=== PATIENT | female | born 1945 | race Caucasian/White ===

== ENCOUNTER 2019-06-30 09:57 | Outpatient (CLI) | payer MEDICARE, OTHER, SELFPAY | END 2019-06-30 09:58 | disposition home or self-care (01) | LOC: RT 09:58 | PROVIDERS: Family Provider Internal Medicine; PCP Internal Medicine; Visit Provider Internal Medicine | DX: F17.218 Nicotine dependence, cigarettes, with other nicotine-induced disorders (principal) | CPT/HCPCS: 94010 ==

== ENCOUNTER 2019-07-08 14:59 | Emergency (ER) | payer MEDICARE, OTHER, SELFPAY ==
[2019-07-08 15:07] VITALS: BP 187/86; PULSE 82; RESP 20; TEMP 36.6; O2SAT 98; BMI 27.3
--- NOTE | 2019-07-08 15:20 | ED_ITS ---
Entered by Diann Tadeo, acting as scribe for Le Haddad MD, [facility] Jul 08, 2019 14:59 HPI - General Adult General: Chief complaint: General Medical Stated complaint: not feeling right Time Seen by Provider: 07/08/19 15:15 Source: patient, family and RN notes reviewed Mode of arrival: ambulatory Limitations: no limitations History of Present Illness: HPI narrative: 73 yo female presents to ED with complaints of not feeling well since last night. She said she was talking with sister on phone and the sister said it was like the patient wasn't thinking straight. The sister said the patient was hearing someone in her kitchen last night but patient lives alone. The sister said it sounded like the patient is talking with her mouth clinched shut. The sister states the patient had something like this happen before and her blood sugar was high. The patient fell yesterday, saying she got tangled up in her recliner. The patient has not ran a fever but she said she is chilled all time. She said she has been vomiting once a week for over a month. She is currently being treated for a rash. The patient's last bowel movement was this morning. She said 4 of her toes on her R foot are numb. MD complaint: Confusion Onset (ago): day(s) (1) Location: head Radiation: non-radiation Severity: mild Exacerbating factors: none Associated symptoms: Reports chest pain, confusion, fevers/chills and malaise; Deny dyspnea, nausea, rash, palpitations or vomiting Treatments prior to arrival: none Review of Systems General: Reports: 10 or more systems reviewed and unremarkable except in HPI and below Const: Reports: malaise Eyes: Reports: blind spots; Denies: change in vision or blurry vision ENMT: Denies: throat pain, enlarged tonsils, painful swallowing, hoarseness, mouth pain or swelling of lips/tongue Card: Reports: chest pain; Denies: palpitations, irregular heart rhythm, edema or swelling of feet/ankles Resp: Denies: shortness of breath, productive cough or non-productive cough GI: Denies: abdominal pain, nausea or vomiting : Denies: flank pain, difficulty urinating, painful urination, urinary frequency, urinary urgency or urinary hesitancy Musc: Denies: neck pain, back pain or extremity swelling Skin/Breast: Denies: rash, itching or redness Neuro: Reports: confusion Endo: Denies: excessive urination, excessive thirst or tired all the time PFSH ED PFSH: Family History (Updated 05/31/19 @ 15:47 by Ariana Byrne RN) Mother CAD (coronary artery disease) Father Diabetes Other Cancer Social History (Updated 05/31/19 @ 15:48 by Ariana Byrne RN) Smoking and tobacco status: current every day smoker Alcohol intake: unknown Current gender identity: Female Physical Exam Const: COMMON NORMALS: no apparent distress, average body habitus, oriented x3, no limitations, healthy appearing, alert and well nourished HENMT: COMMON NORMALS: normocephalic, head/scalp atraumatic and moist oral mucous membranes HEAD & SCALP: normocephalic and atraumatic Eye: COMMON NORMALS: PERRL, EOMs intact bilaterally, conjunctivae normal and no scleral icterus CONJUNCTIVA: Yes conjunctivae normal PUPIL: Yes PERRL Neck/C-Spine: COMMON NORMALS: full ROM, supple, no meningeal signs, no JVD and no carotid bruits Chest: COMMONS NORMALS: inspection of chest normal and palpation of chest normal Resp: COMMON NORMALS: normal respiratory effort, no retractions, no use of accessory muscles, clear to auscultation bilaterally and percussion normal AUSCULTATION: clear to auscultation bilaterally PERCUSSION: percussion normal Cardio: COMMON NORMALS: no JVD, regular rate, regular rhythm, S1 normal heart sound, S2 normal heart sound, no gallops, no clicks, no murmurs, no rub and peripheral pulses 2+ throughout RATE: regular rate RHYTHM: regular rhythm HEART SOUNDS: S1 normal and S2 normal PERIPHERAL PULSES: pulses 2+ throughout GI: COMMON NORMALS: normal to inspection, nondistended, normoactive bowel sounds, soft to palpation, non-tender, no hepatosplenomegaly, no masses and no bruits PALPATION: Yes soft and Yes no hepatosplenomegaly : COMMON NORMALS: Yes no CVA tenderness BLADDER/KIDNEY EXAM: Yes no CVA tenderness Back/Pelvis: COMMON NORMALS: no CVA tenderness Extremity: COMMON NORMALS: normal to inspection, full ROM, normal capillary refill, no calf tenderness and no pedal edema Neuro: COMMON NORMALS: oriented x3 SENSORIUM/ORIENTATION: Yes alert MENINGEAL SIGNS: Yes no meningeal signs Skin: COMMON NORMALS: no rashes or lesions noted, no wounds, skin turgor normal, no jaundice, no petechiae and no mottling GENERAL SKIN EXAM: no rashes or lesions noted and turgor normal Course Reevaluation(s): Reevaluation #1: Discussed her lab and imaging findings with her. Symptoms consistent with a urinary tract infection. We will give her a dose of IV Rocephin which is currently infusing and will discharge her home on oral antibiotics. The patient voiced understanding and she is in agreement with the plan Time: 18:21 Vital Signs: Vital signs: Vital Signs Temperature 98 F 07/08/19 15:07 Pulse Rate 82 07/08/19 15:07 Respiratory Rate 20 H 07/08/19 15:07 Blood Pressure 187/86 07/08/19 15:07 Pulse Oximetry 98 07/08/19 15:07 MDM - General Adult MDM Narrative: Medical decision making narrative: Patient who presented to the emergency department with multiple vague symptoms. Her sister states that the patient was hallucinating, patient also has several complaints. Evaluation is consistent with a UTI. Head CT negative chest x-ray negative, white cell count normal. She is given a dose of Rocephin here in the emergency department and discharged home on oral Augmentin. Lab Data: Labs: Lab Results 07/08/19 07/08/19 07/08/19 Range/Units 15:20 15:56 15:56 WBC 8.1 (4.0-10.0) 10^3/ uL RBC 4.51 (4.1-5.3) 10^6/u L Hgb 10.5 L (11.5-15.3) g/dL Hct 36.6 L (37.0-47.0) % MCV 81.2 (81-99) fL MCH 23.3 L (28.0-34.0) pg MCHC 28.7 L (30.0-36.0) g/dL RDW 17.8 H (12.1-15.1) % Plt Count 287 (130-400) 10^3/c mm MPV 10.7 H (7.4-10.4) fL Neut % (Auto) 75.1 % Lymph % (Auto) 11.5 % Real % (Auto) 11.5 % Eos % (Auto) 1.0 % Baso % (Auto) 0.4 % Neut # (Auto) 6.1 (1.8-7.7) 10^3/u L Lymph # (Auto) 0.9 (0.8-4.8) 10^3/u L Real # (Auto) 0.9 (0.2-0.9) 10^3/u L Eos # (Auto) 0.1 (0.0-0.8) 10^3/u L Baso # (Auto) 0.0 (0.0-0.1) 10^3/u L Nucleated RBC % (a uto) 0.4 % Nucleated RBCs # 0.0 /100WBC Sodium 139 (136-145) mmol/L Potassium 4.1 (3.5-5.1) mmol/L Chloride 101 (98-107) mmol/L Carbon Dioxide 24 (22-29) mmol/L Anion Gap 18.1 (5-19) BUN 32 H (8-23) mg/dL Creatinine 1.6 H (0.5-0.9) mg/dL Glucose 231 H (65-115) mg/dL Calcium 9.5 (8.5-10.5) mg/dL Magnesium 1.8 (1.7-2.3) mg/dL Total Bilirubin 0.9 (0.15-1.2) mg/dL AST 41 H (0-32) U/L ALT 42 H (0-33) U/L Alkaline Phosphata se 330 H (35-105) IU/L NT-Pro-B Natriuret Pep 6759 H (0-125) pg/mL Total Protein 6.7 (6.6-8.7) g/dL Albumin 3.2 L (3.5-5.2) g/dL Globulin 3.5 (1.3-4.6) g/dL TSH 1.94 (0.27-4.20) uIU/ mL Urine Color Yellow (Yellow) Urine Appearance Cloudy (CLEAR) Urine pH 5 (5-7) Ur Specific Gravit y 1.020 (1.005-1.030) Urine Protein 3+ H (Negative) Urine Glucose (UA) Norm (Normal) Urine Ketones Negative (Negative) Urine Occult Blood Neg (Negative) Urine Nitrate Positive H (Negative) Urine Bilirubin Neg (NEGATIVE) Urine Urobilinogen Norm (Negative) mg/dL Ur Leukocyte Lori ase Negative (Negative) Urine RBC 5-10 H (0-2) /hpf Urine WBC 55-80 H (0-5) /hpf Ur Squamous Epith Cells 15-25 H (0-5) Urine Bacteria 4+ H (NONE) Salicylates < 0.3 L (3-10) mg/dL Acetaminophen < 5.0 L (10-30) ug/mL Ethyl Alcohol < 10 (0-10) mg/dL Imaging Data^: CT Head: Radiologist's impression: [place] [address] CT Scan Report Signed Patient: Shira Serrato #: [id number] : 6Acct#:[id number] Age/Sex: 73 / FADM Date: 07/08/19 Loc: ERRoom/Bed: Attending Dr: Ordering Provider/Ordering MD: Le Haddad MD, [facility] Date of Service: 07/08/19 Procedure(s): CT head wo con* [id number] Accession Number(s): [id number] Report Number: [id number] PROCEDURE INFORMATION: Exam: CT Head Without Contrast Exam date and time: 07/08/2019 3:51 PM Age: 73 years old Clinical indication: Altered mental status/memory loss; Confusion or disorientation TECHNIQUE: Imaging protocol: Computed tomography of the head without contrast. Total DLP: 727.34 mGy-cm Radiation optimization: All CT scans at this facility use at least one of these dose optimization techniques: automated exposure control; mA and/or kV adjustment per patient size (includes targeted exams where dose is matched to clinical indication); or iterative reconstruction. COMPARISON: No relevant prior studies available. 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 Ventricles: Normal. No ventriculomegaly. Bones/joints: Unremarkable. No acute fracture. Sinuses: Visualized sinuses are unremarkable. No fluid levels. Mastoid air cells: Visualized mastoid air cells are well aerated. Soft tissues: Unremarkable. Vasculature: Severe calcified intracranial atherosclerotic vessel disease. CT/CT head wo con* [id number] IMPRESSION: No acute intracranial findings. Radiation Dose CTDIVOL = (mGy): DLP = 727.34 (mGy-cm) Dictated By:Kb Byrd MD Signed By:Kb Byrd MDSigned Date/Time:07/08/197 DD/ EKG Data^: EKG 1: Attestation: I personally reviewed and interpreted this EKG as follows: EKG interpretation date: 07/08/19 EKG interpretation time: 16:08 Prior EKG tracings: not available for review Interpretation: Normal sinus rhythm with sinus arrhythmia. T wave inversions in V4 to V6. Normal axis. Heart rate 78. Computer generated interpretation: Head CT 07/08/19 15:40 IMPRESSION: No acute intracranial findings. Radiation Dose CTDIVOL = (mGy): DLP = 727.34 (mGy-cm) Discharge Plan Discharge Patient Disposition: Home, Self-Care Clinical Impression: Acute UTI Condition: Stable Prescriptions: New amoxicillin-pot clavulanate [Augmentin] 875-125 mg tablet 1 tab PO BID Qty: 14 RF: 0 Continued bumetanide 2 mg tablet 2 mg PO DAILY RF: 0 Lantus U-100 Insulin 100 unit/mL solution 40 unit SUBCUT BID RF: 0 atorvastatin 40 mg tablet 40 mg PO BEDTIME RF: 0 omeprazole 40 mg capsule,delayed release(DR/EC) 40 mg PO DAILY RF: 0 glipizide 5 mg tablet 5 mg PO BID RF: 0 citalopram 20 mg tablet 20 mg PO DAILY RF: 0 allopurinol 300 mg tablet 300 mg PO DAILY RF: 0 lisinopril 40 mg tablet 40 mg PO DAILY RF: 0 metoprolol tartrate 50 mg tablet 50 mg PO DAILY RF: 0 aspirin [Adult Low Dose Aspirin] 81 mg tablet,delayed release (DR/EC) 81 mg PO DAILY RF: 0 ProAir HFA 2 puff PO PRN RF: 0 permethrin 5 % Cream 1 applic TOPICAL DIRECTED RF: 0 Discharge Orders: Discharge Order (Routine); Ordered 07/08/19 Ordered By: Le Haddad Referrals: Amber Esquivel MD [Primary Care Provider] - 1-3 days Patient Instructions: Urinary Tract Infection in Women (ED) Activity Restrictions/Additional Instructions: Return for any new or worsening symptoms. Drink plenty of fluids to keep well-hydrated. Take the antibiotic as prescribed. Follow-up with your primary care provider within 3 days Coding Level of Care Code ED Icu Tech for Chg Fwd Exam Comprehensive The documentation recorded by the Shwetha valdez Valerie R, accurately reflects the service I personally performed and the decisions made by , Le Haddad MD, [facility] Jul 08, 2019 14:59
--- NOTE | 2019-07-08 15:40 | CTR_ITS ---
PROCEDURE INFORMATION: Exam: CT Head Without Contrast Exam date and time: 07/08/2019 3:51 PM Age: 73 years old Clinical indication: Altered mental status/memory loss; Confusion or disorientation TECHNIQUE: Imaging protocol: Computed tomography of the head without contrast. Total DLP: 727.34 mGy-cm Radiation optimization: All CT scans at this facility use at least one of these dose optimization techniques: automated exposure control; mA and/or kV adjustment per patient size (includes targeted exams where dose is matched to clinical indication); or iterative reconstruction. COMPARISON: No relevant prior studies available. 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 Ventricles: Normal. No ventriculomegaly. Bones/joints: Unremarkable. No acute fracture. Sinuses: Visualized sinuses are unremarkable. No fluid levels. Mastoid air cells: Visualized mastoid air cells are well aerated. Soft tissues: Unremarkable. Vasculature: Severe calcified intracranial atherosclerotic vessel disease. CT/CT head wo con* [id number] IMPRESSION: No acute intracranial findings. Radiation Dose CTDIVOL = (mGy): DLP = 727.34 (mGy-cm)
--- NOTE | 2019-07-08 15:40 | ECG_ITS ---
Measurements Intervals [place] Rate: 78 P: 15 IL: 186 QRS: 15 QRSD: 81 T: 156 QT: 445 QTc: 510 SINUS RHYTHM WITH SINUS ARRHYTHMIA ST DEVIATION AND MODERATE T-WAVE ABNORMALITY, CONSIDER LATERAL ISCHEMIA [-0.1+ mV T WAVE IN I/aVL/V5/V6] Left ventricular hypertrophy Compared to ECG 11/20/2016 18:32:17 T-wave abnormality now present Possible ischemia now present Electronically Signed On 07-09-2019 9:12:19 NEW [employer]ING SERVICES CLERK by Glynn Ellis M.D. [email or web address]
--- NOTE | 2019-07-08 15:41 | XR_ITS ---
WS: [id number] XR chest 2V* [id number] REASON FOR EXAM: confusion FINDINGS: Since previous exam, August 04 sternotomy changes are seen with mitral valve re placement. The peripheral lung show chronic changes including granulomas no pulmonary edema. No pneumonia. XR/XR chest 2V* [id number] IMPRESSION: Mitral valve replacement since previous exam Chronic changes both lung saldivar.
[2019-07-08 16:14] LABS: Blood Urine Neg (Negative); Glucose Urine UA Norm (Normal); Ketones Urine Negative (Negative); Nitrate Urine Positive (Negative); Urine Appearance Cloudy (CLEAR); Urine Color Yellow (Yellow); pH Urine 5 (5-7)
[2019-07-08 16:15] LABS: Basophils % 0.4 %; Eosinophils # 0.1 10^3/uL (0.0-0.8); Hematocrit 36.6 % (37.0-47.0); Hemoglobin 10.5 g/dL (11.5-15.3); Lymphocytes # 0.9 10^3/uL (0.8-4.8); Lymphocytes % 11.5 %; Mean Corpuscular HGB Conc 28.7 g/dL (30.0-36.0); Mean Corpuscular Hemoglobin 23.3 pg (28.0-34.0); Mean Corpuscular Volume 81.2 fL (81-99); Mean Platelet Volume 10.7 fL (7.4-10.4); Monocytes # 0.9 10^3/uL (0.2-0.9); Monocytes % 11.5 %; Neutrophils # 6.1 10^3/uL (1.8-7.7); Neutrophils % 75.1 %; Nucleated Red Blood Cells % 0.4 %; Platelet Count 287 10^3/cmm (130-400); Red Blood Count 4.51 10^6/uL (4.1-5.3); Red Cell Distribution Width 17.8 % (12.1-15.1); White Blood Count 8.1 10^3/uL (4.0-10.0)
[2019-07-08 16:15] LABS: Add Urine Microscopic? YES; Bilirubin Urine Neg (NEGATIVE); Leukocyte Esterase Urine Negative (Negative); Protein Urine 3+ (Negative); Urobilinogen Urine Norm (Negative)
[2019-07-08 16:22] LABS: Add Urine Culture? No; Bacteria Urine 4+; Squamous Epithelial Cell Urine 15-25 (0-5); WBC Urine 55-80 /hpf (0-5)
[2019-07-08 16:41] LABS: Alanine Aminotransferase 42 U/L (0-33); Albumin Level 3.2 g/dL (3.5-5.2); Alkaline Phosphatase 330 IU/L (35-105); Anion Gap 18.1 (5-19); Aspartate Amino Transferase 41 U/L (0-32); Blood Urea Nitrogen 32 mg/dL (8-23); Calcium 9.5 mg/dL (8.5-10.5); Carbon Dioxide 24 mmol/L (22-29); Chloride 101 mmol/L (98-107); Globulin 3.5 g/dL (1.3-4.6); Glucose 231 mg/dL (65-115); Magnesium 1.8 mg/dL (1.7-2.3); NT Pro B Type Natriuretic Pept 6759 pg/mL (0-125); Potassium 4.1 mmol/L (3.5-5.1); Sodium 139 mmol/L (136-145); Thyroid Stimulating Hormone 1.94 uIU/mL (0.27-4.20); Total Bilirubin 0.9 mg/dL (0.15-1.2); Total Protein 6.7 g/dL (6.6-8.7)
[2019-07-08 17:05] LABS: Acetaminophen < 5.0 ug/mL (10-30); Alcohol Level < 10 mg/dL (0-10); Salicylate < 0.3 mg/dL (3-10)
--- NOTE | 2019-07-08 18:04 | PC.NURSE ---
PATIENT RESTING QUIETLY, NO NEEDS VOICED
[2019-07-08] MEDS: cefTRIAXone 1,000 MG in sodium chloride 0.9% (plus) 50 ML 100 MG IV (18:14)
--- NOTE | 2019-07-08 18:39 | PC.NURSE ---
FOOD AND DRINK GIVEN
[2019-07-08 18:51] VITALS: BP 181/71; PULSE 93; RESP 16; O2SAT 88
== END 2019-07-08 19:44 | disposition home or self-care (01) ==
PROVIDERS: Emergency Provider Family Medicine; Family Provider Internal Medicine; PCP Internal Medicine
DX: N39.0 Urinary tract infection, site not specified (principal); F17.200 Nicotine dependence, unspecified, uncomplicated
CPT/HCPCS: 70450; 71046; 80053; 80307; 81001; 83735; 83880; 84443; 85025; 93005; 96365; 99283; 99284; A9270; J0696

== ENCOUNTER 2019-11-08 07:09 | Inpatient (IN) | payer MEDICARE, OTHER, SELFPAY ==
[2019-11-07 10:02] VITALS: BMI 28.1
[2019-11-08] VITALS (49 sets, daily range): BP systolic 101–195; BP diastolic 39–111; PULSE 68–116; RESP 13–30; TEMP 36.4–37.6; O2SAT 86–100
--- NOTE | 2019-11-08 06:00 | XACV_ITS ---
Ht: 152 cm Wt: 65 kg BSA: 1.68 m2 Any Known Allergies: Latex Gender: Female : 1945 Exam Type: Invasive Peripheral Vascular Procedure(s): Procedure Description: Peripheral Cath Diagnostic Procedure Procedure Description: Lower extremities' angiography Exam Priority: Routine Lower Extremity Diagnostic Findings Patient has previous endarterectomy and intervention to the right common femoral artery as well as the right external iliac artery for claudication. She now complains of right leg claudication. She declined noninvasive studies. She was recommended for angiography. She is Jason grade I, category 3; Amelia stage II. On the right the common iliac is patent with mild to moderate calcification. The internal iliac is patent. The external iliac is mildly diffusely diseased as is the common femoral artery. The profunda femoris is patent and provides collateral flow distally. The superficial femoral artery is occluded at its origin. The vessel reconstitutes via collaterals from the profunda femoris in the mid superficial femoral artery region. The popliteal artery is patent. There is mild to moderate diffuse disease. The anterior tibial is occluded shortly after its origin. The posterior tibial is also occluded. The tibial peroneal trunk is patent barely and extends distally as the peroneal artery which is a small artery that extends down just above the ankle. Only the proximal aspect of the left leg was imaged. The common iliac contains a 30% stenosis proximally. There is a small remnant of the internal iliac. The external iliac is stented and there is moderate in-stent restenosis. Common femoral is patent. The profunda femoris appears patent in the proximal aspect of the superficial femoral artery is patent. Lower Extremity Interventional Findings See intervention attempt explanation in the summary section. 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 A wire was placed down the vessel but it felt as though the wire was subintimal most of the way. I could not advance a balloon past the proximal superficial femoral artery. I did assess for vessel patency more distally using a seeker catheter and it appeared as though the wire was intraluminal however I felt as though the wire had become subintimal at least 1 or 2 times. I did not feel comfortable inflating a balloon and a space that I was not sure was intraluminal. The procedure was then abandoned and the patient will be brought back for a popliteal approach. Hemodynamic Data Phase:Rest AO : 201.0 mmHg / 73.0 mmHg ( 116.0 mmHg ) @ 2:12:00 AM 120.0 mmHg / 77.0 mmHg ( 97.0 mmHg ) @ 2:15:00 AM 116.0 mmHg / 56.0 mmHg ( 78.0 mmHg ) @ 2:36:00 AM 115.0 mmHg / 52.0 mmHg ( 77.0 mmHg ) @ 2:38:00 AM Access Site Site: Left Femoral artery Sheath Size: 6 Fr Hemost... Success: Unsuccessful Procedure Details Findings Procedure Consent Obtained. Pre-Procedure Time Out. Identified patient by full name and date of as verbalized by the patient/guarantor. Does the consent match the physician's order: Yes. Accurate & Complete Informed Consent: Yes. If H&P is completed, is and addenduem needed: Yes; If yes, is the addendum complete: Yes. Visualize and Verify Site with Patient/Guarantor: N/A. Relevant Radiology Images available: Yes. The risks, benefits, and alternatives of sedation and/or procedure were discussed by physician. The patient agrees to continue. Procedure started. Manager [place] Indications: PVD. Correct patient, site and procedure confirmed by cath team. PERRLA. Strong, equal hand emc storage architect bilaterally. Lungs clear x 5 lobes. IV Site on Arrival: 18 gauge in the left anticubital. IV Fluids: 0.9% NaCl at KVO. 0 mL infused prior to slab tripper. Pre Procedural Pulses: bilateral dorsalis pedis was Doppled. Pre Procedural Pulses: bilateral posterior tibial was Doppled. Oxygen started at 2liters/min via nasal canula. bilateral groins was prepped with chloroprep then draped in the usual sterile fashion. Physician notified. Equipment: 6F - Femoral. Cardiac Cath Pack. ACIST Manifold Kit Model BT 2000. Heparinized Saline (2 units/mL), 1000 mL bag. Equipment: Peripheral. Inventory is JJ 6F 11cm Sol Plus Sheath. Physician arrived. Physician scrubbed in. Time out performed with cath team. Lidocaine 1% infiltrated to the left groin. Arterial access obtained. A 5FrFr UF catheter in over wire. Abdominal aortogram performed in AP @ 10 mL/sec for a total of 30 mL. Glidewire in. Catheter removed over the glide wire. A 5Fr RIM catheter in over wire. Glidewire out. Pigtail postioned above the bifurcation of the iliacs. Aortagram performed @ 10 mL/sec for a total of 30 mL. Glidewire in. Catheter removed over the glide wire. Sheath upsized to a 6 Fr Flexor. Seeker support catheter inserted over the glidewire. Glidewire out, hand injection performed. Glidewire in. Seeker support catheter out over the glidewire. [place] 35 LL 4.0 x 200 Balloon in and unable to cross the leasion, balloon out. Seeker support catheter in over the glidewire. Glidewire out. Glidewire in. Side port of sheath attached to Normal Saline flush at KVO to maintain patency. Seeker support catheter out over the glidewire. Sheath injected in Right common femoral artery and runoff performed. Glidewire out. Physician scrubbed out. Sheath(s) removed and manual pressure held until hemostasis was achieved. Sterile 4x4 and Op-site applied to the puncture site. No oozing or hematoma noted. Post sheath removal instructions were given and the patient verbalized understanding. Post Procedure: Pulses reassessed and unchanged. PERRLA. Strong, equal hand emc storage architect bilaterally. No VTE prophylaxis required. Medication's Wasted: Lidocaine 1% = mg. Medication's Wasted: Heparin = 4000 Units. Total IV fluids: 100 mL. Post-op diagnosis: PAD. Complications: . Complications: none. Estimated blood loss: 5mL-10mL. Procedure completed. Patient transferred by bed to 1st floor. Vital chart was stopped. Procedure Medications Start: 7:03 AM Stop: 7:03 AM Medication: Versed Amount: 1 mg Route: I.V. Start: 7:03 AM Stop: 7:03 AM Medication: Fentanyl Amount: 50 mcg Route: I.V. Start: 7:26 AM Stop: 7:26 AM Medication: Versed Amount: 1 mg Route: I.V. Start: 7:26 AM Stop: 7:26 AM Medication: Fentanyl Amount: 50 mcg Route: I.V. Start: 7:43 AM Stop: 7:43 AM Medication: Versed Amount: 1 mg Route: I.V. Start: 7:43 AM Stop: 7:43 AM Medication: Fentanyl Amount: 50 mcg Route: I.V. I, the attending physician, have reviewed and verified all procedure medications. Yes, all medications given per verbal order History/Risk Factors Hypertension: Yes Dyslipidemia: Yes Peripheral Arterial Disease (PAD): Yes Obesity: No Renal Disease: No Tobacco Use: Former Prior Interventions PCI: Yes CABG: Yes Valve Surgery: Yes Report Signatures Finalized by:Dr. Glynn Ellis MD on 11/08/2019 8:02:43 AM
[2019-11-08] MEDS: diphenhydrAMINE 50 mg Capsule PO (06:40)
[2019-11-08 06:44] LABS: Basophils % 0.7 %; Eosinophils # 0.2 10^3/uL (0.0-0.8); Eosinophils % 4.2 %; Hematocrit 38.7 % (37.0-47.0); Hemoglobin 12.4 g/dL (11.5-15.3); Lymphocytes # 0.9 10^3/uL (0.8-4.8); Lymphocytes % 14.8 %; Mean Corpuscular Hemoglobin 28.3 pg (28.0-34.0); Mean Corpuscular Volume 88.4 fL (81-99); Mean Platelet Volume 11.3 fL (7.4-10.4); Monocytes # 0.7 10^3/uL (0.2-0.9); Monocytes % 11.8 %; Neutrophils # 3.9 10^3/uL (1.8-7.7); Neutrophils % 67.8 %; Nucleated Red Blood Cells % 0 %; Platelet Count 188 10^3/cmm (130-400); Red Blood Count 4.38 10^6/uL (4.1-5.3); Red Cell Distribution Width 14.3 % (12.1-15.1); White Blood Count 5.8 10^3/uL (4.0-10.0)
--- NOTE | 2019-11-08 06:50 | PM.HP ---
Providers/Chief Complaint Admitting Physician: Caleb Primary Care Provider: Amber Esquivel MD Chief Complaint: Right leg pain History of Present Illness Shira Serrato is a 74 year old female with a complex set of problems. She came to me several years ago with angina and mitral regurgitation. She went to [place] where she ended up with bypass surgery and a mitral valve repair. I never did get an operative report so I do not know where her grafts are. She also has peripheral arterial disease. In 2015 she had distal left external iliac and left common femoral artery endarterectomy with a patch angioplasty. This was done elsewhere also. She came back to see me in December of last year with a recurrence of claudication on the left. Her distal left common iliac artery was occluded at the takeoff of the hypogastric and external iliac. There was a 99% stenosis of the distal left common femoral artery at the ostium of the left SFA. This entire area was treated with balloon angioplasty and drug-eluting balloon angioplasty. The iliac lesion was stented. She has done well with her left leg. I saw her in the office on October 04 with right leg pain. She states that the right leg pain is similar to what she experienced on the left. She has other issues including congestive heart failure, ischemic cardiomyopathy, dyslipidemia, diabetes, hypertension, COPD, tobacco abuse, right subclavian artery stenosis and secondary pulmonary hypertension. She did not want to have a noninvasive study so we simply scheduled her for an angiogram. Review of Systems General: Reports: 10 or more systems reviewed and unremarkable except in HPI and below Medications/Allergies Home Medications Medication Instructions Recorded Confirmed Last Taken Type allopurinol 300 mg tablet 300 mg PO DAILY tab 05/31/19 11/07/19 11/07/19 08:00 History 300 MG aspirin 81 mg tablet,delayed 81 mg PO DAILY tab 05/31/19 11/07/19 11/07/19 08:00 History release 81 MG atorvastatin 40 mg tablet 40 mg PO BEDTIME tab 05/31/19 11/08/19 11/07/19 21:00 History bumetanide 2 mg tablet 2 mg PO DAILY tab 05/31/19 11/07/19 11/07/19 08:00 History 2 MG citalopram 20 mg tablet 20 mg PO DAILY tab 05/31/19 11/07/19 11/07/19 08:00 History 20 MG insulin glargine 100 unit/mL 40 unit SUBCUT BID ml 05/31/19 11/07/19 11/08/19 05:00 History subcutaneous solution 40 UNIT lisinopril 40 mg tablet 40 mg PO DAILY tab 05/31/19 11/07/19 11/07/19 08:00 History 40 MG metoprolol tartrate 50 mg tablet 50 mg PO DAILY tab 05/31/19 11/07/19 11/07/19 08:00 History 50 MG omeprazole 40 mg capsule,delayed 40 mg PO DAILY cap 05/31/19 11/07/19 11/07/19 08:00 History release 40 MG ProAir HFA 2 puff PO PRN 07/08/19 11/07/19 11/07/19 08:00 History 2 puff Allergies Allergy/AdvReac Type Severity Reaction Status Date / Time latex Allergy Unknown Unknown Verified 11/08/19 06:40 PFSH Acute PFSH: Medical History Aortic insufficiency with aortic stenosis CHF (congestive heart failure) COPD (chronic obstructive pulmonary disease) Diabetes 1.5, managed as type 2 Essential hypertension Hyperlipidemia Ischemic cardiomyopathy Mitral regurgitation PAD (peripheral artery disease) Pulmonary HTN Subclavian arterial stenosis Tobacco abuse Surgical History H/O mitral valve repair Hx of CABG Family History Mother CAD (coronary artery disease) Father Diabetes Other Cancer Social History Smoking and tobacco status: former smoker Quit status (tobacco): has quit using tobacco Year quit tobacco: 2019 - 1PPD hx x 40 Years Alcohol intake: never Lives independently: Yes Household members: none Marital status: / Current occupational status: retired History of recent travel: No Current gender identity: Female Vitals/I&O/Wt Last Vital Signs Temp 98.2 F 11/08/19 06:41 Pulse 94 11/08/19 06:41 Resp 17 11/08/19 06:41 BP 195/82 11/08/19 06:41 Pulse Ox 99 11/08/19 06:41 Weight last 48 hrs Weight 144 lb Physical Exam Narrative: EXAM NARRATIVE: GENERAL: In general she is comfortable at rest HEENT: Exam within normal limits. NECK: Supple without jugular vein distention. The carotid upstroke is normal without bruits. BACK: Exam normal. LUNGS: Clear. HEART: Regular rate and rhythm. ABDOMEN: Benign without organomegaly or tenderness. EXTREMITIES: No edema. NEUROLOGIC: Exam normal. SKIN: Unremarkable. Data : 11/08/19 06:35 A&P Assessment and plan (1) Hx of CABG: Status: Acute (2) H/O mitral valve repair: Status: Acute (3) Aortic insufficiency with aortic stenosis: Status: Acute (4) Subclavian arterial stenosis: Status: Acute (5) PAD (peripheral artery disease): Status: Acute (6) CHF (congestive heart failure): Status: Acute (7) Hyperlipidemia: Status: Acute (8) Essential hypertension: Status: Acute (9) Diabetes 1.5, managed as type 2: Status: Acute (10) Ischemic cardiomyopathy: Status: Acute (11) Tobacco abuse: Status: Acute (12) COPD (chronic obstructive pulmonary disease): Status: Acute (13) Pulmonary HTN: Status: Acute Additional A&P Information Lower abdominal angiography and lower extremity angiography today. Intervention on the right as necessary. Attestations Medical Necessity Statement*: Outpatient in a bed Coding Level of Care Code New Pt Acute Diesel Service Journeyman for Chg Fwd Patient Type New History Detailed Exam Detailed Medical Decision Making Moderate Complexity Diagnoses Hx of CABG Z95.1 H/O mitral valve repair Z98.890 Aortic insufficiency with aortic stenosis I35.2 Subclavian arterial stenosis I77.1 PAD (peripheral artery disease) I73.9 CHF (congestive heart failure) I50.9 Hyperlipidemia E78.5 Essential hypertension I10 Diabetes 1.5, managed as type 2 E13.9 Ischemic cardiomyopathy I25.5 Tobacco abuse Z72.0 COPD (chronic obstructive pulmonary disease) J44.9 Pulmonary HTN I27.20
[2019-11-08 07:04] LABS: Anion Gap 16.3 (5-19); Blood Urea Nitrogen 24 mg/dL (8-23); Calcium 9.8 mg/dL (8.5-10.5); Carbon Dioxide 25 mmol/L (22-29); Chloride 99 mmol/L (98-107); Glucose 260 mg/dL (65-115); Osmolality Calculated 288 mOsm/kg (285-295); Potassium 4.3 mmol/L (3.5-5.1); Sodium 136 mmol/L (136-145)
--- NOTE | 2019-11-08 09:39 | PM.EVENT ---
Event Note Event Note: Shortly after the patient arrived to the floor she began complaining of numbness and pain in her right foot. The nurse alerted me to this. The patient superficial femoral artery is occluded at the origin. There was collateral flow from the profunda femoris at the distal SFA. I was able to get a wire down the SFA but was never comfortable at the wire was intraluminal. For this reason I did not inflate a balloon in the superficial femoral artery. I am certain that given the origin point of the profunda femoris and that this vessel provides collateral flow some plaque was shifted into the profunda which has decreased the collaterals to the distal leg causing limb ischemia of the foot. Her foot is slightly more discolored than the left foot and slightly cooler. She is going to need a revascularization procedure which I think will be most appropriately and efficiently accomplished with surgery. I have contacted Dr. Victor and he will review the films and see her. She has been made n.p.o. and hopefully will be able to have revascularization later today.
[2019-11-08] MEDS: fentaNYL 50 mcg/mL INJ 2mL 25 MCG IVP (10:05)
[2019-11-08] MEDS: citalopram 20 mg Tablet PO (10:39)
[2019-11-08] MEDS: lisinopril 20 mg Tablet 40 MG PO (10:39)
[2019-11-08] MEDS: allopurinol 300 mg Tablet PO (10:40)
[2019-11-08] MEDS: metoprolol tartrate 50 mg Tablet PO (10:40)
[2019-11-08] MEDS: pantoprazole DR 40 mg Tablet PO (10:40)
--- NOTE | 2019-11-08 10:47 | PC.NURSE ---
pt bedbound due to femoral procedure this morning.unable to give septisol shower.chlorhexadine wipe bath given preop
[2019-11-08 11:27] LABS: Glucose Point of Care 208 mg/dL (70-110)
[2019-11-08 11:47] LABS: INR 1.02 (0.8-1.2)
--- NOTE | 2019-11-08 11:47 | PC.NURSE ---
pt received into room 106 from dairy and food laboratory assistant at 0805.report received.pt is sleepy but easily arousable.dairy and food laboratory assistant staff state that pt has right subclavian stenosis,so advise bp's be taken in left arm.sr on monitor.left groin arterial sheath had been pulled by dairy and food laboratory assistant staff.left groin with drsg dry and intact and no hematoma noted.left dp and pt pulses are dopplerable.no dopplerable dp/pt pulses noted in right foot.both feet are warm to touch and with brisk capillary refill.oriented to room environment.instructed in activity restrictions s/p right femoral procedure..and instructed to notify staff for any bleeding,pain,numbness..or for any concerns at all.pt verb understanding of instructions.
[2019-11-08 11:48] LABS: Partial Thromboplastin Time 27.8 SECONDS (23.9-36.7)
--- NOTE | 2019-11-08 11:48 | P.CONIM_ITS ---
Providers/Reason For Consult Consulting Physican/Specialty*: Dr. Victor, cardiothoracic surgery Reason for Consult*: Acute ischemia left lower extremity Attending Physician: Glynn Ellis MD Primary Care Provider: Amber Esquivle MD History of Present Illness History of Present Illness Shira Serrato is a 74 year old female with a known history for cardiovascular disease status post CABG and mitral valve repair in [place]. She has known peripheral vascular disease and had a status post distal external iliac and left common femoral artery endarterectomy with patch angioplasty in 2016. She had restenosis of the region underwent successful intervention by Dr. Caleb abdullahi balloon angioplasty of this region. External iliac artery underwent stenting by Dr. Ellis at the same time. She re-presented with complaints of right leg discomfort, very suggestive for exercise-induced ischemia. Earlier today she underwent angiography with planned intervention to the right lower extremity where she was found to have a right SFA occlusion. Dr. Ellis was able to successfully pass a wire and subsequent catheter though he was concerned that he may not be in the true lumen. Therefore he elected not to perform intervention. Post procedure, however, the patient began complaining of substantial discomfort to the right foot which was cool and had pallor. Dr. Ellis was concerned that perhaps there was compromised flow to the right femoral profundus which was open at the time of the procedure earlier today. Dr. Ellis contacted me by phone concerning the events of the day and I have reviewed the angiography that he performed earlier today. She does appear to have reconstitution of the right SFA above the knee though there may be a discrete lesion right at the knee. Given the ongoing discomfort and cool right foot, I concur with Dr. Ellis's recommendation that we should consider an expeditious right femoral-popliteal artery bypass. At the time of my exam she had received from fentanyl and so her discomfort was better her right foot was cool. It is not anesthetic and she can move her toes to command. There is clearly a substantial difference however, in the right foot as compared to the left. There is also delayed capillary refill. We are currently making preparations to proceed with an expeditious attempt at revascularization with a right femoral-popliteal artery bypass. Rationale for this was carefully discussed with her, and she states understanding wished to proceed. She does have morbidity risk which include diabetes mellitus, ischemic cardiomyopathy, CHF, dyslipidemia, severe pulmonary hypertension, tobacco use, COPD, as well as right subclavian artery stenosis. Review of Systems Card: Reports: dyspnea on exertion and other (Right leg and foot pain with ambulation); Denies: chest pain or palpitations Resp: Denies: dyspnea or productive cough GI: Reports: heartburn; Denies: abdominal pain, nausea, vomiting, hematemesis or coffee ground emesis : Reports: difficulty voiding Musc: Reports: extremity pain (With ambulation right leg) Neuro: Denies: numbness in extremities, sensory changes or difficulty walking Meds/Allergies Home Medications and Allergies Home Medications Medication Instructions Recorded Confirmed Last Taken Type allopurinol 300 mg tablet 300 mg PO DAILY tab 05/31/19 11/07/19 11/07/19 08:00 History 300 MG aspirin 81 mg tablet,delayed 81 mg PO DAILY tab 05/31/19 11/07/19 11/07/19 08:00 History release 81 MG atorvastatin 40 mg tablet 40 mg PO BEDTIME tab 05/31/19 11/08/19 11/07/19 21:00 History bumetanide 2 mg tablet 2 mg PO DAILY tab 05/31/19 11/07/19 11/07/19 08:00 History 2 MG citalopram 20 mg tablet 20 mg PO DAILY tab 05/31/19 11/07/19 11/07/19 08:00 History 20 MG insulin glargine 100 unit/mL 40 unit SUBCUT BID ml 05/31/19 11/07/19 11/08/19 05:00 History subcutaneous solution 40 UNIT lisinopril 40 mg tablet 40 mg PO DAILY tab 05/31/19 11/07/19 11/07/19 08:00 History 40 MG metoprolol tartrate 50 mg tablet 50 mg PO DAILY tab 05/31/19 11/07/19 11/07/19 08:00 History 50 MG omeprazole 40 mg capsule,delayed 40 mg PO DAILY cap 05/31/19 11/07/19 11/07/19 08:00 History release 40 MG ProAir HFA 2 puff PO PRN 07/08/19 11/07/19 11/07/19 08:00 History 2 puff Allergies Allergy/AdvReac Type Severity Reaction Status Date / Time latex Allergy Unknown Unknown Verified 11/08/19 06:40 Current Medications Current Medications Generic Name Dose Route Start Last Admin Trade Name Freq PRN Reason Stop Dose Admin Allopurinol 300 mg 11/08/19 09:00 11/08/19 10:40 Zyloprim PO 300 mg DAILY QI Administration Aspirin 81 mg 11/08/19 09:00 11/08/19 10:40 Aspirin Ec PO Not Given DAILY [facility] Chlorhexidine Gluconate 1 applic 11/08/19 10:30 11/08/19 10:46 Betasept TOPICAL Not Given DAILY [facility] Citalopram Hydrobromide 20 mg 11/08/19 09:00 11/08/19 10:39 Celexa PO 20 mg DAILY QI Administration Fentanyl 25 mcg 11/08/19 09:59 11/08/19 10:05 Sublimaze IVP 25 mcg Q2H PRN Administration SEVERE PAIN Sodium Chloride 1,000 mls @ 50 mls/hr 11/08/19 06:00 11/08/19 06:40 Sodium Chloride 0.9% IV 11/09/19 01:59 Not Given .Q20H ONE Insulin Glargine 40 unit 11/08/19 09:00 11/08/19 09:39 Lantus SUBCUT Not Given BID [facility] Lisinopril 40 mg 11/08/19 09:00 11/08/19 10:39 Prinivil PO 40 mg DAILY QI Administration Metoprolol Tartrate 50 mg 11/08/19 09:00 11/08/19 10:40 Lopressor PO 50 mg DAILY QI Administration Pantoprazole Sodium 40 mg 11/08/19 09:00 11/08/19 10:40 Protonix PO 40 mg DAILY QI Administration PFSH Acute PFSH: Medical History (Updated 11/08/19 @ 11:59 by Moustapha Victor MD) Aortic insufficiency with aortic stenosis CHF (congestive heart failure) COPD (chronic obstructive pulmonary disease) Diabetes 1.5, managed as type 2 Essential hypertension Hyperlipidemia Ischemia of right lower extremity Ischemic cardiomyopathy Mitral regurgitation PAD (peripheral artery disease) Pulmonary HTN Subclavian arterial stenosis Tobacco abuse Surgical History H/O mitral valve repair Hx of CABG Family History Mother CAD (coronary artery disease) Father Diabetes Other Cancer Social History Smoking and tobacco status: former smoker Quit status (tobacco): has quit using tobacco Year quit tobacco: 2019 - 1PPD hx x 40 Years Alcohol intake: never Lives independently: Yes Household members: none Marital status: / Current occupational status: retired History of recent travel: No Current gender identity: Female Vitals/I&O/Wt Last Vital Signs Temp 97.6 F 11/08/19 11:20 Pulse 86 11/08/19 11:20 Resp 16 11/08/19 11:20 BP 122/80 11/08/19 11:20 Pulse Ox 93 11/08/19 11:20 Weight last 48 hrs Weight 144 lb Physical Exam Const: ORIENTATION/CONSCIOUSNESS: Yes oriented to person, Yes oriented to place and Yes oriented to time Neck/C-Spine: COMMON NORMALS: no JVD Resp: COMMON NORMALS: normal respiratory effort, No use of accessory muscles and clear to auscultation bilaterally EFFORT & INSPECTION: Yes able to speak in complete sentences AUSCULTATION: clear to auscultation bilaterally Cardio: COMMON NORMALS: no JVD, regular rate, regular rhythm and S1 normal heart sound present PALPATION: normal PMI RATE: regular rate RHYTHM: regular rhythm HEART SOUNDS: S1 normal heart sound present PERIPHERAL PULSES: femoral pulses present positive right 2+ and popliteal pulses present positive right diminished Extremity: OTHER: Right foot is cool to touch. Poor capillary refill she has not anesthetic. She can move her toes to command. Left foot is warm with good capillary refill. Neuro: COMMON NORMALS: no focal motor deficits and no sensory deficits noted SENSORIUM/ORIENTATION: Yes oriented to person, Yes oriented to place and Yes oriented to time Psych: COMMON NORMALS: speech normal SPEECH: Yes normal speech Skin: COMMON NORMALS: turgor normal GENERAL SKIN EXAM: turgor normal A&P Assessment and plan (1) Ischemia of right lower extremity: Acute ischemia right lower extremity with right SFA occlusion Plan: We will proceed with expeditious attempt at revascularization by right femoral-popliteal artery bypass utilizing [place] graft. Her small stature what appears to be diffuse disease and relatively small vessels may make this attempt challenging. I have personally reviewed the angiography and have conferred with Dr. Ellis by phone. Details the rationale for surgery were carefully and frankly discussed with Ms. Serrato. She is in agreement and wishes for us to proceed. Potential risk of major bleeding, infection, ongoing ischemia, need for further surgery, and possible need for major amputation were carefully and frankly discussed. At this time, she has informed myself and her nurse, Kimberlee, that she does not wish for us to contact her son. Status: Acute Consult Attestations Medical Necessity Statement: Acute ischemia right lower extremity with right SFA occlusion Time Spent in Patient Care: Greater than 35 minutes Coding Level of Care Code New Pt Acute Digital Media Planner for Chg Fwd Patient Type New Exam Detailed Medical Decision Making Moderate Complexity Diagnoses Ischemia of right lower extremity I99.8 Time Spent (min) 45
--- NOTE | 2019-11-08 11:57 | PC.NURSE ---
at 0910 pt c/o burning and numbness in right foot and lower right leg.right foot felt slightly cool to touch and pallor noted.no dopplerable pulses...but pt did not have dopplerable pulses in right foot post-op..and none were marked on right foot pre-op.dr mark notified immediately.he came to room and assessed pt.stated that he will consult with dr ash.fentanyl ordered for pain control.dr ash came to see pt at approx 1130.states he plans to take pt to or at approx 1300 for fem-pop bypass.consent explained and signed by pt.pt states she does not want to contact her son krystyna donato prior to surgery...but gave his number for record ([phone])
--- NOTE | 2019-11-08 12:24 | PC.NURSE ---
to or at at 1220
--- NOTE | 2019-11-08 12:37 | ANES.PREANE2 ---
Pre-Anesthetic Assessment Pre-Anesthetic Assessment: Height/Weight: Height 1.52 m Weight 65.317 kg Temp Pulse Resp BP Pulse Ox 97.6 F 76 16 107/70 94 11/08/19 12:25 11/08/19 12:25 11/08/19 12:25 11/08/19 12:25 11/08/19 12:25 Proposed Procedure: Operation Date: 11/08/19 07:00 Proposed Procedures p Peripheral Diagnostic(Bilateral) - Glynn Ellis MD Operation Date: 11/08/19 13:00 Proposed Procedures p Femoral-Popliteal Artery Bypass(Right) - Moustapha Victor MD Last intake: Intake Last Liquid Date 11/08/19 Last Liquid Time 08:00 Last Solid Date 11/07/19 Last Solid Time 21:00 Social: Social History: Tobacco and No alcohol Exam: Pre-Anes Outpt Exam: alert, oriented x 3, clear to auscultation bilaterally and regular rate & rhythm Airway: Submandibular: WNL Cervical ROM: WNL MP: 3 Dentition: Partials (lower) History/ROS: No significant history except as noted Pulmonary: Pulmonary: COPD and VALENZUELA CV/HEM: CV/HEM: CAD (2018 CABG/MVR), CHF, HTN and PVD : : Chronic renal Insufficiency Hepatic: Hepatic: None reported GI: GI: GERD Metabolic: Metabolic: DM and Hyperlipidemia Comments: Gout Musc/skel: Musc/skel: OA/DJD Anesthetic Plan: ASA status: 4 Anesthesia: Anesthesia Evaluation and General Risk of > 500 ml blood loss (7ml/kg in children): No Meds/Allergies Current Medications: Current Medications Generic Name Dose Route Start Last Admin Trade Name Yonasq PRN Reason Stop Dose Admin Allopurinol 300 mg 11/08/19 09:00 11/08/19 10:40 Zyloprim PO 300 mg DAILY QI Administration Aspirin 81 mg 11/08/19 09:00 11/08/19 10:40 Aspirin Ec PO Not Given DAILY QI Chlorhexidine Gluc nyasia 1 applic 11/08/19 10:30 11/08/19 10:46 Betasept TOPICAL Not Given DAILY QI Citalopram Hydrobr omide 20 mg 11/08/19 09:00 11/08/19 10:39 Celexa PO 20 mg DAILY QI Administration Fentanyl 25 mcg 11/08/19 09:59 11/08/19 10:05 Sublimaze IVP 25 mcg Q2H PRN Administration SEVERE PAIN Sodium Chloride 1,000 mls @ 50 ml s/hr 11/08/19 06:00 11/08/19 06:40 Sodium Chloride 0.9% IV 11/09/19 01:59 Not Given .Q20H ONE Insulin Glargine 40 unit 11/08/19 09:00 11/08/19 09:39 Lantus SUBCUT Not Given BID QI Lisinopril 40 mg 11/08/19 09:00 11/08/19 10:39 Prinivil PO 40 mg DAILY QI Administration Metoprolol Tartrat e 50 mg 11/08/19 09:00 11/08/19 10:40 Lopressor PO 50 mg DAILY QI Administration Pantoprazole Sodiu m 40 mg 11/08/19 09:00 11/08/19 10:40 Protonix PO 40 mg DAILY QI Administration PFSH Anesthesia PFSH: Medical History (Updated 11/08/19 @ 11:59 by Moustapha Victor MD) Aortic insufficiency with aortic stenosis CHF (congestive heart failure) COPD (chronic obstructive pulmonary disease) Diabetes 1.5, managed as type 2 Essential hypertension Hyperlipidemia Ischemia of right lower extremity Ischemic cardiomyopathy Mitral regurgitation PAD (peripheral artery disease) Pulmonary HTN Subclavian arterial stenosis Tobacco abuse Surgical History H/O mitral valve repair Hx of CABG Family History Mother CAD (coronary artery disease) Father Diabetes Other Cancer Social History Smoking and tobacco status: former smoker Quit status (tobacco): has quit using tobacco Year quit tobacco: 2019 - 1PPD hx x 40 Years Alcohol intake: never Lives independently: Yes Household members: none Marital status: / Current occupational status: retired History of recent travel: No Current gender identity: Female Data Anesthesia CBC & Chem 7: 11/08/19 06:35 11/08/19 06:35 Other Labs: Laboratory Results - last 48 hr 11/08/19 11/08/19 11/08/19 06:35 06:35 09:16 WBC 5.8 RBC 4.38 Hgb 12.4 Hct 38.7 MCV 88.4 MCH 28.3 MCHC 32.0 RDW 14.3 Plt Count 188 MPV 11.3 H Neut % (Auto) 67.8 Lymph % (Auto) 14.8 [place] % (Auto) 11.8 Eos % (Auto) 4.2 Baso % (Auto) 0.7 Neut # (Auto) 3.9 Lymph # (Auto) 0.9 [place] # (Auto) 0.7 Eos # (Auto) 0.2 Baso # (Auto) 0.0 Nucleated RBC % (auto) 0 Nucleated RBCs # 0.0 PT INR APTT Sodium 136 Potassium 4.3 Chloride 99 Carbon Dioxide 25 Anion Gap 16.3 BUN 24 H Creatinine 1.3 H Glucose 260 H POC Glucose 208 Calculated Osmolality 288 Calcium 9.8 Blood Type Rho(D) Type Antibody Screen Crossmatch 11/08/19 11/08/19 10:49 11:33 WBC RBC Hgb Hct MCV MCH MCHC RDW Plt Count MPV Neut % (Auto) Lymph % (Auto) [place] % (Auto) Eos % (Auto) Baso % (Auto) Neut # (Auto) Lymph # (Auto) [place] # (Auto) Eos # (Auto) Baso # (Auto) Nucleated RBC % (auto) Nucleated RBCs # PT 13.70 H INR 1.02 APTT 27.8 Sodium Potassium Chloride Carbon Dioxide Anion Gap BUN Creatinine Glucose POC Glucose Calculated Osmolality Calcium Blood Type A Positive Rho(D) Type Positive Antibody Screen Negative Crossmatch See Detail Cardiac Studies: No Data to Display
[2019-11-08 12:48] LABS: Glucose Point of Care 178 mg/dL (70-110)
[2019-11-08] MEDS: heparin,porcine 1,000 unit/mL INJ 1 mL 1000 UNIT IRRIGATION (13:43)
[2019-11-08] MEDS: heparin, porcine 1,000 unit/mL INJ 10 mL 1750 UNIT IRRIGATION (13:46)
[2019-11-08] MEDS: sodium bicarbonate 1 mEq/mL SDV 50mL 0.7 MEQ IRRIGATION (13:47)
--- NOTE | 2019-11-08 15:19 | PC.NURSE ---
remains in surgery
--- NOTE | 2019-11-08 17:34 | PC.NURSE ---
recd from or arousable. ntg paste to right pedal pulse area. unable to doppler any pulses
--- NOTE | 2019-11-08 17:36 | P.OP_ITS ---
Operative Report Date of procedure: November 08, 2019 Pre-op Diagnosis: Acute ischemia right lower extremity with severe peripheral vascular disease Post-op diagnosis: same Post-op Findings: Apparent dissection extending from the SFA into the popliteal artery Procedure Done: Right femoral to popliteal artery bypass utilizing 6 mm ringed [place]sh graft with end to mid distal anastomosis between the [place]-Ish graft and mid/distal popliteal artery and attempted obliteration of the dissection plane along with end-to-side anastomosis between the proximal popliteal artery and the [place]-Ish graft Implants: 6 mm ringed [place]-Ish graft Surgeon: Moustapha Victor Anesthesia: General Complications: Poor distal perfusion post procedure Condition: stable Disposition: ICU Brief History: Ms. Serrato is a 74-year-old female with known severe vascular disease including prior CABG/mitral valve repair approximate 2 years ago and prior open interventions to the left femoral artery as well as prior stenting to the left external iliac artery and angioplasty by Dr. Ellis. She presents with the worsening symptoms of ischemia to the right lower extremity with claudication and occasional rest pain. She underwent valiant attempt at percutaneous intervention earlier today by Dr. Ellis. Due to difficulty with catheter and wire advancement, it was felt the patient should be considered for attempted surgical revascularization. She was having discomfort post intervention earlier with a cold foot and complaints of increasing discomfort. Original angiography revealed SFA occlusion and post tib intervention did reveal some decreased flow through the right profunda artery. Rationale for surgery was carefully and frankly discussed with Ms. Serrato. Increased risk of the surgery related to her advanced disease and acute nature of her problem were frankly discussed. Proper consents were reviewed and signed. Procedure: Ms. Serrato's bilateral lower extremities and lower abdomen were sterilely prepped and draped. A roll was placed beneath the right knee. Incision was made medial to the right knee. Dissection was carried down with cautery and Metzenbaum scissors and this posterior space and to be moderately heavily calcified popliteal artery and was identified. Intimate approximation with the popliteal vein was carefully and small bridging veins were divided after securing with vascular clips. Small genicular branches of the artery were also secured with clips and divided if absolutely necessary to allow for mobilization. It became apparent early that there appeared to be a dissecting plane extending through the popliteal artery and further distally. Moistened antibiotic impregnated gauze was then placed in the wound after dissection been completed. We next made an incision in the right groin crease and utilize cautery and Metzenbaum scissors to continue dissection down to the femoral sheath was opened where the common femoral artery was carefully dissected free and isolated. It was extremely heavily calcified proximally and extended well above the inguinal ligament which was partially divided to allow for further proximal exposure. Unfortunately, we are unable to get above this heavily calcified area. Vessel loop was placed around the profundus femoral artery for control. The superficial femoral artery demonstrated heavy calcifications at its origin and was occluded as it extended distally, though it was ballotable and appear to be patent at its very most proximal portion which extended into the very distal portion of the common femoral artery on that side. After control was obtained proximally and distally, and after evaluation of our inflow and outflow target vessel size, a subcutaneous tunnel was then created from the distal incision to the proximal incision where an 6 mm ringed reinforced [place]-Ish graft was then placed in this tunnel. After proper po sitioning, she received 10,000 units of heparin. Next, the [place]-Ish graft was cut to the appropriate length and beveled. Control was obtained on the popliteal artery utilizing vascular loops. I next attempted to create an arteriotomy with a #11 scalpel blade, but was unable to find the true lumen. The dissection plane was easily revealed. After substantial difficulty, I elected to completely transversely transect the popliteal artery to allow for appropriate indication of the true lumen. The true lumen, itself, was actually smaller than the dissected plane. I placed a Suzie catheter from this point distally for approximately 34 cm which would be just at the level of the ankle. Initially, a modest amount of clot was removed. Unfortunately, backbleeding was poor. At this point despite multiple passes of the Suzie catheter, confirm that we were in the true lumen, backbleeding never really improved substantially. I elected to proceed with anastomosing the end of the 6 mm [place]- Ish graft in a end-to-side fashion to the distal transected portion of the popliteal artery. This was done with 6-0 Prolene suture. Next, I removed 2 rings more proximally along the [place]-Ish graft and created an opening in the side of the graft to allow for anastomosis and a end-to-side fashion with the proximal portion of the previously transected popliteal artery. This anastomosis into the graft was completed, also, with 6-0 Prolene suture. Next, we beveled the proximal aspect of the [place]-Ish graft appropriately. Proximal and distal control was obtained on the femoral artery and the vessel was opened with a #11 scalpel blade and enlarged with Elaine scissors. Proximal anastomosis was then completed with the [place]-Ish graft, again in a running fashion utilizing 6-0 Prolene suture. De-airing and backbleeding was allowed to occur. Antegrade flow was then reestablished through the graft into the popliteal artery. Areas of extravasation were repaired with 6-0 Prolene suture. Heparin was reversed with protamine and confirmed clinically. After adequate hemostasis had been obtained, the wound was irrigated with antibiotic solution. Sponge and needle count was correct x2. The wounds were then closed with Vicryl suture in multiple layers. Skin was reapproximated in a subcuticular fashion utilizing 3-0 Monocryl suture. Sterile dressing was applied. Unfortunately, Ms. Serrato did not have a Doppler signal in the right foot post procedure, though she did have so at the popliteal region. I am concerned the potential continued pathology in the distal right lower extremity. We will place her on heparin as well as nitroglycerin topically to the right foot. Patient was transported to the ICU in stable condition. Perfusion of the right lower extremity remains of concern. I did confer with my colleague, Dr. Ellis by phone post procedure
[2019-11-08] MEDS: lactated ringers 1,000 ML 100 ML IV (18:29)
[2019-11-08] MEDS: heparin drip 25,000 UNIT/500 ML PREMIX 26 UNIT IV (18:30)
[2019-11-08] MEDS: heparin 5,000 unit/mL INJ 1 mL IV (18:31)
--- NOTE | 2019-11-08 19:44 | PC.NURSE ---
All meds charted as not given at [address] because they were not charted by dayshift.
[2019-11-08 20:06] LABS: Glucose Point of Care 213 mg/dL (70-110)
[2019-11-08] MEDS: nitroglycerin 1 gm/inch oint Pkt 1 INCH TOPICAL (20:25)
[2019-11-08] MEDS: atorvastatin 40 mg Tablet PO (20:38)
[2019-11-08] MEDS: ceFAZolin 1,000 MG in sodium chloride 0.9% (plus) 50 ML 100 MG IV (20:41)
[2019-11-08] MEDS: morphine 4 mg/mL SDV 1 mL 2 MG IVP ×2 (20:43→23:48)
[2019-11-09] VITALS (25 sets, daily range): BP systolic 138–179; BP diastolic 65–98; PULSE 84–101; RESP 12–25; TEMP 36.8; O2SAT 89–100
[2019-11-09] MEDS: morphine 4 mg/mL SDV 1 mL 2 MG IVP ×5 (03:41→19:38)
[2019-11-09] MEDS: lactated ringers 1,000 ML 100 ML IV ×3 (03:42→23:17)
[2019-11-09] MEDS: ceFAZolin 1,000 MG in sodium chloride 0.9% (plus) 50 ML 100 MG IV ×2 (04:43→12:28)
[2019-11-09] MEDS: nitroglycerin 1 gm/inch oint Pkt 1 INCH TOPICAL ×2 (06:00→18:23)
--- NOTE | 2019-11-09 06:45 | PM.PN ---
Subjective Subjective: Interval history: Yesterday, shortly after the angiogram procedure the patient began to complain of pain in her right foot. Based on the difficulty experience with the angiogram my assumption was that the collateral flow from the profunda femoris had been compromised. This was due to either a dissection or a transfer of plaque material into the profunda. I spoke with Dr. Victor after a surgical procedure. I appreciate his prompt assistance. It appears as though the artery was dissected. I was suspicious of this while moving the wire down. This is the reason that I did not perform a balloon angioplasty or other intervention was that I was not entirely comfortable that the wire was intraluminal throughout. I did check with a hand-injection at the popliteal and there was flow distally however I was not comfortable that the wire was intraluminal in the superficial femoral artery. According to Dr. Victor in his report it seems as though a dissection was confirmed. This morning Shira wants to go home. She is still a little groggy. She is still having some discomfort and what she describes as the back of her right leg. She does not complain of pain in the foot. Medications: Reviewed: Yes Vitals/I&O/Wt Last Vital Signs Temp 99.6 F 11/08/19 17:15 Pulse 97 11/09/19 06:00 Resp 19 H 11/09/19 06:00 BP 187/61 11/08/19 20:00 Pulse Ox 92 11/09/19 06:00 11/08/19 11/08/19 11/09/19 14:59 22:59 06:59 Intake Total 50 / 50 1860 / 1910 1271.667 / 3181.667 Output Total 400 / 400 300 / 700 Balance 50 / 50 1460 / 1510 971.667 / 2481.667 Weight last 48 hrs Weight 144 lb Physical Exam Narrative: EXAM NARRATIVE: GENERAL: She is somewhat groggy this morning HEENT: Exam within normal limits. NECK: Supple without jugular vein distention. The carotid upstroke is normal without bruits. BACK: Exam normal. LUNGS: Clear. HEART: Regular rate and rhythm. ABDOMEN: Benign without organomegaly or tenderness. EXTREMITIES: No edema. The foot is slightly cooler on the right than on the left. There are no palpable pulses however there were not palpable pulses prior to yesterday's angiogram. The left groin entry site is stable without bleeding or hematoma. Both surgical sites are stable. The remainder of the leg is warm. NEUROLOGIC: Exam normal. SKIN: Unremarkable. Urinary Catheter Management^: Best: Cath Placed During This Visit: yes Reason for Continuing Indwelling Catheter: Accurate Measurement of Urinary Output in Critically Ill Patients Urinary Catheter Date of Insertion: 11/08/19 Urinary Catheter Time of Insertion: 13:30 Data : 11/08/19 06:35 11/08/19 06:35 A&P Assessment and plan (1) Ischemia of right lower extremity: Status: Acute (2) Hx of CABG: Status: Acute (3) H/O mitral valve repair: Status: Acute (4) Aortic insufficiency with aortic stenosis: Status: Acute (5) Subclavian arterial stenosis: Status: Acute (6) Mitral regurgitation: Status: Acute (7) PAD (peripheral artery disease): Status: Acute (8) CHF (congestive heart failure): Status: Acute (9) Hyperlipidemia: Status: Acute (10) Essential hypertension: Status: Acute (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 Once again I appreciate Dr. Victor's assistance. We will continue to follow. Obviously she is not ready to go home yet today as she asks. Attestations Medical Necessity Statement*: Patient requires continued hospital stay for management of acute right lower leg ischemia post femoral-popliteal bypass. Coding Level of Care Code Established Pt Acute Bus And Trolley Dispatcher for g Fwd Patient Type Established History Detailed Exam Detailed Medical Decision Making Moderate Complexity Diagnoses Ischemia of right lower extremity I99.8 Hx of CABG Z95.1 H/O mitral valve repair Z98.890 Aortic insufficiency with aortic stenosis I35.2 Subclavian arterial stenosis I77.1 Mitral regurgitation I34.0 PAD (peripheral artery disease) I73.9 CHF (congestive heart failure) I50.9 Hyperlipidemia E78.5 Essential hypertension I10 Diabetes 1.5, managed as type 2 E13.9 Ischemic cardiomyopathy I25.5 Tobacco abuse Z72.0 COPD (chronic obstructive pulmonary disease) J44.9 Pulmonary HTN I27.20
--- NOTE | 2019-11-09 07:38 | ANE.PACU2 ---
Inpatient post-anesthesia follow up: Airway intact: Yes Vital signs: Temperature 99.6 F Pulse Rate 97 Respiratory Rate 19 Blood Pressure 187/61 Pulse Oximetry 92 Oxygen Delivery Me thod [ Room Air Current Rate & Del meaghan] Oxygen Delivery Me thod Nasal Cannula Oxygen Flow Rate 3 Fraction of Inspir ed Oxygen Hydration adequate: Yes Nausea and vomiting: No Pain level: 9 Mental status: Baseline
[2019-11-09 07:39] LABS: Glucose Point of Care 165 mg/dL (70-110)
[2019-11-09] MEDS: metoprolol tartrate 50 mg Tablet PO (08:05)
[2019-11-09] MEDS: lisinopril 20 mg Tablet 40 MG PO (08:05)
[2019-11-09] MEDS: allopurinol 300 mg Tablet PO (08:05)
[2019-11-09] MEDS: clopidogrel 75 mg Tablet PO (08:05)
[2019-11-09] MEDS: pantoprazole DR 40 mg Tablet PO (08:05)
[2019-11-09] MEDS: aspirin 81 mg EC Tablet PO (08:05)
[2019-11-09] MEDS: chlorhexidine gluconate 4% Btl 118 mL 1 APPLIC TOPICAL (08:08)
[2019-11-09] MEDS: citalopram 20 mg Tablet PO (08:08)
[2019-11-09 08:57] LABS: Partial Thromboplastin Time 148.8 SECONDS (23.9-36.7)
[2019-11-09 11:38] LABS: Glucose Point of Care 139 mg/dL (70-110)
--- NOTE | 2019-11-09 15:33 | PM.PN ---
Subjective Subjective: Interval history: Postop day #1 status post attempted right femoropopliteal bypass status post attempted percutaneous intervention. Ms. Serrato has substantial diffuse disease with relatively small target vessels. Her right foot and lower leg are much warmer today than immediately postop, though she probably still has compromised flow. Her foot is not anesthetic and she can move her toes to command. We did run heparin all night. I have now discontinued that as we have initiated aspirin and Plavix. Vital signs are remained stable. Vitals/I&O/Wt Last Vital Signs Temp 98.2 F 11/09/19 08:00 Pulse 88 11/09/19 10:00 Resp 13 11/09/19 10:00 BP 156/71 11/09/19 10:00 Pulse Ox 92 11/09/19 10:00 11/09/19 11/09/19 11/09/19 06:59 14:59 22:59 Intake Total 1271.667 / 3181.667 1390 / 1390 Output Total 300 / 700 Balance 971.667 / 2481.667 1390 / 1390 Physical Exam Extremity: NARRATIVE EXTREMITY EXAM: Right groin and right knee incision dressings are in place dry. Her right foot is cooler than her left but warmer than it was immediately postop. She can move her toes to command and she is not anesthetic. I would continue antiplatelet therapy with aspirin and Plavix. We also continue topical nitroglycerin to assist with vasodilatation. Urinary Catheter Management^: Best: Cath Placed During This Visit: yes Reason for Continuing Indwelling Catheter: Accurate Measurement of Urinary Output in Critically Ill Patients Urinary Catheter Date of Insertion: 11/08/19 Urinary Catheter Time of Insertion: 13:30 Data : 11/08/19 06:35 11/08/19 06:35 A&P Assessment and plan (1) Ischemia of right lower extremity: Postop day #1 status post attempted right femoropopliteal bypass. I have conferred with my colleague Dr. Ellis. We will transferred to [facility]. Will continue aspirin and Plavix. Of also added Lovenox empirically as DVT prophylaxis. Will try to increase activities this evening and tomorrow. I will change surgical dressings tomorrow. Status: Acute Attestations Medical Necessity Statement*: Severe peripheral vascular disease with right lower extremity ischemia status post percutaneous intervention and attempted operative bypass Time Spent in Patient Care: 16 - 35 minutes Coding Level of Care Code Acute Senior Medical Transcriptionist for Armida Mojica Diagnoses Ischemia of right lower extremity I99.8
[2019-11-09 18:14] LABS: Glucose Point of Care 176 mg/dL (70-110)
[2019-11-09] MEDS: enoxaparin 40 mg/0.4 mL Syringe SUBCUT (18:23)
[2019-11-09 21:43] LABS: Glucose Point of Care 134 mg/dL (70-110)
[2019-11-09] MEDS: atorvastatin 40 mg Tablet PO (22:04)
[2019-11-10] VITALS (12 sets, daily range): BP systolic 119–187; BP diastolic 65–79; PULSE 92–115; RESP 15–26; TEMP 36.1–37.7; O2SAT 91–100
[2019-11-10 04:21] LABS: Platelet Count 130 10^3/cmm (130-400)
[2019-11-10] MEDS: morphine 4 mg/mL SDV 1 mL 2 MG IVP (04:36)
[2019-11-10] MEDS: nitroglycerin 1 gm/inch oint Pkt 1 INCH TOPICAL ×2 (06:10→17:23)
--- NOTE | 2019-11-10 06:20 | PC.NURSE ---
Pt pulled out IV at 0530. At that time, Pt knew her name and , but she did not know where she was (town or building/place). Throughout the night, pt knew where she was and why and would be moaning in pain. There were other times that pt did not know where she was, but still stated she was in pain. Pain medicine (morphine) was only given when pt was able to tell nurse where she was at.
--- NOTE | 2019-11-10 07:35 | P.PN_ITS ---
Subjective Subjective: Interval history: Shira is fast asleep this morning. In speaking to the night nurse they gave her pain medication on one occasion. Vitals/I&O/Wt Last Vital Signs Temp 98.2 F 11/09/19 08:00 Pulse 115 H 11/10/19 06:00 Resp 26 H 11/10/19 06:00 BP 138/69 11/10/19 06:00 Pulse Ox 96 11/10/19 06:00 11/09/19 11/10/19 11/10/19 22:59 06:59 14:59 Intake Total 3521 / 4911 Output Total 550 / 550 500 / 1050 Balance 2971 / 4361 -500 / 3861 Physical Exam Narrative: EXAM NARRATIVE: GENERAL: In general she is sleepy but comfortable upon arousal HEENT: Exam within normal limits. NECK: Supple without jugular vein distention. The carotid upstroke is normal without bruits. BACK: Exam normal. LUNGS: Clear. HEART: Regular rate and rhythm. ABDOMEN: Benign without organomegaly or tenderness. EXTREMITIES: No edema. The right foot is cooler than the left foot. There does not appear to be any discoloration. No palpable pulses. NEUROLOGIC: Exam normal. SKIN: Unremarkable. Urinary Catheter Management^: Best: Cath Placed During This Visit: yes Reason for Continuing Indwelling Catheter: Accurate Measurement of Urinary Output in Critically Ill Patients Urinary Catheter Date of Insertion: 11/08/19 Urinary Catheter Time of Insertion: 13:30 Data : 11/10/19 03:30 11/08/19 06:35 A&P Assessment and plan (1) Ischemia of right lower extremity: Status: Acute (2) Hx of CABG: Status: Acute (3) H/O mitral valve repair: Status: Acute (4) Aortic insufficiency with aortic stenosis: Status: Acute (5) Subclavian arterial stenosis: Status: Acute (6) Mitral regurgitation: Status: Acute (7) PAD (peripheral artery disease): Status: Acute (8) CHF (congestive heart failure): Status: Acute (9) Hyperlipidemia: Status: Acute (10) Essential hypertension: Status: Acute (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 We will need to get her up and get activity before she is ready to go home. Attestations Medical Necessity Statement*: Needs continued hospitalization for management of acute right lower extremity ischemia Coding Level of Care Code Established Pt Acute Basketball Assembler for Armida Mojica Patient Type Established History Detailed Exam Detailed Medical Decision Making Moderate Complexity Diagnoses Ischemia of right lower extremity I99.8 Hx of CABG Z95.1 H/O mitral valve repair Z98.890 Aortic insufficiency with aortic stenosis I35.2 Subclavian arterial stenosis I77.1 Mitral regurgitation I34.0 PAD (peripheral artery disease) I73.9 CHF (congestive heart failure) I50.9 Hyperlipidemia E78.5 Essential hypertension I10 Diabetes 1.5, managed as type 2 E13.9 Ischemic cardiomyopathy I25.5 Tobacco abuse Z72.0 COPD (chronic obstructive pulmonary disease) J44.9 Pulmonary HTN I27.20
--- NOTE | 2019-11-10 07:36 | PM.PN ---
Subjective Subjective: Interval history: Stop day #2 status post attempted right femoropopliteal bypass. Uneventful night. No substantial discomfort. Her right foot remains cool though she is able to move her toes. Incisions are clean and dry. Surgical dressings were changed. Transfer orders were written for [facility] yesterday, but she maintains status in ICU due to bed availability. Vitals/I&O/Wt Last Vital Signs Temp 98.2 F 11/09/19 08:00 Pulse 115 H 11/10/19 06:00 Resp 26 H 11/10/19 06:00 BP 138/69 11/10/19 06:00 Pulse Ox 96 11/10/19 06:00 11/09/19 11/10/19 11/10/19 22:59 06:59 14:59 Intake Total 3521 / 4911 Output Total 550 / 550 500 / 1050 Balance 2971 / 4361 -500 / 3861 Physical Exam Extremity: NARRATIVE EXTREMITY EXAM: Surgical incisions are clean and dry. Dressings were changed. I did note that the original surgical dressings have been removed though this was not documented. I did discuss this with nursing staff. Her leg is warm to the ankle where it is cool through the foot. No substantial discomfort or swelling. She is able to move her toes though not quite as vigorously as on the left side. Urinary Catheter Management^: Best: Cath Placed During This Visit: yes Reason for Continuing Indwelling Catheter: Accurate Measurement of Urinary Output in Critically Ill Patients Urinary Catheter Date of Insertion: 11/08/19 Urinary Catheter Time of Insertion: 13:30 Data : 11/10/19 03:30 11/08/19 06:35 A&P Assessment and plan (1) Ischemia of right lower extremity: Postop day #2 status post attempted right femoropopliteal bypass. Awaiting transfer to the [facility]. I would recommend deseeding Best catheter. Try to increase activity. Status: Acute Attestations Medical Necessity Statement*: Acute ischemia right lower extremity status post intervention and attempted right femoral-popliteal bypass Time Spent in Patient Care: 16 - 35 minutes Coding Level of Care Code Acute Training Personnel Supervisor for Armida Mojica Diagnoses Ischemia of right lower extremity I99.8
[2019-11-10 07:49] LABS: Glucose Point of Care 209 mg/dL (70-110)
[2019-11-10] MEDS: lisinopril 20 mg Tablet 40 MG PO (08:58)
[2019-11-10] MEDS: pantoprazole DR 40 mg Tablet PO (08:58)
[2019-11-10] MEDS: citalopram 20 mg Tablet PO (08:59)
[2019-11-10] MEDS: metoprolol tartrate 50 mg Tablet PO (08:59)
[2019-11-10] MEDS: aspirin 81 mg EC Tablet PO (08:59)
[2019-11-10] MEDS: clopidogrel 75 mg Tablet PO (08:59)
[2019-11-10] MEDS: allopurinol 300 mg Tablet PO (08:59)
[2019-11-10] MEDS: chlorhexidine gluconate 4% Btl 118 mL 1 APPLIC TOPICAL (09:13)
[2019-11-10] MEDS: lactated ringers 1,000 ML 100 ML IV (10:53)
[2019-11-10 11:52] LABS: Glucose Point of Care 220 mg/dL (70-110)
[2019-11-10 16:52] LABS: Glucose Point of Care 211 mg/dL (70-110)
[2019-11-10] MEDS: enoxaparin 40 mg/0.4 mL Syringe SUBCUT (17:24)
[2019-11-10 21:00] LABS: Glucose Point of Care 176 mg/dL (70-110)
[2019-11-10] MEDS: atorvastatin 40 mg Tablet PO (21:53)
[2019-11-11] VITALS: BP 121/79; PULSE 110; RESP 18; TEMP 36.9; O2SAT 93
[2019-11-11] MEDS: lactated ringers 1,000 ML 100 ML IV ×3 (00:06→21:30)
[2019-11-11 05:08] VITALS: BP 147/92; PULSE 108; RESP 18; TEMP 36.6; O2SAT 90
[2019-11-11] MEDS: nitroglycerin 1 gm/inch oint Pkt 1 INCH TOPICAL ×2 (05:46→18:33)
[2019-11-11 06:59] LABS: Glucose Point of Care 198 mg/dL (70-110)
[2019-11-11 07:39] VITALS: BP 116/78; PULSE 109; RESP 22; TEMP 36.9; O2SAT 92
[2019-11-11] MEDS: lisinopril 20 mg Tablet 40 MG PO (08:49)
[2019-11-11] MEDS: aspirin 81 mg EC Tablet PO (08:49)
[2019-11-11] MEDS: allopurinol 300 mg Tablet PO (08:49)
[2019-11-11] MEDS: metoprolol tartrate 50 mg Tablet PO (08:50)
[2019-11-11] MEDS: clopidogrel 75 mg Tablet PO (08:50)
[2019-11-11] MEDS: citalopram 20 mg Tablet PO (08:50)
[2019-11-11] MEDS: pantoprazole DR 40 mg Tablet PO (08:50)
[2019-11-11] MEDS: chlorhexidine gluconate 4% Btl 118 mL 1 APPLIC TOPICAL (08:51)
--- NOTE | 2019-11-11 10:05 | PC.SOCIAL ---
IMM Page 2 of IMM given to patient. Initialed, dated, and timed and placed in chart. Copy provided.
[2019-11-11 10:58] VITALS: BP 99/53; PULSE 96; RESP 30; TEMP 36.6; O2SAT 98
[2019-11-11 11:05] LABS: Glucose Point of Care 230 mg/dL (70-110)
--- NOTE | 2019-11-11 11:16 | PC.CHAP ---
Pastoral Care Encounter/Spiritual Assessment Type of Contact [] Declined line therapist visit [] Patient/Family/Request visit [] Outpatient visit [] Follow-up visit [] Physician referral [] Code/Alert [X] Routine visit [] Staff referral [] Actively dying [] Patient sleeping [] Family support [] [] Out of room [] Palliative care [] [] Receiving care in room [] Pre-surgical visit [] Trauma [] Long length of stay [] ICU visit [] Other: Relational/Emotional Strength [] Patient feels connected with others/family/visitors/staff [] Distress [] Loneliness/isolation [] Abandonment Spirituality of Patient [] Person of Kena [] Attends Rastafarian of their Kena [] Believes in Prayer [] Reads Bible or Buddhist materials [] There are Spiritual issues to be addressed Account Services Manager Interventions [] Prayer [] Active listening [] Non-anxious presence [] Spiritual/emotional support [] Crisis/trauma care [] Spiritual counseling [] Bereavement support [] Provided bereavement packet [] Provided Bible/devotional materials [] Provided toy/stuffed animal, coloring book to patient or family member [] Provided Communion [] Anointing/[place] [] Salvation [] Completed spiritual assessment [] Other: Impact on Illness or Injury [] Angry [] Fearful [] Anxious [] Often cries [] Exhaustion [] Unable to work [] Unable to attend zoroastrian [] Unable to walk/stand [] Unable to read [] Unable to drive [] Unable to eat/drink [] Unable to sleep [] Unable to be with family [] Patient intubated [] Other: Summary: Staff in room. May have also been a family member or friend, because the staff member was sitting in a chair at bedside visiting with pt. I will try again tomorrow. Time spent with patient
[2019-11-11 11:31] VITALS: BP 114/77; PULSE 91; RESP 32; TEMP 36.6
[2019-11-11] MEDS: ketorolac 30 mg/mL INJ IVP (12:39)
--- NOTE | 2019-11-11 13:00 | P.PN_ITS ---
Subjective Subjective: Interval history: Shira is a 74-year-old woman with complex past medical history of CAD status post bypass surgery and mitral valve repair few years ago, ischemic cardiomyopathy, hypertension, dyslipidemia COPD, tobacco abuse, right subclavian artery stenosis and secondary pulmonary hypertension. She also has peripheral arterial disease post distal left external iliac and left common femoral artery endarterectomy and patch angioplasty in 2016. She underwent peripheral angiogram for left sided claudications. Her distal left common iliac artery was occluded at the takeoff of the hypogastric and external iliac. There was a 99% stenosis of the distal left common femoral artery at the ostium of the left SFA. This entire area was treated with balloon angioplasty and drug-eluting balloon angioplasty. The iliac lesion was stented in December 2018. He underwent peripheral angiogram on [address] Ellis for right sided claudication. She was found to have right superficial femoral artery occlusion at the origin wire was placed but thought to be subintimal and the procedure was abandoned. Shortly thereafter she developed acute ischemia of right lower extremity and was taken to the OR by Dr. Victor. She was found to have apparent dissection extending from SFA to popliteal artery and right femoral to popliteal artery bypass was done. Unfortunately even postprocedure she continued to have absent Doppler signals in right foot. She was placed on heparin drip for sometime and nitroglycerin topical on right foot. Last 24 hours: Postop day #3 status post attempted right femoropopliteal bypass. She was transferred out of ICU yesterday. Seems like since her surgery she has been having episodes of confusion on and off. Earlier this morning she had epi sode of anxiety and confusion. She continues to be pretty confused at the time of evaluation. Medications: Reviewed: Yes Medication Review Details: Current Medications Hydrocodone Bitart/Acetaminophen ([place] 5-325 Mg) 1 tab PO Q4H PRN PRN Reason: MODERATE PAIN Al Hydrox/Mg Hydrox/Simethicone (Maalox) 30 ml PO Q15M PRN PRN Reason: INDIGESTION Al Hydrox/Mg Hydrox/Simethicone (Maalox) 30 ml PO Q4H PRN PRN Reason: INDIGESTION Albuterol Sulfate (Ventolin) 2 puff INHALATION Q4H.RESPIRATORY PRN PRN Reason: SHORTNESS OF BREATH Allopurinol (Zyloprim) 300 mg PO DAILY QI Last Admin: 11/11/19 08:49 Dose: 300 mg Documented by: Aspirin (Aspirin Ec) 81 mg PO DAILY [facility] Last Admin: 11/11/19 08:49 Dose: 81 mg Documented by: Atorvastatin Calcium (Lipitor) 40 mg PO BEDTIME [facility] Last Admin: 11/10/19 21:53 Dose: 40 mg Documented by: Bisacodyl (Bisac-Evac) 10 mg [place] Q6H PRN PRN Reason: Constipation (Use 5th) Bisacodyl (Dulcolax) 5 mg PO Q6H PRN PRN Reason: Constipation (Use 2nd) Bismuth Subsalicylate ([place] Bismuth) 30 ml PO PRN PRN PRN Reason: DIARRHEA Chlorhexidine Gluconate (Betasept) 1 applic TOPICAL DAILY [facility] Last Admin: 11/11/19 08:51 Dose: 1 applic Documented by: Citalopram Hydrobromide (Celexa) 20 mg PO DAILY [facility] Last Admin: 11/11/19 08:50 Dose: 20 mg Documented by: Clopidogrel Bisulfate (Plavix) 75 mg PO DAILY [facility] Last Admin: 11/11/19 08:50 Dose: 75 mg Documented by: Dextrose (D50w) 25 ml IVP ONCE PRN; Protocol PRN Reason: hypoglycemia protocol Dextrose (D50w) 50 ml IVP PRN PRN; Protocol PRN Reason: hypoglycemia protocol Diphenhydramine HCl (Benadryl) 25 mg PO BEDTIME PRN PRN Reason: SLEEP Docusate Sodium (Colace) 100 mg PO BID PRN PRN Reason: Constipation (Use 1st) Enoxaparin Sodium (Lovenox) 40 mg SUBCUT Q24H [facility] Last Admin: 11/10/19 17:24 Dose: 40 mg Documented by: Glucagon (Glucagen) 1 mg IM ONCE PRN; Protocol PRN Reason: Adult Acute Hypoglycemia Prot. Guaifenesin (Robitussin Oral Liq) 200 mg PO Q4H PRN PRN Reason: COUGH Heparin Sodium (Beef Lung) (Heparin) 0 unit IV PRN PRN; Protocol PRN Reason: Heparin weight-base protocol Last Admin: 11/08/19 18:31 Dose: 0.25 unit Documented by: Hydralazine HCl (Apresoline) 10 mg PO TID PRN PRN Reason: SYSTOLIC BLOOD PRESSURE Dextrose (D5w) 500 mls @ 100 mls/hr IV ONCE PRN; Protocol PRN Reason: Adult Acute Hypoglycemia Prot Lactated Ringer's (Lactated Ringers) 1,000 mls @ 100 mls/hr IV .Q10H [facility] Last Admin: 11/11/19 10:01 Dose: 100 mls/hr Documented by: Insulin Aspart (Novolog) 0 unit SUBCUT WM&BEDTIME [facility]; Protocol Last Admin: 11/11/19 12:35 Dose: 8 unit Documented by: Ketorolac Tromethamine (Toradol) 30 mg IVP Q6H PRN PRN Reason: MODERATE PAIN Stop: 11/13/19 17:28 Last Admin: 11/11/19 12:39 Dose: 30 mg Documented by: Lactulose (Constulose) 20 gm PO Q6H PRN PRN Reason: Constipation (Use 3rd) Lisinopril (Prinivil) 40 mg PO DAILY [facility] Last Admin: 11/11/19 08:49 Dose: 40 mg Documented by: Magnesium Hydroxide (Milk Of Magnesia) 45 ml PO DAILY PRN PRN Reason: Constipation (use 4th) Metoprolol Tartrate (Lopressor) 50 mg PO DAILY [facility] Last Admin: 11/11/19 08:50 Dose: 50 mg Documented by: Morphine Sulfate (Morphine) 2 mg IVP Q1H PRN PRN Reason: SEVERE PAIN Last Admin: 11/10/19 04:36 Dose: 2 mg Documented by: Nitroglycerin (Nitro-Bid) 1 inch TOPICAL Q12H [facility] Last Admin: 11/11/19 05:46 Dose: 1 inch Documented by: Pantoprazole Sodium (Protonix) 40 mg PO DAILY [facility] Last Admin: 11/11/19 08:50 Dose: 40 mg Documented by: Pantoprazole Sodium (Protonix) 40 mg PO DAILY [facility] Last Admin: 11/11/19 08:52 Dose: Not Given Documented by: Promethazine HCl (Phenergan) 25 mg [place] Q6H PRN PRN Reason: NAUSEA AND VOMITING Tramadol HCl (Ultram) 50 mg PO Q6H PRN PRN Reason: MODERATE PAIN Vitals/I&O/Wt Last Vital Signs Temp 97.8 F 11/11/19 10:58 Pulse 96 11/11/19 10:58 Resp 30 H 11/11/19 10:58 BP 99/53 11/11/19 10:58 Pulse Ox 98 11/11/19 10:58 11/10/19 11/11/19 11/11/19 22:59 06:59 14:59 Intake Total 1360.000 / 2720.000 240 / 2960.000 1021.667 / 1021.667 Output Total 450 / 700 250 / 250 Balance 1360.000 / 2470.000 -210 / 2260.000 771.667 / 771.667 Physical Exam Narrative: EXAM NARRATIVE: GENERAL: Drowsy but arousable HEENT: Exam within normal limits. NECK: Supple without jugular vein distention. LUNGS: Clear to auscultation no wheezes or rales. HEART: Regular rate and rhythm. No murmur rub or gallop EXTREMITIES: No edema. The right foot is cooler than the left foot. There does not appear to be any discoloration. No palpable pulses. NEUROLOGIC: She is able to answer simple yes/no questions but is not able to tell me where she is or when her name without prompting. Urinary Catheter Management^: Best: Cath Placed During This Visit: yes, but has since been removed by the nurse Reason for Continuing Indwelling Catheter: Accurate Measurement of Urinary Output in Critically Ill Patients Urinary Catheter Date of Insertion: 11/08/19 Urinary Catheter Time of Insertion: 13:30 Date Urinary Catheter Removed: 11/10/19 Time Urinary Catheter Discontinued: 09:15 Data : 11/11/19 12:50 11/11/19 12:50 A&P Assessment and plan (1) Ischemia of right lower extremity: Postop day #3 status post attempted right femoropopliteal bypass. -continue ASA, plavix. Status: Acute (2) Hx of CABG: stable, no ischemia on stress test in 04/2019. Status: Acute (3) H/O mitral valve repair: Status: Acute (4) CHF (congestive heart failure): Clinically does not appear overtly fluid overloaded. -CXR with some congestion, Bumex 0.5 mg IV x 1 Status: Acute Qualifiers: Heart failure chronicity: chronic Heart failure type: systolic Qualified Code(s): I50.22 - Chronic systolic (congestive) heart failure (5) Diabetes 1.5, managed as type 2: Status: Acute Additional A&P Information Abnormal liver enzymes Confusion Leucocytosis: I will start emperically on antibiotic Normocytic anemia Peripheral arterial disease COPD Chronic active tobacco abuse Hypertension Hyperlipidemia DVT prophylaxis: Lovenox Attestations Medical Necessity Statement*: Needs hospital stay post surgery Coding Level of Care Code 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
[2019-11-11 13:15] LABS: Basophils % 0.4 %; Eosinophils % 0.2 %; Hematocrit 29.8 % (37.0-47.0); Hemoglobin 9.4 g/dL (11.5-15.3); Lymphocytes # 0.9 10^3/uL (0.8-4.8); Lymphocytes % 7.9 %; Mean Corpuscular HGB Conc 31.5 g/dL (30.0-36.0); Mean Corpuscular Hemoglobin 29.3 pg (28.0-34.0); Mean Corpuscular Volume 92.8 fL (81-99); Monocytes # 1.6 10^3/uL (0.2-0.9); Monocytes % 13.6 %; Neutrophils # 8.8 10^3/uL (1.8-7.7); Neutrophils % 77.2 %; Nucleated Red Blood Cells % 0.2 %; Platelet Count 194 10^3/cmm (130-400); Red Blood Count 3.21 10^6/uL (4.1-5.3); Red Cell Distribution Width 14.7 % (12.1-15.1); White Blood Count 11.4 10^3/uL (4.0-10.0)
[2019-11-11 13:23] LABS: Alanine Aminotransferase 175 U/L (0-33); Albumin Level 3.5 g/dL (3.5-5.2); Alkaline Phosphatase 157 IU/L (35-105); Aspartate Amino Transferase 370 U/L (0-32); Blood Urea Nitrogen 29 mg/dL (8-23); Calcium 8.9 mg/dL (8.5-10.5); Carbon Dioxide 14 mmol/L (22-29); Chloride 102 mmol/L (98-107); Globulin 2.1 g/dL (1.3-4.6); Glucose 169 mg/dL (65-115); Osmolality Calculated 289 mOsm/kg (285-295); Sodium 139 mmol/L (136-145); Total Bilirubin 2.2 mg/dL (0.15-1.2); Total Protein 5.6 g/dL (6.6-8.7)
--- NOTE | 2019-11-11 13:39 | XRR_ITS ---
PROCEDURE INFORMATION: Exam: XR Chest, 1 View Exam date and time: 11/11/2019 2:58 PM Age: 74 years old Clinical indication: Other: No cp, RT leg pain; Additional info: SOB TECHNIQUE: Imaging protocol: XR of the chest Views: 1 view. COMPARISON: No relevant prior studies available. FINDINGS: There is mild to moderate ill-defined opacification in bilateral lower lung zones, may represent infiltrates, edema, or a combination thereof. No significant obscuration of the lateral costophrenic angles is demonstrated. There is scattered pulmonary scarring bilaterally. Visualized cardiac silhouette size appears moderately enlarged. Pericardial effusion not excluded. There are calcifications in the thoracic aorta. Changes of median sternotomy and cardiac valve procedure. XR/XR chest 1V portable [id number] IMPRESSION: There is mild to moderate ill-defined opacification in bilateral lower lung zones, may represent infiltrates, edema, or a combination thereof. Visualized cardiac silhouette size appears moderately enlarged. Pericardial effusion not excluded.
[2019-11-11] MEDS: haloperidol 1 mg Tablet PO (15:12)
[2019-11-11 15:14] LABS: Add Urine Microscopic? YES; Bilirubin Urine Neg (NEGATIVE); Blood Urine 3+ (Negative); Glucose Urine UA Norm (Normal); Ketones Urine 1+ (Negative); Leukocyte Esterase Urine Trace (Negative); Nitrate Urine Negative (Negative); Protein Urine 3+ (Negative); Urine Appearance Hazy (CLEAR); Urine Color Yellow (Yellow); Urobilinogen Urine 1 mg/dL (Negative); pH Urine 5 (5-7)
[2019-11-11 15:15] LABS: Add Urine Culture? No; Bacteria Urine TRACE; Squamous Epithelial Cell Urine 25-40 (0-5)
--- NOTE | 2019-11-11 15:19 | PC.NURSE ---
refusing med pt refused the haldol she is too agitated toaccept it.
--- NOTE | 2019-11-11 15:46 | PC.NURSE ---
pt refused vitals to be done. Pt seems very aggravated the last couple hours.
[2019-11-11] MEDS: haloperidol inj 5 mg/mL INJ 1 mL 2 MG IM (15:59)
[2019-11-11] MEDS: cefTRIAXone 1,000 MG in sodium chloride 0.9% (plus) 50 ML 100 MG IV (16:00)
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
[2019-11-11] MEDS: enoxaparin 40 mg/0.4 mL Syringe SUBCUT (18:33)
[2019-11-11] MEDS: bumetanide 0.25 mg/mL SDV 10 mL 0.5 MG IV (18:33)
[2019-11-11 21:39] LABS: Glucose Point of Care 190 mg/dL (70-110)
[2019-11-11 21:41] LABS: Glucose Point of Care 188 mg/dL (70-110)
[2019-11-11 23:40] VITALS: PULSE 87; RESP 20; O2SAT 98
[2019-11-12] VITALS (8 sets, daily range): BP systolic 100–168; BP diastolic 60–83; PULSE 71–89; RESP 16–24; TEMP 36.4–37.1; O2SAT 94–99
--- NOTE | 2019-11-12 01:45 | PC.NURSE ---
11/12/2019 0100 This nurse and Nurse Miles Lozada RN tried to miranda this patient's pulses in the right leg. We were able to find and miranda the right popliteal pulse. We could not palpate or doppler the pulse in the right foot. Patient is not complaining of pain or numbness and still responds to touch in the right foot. The right foot has capillary refill of less than 3 seconds.
[2019-11-12 05:25] LABS: Basophils % 0.2 %; Eosinophils # 0.1 10^3/uL (0.0-0.8); Eosinophils % 0.6 %; Hematocrit 26.8 % (37.0-47.0); Hemoglobin 8.4 g/dL (11.5-15.3); Lymphocytes # 1.1 10^3/uL (0.8-4.8); Lymphocytes % 10.7 %; Mean Corpuscular HGB Conc 31.3 g/dL (30.0-36.0); Mean Corpuscular Hemoglobin 29.4 pg (28.0-34.0); Mean Corpuscular Volume 93.7 fL (81-99); Mean Platelet Volume 12.5 fL (7.4-10.4); Monocytes # 1.7 10^3/uL (0.2-0.9); Monocytes % 16.6 %; Neutrophils # 7.1 10^3/uL (1.8-7.7); Nucleated Red Blood Cells # 0.1 /100WBC; Nucleated Red Blood Cells % 0.5 %; Platelet Count 170 10^3/cmm (130-400); Red Blood Count 2.86 10^6/uL (4.1-5.3); Red Cell Distribution Width 14.5 % (12.1-15.1); White Blood Count 9.9 10^3/uL (4.0-10.0)
[2019-11-12 05:36] LABS: Albumin Level 3.2 g/dL (3.5-5.2); Alkaline Phosphatase 176 IU/L (35-105); Anion Gap 22.4 (5-19); Blood Urea Nitrogen 46 mg/dL (8-23); Calcium 8.5 mg/dL (8.5-10.5); Carbon Dioxide 18 mmol/L (22-29); Chloride 104 mmol/L (98-107); Chol HDL Ratio 5.05 mg/dL (0.0-4.40); Cholesterol 111 mg/dL (0-200); Globulin 2.4 g/dL (1.3-4.6); Glucose 125 mg/dL (65-115); HDL Cholesterol 22 mg/dL (60-100); LDL Cholesterol Calculated 68 mg/dL (50-129); LDL HDL Ratio 3.09 RATIO (0.00-3.22); Osmolality Calculated 289 mOsm/kg (285-295); Potassium 4.4 mmol/L (3.5-5.1); Sodium 140 mmol/L (136-145); Total Bilirubin 1.9 mg/dL (0.15-1.2); Total Protein 5.6 g/dL (6.6-8.7); Triglycerides 103 mg/dL (0-150)
[2019-11-12 05:39] LABS: Ammonia 34 umol/L (11-51)
[2019-11-12 05:40] LABS: Estmated Average Glucose 246; Hemoglobin A1C 10.2 % (4.0-6.0)
[2019-11-12 05:50] LABS: Alanine Aminotransferase 1375 U/L (0-33)
[2019-11-12 05:54] LABS: Aspartate Amino Transferase 3430 U/L (0-32)
[2019-11-12 06:07] LABS: Glucose Point of Care 127 mg/dL (70-110)
[2019-11-12] MEDS: lactated ringers 1,000 ML 100 ML IV (06:24)
[2019-11-12] MEDS: nitroglycerin 1 gm/inch oint Pkt 1 INCH TOPICAL ×2 (06:24→17:06)
--- NOTE | 2019-11-12 07:01 | USR_ITS ---
PROCEDURE INFORMATION: Exam: US Abdomen Complete Exam date and time: 11/12/2019 7:51 AM Age: 74 years old Clinical indication: Abnormal findings; Abnormal lab test; Elevated liver enzymes; Additional info: Abnromal lft TECHNIQUE: Imaging protocol: Real-time ultrasound of the abdomen with image documentation. COMPARISON: No relevant prior studies available. FINDINGS: Liver: The liver is diffusely hyperechoic, consistent with fatty infiltration. No intrahepatic or extrahepatic biliary dilation identified. Gallbladder: A few small stones are noted in the gallbladder. No sludge or gallbladder wall thickening identified. Trace amount of pericholecystic fluid. Sonographic Dobbins sign not present. Common bile duct: The common bile duct is within normal limits for caliber at 0.6 cm. No common bile duct stone identified. Pancreas: The pancreas is not visualized due to bowel gas. Right kidney: The right kidney measures 10.2 cm length and is unremarkable. No hydronephrosis, calculi, or masses identified involving the right kidney. Left kidney: The left kidney measures 7.2 cm in length and is atrophic. No hydronephrosis or calculi identified involving the left kidney. There is a cyst in the left kidney upper pole measuring 1.4 cm in maximum dimension. Spleen: Visualized portions of the spleen are unremarkable. Small amount of perisplenic free fluid. Aorta: The aorta is not visualized due to bowel gas. Inferior vena cava: Visualized portions of the inferior vena cava are unremarkable. Other findings: Small amount of free fluid in the right upper quadrant, left upper quadrant, and pelvis. Bilateral pleural effusions are noted. US/US abdomen complete* [id number] IMPRESSION: 1. Cholelithiasis. 2. Free intraperitoneal fluid and bilateral pleural effusions. This could indicate a systemic issue such as hypoproteinemia. 3. Fatty liver.
--- NOTE | 2019-11-12 07:21 | PC.NURSE ---
Made NPO for ultrasound
[2019-11-12 08:10] LABS: INR 2.03 (0.8-1.2)
[2019-11-12 08:54] LABS: Hepatitis A Antibody IgM Non-Reactive (Nonreactive); Hepatitis B Core AB, Total Non-Reactive (Nonreactive); Hepatitis B Surface AB 3.5 (0-8.5); Hepatitis B Surface Antigen Non-Reactive (Nonreactive); Hepatitis C Virus Antibody Non-Reactive (Nonreactive)
[2019-11-12] MEDS: lisinopril 20 mg Tablet 40 MG PO (09:19)
[2019-11-12] MEDS: clopidogrel 75 mg Tablet PO (09:19)
[2019-11-12] MEDS: allopurinol 300 mg Tablet PO (09:19)
[2019-11-12] MEDS: aspirin 81 mg EC Tablet PO (09:20)
[2019-11-12] MEDS: metoprolol tartrate 50 mg Tablet 25 MG PO ×2 (09:20→20:40)
[2019-11-12] MEDS: pantoprazole DR 40 mg Tablet PO (09:20)
[2019-11-12] MEDS: citalopram 20 mg Tablet PO (09:20)
--- NOTE | 2019-11-12 09:52 | P.PN_ITS ---
Subjective Subjective: Interval history: Shira is a 74-year-old woman with complex past medical history of CAD status post bypass surgery and mitral valve repair few years ago, ischemic cardiomyop athy, hypertension, dyslipidemia COPD, tobacco abuse, right subclavian artery stenosis and secondary pulmonary hypertension. She also has peripheral arterial disease post distal left external iliac and left common femoral artery endarterectomy and patch angioplasty in 2016. She underwent peripheral angiogram for left sided claudications. Her distal left common iliac artery was occluded at the takeoff of the hypogastric and external iliac. There was a 99% stenosis of the distal left common femoral artery at the ostium of the left SFA. This entire area was treated with balloon angioplasty and drug-eluting balloon angioplasty. The iliac lesion was stented in December 2018. He underwent peripheral angiogram on [address] Ellis for right sided claudication. She was found to have right superficial femoral artery occlusion at the origin wire was placed but thought to be subintimal and the procedure was abandoned. Shortly thereafter she developed acute ischemia of right lower extremity and was taken to the OR by Dr. Victor. She was found to have apparent dissection extending from SFA to popliteal artery and right femoral to popliteal artery bypass was done. Unfortunately even postprocedure she continued to have absent Doppler signals in right foot. She was placed on heparin drip for sometime and nitroglycerin topical on right foot. Last 24 hours: Postop day #4 status post attempted right femoropopliteal bypass. She seems herself this morning. She is alert but states she is sleepy. Medications: Reviewed: Yes Medication Review Details: Current Medications Hydrocodone Bitart/Acetaminophen ([place] 5-325 Mg) 1 tab PO Q4H PRN PRN Reason: MODERATE PAIN Al Hydrox/Mg Hydrox/Simethicone (Maalox) 30 ml PO Q15M PRN PRN Reason: INDIGESTION Al Hydrox/Mg Hydrox/Simethicone (Maalox) 30 ml PO Q4H PRN PRN Reason: INDIGESTION Albuterol Sulfate (Ventolin) 2 puff INHALATION Q4H.RESPIRATORY PRN PRN Reason: SHORTNESS OF BREATH Allopurinol (Zyloprim) 300 mg PO DAILY [facility] Last Admin: 11/11/19 08:49 Dose: 300 mg Documented by: Aspirin (Aspirin Ec) 81 mg PO DAILY [facility] Last Admin: 11/11/19 08:49 Dose: 81 mg Documented by: Atorvastatin Calcium (Lipitor) 40 mg PO BEDTIME [facility] Last Admin: 11/10/19 21:53 Dose: 40 mg Documented by: Bisacodyl (Bisac-Evac) 10 mg [place] Q6H PRN PRN Reason: Constipation (Use 5th) Bisacodyl (Dulcolax) 5 mg PO Q6H PRN PRN Reason: Constipation (Use 2nd) Bismuth Subsalicylate ([place] Bismuth) 30 ml PO PRN PRN PRN Reason: DIARRHEA Chlorhexidine Gluconate (Betasept) 1 applic TOPICAL DAILY [facility] Last Admin: 11/11/19 08:51 Dose: 1 applic Documented by: Citalopram Hydrobromide (Celexa) 20 mg PO DAILY [facility] Last Admin: 11/11/19 08:50 Dose: 20 mg Documented by: Clopidogrel Bisulfate (Plavix) 75 mg PO DAILY [facility] Last Admin: 11/11/19 08:50 Dose: 75 mg Documented by: Dextrose (D50w) 25 ml IVP ONCE PRN; Protocol PRN Reason: hypoglycemia protocol Dextrose (D50w) 50 ml IVP PRN PRN; Protocol PRN Reason: hypoglycemia protocol Diphenhydramine HCl (Benadryl) 25 mg PO BEDTIME PRN PRN Reason: SLEEP Docusate Sodium (Colace) 100 mg PO BID PRN PRN Reason: Constipation (Use 1st) Enoxaparin Sodium (Lovenox) 40 mg SUBCUT Q24H [facility] Last Admin: 11/10/19 17:24 Dose: 40 mg Documented by: Glucagon (Glucagen) 1 mg IM ONCE PRN; Protocol PRN Reason: Adult Acute Hypoglycemia Prot. Guaifenesin (Robitussin Oral Liq) 200 mg PO Q4H PRN PRN Reason: COUGH Heparin Sodium (Beef Lung) (Heparin) 0 unit IV PRN PRN; Protocol PRN Reason: Heparin weight-base protocol Last Admin: 11/08/19 18:31 Dose: 0.25 unit Documented by: Hydralazine HCl (Apresoline) 10 mg PO TID PRN PRN Reason: SYSTOLIC BLOOD PRESSURE Dextrose (D5w) 500 mls @ 100 mls/hr IV ONCE PRN; Protocol PRN Reason: Adult Acute Hypoglycemia Prot Lactated Ringer's (Lactated Ringers) 1,000 mls @ 100 mls/hr IV .Q10H [facility] Last Admin: 11/11/19 10:01 Dose: 100 mls/hr Documented by: Insulin Aspart (Novolog) 0 unit SUBCUT WM&BEDTIME [facility]; Protocol Last Admin: 11/11/19 12:35 Dose: 8 unit Documented by: Ketorolac Tromethamine (Toradol) 30 mg IVP Q6H PRN PRN Reason: MODERATE PAIN Stop: 11/13/19 17:28 Last Admin: 11/11/19 12:39 Dose: 30 mg Documented by: Lactulose (Constulose) 20 gm PO Q6H PRN PRN Reason: Constipation (Use 3rd) Lisinopril (Prinivil) 40 mg PO DAILY [facility] Last Admin: 11/11/19 08:49 Dose: 40 mg Documented by: Magnesium Hydroxide (Milk Of Magnesia) 45 ml PO DAILY PRN PRN Reason: Constipation (use 4th) Metoprolol Tartrate (Lopressor) 50 mg PO DAILY [facility] Last Admin: 11/11/19 08:50 Dose: 50 mg Documented by: Morphine Sulfate (Morphine) 2 mg IVP Q1H PRN PRN Reason: SEVERE PAIN Last Admin: 11/10/19 04:36 Dose: 2 mg Documented by: Nitroglycerin (Nitro-Bid) 1 inch TOPICAL Q12H [facility] Last Admin: 11/11/19 05:46 Dose: 1 inch Documented by: Pantoprazole Sodium (Protonix) 40 mg PO DAILY [facility] Last Admin: 11/11/19 08:50 Dose: 40 mg Documented by: Pantoprazole Sodium (Protonix) 40 mg PO DAILY [facility] Last Admin: 11/11/19 08:52 Dose: Not Given Documented by: Promethazine HCl (Phenergan) 25 mg [place] Q6H PRN PRN Reason: NAUSEA AND VOMITING Tramadol HCl (Ultram) 50 mg PO Q6H PRN PRN Reason: MODERATE PAIN Vitals/I&O/Wt Last Vital Signs Temp 98.8 F 11/12/19 08:00 Pulse 89 11/12/19 09:04 Resp 18 11/12/19 09:04 BP 109/73 11/12/19 08:00 Pulse Ox 94 11/12/19 09:04 11/11/19 11/12/19 11/12/19 22:59 06:59 14:59 Intake Total 1360 / 2381.667 890 / 3271.667 236 / 236 Output Total 150 / 400 100 / 100 Balance 1210 / 1980.667 890 / 2871.667 136 / 136 Cumulative I&O 10/30/19 10:33 thru 11/12/19 08:00 Intake Total 59732.334 Output Total 2950 Balance 38860.334 Physical Exam Narrative: EXAM NARRATIVE: GENERAL: Awake alert lying comfortably in bed HEENT: No icterus, pupils equal round reactive to light NECK: Supple without jugular vein distention. LUNGS: Clear to auscultation no wheezes or rales. HEART: Regular rate and rhythm. No murmur rub or gallop EXTREMITIES: No edema. The right foot is cooler than the left foot. No discoloration. No palpable pulses. No leg pain NEUROLOGIC: alert and oriented x3 Urinary Catheter Management^: Best: Cath Placed During This Visit: yes, but has since been removed by the nurse Reason for Continuing Indwelling Catheter: Accurate Measurement of Urinary Output in Critically Ill Patients Urinary Catheter Date of Insertion: 11/08/19 Urinary Catheter Time of Insertion: 13:30 Date Urinary Catheter Removed: 11/10/19 Time Urinary Catheter Discontinued: 09:15 Data : 11/12/19 05:14 11/12/19 05:14 Other Labs: Total bilirubin 1.9, AST 3430, ALT 1375, alkaline phosphatase 176, ammonia 34, creatinine kinase 2518, albumin 3.2. Total cholesterol 111, LDL 68, HDL 22 and triglyceride 103. Abdominal ultrasound: Radiologist's impression: IMPRESSION: 1. Cholelithiasis. 2. Free intraperitoneal fluid and bilateral pleural effusions. This could indicate a systemic issue such as hypoproteinemia. 3. Fatty liver A&P Assessment and plan (1) Ischemia of right lower extremity: Postop day #4 status post attempted right femoropopliteal bypass. -continue ASA, plavix and topical NTG. Status: Acute (2) CHF (congestive heart failure): Clinically does not appear overtly fluid overloaded. -CXR with some congestion, Bumex 0.5 mg IV x 1 Status: Acute Qualifiers: Heart failure type: systolic Heart failure chronicity: chronic Q ualified Code(s): I50.22 - Chronic systolic (congestive) heart failure (3) Diabetes 1.5, managed as type 2: She is just on NovoLog presently. Status: Acute (4) Hx of CABG: stable, no ischemia on stress test in 04/2019. Status: Acute (5) H/O mitral valve repair: Status: Acute Additional A&P Information Abnormal liver enzymes, concern for acute liver failure: I appreciate Dr. Lowery's help in managing the patient. 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
--- NOTE | 2019-11-12 10:01 | PC.NURSE ---
Patient was NPO for ultrasound this am. She is alert and oriented, place, name, situation. Good historian, was able to discuss previous procedures and her physicians. Patient has faint pulse to left foot, able to move and skin blanches well. Patient right foot slightly cool, able to wiggle toes, skin blanches well, has nitro paste to the top of her foot. Sitter at bedside. Sitter states she has set with her over last few days and she is more alert and oriented, less anxious and agreeable. Patient has denied any pain and nausea. Dressings to right groin and thigh intact, no S/s of infection noted.
[2019-11-12 11:02] LABS: Glucose Point of Care 237 mg/dL (70-110)
[2019-11-12 11:24] LABS: Phosphorus 5.3 mg/dL (2.5-4.5)
[2019-11-12] MEDS: chlorhexidine gluconate 4% Btl 118 mL 1 APPLIC TOPICAL (11:45)
[2019-11-12 11:54] LABS: Creatine Phosphokinase 2518 U/L (26-192)
[2019-11-12] MEDS: sodium chloride 0.9% 1,000 ML 100 ML IV (13:05)
--- NOTE | 2019-11-12 13:10 | USR_ITS ---
PROCEDURE INFORMATION: Exam: US Retroperitoneal; Complete; Kidneys and Bladder Exam date and time: 11/12/2019 2:23 PM Age: 74 years old Clinical indication: Acute renal insufficiency TECHNIQUE: Imaging protocol: Real-time ultrasound of the retroperitoneum with image documentation. Complete exam focused on the kidneys and bladder. COMPARISON: US abdomen complete* [id number] 11/12/2019 7:26 AM FINDINGS: Right kidney: The right kidney measures 10.4 cm in length. Normal parenchymal echogenicity. No hydronephrosis. Left kidney: The left kidney measures 7.2 cm in length. There is global renal parenchymal atrophy. No hydronephrosis. There is a 1.2 cm simple appearing left renal cyst. Bladder: No bladder wall thickening or bladder calculus. US/US renal BI with bladder IMPRESSION: 1. No hydronephrosis. 2. Global left renal atrophy. This might be due to left renal artery stenosis. COMMENTS: Consistent with the [place] [employer]'s Incidental Findings Committee white paper (J Am Chloe Radiol 2018): Any incidental renal lesion less than 1.0 cm or classified as too small to characterize, or any incidental cystic renal lesion characterized as simple-appearing, is likely benign. No follow-up imaging is recommended for these lesions per consensus recommendations based on imaging criteria.
--- NOTE | 2019-11-12 13:10 | USR_ITS ---
PROCEDURE INFORMATION: Exam: US Duplex Artery or Vein of the Abdominal and/or Reproductive Organs, Limited Mesenteric Exam date and time: 11/12/2019 2:13 PM Age: 74 years old Clinical indication: Pain and screening exam; Doppler portal vein; Other: Abdominal; Additional info: Port vein doppler TECHNIQUE: Imaging protocol: Real-time duplex ultrasound scan of the arterial or venous flow of the abdomen and/or reproductive organs, with color Doppler flow and spectral waveform analysis with image documentation. Exam focused on the region of clinical interest. Duplex images were received to evaluate vascular conditions. COMPARISON: No relevant prior studies available. FINDINGS: Portal Venous System: Patent. Hepatopetal flow. Hepatic veins: Patent. Normal waveforms. Inferior vena cava: Patent. US/CV unlisted vascular [id number] IMPRESSION: Patent portal venous system. Hepatopetal flow.
--- NOTE | 2019-11-12 13:13 | PM.CONSULT ---
Providers/Reason For Consult Consulting Physican/Specialty*: Dr. Lowery/internal medicine Reason for Consult*: Abnormal liver function tests Requesting Physcian: Dr. Robb Attending Physician: Glnyn Ellis MD Primary Care Provider: Amber Esquivel MD History of Present Illness History of Present Illness Shria is a 74-year-old woman with complex past medical history of CAD status post bypass surgery and mitral valve repair few years ago, ischemic cardiomyopathy, hypertension, dyslipidemia COPD, tobacco abuse, right subclavian artery stenosis and secondary pulmonary hypertension. She also has peripheral arterial disease post distal left external iliac and left common femoral artery endarterectomy and patch angioplasty in 2016. She underwent peripheral angiogram for left sided claudications. Her distal left common iliac artery was occluded at the takeoff of the hypogastric and external iliac. There was a 99% stenosis of the distal left common femoral artery at the ostium of the left SFA. This entire area was treated with balloon angioplasty and drug-eluting balloon angioplasty. The iliac lesion was stented in December 2018. He underwent peripheral angiogram on [address] Ellis for right sided claudication. She was found to have right superficial femoral artery occlusion at the origin wire was placed but thought to be subintimal and the procedure was abandoned. Shortly thereafter she developed acute ischemia of right lower extremity and was taken to the OR by Dr. Victor. She was found to have apparent dissection extending from SFA to popliteal artery and right femoral to popliteal artery bypass was done. Unfortunately even postprocedure she continued to have absent Doppler signals in right foot. She was placed on heparin drip for sometime and nitroglycerin topical on right foot. Patient is postop day 4. She was transferred out of ICU yesterday. On the floor yesterday patient seemed anxious and confused along with low appetite with nausea and vomiting because of which liver function tests were done. Today on repeat liver functions were markedly deranged than yesterday and at baseline. Hospitalist service was consulted for the same. On examination patient is sleeping comfortably in bed. She wakes up on calling her name. She denies of having any abdominal pain, nausea, vomiting, headache, palpitation, chest pain. She states her appetite is poor because of bloating but is better than yesterday. She denies of any rash, bleeding from anywhere, itching. As per conversation with the nurse patient is a lot more awake and alert than yesterday but is eating less. Vitals last 24-hour, input output noted. Review of Systems Const: Denies: fever(s), chills, body aches, change in appetite, malaise, night sweats, diaphoresis, change in sleep pattern, daytime sleepiness or snoring Eyes: Denies: change in vision, blurry vision, photophobia, eye discomfort or eye discharge ENMT: Denies: throat pain, enlarged tonsils, hoarseness, mouth pain, oral sores, dry mouth, tinnitus, nasal congestion or post nasal drip Card: Reports: chest pain and palpitations; Denies: irregular heart rhythm, edema, swelling of feet/ankles, lightheadedness, syncope, pre-syncope, dyspnea on exertion, orthopnea, leg pain with exertion or acrocyanosis Resp: Reports: dyspnea and chest congestion; Denies: productive cough, non-productive cough, wheezing, stridor, pain on inspiration, change in phlegm color or hemoptysis GI: Reports: nausea; Denies: abdominal pain, vomiting, hematemesis, coffee ground emesis, dysphagia, heartburn, diarrhea, constipation, bloating, GI cramping, change in bowel habits, pain on defecation, hematochezia or melena : Denies: flank pain, dysuria, urinary frequency, urinary urgency, urinary hesitancy, nocturia or hematuria Musc: Denies: neck pain, back pain, extremity pain, joint pain, joint swelling, joint redness, joint stiffness or limited range of motion Neuro: Denies: headache(s), numbness in extremities, weakness in extremities, sensory changes, lack of coordination, difficulty walking, frequent falls, dizziness, vertigo, confusion, Slurred speech present, difficulty communicating thoughts or seizure-like activity Psych: Denies: anxiety, depression, mood swings, panic attacks, hopelessness or irritability Endo: Denies: polyuria, polydipsia, tired all the time, cold intolerance, excessive sweating, flushing or heat intolerance Pierre/Lymph: Denies: easy bruising or easy bleeding All/Imm: Denies: tongue swelling, facial swelling or acute wheezing Meds/Allergies Home Medications and Allergies Home Medications Medication Instructions Recorded Confirmed Last Taken Type allopurinol 300 mg tablet 300 mg PO DAILY tab 05/31/19 11/07/19 11/07/19 08:00 History 300 MG aspirin 81 mg tablet,delayed 81 mg PO DAILY tab 05/31/19 11/07/19 11/07/19 08:00 History release 81 MG atorvastatin 40 mg tablet 40 mg PO BEDTIME tab 05/31/19 11/08/19 11/07/19 21:00 History bumetanide 2 mg tablet 2 mg PO DAILY tab 05/31/19 11/07/19 11/07/19 08:00 History 2 MG citalopram 20 mg tablet 20 mg PO DAILY tab 05/31/19 11/07/19 11/07/19 08:00 History 20 MG insulin glargine 100 unit/mL 40 unit SUBCUT BID ml 05/31/19 11/07/19 11/08/19 05:00 History subcutaneous solution 40 UNIT lisinopril 40 mg tablet 40 mg PO DAILY tab 05/31/19 11/07/19 11/07/19 08:00 History 40 MG metoprolol tartrate 50 mg tablet 50 mg PO DAILY tab 05/31/19 11/07/19 11/07/19 08:00 History 50 MG omeprazole 40 mg capsule,delayed 40 mg PO DAILY cap 05/31/19 11/07/19 11/07/19 08:00 History release 40 MG ProAir HFA 2 puff PO PRN 07/08/19 11/07/19 11/07/19 08:00 History 2 puff Allergies Allergy/AdvReac Type Severity Reaction Status Date / Time latex Allergy Unknown Unknown Verified 11/08/19 06:40 Current Medications Current Medications Generic Name Dose Route Start Last Admin Trade Name Freq PRN Reason Stop Dose Admin Allopurinol 300 mg 11/08/19 09:00 11/12/19 09:19 Zyloprim PO 300 mg DAILY QI Administration Aspirin 81 mg 11/08/19 09:00 11/12/19 09:20 Aspirin Ec PO 81 mg DAILY QI Administration Chlorhexidine Gluconate 1 applic 11/08/19 10:30 11/12/19 11:45 Betasept TOPICAL 1 applic DAILY QI Administration Citalopram Hydrobromide 20 mg 11/08/19 09:00 11/12/19 09:20 Celexa PO 20 mg DAILY QI Administration Clopidogrel Bisulfate 75 mg 11/09/19 09:00 11/12/19 09:19 Plavix PO 75 mg DAILY QI Administration Heparin Sodium (Beef Lung) 0 unit 11/08/19 17:53 11/08/19 18:31 Heparin IV 0.25 unit PRN PRN Administration Heparin weight-base protocol Protocol Lactated Ringer's 1,000 mls @ 100 mls/hr 11/08/19 17:30 11/12/19 06:24 Lactated Ringers IV 100 mls/hr .Q10H QI Administration Ceftriaxone Sodium 1,000 mg/ 50 mls @ 100 mls/hr 11/11/19 16:00 11/11/19 16:00 Sodium Chloride IV 100 mls/hr Q24H QI Administration Protocol Sodium Chloride 1,000 mls @ 100 mls/hr 11/12/19 12:00 11/12/19 13:05 Sodium Chloride 0.9% IV 100 mls/hr .Q10H QI Administration Insulin Aspart 0 unit 11/08/19 18:00 11/12/19 12:03 Novolog SUBCUT 8 unit WM&BEDTIME QI Administration Protocol Lisinopril 40 mg 11/08/19 09:00 11/12/19 09:19 Prinivil PO 40 mg DAILY QI Administration Metoprolol Tartrate 25 mg 11/12/19 09:00 11/12/19 09:20 Lopressor PO 25 mg Q12H QI Administration Morphine Sulfate 2 mg 11/08/19 17:29 11/10/19 04:36 Morphine IVP 2 mg Q1H PRN Administration SEVERE PAIN Nitroglycerin 1 inch 11/08/19 18:45 11/12/19 06:24 Nitro-Bid TOPICAL 1 inch Q12H QI Administration Pantoprazole Sodium 40 mg 11/09/19 09:00 11/12/19 09:20 Protonix PO 40 mg DAILY QI Administration PFSH Acute PFSH: Medical History (Updated 11/12/19 @ 15:11 by Fran Lowery MD) Aortic insufficiency with aortic stenosis CHF (congestive heart failure) COPD (chronic obstructive pulmonary disease) Diabetes 1.5, managed as type 2 Essential hypertension Hyperlipidemia Ischemia of right lower extremity Ischemic cardiomyopathy Mitral regurgitation PAD (peripheral artery disease) Pulmonary HTN Subclavian arterial stenosis Tobacco abuse Surgical History (Updated 11/12/19 @ 15:09 by Fran Lowery MD) H/O mitral valve repair Hx of CABG S/P appendectomy S/P carpal tunnel release Status post mitral valve annuloplasty Family History Mother CAD (coronary artery disease) Father Diabetes Other Cancer Social History Smoking and tobacco status: former smoker Quit status (tobacco): has quit using tobacco Year quit tobacco: 2019PD hx x 40 Years Alcohol intake: never Lives independently: Yes Household members: none Marital status: / Current occupational status: retired History of recent travel: No Current gender identity: Female Vitals/I&O/Wt Last Vital Signs Temp 98.1 F 11/12/19 12:00 Pulse 71 11/12/19 12:00 Resp 24 H 11/12/19 12:00 BP 105/71 11/12/19 12:00 Pulse Ox 99 11/12/19 12:00 11/11/19 11/12/19 11/12/19 22:59 06:59 14:59 Intake Total 1360 / 2381.667 890 / 3271.667 236 / 236 Output Total 150 / 400 200 / 200 Balance 1210 / 1981.667 890 / 2871.667 36 / 36 Physical Exam Narrative: EXAM NARRATIVE: EXAM NARRATIVE: General: No acute distress, AO x3, pale HEENT: PERRLA, pupils bilaterally equal and reactive Chest:NVBS, b/l clear, no added sounds CVS: S1-S2 regular, PSM at apex 3/6, no tachycardia, no gallops, no rubs Abdomen: Soft, nontender, no organomegaly, bowel sounds present, morbidly obese Neuro: No focal deficits, no facial deformity, AO x3, power 5/5 in all limbs Urinary Catheter Management^: Best: Cath Placed During This Visit: yes, but has since been removed by the nurse Reason for Continuing Indwelling Catheter: Accurate Measurement of Urinary Output in Critically Ill Patients Urinary Catheter Date of Insertion: 11/08/19 Urinary Catheter Time of Insertion: 13:30 Date Urinary Catheter Removed: 11/10/19 Time Urinary Catheter Discontinued: 09:15 A&P Assessment and plan (1) Shock liver: Status: Acute (2) Abnormal liver function test: Status: Acute (3) Acute kidney injury superimposed on CKD: Status: Acute (4) Rhabdomyolysis: Status: Acute (5) Ischemia of right lower extremity: Postop day #4 status post attempted right femoropopliteal bypass. -continue ASA, plavix and topical NTG. Status: Acute (6) H/O mitral valve repair: Status: Acute (7) Hx of CABG: stable, no ischemia on stress test in 04/2019. Status: Acute (8) CHF (congestive heart failure): Clinically does not appear overtly fluid overloaded. Given some TRANG along with patient seems euvolemic and comfortable lying in bed with saturation 99% on room air will confirm with Dr. Robb asking hold off on Bumex and start on gentle hydration. Status: Acute Qualifiers: Heart failure chronicity: chronic Heart failure type: systolic Qualified Code(s): I50.22 - Chronic systolic (congestive) heart failure (9) Diabetes 1.5, managed as type 2: Patient takes glargine 40 units twice daily at home. For now continue with insulin sliding scale at moderate dose as patient's oral intake is poor. Can start glargine at a reduced dose if patient is requiring high amount of insulin for blood sugars remain high. Last 24 hours she has received 20 units of NovoLog pre-meals. Status: Acute (10) Essential hypertension: Status: Acute Additional A&P Information Acutely abnormal liver enzymes: AST is 3430 from 370 yesterday, ALT is 1375 from 175 yesterday, alkaline phosphatase is 176 with INR of 2.03 which is baseline 1.2. Liver ultrasound done early in the morning shows diffusely hyperechoic liver with fatty infiltration with cholelithiasis, free intraperitoneal fluid and bilateral pleural effusions. Child-MEDEIROS- 9, Meld score of 24 Most likely shock liver. Do not have any blood pressure readings from the procedure. It is quite possible that patient was hypotensive during her procedures. Check GGT, LDH, haptoglobin, total, direct and indirect bilirubin to rule out hemolysis as hemoglobin is 8.4 from 9.4 yesterday. We will also check portal vein Doppler to rule out portal vein thrombosis. Case discussed with Dr. Ware/drug safety specialist from [facility]. He thinks patient labs are most likely because of shock liver superimposed on mild underlying liver cirrhosis. He suggests for now continue to monitor CMP daily and supportive treatment. Zofran for nausea, protonix 40 mg QD. TRANG on CKD: Baseline creatinine seems to be around 1.5. 2.1 today. We will check CPK to rule out rhabdomyolysis because of recent history of limb ischemia. Depending on the CPK results if elevated will confirm with Dr. Robb if it is appropriate to give patient gentle hydration under strict monitoring for fluid overload. Hydration will also help with acutely normal liver functions and possible rhabdomyolysis and TRANG on CKD. Medical reconciliation done for nephrotoxic drugs. May hold off on lisinopril as creatinine is worsening. Leukocytosis: Patient has remained afebrile. Leukocytosis could be because of stress from 2 procedures patient has been on for last 2 days along with lower limb ischemia. For now patient is on ceftriaxone. As patient is a alkaline phosphatase is not terribly high chances of cholestasis are low. For now we will continue on ceftriaxone and monitor for next 24 hours. If patient remains afebrile and leukocytosis improving can plan to discontinue Rocephin and monitor. Normocytic anemia: We will check iron panel along with ferritin. Start patient on oral iron supplementation. Continue to check CBC daily. Altered mental status: resolved COPD Chronic active tobacco abuse Hypertension Hyperlipidemia DVT prophylaxis: Lovenox Thank you for consult. We will continue to monitor. Consult Attestations Medical Necessity Statement: Acute abnormal liver enzymes, TRANG on CKD, ischemia of right lower limb Time Spent in Patient Care: Greater than 35 minutes (>than 50% of time spent in counselling and/or direct pt care on unit). 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
[2019-11-12 14:07] LABS: Gamma Glutamyl Transferase 130 U/L (5-36); Total Bilirubin 1.9 mg/dL (0.15-1.2)
[2019-11-12 14:58] LABS: Lactate Dehydrogenase 1970 U/L (135-214)
[2019-11-12 15:51] LABS: Ferritin 649 ng/mL (15-150); Iron 49 ug/dL (37-145); Percent Saturation 21.3 % (20-50); Total Iron Binding Capacity 229 mcg/dl; Unsaturated Iron Binding 180 ug/dL (112-347)
[2019-11-12] MEDS: cefTRIAXone 1,000 MG in sodium chloride 0.9% (plus) 50 ML 100 MG IV (17:06)
[2019-11-12 17:09] LABS: Glucose Point of Care 164 mg/dL (70-110)
[2019-11-12] MEDS: ondansetron 2 mg/ML SDV 2 mL 4 MG IVP (17:19)
[2019-11-12] MEDS: enoxaparin 30 mg/0.3 mL Syringe SUBCUT (17:20)
[2019-11-12] MEDS: ferrous sulfate EC 325 mg Tablet PO (17:20)
[2019-11-12 18:25] LABS: Albumin Level 3.3 g/dL (3.5-5.2); Alkaline Phosphatase 183 IU/L (35-105); Anion Gap 28.4 (5-19); Blood Urea Nitrogen 65 mg/dL (8-23); Calcium 8.8 mg/dL (8.5-10.5); Carbon Dioxide 14 mmol/L (22-29); Chloride 101 mmol/L (98-107); Globulin 2.2 g/dL (1.3-4.6); Glucose 119 mg/dL (65-115); Osmolality Calculated 288 mOsm/kg (285-295); Potassium 4.4 mmol/L (3.5-5.1); Sodium 139 mmol/L (136-145); Total Bilirubin 1.9 mg/dL (0.15-1.2); Total Protein 5.5 g/dL (6.6-8.7)
[2019-11-12 18:37] LABS: Alanine Aminotransferase 1234 U/L (0-33)
[2019-11-12 18:40] LABS: Aspartate Amino Transferase 1774 U/L (0-32)
--- NOTE | 2019-11-12 19:34 | PC.NURSE ---
Patient found with her IV pulled out, intact. Small amount of blood on her gown and bedsheets. Patient had stooled on self and stool was on sheets and bed. Patient's patient monitor also was pulled from chest per patient. Patient was set into chair and cleaned with wipes and clean linen and gown. Reported to charge nurse that patient may need require 1:1 sitter and rationale for such.
[2019-11-12 20:39] LABS: Glucose Point of Care 114 mg/dL (70-110)
[2019-11-12] MEDS: diphenhydrAMINE 25 mg Capsule PO (21:37)
--- NOTE | 2019-11-12 21:59 | PC.NURSE ---
Addendum entered by Nora Kerr RN 11/12/19 22:05: She pulled out IV on day shift around 1800 per dayshift report; they did not put back due to patient agitation. Original Note: Patient continues to try and get out of bed. A&O x3 with some confusion. Multiple attempts to get out of bed. Patient just pulled out IV that was just placed.
[2019-11-13] VITALS (28 sets, daily range): BP systolic 149–205; BP diastolic 47–132; PULSE 69–79; RESP 14–25; TEMP 36.4–36.8; O2SAT 94–100
[2019-11-13] MEDS: sodium chloride 0.9% 1,000 ML 100 ML IV (02:02)
[2019-11-13] MEDS: hyDRALAzine 10 mg Tablet PO (02:33)
[2019-11-13 04:17] LABS: Basophils % 0.2 %; Hematocrit 28.2 % (37.0-47.0); Hemoglobin 8.4 g/dL (11.5-15.3); Lymphocytes # 0.7 10^3/uL (0.8-4.8); Mean Corpuscular HGB Conc 29.8 g/dL (30.0-36.0); Mean Corpuscular Hemoglobin 29.3 pg (28.0-34.0); Mean Corpuscular Volume 98.3 fL (81-99); Mean Platelet Volume 12.8 fL (7.4-10.4); Monocytes # 2.3 10^3/uL (0.2-0.9); Monocytes % 13.7 %; Neutrophils # 13.3 10^3/uL (1.8-7.7); Neutrophils % 80.7 %; Nucleated Red Blood Cells # 0.2 /100WBC; Nucleated Red Blood Cells % 1.2 %; Platelet Count 190 10^3/cmm (130-400); Red Blood Count 2.87 10^6/uL (4.1-5.3); Red Cell Distribution Width 14.8 % (12.1-15.1); White Blood Count 16.5 10^3/uL (4.0-10.0)
[2019-11-13 04:44] LABS: Albumin Level 3.6 g/dL (3.5-5.2); Alkaline Phosphatase 192 IU/L (35-105); Anion Gap 28.6 (5-19); Blood Urea Nitrogen 70 mg/dL (8-23); Calcium 8.5 mg/dL (8.5-10.5); Carbon Dioxide 14 mmol/L (22-29); Chloride 105 mmol/L (98-107); Globulin 2.1 g/dL (1.3-4.6); Glucose 95 mg/dL (65-115); Osmolality Calculated 293 mOsm/kg (285-295); Potassium 5.6 mmol/L (3.5-5.1); Sodium 142 mmol/L (136-145); Total Bilirubin 2.6 mg/dL (0.15-1.2); Total Protein 5.7 g/dL (6.6-8.7)
[2019-11-13 04:56] LABS: Alanine Aminotransferase 1626 U/L (0-33)
[2019-11-13 05:08] LABS: Aspartate Amino Transferase 2575 U/L (0-32)
[2019-11-13] MEDS: nitroglycerin 1 gm/inch oint Pkt 1 INCH TOPICAL (05:39)
[2019-11-13] MEDS: lanolin oint 7 gm 1 APPLIC TOPICAL (06:28)
[2019-11-13 07:08] LABS: Glucose Point of Care 101 mg/dL (70-110)
--- NOTE | 2019-11-13 07:29 | PM.PN ---
Subjective Subjective: Interval history: Events of the weekend noted. Late on Wednesday and early Wednesday the patient became confused and somewhat agitated. She had some nausea and vomiting and her appetite decreased. Yesterday it was discovered her CPK was greater than 2500 and her renal function began to worsen. She was started on normal saline. Her transaminases were significantly elevated. Her INR was elevated. An abdominal ultrasound revealed cholelithiasis. There was a small amount of intraperitoneal fluid and small bilateral pleural effusions. Internal medicine was consulted. She was diagnosed with rhabdomyolysis with acute kidney injury and transaminitis. In order to clarify any concern regarding hypotension, the patient was actually hypertensive during the cardiac catheterization procedure. This morning the patient is lying flat in bed snoring. I did not try to arouse her. The night sitter states that she basically slept all night after being given Benadryl. Her hemoglobin and hematocrit have dropped to 8.4 and 28.2 this morning. Yesterday her INR was 2.03. Her creatinine was 2.5 this morning and it is the same this morning. AST is now up to 2575 and ALT up to 1626. Alkaline phosphatase is up to 192. Studies other than a gallbladder ultrasound included renal ultrasound which include left renal atrophy perhaps due to the left renal artery stenosis. An ultrasound of the portal venous system was normal. Vitals/I&O/Wt Last Vital Signs Temp 97.6 F 11/13/19 04:00 Pulse 69 11/13/19 04:00 Resp 20 H 11/13/19 04:00 BP 175/67 11/13/19 04:00 Pulse Ox 98 11/13/19 04:00 11/12/19 11/13/19 11/13/19 22:59 06:59 14:59 Intake Total 1964.667 / 2200.667 343.334 / 2544.001 Output Total 300 / 500 200 / 700 Balance 1664.667 / 1700.667 143.334 / 1844.001 Physical Exam Narrative: EXAM NARRATIVE: GENERAL: In general she is asleep snoring. HEENT: Exam within normal limits. [] NECK: Supple without jugular vein distention. The carotid upstroke is normal without bruits. [] BACK: Exam normal. [] LUNGS: Clear. [] HEART: Regular rate and rhythm. [] ABDOMEN: Benign without organomegaly or tenderness. [] EXTREMITIES: No edema. The right foot is slightly cooler than the left foot. Pulses are not dopplerable. NEUROLOGIC: Exam not done SKIN: Unremarkable. [] Urinary Catheter Management^: Best: Cath Placed During This Visit: yes, but has since been removed by the nurse Reason for Continuing Indwelling Catheter: Accurate Measurement of Urinary Output in Critically Ill Patients Urinary Catheter Date of Insertion: 11/08/19 Urinary Catheter Time of Insertion: 13:30 Date Urinary Catheter Removed: 11/10/19 Time Urinary Catheter Discontinued: 09:15 Data : 11/13/19 03:24 11/13/19 03:24 A&P Assessment and plan (1) Rhabdomyolysis: Status: Acute (2) Acute kidney injury superimposed on CKD: Status: Acute (3) Abnormal liver function test: Status: Acute (4) Ischemia of right lower extremity: Status: Acute (5) Hx of CABG: Status: Acute (6) H/O mitral valve repair: Status: Acute (7) Aortic insufficiency with aortic stenosis: Status: Acute (8) Subclavian arterial stenosis: Status: Acute (9) Mitral regurgitation: Status: Acute (10) PAD (peripheral artery disease): Status: Acute (11) CHF (congestive heart failure): Status: Acute Qualifiers: Heart failure type: systolic Heart failure chronicity: chronic Qualified Code(s): I50.22 - Chronic systolic (congestive) heart failure (12) Hyperlipidemia: Status: Acute (13) Essential hypertension: Status: Acute (14) Diabetes 1.5, managed as type 2: Status: Acute (15) Ischemic cardiomyopathy: Status: Acute (16) Tobacco abuse: Status: Acute (17) COPD (chronic obstructive pulmonary disease): Status: Acute (18) Anemia: Status: Acute (19) Encephalopathy: Status: Acute Additional A&P Information For now it is supportive care. She has several severe underlying illnesses which put her at risk from the beginning with both the cardiac catheterization procedure and the surgery. Appreciate medicine's help. We will follow along. Her right foot is slightly cooler but no longer discolored and does not seem to be causing her any significant pain. Attestations Medical Necessity Statement*: Patient requires continued hospitalization due to complications and continued management after cardiac catheterization and surgery. Coding Level of Care Code Established Pt Acute Breaking Machine Operator for Armida Mojica Patient Type Established History Comprehensive Exam Comprehensive Medical Decision Making High Complexity Diagnoses Rhabdomyolysis M62.82 Acute kidney injury superimposed on CKD N17.9; N18.9 Abnormal liver function test R94.5 Ischemia of right lower extremity I99.8 Hx of CABG Z95.1 H/O mitral valve repair Z98.890 Aortic insufficiency with aortic stenosis I35.2 Subclavian arterial stenosis I77.1 Mitral regurgitation I34.0 PAD (peripheral artery disease) I73.9 CHF (congestive heart failure) I50.22 Heart failure type: systolic Heart failure chronicity: chronic Hyperlipidemia E78.5 Essential hypertension I10 Diabetes 1.5, managed as type 2 E13.9 Ischemic cardiomyopathy I25.5 Tobacco abuse Z72.0 COPD (chronic obstructive pulmonary disease) J44.9 Anemia D64.9 Encephalopathy G93.40
--- NOTE | 2019-11-13 07:30 | PC.NURSE ---
rounded on patient this morning. This is this writers first shift with this patient. Patient appears really sleeping. Patient has a 1:1 sitter at bedside. Received in report that patient was given Benadryl the night before and it has caused her to be extremely sleepy. Patient will arouse to her name and open her eyes but falls right back to sleep. Patient s pedal pulse in her right foot is absent and it was stated to this designer/writer that the doctor is aware.
--- NOTE | 2019-11-13 09:49 | XRR_ITS ---
PROCEDURE INFORMATION: Exam: XR Chest, 1 View Exam date and time: 11/13/2019 10:01 AM Age: 74 years old Clinical indication: Dyspnea TECHNIQUE: Imaging protocol: XR of the chest Views: 1 view. COMPARISON: CR (CHEST, ) 11/11/2019 2:48 PM FINDINGS: Lungs: Unremarkable. No consolidation. Pleural space: Unremarkable. No pleural effusion. No pneumothorax. Heart/Mediastinum: There is mild cardiomegaly. Bones/joints: The patient has undergone median sternotomy XR/XR chest 1V portable [id number] IMPRESSION: No acute abnormality.
[2019-11-13 10:15] LABS: ABG PCO2 25.2 mmHg (35-45); Arterial Blood Gas Hematocrit 25.9 % (37-47); Base Excess ABG -12.9 mmol/L (-2.0-2.0); Blood Gas Allen Test Pos; Blood Gas Operator Identificat glc; Blood Gas Sample Site Radial, left; Blood Gas Sample Type Arterial; HCO3 ABG 12.3 mmol/L (22-26); PO2 ABG 94.6 mmHg (80.0-100.0)
--- NOTE | 2019-11-13 11:22 | PC.NURSE ---
Report to Omar CHILEL at this time in the ICU.
[2019-11-13] MEDS: famotidine 20 mg/2 mL INJ IVP ×2 (11:26→21:59)
[2019-11-13 11:42] LABS: Creatine Phosphokinase 5020 U/L (26-192)
--- NOTE | 2019-11-13 11:43 | DCPLANNER ---
Pg 2 of IM updated and reviewed with her Son; Ramo via the phone. No questions about that, does have questions about pt's leg. Will ask Nursing to call him. Copy left at bedside as agreed.
--- NOTE | 2019-11-13 11:47 | P.PN_ITS ---
Subjective Subjective: Interval history: Shira was lethargic when I tried to visit with her this morning. She could not communicate to me if she had any pain. Nursing reported that she responded to them and stood on command one time but seemed very weak and disoriented. History and physical was reviewed Medications: Reviewed: Yes Vitals/I&O/Wt Last Vital Signs Temp 97.9 F 11/13/19 08:00 Pulse 70 11/13/19 08:00 Resp 18 11/13/19 08:00 BP 185/82 11/13/19 08:00 Pulse Ox 96 11/13/19 08:00 11/12/19 11/13/19 11/13/19 22:59 06:59 14:59 Intake Total 1964.667 / 2200.667 343.334 / 2544.001 0 / 0 Output Total 300 / 500 200 / 700 Balance 1664.667 / 1700.667 143.334 / 1844.001 0 / 0 Physical Exam Narrative: EXAM NARRATIVE: General exam demonstrates a sleepy, lethargic white female that with verbal stimulation can open her eyes, follow some brief commands before going back to sleep. Cardiovascular regular rate and rhythm, no murmur Lungs clear but with some upper respiratory noise heard at the bases Abdomen is soft, bowel sounds are noted Extremities no cyanosis clubbing or edema. Right groin has edema. Right lower extremity cool and pulses difficult to feel. Nursing alerts that this is been how she has been since her surgery, and no new concerns are noted regarding this. Urinary Catheter Management^: Best: Cath Placed During This Visit: yes, but has since been removed by the nurse Reason for Continuing Indwelling Catheter: Accurate Measurement of Urinary Output in Critically Ill Patients Urinary Catheter Date of Insertion: 11/13/19 Urinary Catheter Time of Insertion: 10:20 Date Urinary Catheter Removed: 11/10/19 Time Urinary Catheter Discontinued: 09:15 Data : 11/13/19 03:24 11/13/19 03:24 A&P Assessment and plan (1) Encephalopathy acute: Secondary to renal failure, metabolic acidosis. She can still come alert, open eyes, follow reconstruction. Transfer to ICU Status: Acute (2) Metabolic acidosis: Appears to be secondary to renal failure. With hyperkalemia that is persistent, will initiate a bicarbonate drip. I do not feel comfortable giving her oral Kayexalate at this time but will reevaluate at a later time. Repeat potassium this afternoon. Check EKG. If any QRS widening consider calcium chloride Status: Acute (3) Acute kidney injury superimposed on CKD: Associated with significant metabolic acidosis and hyperkalemia Place Best to measure ins and outs Addition of sodium bicarb as noted Nephrology consultation Note that renal ultrasound has already been done, demonstrating no evidence of obstruction. Status: Acute (4) Rhabdomyolysis: Fluids at 75 cc an hour. Would like to increase further, but at very high risk for heart failure in this patient with recent EF of 40%, 2/4 diastolic dysfunction, moderate to severe aortic insufficiency. Status: Acute (5) Ischemia of right lower extremity: Postop day #5 status post attempted right femoropopliteal bypass. Continue aspirin and Plavix when patient is able to take p.o. Continue topical nitroglycerin Status: Acute (6) H/O mitral valve repair: Status: Acute (7) Hx of CABG: stable, no ischemia on stress test in 04/2019. Status: Acute (8) CHF (congestive heart failure): High risk of fluid overload Status: Acute Qualifiers: Heart failure type: systolic Heart failure chronicity: chronic Qualified Code(s): I50.22 - Chronic systolic (congestive) heart failure (9) Diabetes 1.5, managed as type 2: Sliding scale insulin currently n.p.o. secondary to mental status. Status: Acute (10) Essential hypertension: Hydralazine PRN Status: Acute Additional A&P Information Transaminitis. May be secondary to hypotension although I do not see this documented l in the record with the exception of one borderline reading. Could be secondary to heart failure. Hepatitis panel negative. Ammonia level normal. Continue to follow closely. CT abdomen demonstrates no evidence of bile duct obstruction. Cholelithiasis was noted. On ultrasound portal flow was intact. Leukocytosis. Currently on Rocephin empirically. Cultures negative. Continue to monitor. Anemia. Haptoglobin normal. Consistent with acute postoperative blood loss anemia History of COPD Hypertension, provide hydralazine as needed Hyperlipidemia. Hold statin secondary to elevated liver function tests Tobacco dependency Change Lovenox to heparin for DVT prophylaxis Attestations Medical Necessity Statement*: Needs continued hospital stay, form acute renal failure, metabolic acidosis, rhabdomyolysis, multiorgan dysfunction including encephalopathy. Critical Care Time: 54 minutes spent in critical care with review of patient's record at bedside with patient with examination. Multiple concerning factors including multiorgan system dysfunction, encephalopathy, renal failure, liver failure with high threat to life in this patient requiring ICU transfer. Coding Level of Care Code Acute Printed Circuit Board Preassembler for Chg Fwd Diagnoses Encephalopathy acute G93.40 Metabolic acidosis E87.2 Acute kidney injury superimposed on CKD N17.9; N18.9 Rhabdomyolysis M62.82 Ischemia of right lower extremity I99.8 H/O mitral valve repair Z98.890 Hx of CABG Z95.1 CHF (congestive heart failure) I50.22 Heart failure type: systolic Heart failure chronicity: chronic Diabetes 1.5, managed as type 2 E13.9 Essential hypertension I10
[2019-11-13 12:20] LABS: Glucose Point of Care 82 mg/dL (70-110)
[2019-11-13] MEDS: hyDRALAzine 20 mg/mL INJ 1 mL 10 MG IVP ×2 (12:21→19:45)
--- NOTE | 2019-11-13 12:24 | ECG_ITS ---
[facility] Test Date: 2019-11-13 Pat Name: Shira Serrato Department: Room: ICU02 Gender: Female Staining Machine Operator: : 1945 Requested By: Fabián Terrell Order Number: [id number] Christophe MD: Minerva Robb M.D. Measurements Intervals [place] Rate: 69 P: 85 TX: 196 QRS: 43 QRSD: 89 T: 62 QT: 519 QTc: 558 Interpretive Statements SINUS RHYTHM PROLONGED QT INTERVAL Compared to ECG 07/08/2019 16:08:18 Prolonged QT interval now present Sinus arrhythmia no longer present T-wave abnormality no longer present Possible ischemia no longer present Left ventricular hypertrophy no longer present Electronically Signed On 11-13-2019 18:36:21 CDT by Minerva Robb M.D. [id number]
[2019-11-13 14:04] LABS: Ammonia 68 umol/L (11-51)
--- NOTE | 2019-11-13 15:22 | PM.CONSULT ---
Providers/Reason For Consult Consulting Physican/Specialty*: Iris Quiles DO, telenephrology Reason for Consult*: Acute kidney injury, hyperkalemia, metabolic acidosis Requesting Physcian: Eliseo Montelongo MD Attending Physician: Glynn Ellis MD Primary Care Provider: Amber Esquivel MD History of Present Illness History of Present Illness Shira Serrato is a 74 year old female who was admitted for evaluation of ischemic right leg. Admission serum Cr 1.3 mg/dL. Baseline 1.5 mg/dL. Agram 11/07, then OR fem pop bypass. Serum Cr increased 11/11. Now with altered mental status. ACEi stopped on admission Review of Systems General: Reports: ROS unobtainable due to medical condition Meds/Allergies Home Medications and Allergies Home Medications Medication Instructions Recorded Confirmed Last Taken Type allopurinol 300 mg tablet 300 mg PO DAILY tab 05/31/19 11/07/19 11/07/19 08:00 History 300 MG aspirin 81 mg tablet,delayed 81 mg PO DAILY tab 05/31/19 11/07/19 11/07/19 08:00 History release 81 MG atorvastatin 40 mg tablet 40 mg PO BEDTIME tab 05/31/19 11/08/19 11/07/19 21:00 History bumetanide 2 mg tablet 2 mg PO DAILY tab 05/31/19 11/07/19 11/07/19 08:00 History 2 MG citalopram 20 mg tablet 20 mg PO DAILY tab 05/31/19 11/07/19 11/07/19 08:00 History 20 MG insulin glargine 100 unit/mL 40 unit SUBCUT BID ml 05/31/19 11/07/19 11/08/19 05:00 History subcutaneous solution 40 UNIT lisinopril 40 mg tablet 40 mg PO DAILY tab 05/31/19 11/07/19 11/07/19 08:00 History 40 MG metoprolol tartrate 50 mg tablet 50 mg PO DAILY tab 05/31/19 11/07/19 11/07/19 08:00 History 50 MG omeprazole 40 mg capsule,delayed 40 mg PO DAILY cap 05/31/19 11/07/19 11/07/19 08:00 History release 40 MG ProAir HFA 2 puff PO PRN 07/08/19 11/07/19 11/07/19 08:00 History 2 puff Allergies Allergy/AdvReac Type Severity Reaction Status Date / Time latex Allergy Unknown Unknown Verified 11/08/19 06:40 Current Medications Current Medications Generic Name Dose Route Start Last Admin Trade Name Freq PRN Reason Stop Dose Admin Chlorhexidine Gluconate 1 applic 11/08/19 10:30 11/13/19 10:48 Betasept TOPICAL Not Given DAILY QI Famotidine 20 mg 11/13/19 11:00 11/13/19 11:26 Pepcid Inj IVP 20 mg Q12H QI Administration Hydralazine HCl 10 mg 11/13/19 11:58 11/13/19 12:21 Apresoline IVP 10 mg Q4H PRN Administration HYPERTENSION Ceftriaxone Sodium 1,000 mg/ 50 mls @ 100 mls/hr 11/11/19 16:00 11/12/19 21:39 Sodium Chloride IV Infused Q24H QI Infusion Protocol Sodium Bicarbonate 150 meq/ 1,000 mls @ 75 mls/hr 11/13/19 11:15 11/13/19 11:24 Dextrose IV 75 mls/hr .[id number] QI Administration Insulin Aspart 0 unit 11/08/19 18:00 11/13/19 12:16 Novolog SUBCUT Not Given WM&BEDTIME QI Protocol Lanolin 1 applic 11/13/19 05:39 11/13/19 06:28 Lanolin Oint TOPICAL 1 applic PRN PRN Administration DRYNESS Nitroglycerin 1 inch 11/08/19 18:45 11/13/19 05:39 Nitro-Bid TOPICAL 1 inch Q12H QI Administration Ondansetron HCl 4 mg 11/12/19 17:13 11/12/19 17:19 Zofran IVP 4 mg Q4H PRN Administration NAUSEA AND VOMITING PFSH Acute PFSH: Medical History Aortic insufficiency with aortic stenosis CHF (congestive heart failure) COPD (chronic obstructive pulmonary disease) Diabetes 1.5, managed as type 2 Essential hypertension Hyperlipidemia Ischemia of right lower extremity Ischemic cardiomyopathy Mitral regurgitation PAD (peripheral artery disease) Pulmonary HTN Subclavian arterial stenosis Tobacco abuse Surgical History H/O mitral valve repair Hx of CABG S/P appendectomy S/P carpal tunnel release Status post mitral valve annuloplasty Family History Mother CAD (coronary artery disease) Father Diabetes Other Cancer Social History Smoking and tobacco status: former smoker Quit status (tobacco): has quit using tobacco Year quit tobacco: 2020 - 1PPD hx x 40 Years Alcohol intake: never Lives independently: Yes Household members: none Marital status: / Current occupational status: retired History of recent travel: No Current gender identity: Female Vitals/I&O/Wt Last Vital Signs Temp 98.2 F 11/13/19 11:35 Pulse 73 11/13/19 14:00 Resp 19 H 11/13/19 14:00 BP 158/64 11/13/19 14:00 Pulse Ox 99 11/13/19 14:00 11/13/19 11/13/19 11/13/19 06:59 14:59 22:59 Intake Total 343.334 / 2544.001 0 / 0 Output Total 200 / 700 Balance 143.334 / 1844.001 0 / 0 Urine output 400 - 700 ml daily, I/O + about 7 liters since admission Physical Exam Const: GENERAL APPEARANCE: lethargic ORIENTATION/CONSCIOUSNESS: Yes lethargic Resp: EFFORT & INSPECTION: Yes abnormal respiratory pattern AUSCULTATION: bronchovesicular breath sounds Cardio: COMMON NORMALS: regular rhythm RHYTHM: regular rhythm Extremity: OTHER: no pulse right foot - dusky appearing Neuro: SENSORIUM/ORIENTATION: Yes lethargic Urinary Catheter Management^: Best: Cath Placed During This Visit: yes, but has since been removed by the nurse Reason for Continuing Indwelling Catheter: Accurate Measurement of Urinary Output in Critically Ill Patients Urinary Catheter Date of Insertion: 11/13/19 Urinary Catheter Time of Insertion: 10:20 Date Urinary Catheter Removed: 11/10/19 Time Urinary Catheter Discontinued: 09:15 Data Labs: Other Labs: 7.30//, calcium 8.8, phos 5.3, CK 5020, INR 2.3, NH3 5020 elevated Bilirubin and transaminases, hepatitis serologies negative urinalysis 3+ albumin Other Data: Other data: Ultrasound Report Right kidney: The right kidney measures 10.4 cm in length. Normal parenchymal echogenicity. No hydronephrosis. Left kidney: The left kidney measures 7.2 cm in length. There is global renal parenchymal atrophy. No hydronephrosis. There is a 1.2 cm simple appearing left renal cyst. Bladder: No bladder wall thickening or bladder calculus. CXR: cardiomegaly A&P Additional A&P Information 1. Acute kidney injury due to rhabdomyolysis, contrast, with hyperkalemia and metabolic acidosis 2. Elevated LFTs, possible shock liver 3. Coagulopathy 4. Hypertension. May have renal artery stenosis. Agree with holding ACEi, IV hydralazine 5. Chronic kidney disease likely due to diabetic nephropathy, small left kidney Recommend: Agree with IV sodium bicarbonate infusion. Repeat ABG. Serial CK, check urinalysis, FeNa, Repeat INR - if no improvement, hemodialysis 11/14/19. Discussed with Dr Montelongo. Consult Attestations Medical Necessity Statement: critically ill Time Spent in Patient Care: Greater than 35 minutes Coding Level of Care Code Acute Freight Dispatcher for Armida Mojica
[2019-11-13 15:43] LABS: Anion Gap 28.2 (5-19); Blood Urea Nitrogen 81 mg/dL (8-23); Calcium 8.2 mg/dL (8.5-10.5); Carbon Dioxide 14 mmol/L (22-29); Chloride 105 mmol/L (98-107); Glucose 186 mg/dL (65-115); Osmolality Calculated 299 mOsm/kg (285-295); Potassium 5.2 mmol/L (3.5-5.1); Sodium 142 mmol/L (136-145)
--- NOTE | 2019-11-13 15:44 | PC.NURSE ---
CONTINUES TO REST IN BED. SNORES LOUDLY. WILL OPEN EYES WITH VERBAL STIMULI, BAR DRAINING SHELBY URINE. PIID TO RIGHT WRIST, IVF INFUSING @75ML/HR TO LEFT WRIST
[2019-11-13 16:41] LABS: ABG PCO2 27.2 mmHg (35-45); ABG PH Result 7.38 (7.35-7.45); Alveolar-Arterial Oxygen Gradi 40.3 mmHg (5-10); Arterial Blood Gas Hematocrit 25.9 % (37-47); Base Excess ABG -7.9 mmol/L (-2.0-2.0); Blood Gas Allen Test Pos; Blood Gas Sample Site Brachial, left; Blood Gas Sample Type Arterial; HCO3 ABG 16.2 mmol/L (22-26); HGB O2 Sat 92.8 % (95-100); Methemoglobin 0.8 % (0.4-1.5); Oxygen Device ROOM AIR; Oxygen Saturation ABG 94.6; PO2 ABG 72.2 mmHg (80.0-100.0); Potassium Level - ABG 4.9 mmol/L (3.5-5.0); Total Hemoglobin 8.4 g/dL (12-16)
[2019-11-13] MEDS: heparin 5,000 unit/mL INJ 1 mL 5000 UNIT SUBCUT (17:21)
[2019-11-13] MEDS: piperacillin-tazobactam 3.375 GM in sodium chloride 0.9% (plus) 50 ML IV (17:21)
[2019-11-13 17:29] LABS: Glucose Point of Care 222 mg/dL (70-110)
[2019-11-13 18:41] LABS: Urine Creatinine 80 mg/dL (28-217); Urine Random Sodium 43 mmol/L
[2019-11-13 18:46] LABS: Blood Urine 3+ (Negative); Glucose Urine UA Norm (Normal); Ketones Urine 1+ (Negative); Nitrate Urine Negative (Negative); Protein Urine 2+ (Negative); Urine Color Yellow (Yellow); pH Urine 6 (5-7)
[2019-11-13 18:47] LABS: Add Urine Culture? Yes; Add Urine Microscopic? YES; Bacteria Urine 1+; Bilirubin Urine Neg (NEGATIVE); Leukocyte Esterase Urine Trace (Negative); RBC Urine 80-100 /hpf (0-2); Urobilinogen Urine 1 mg/dL (Negative)
[2019-11-13 21:04] LABS: Glucose Point of Care 290 mg/dL (70-110)
[2019-11-13] MEDS: nitroglycerin 1 gm/inch oint Pkt 0.5 INCH TOPICAL (22:00)
[2019-11-13] MEDS: labetalol 5 mg/mL SDV 20mL IVP (23:24)
[2019-11-14] VITALS (72 sets, daily range): BP systolic 93–201; BP diastolic 38–110; PULSE 66–84; RESP 12–22; TEMP 36.2–36.9; O2SAT 81–100
--- NOTE | 2019-11-14 | SCC_ITS ---
Procedure Done: 1. Right IJ tunneled dual-lumen dialysis catheter placement #2. Right below knee amputation 36.0 seconds of fluoroscopic guidance, for a cumulative dose of 5.26 mGy, was provided to Dr. Victor by the radiology department. C-arm images of the chest were saved for the patient's permanent record. [facility]
[2019-11-14] MEDS: hyDRALAzine 20 mg/mL INJ 1 mL 10 MG IVP ×6 (01:34→22:27)
[2019-11-14] MEDS: piperacillin-tazobactam 3.375 GM in sodium chloride 0.9% (plus) 50 ML IV ×2 (04:27→17:36)
[2019-11-14] MEDS: nitroglycerin 1 gm/inch oint Pkt 0.5 INCH TOPICAL ×4 (04:31→22:28)
[2019-11-14 04:46] LABS: Basophils % 0.1 %; Eosinophils % 0.2 %; Hematocrit 25.8 % (37.0-47.0); Lymphocytes # 0.7 10^3/uL (0.8-4.8); Lymphocytes % 6.8 %; Mean Corpuscular Hemoglobin 29.1 pg (28.0-34.0); Mean Corpuscular Volume 93.8 fL (81-99); Mean Platelet Volume 12.6 fL (7.4-10.4); Monocytes # 1.2 10^3/uL (0.2-0.9); Monocytes % 12.3 %; Neutrophils % 79.4 %; Nucleated Red Blood Cells # 0.3 /100WBC; Nucleated Red Blood Cells % 2.9 %; Platelet Count 153 10^3/cmm (130-400); Red Blood Count 2.75 10^6/uL (4.1-5.3); Red Cell Distribution Width 14.8 % (12.1-15.1); White Blood Count 10.1 10^3/uL (4.0-10.0)
[2019-11-14 05:02] LABS: Albumin Level 3.4 g/dL (3.5-5.2); Alkaline Phosphatase 193 IU/L (35-105); Anion Gap 21.9 (5-19); Calcium 7.8 mg/dL (8.5-10.5); Carbon Dioxide 20 mmol/L (22-29); Chloride 103 mmol/L (98-107); Glucose 259 mg/dL (65-115); Osmolality Calculated 301 mOsm/kg (285-295); Phosphorus 5.1 mg/dL (2.5-4.5); Potassium 3.9 mmol/L (3.5-5.1); Sodium 141 mmol/L (136-145); Total Bilirubin 2.2 mg/dL (0.15-1.2); Total Protein 5.4 g/dL (6.6-8.7)
[2019-11-14] MEDS: heparin 5,000 unit/mL INJ 1 mL 5000 UNIT SUBCUT (05:12)
[2019-11-14 05:17] LABS: INR 2.77 (0.8-1.2)
[2019-11-14 05:19] LABS: Alanine Aminotransferase 1805 U/L (0-33)
[2019-11-14 05:43] LABS: Aspartate Amino Transferase 2608 U/L (0-32); Blood Urea Nitrogen 89 mg/dL (8-23); Creatine Phosphokinase 18873 U/L (26-192)
--- NOTE | 2019-11-14 05:45 | PC.NURSE ---
dr bravo notified of am critical CK and BUN.
[2019-11-14] MEDS: labetalol 5 mg/mL SDV 20mL IVP (06:23)
--- NOTE | 2019-11-14 07:05 | P.PN_ITS ---
Subjective Subjective: Interval history: Shira was moved back to the ICU yesterday. She developed a metabolic acidosis, advancing renal insufficiency and elevated transaminases. She was started on a bicarbonate drip. Nephrology consultation was obtained. Patient remains anemic. Her INR continues to increase. This morning it is 2.77. Her creatinine is stable at 2.3 however her BUN is up to 89. CPK is almost 19,000. Transaminases are still significantly elevated. Her AST is 2608 and ALT is 1805. Chest x-ray remains unchanged. Patient's blood pressure was high overnight. She received 2 doses of labetalol 1 at about 1130 and the other this morning around 6. She has also received hydralazine. Her blood pressure this morning is still in the 160 range. This morning she is still obtunded. When I touched her right foot she woke up and pulled the foot back wincing in pain. She does have some mottled discoloration on the lateral aspect of the right foot which was not there ye sterday. Her right foot is cool compared to the left foot. Vitals/I&O/Wt Last Vital Signs Temp 97.3 F L 11/14/19 03:45 Pulse 79 11/14/19 06:00 Resp 15 11/14/19 06:00 BP 193/76 11/14/19 06:00 Pulse Ox 97 11/14/19 06:00 11/13/19 11/14/19 11/14/19 22:59 06:59 14:59 Intake Total 50 / 50 1000 / 1050 Output Total 1110 / 1110 500 / 1610 Balance -1060 / -1060 500 / -560 Physical Exam Narrative: EXAM NARRATIVE: GENERAL: In general she remains obtunded but arousable especially when touching the right foot HEENT: Exam within normal limits. NECK: Supple without jugular vein distention. The carotid upstroke is normal without bruits. BACK: Exam normal. LUNGS: Clear. HEART: Regular rate and rhythm. ABDOMEN: Benign without organomegaly or tenderness. EXTREMITIES: No edema. The right foot is cool and there is some mottling along the lateral aspect of the right foot. NEUROLOGIC: Exam normal. SKIN: Unremarkable. Urinary Catheter Management^: Best: Cath Placed During This Visit: yes, but has since been removed by the nurse Reason for Continuing Indwelling Catheter: Accurate Measurement of Urinary Output in Critically Ill Patients Urinary Catheter Date of Insertion: 11/13/19 Urinary Catheter Time of Insertion: 10:20 Date Urinary Catheter Removed: 11/10/19 Time Urinary Catheter Discontinued: 09:15 Data : 11/14/19 03:55 11/14/19 03:55 A&P Assessment and plan (1) Encephalopathy acute: Status: Acute (2) Metabolic acidosis: Status: Acute (3) Anemia: Status: Acute (4) Rhabdomyolysis: Status: Acute (5) Acute kidney injury superimposed on CKD: Status: Acute (6) Shock liver: Status: Acute (7) Abnormal liver function test: Status: Acute (8) Ischemia of right lower extremity: Status: Acute (9) Hx of CABG: Status: Acute (10) H/O mitral valve repair: Status: Acute (11) Aortic insufficiency with aortic stenosis: Status: Acute (12) Subclavian arterial stenosis: Status: Acute (13) Mitral regurgitation: Status: Acute (14) PAD (peripheral artery disease): Status: Acute (15) Hyperlipidemia: Status: Acute (16) CHF (congestive heart failure): Status: Acute Qualifiers: Heart failure type: systolic Heart failure chronicity: chronic Qualified Code(s): I50.22 - Chronic systolic (congestive) heart failure (17) Essential hypertension: Status: Acute (18) Diabetes 1.5, managed as type 2: Status: Acute (19) Ischemic cardiomyopathy: Status: Acute (20) Tobacco abuse: Status: Acute (21) COPD (chronic obstructive pulmonary disease): Status: Acute Additional A&P Information She remains hypertensive. She has multilevel vascular disease which contributes to all of this. With all of her underlying comorbidities the acute ischemia of her right leg has caused the spiraling downhill in her condition. The acute ischemia caused the rhabdomyolysis causing the renal insufficiency and acidosis. This along with the shock liver has caused the mental status changes. Given the appearance of her leg today I suspect she may well lose the right lower extremity below the knee. She remains critically ill. Attestations Medical Necessity Statement*: Patient needs continued hospitalization for management of limb ischemia, rhabdomyolysis, metabolic acidosis, renal failure and shock liver. Coding Level of Care Code Established Pt Acute Senior Sharepoint Developer for Armida Mojica Patient Type Established History Comprehensive Exam Comprehensive Medical Decision Making High Complexity Diagnoses Encephalopathy acute G93.40 Metabolic acidosis E87.2 Anemia D64.9 Rhabdomyolysis M62.82 Acute kidney injury superimposed on CKD N17.9; N18.9 Shock liver K72.00 Abnormal liver function test R94.5 Ischemia of right lower extremity I99.8 Hx of CABG Z95.1 H/O mitral valve repair Z98.890 Aortic insufficiency with aortic stenosis I35.2 Subclavian arterial stenosis I77.1 Mitral regurgitation I34.0 PAD (peripheral artery disease) I73.9 Hyperlipidemia E78.5 CHF (congestive heart failure) I50.22 Heart failure type: systolic Heart failure chronicity: chronic Essential hypertension I10 Diabetes 1.5, managed as type 2 E13.9 Ischemic cardiomyopathy I25.5 Tobacco abuse Z72.0 COPD (chronic obstructive pulmonary disease) J44.9
--- NOTE | 2019-11-14 08:49 | PM.PN ---
Subjective Subjective: Interval history: minimally responsive Medications: Reviewed: Yes Vitals/I&O/Wt Last Vital Signs Temp 97.3 F L 11/14/19 03:45 Pulse 79 11/14/19 06:00 Resp 15 11/14/19 06:00 BP 193/76 11/14/19 06:00 Pulse Ox 97 11/14/19 06:00 11/13/19 11/14/19 11/14/19 22:59 06:59 14:59 Intake Total 50 / 50 1000 / 1050 Output Total 1110 / 1110 500 / 1610 Balance -1060 / -1060 500 / -560 Physical Exam Const: COMMON NORMALS: no acute distress Resp: AUSCULTATION: wheezes Cardio: COMMON NORMALS: regular rate and regular rhythm RATE: regular rate RHYTHM: regular rhythm Extremity: NARRATIVE EXTREMITY EXAM: dusky right foot Urinary Catheter Management^: Best: Cath Placed During This Visit: yes, but has since been removed by the nurse Reason for Continuing Indwelling Catheter: Accurate Measurement of Urinary Output in Critically Ill Patients Urinary Catheter Date of Insertion: 11/13/19 Urinary Catheter Time of Insertion: 10:20 Date Urinary Catheter Removed: 11/10/19 Time Urinary Catheter Discontinued: 09:15 Data : 11/14/19 03:55 11/14/19 03:55 Other Labs: CK 18,873, urine Na 43, urine Cr 80, FeNa > 1%, INR 2.77, calcium 7.8, phos 5.1, LFTS remain elevated A&P Additional A&P Information 1. Acute kidney injury due to rhabdomyolysis, contrast, with hyperkalemia and metabolic acidosis, both improved. CK has risen significantly, good urine output 2. Elevated LFTs, possible shock liver 3. Coagulopathy 4. Hypertension. May have renal artery stenosis. Agree with holding ACEi. Continue IV hydralazine Q4 hrs, labetolol prn 5. Chronic kidney disease likely due to diabetic nephropathy, small left kidney Recommend: Continue IV sodium bicarbonate infusion. Add 0.45NSS to achieve + fluid balance. Plan is for amputation later today. Dialysis catheter will be placed in OR. Check labs postop. Discussed with Dr Montelongo. HD 11/15/2019 if no improvement. I spoke with family at bedside regarding acute kidney injury, indications for dialysis, likely requirement for dialysis, recommendation to place dialysis catheter. They are in agreement. Attestations Medical Necessity Statement*: critically ill Time Spent in Patient Care: Greater than 35 minutes Coding Level of Care Code Acute Call Center Support Representative for Armida Mojica
--- NOTE | 2019-11-14 09:34 | PM.PN ---
Subjective Subjective: Interval history: Ms. Serrato has developed acute renal insufficiency as well as elevated LFTs and rising CPK. Concern for ongoing ischemia right lower extremity has been entertained and it is felt that expeditious amputation should be considered. She is currently being evaluated as well by nephrology service and dialysis may be required. She has had some confusion though is a bit more alert with current medical treatment at the direction of our hospitalist colleagues. Vitals/I&O/Wt Last Vital Signs Temp 97.3 F L 11/14/19 03:45 Pulse 79 11/14/19 06:00 Resp 15 11/14/19 06:00 BP 193/76 11/14/19 06:00 Pulse Ox 97 11/14/19 06:00 11/13/19 11/14/19 11/14/19 22:59 06:59 14:59 Intake Total 50 / 50 1000 / 1050 Output Total 1110 / 1110 500 / 1610 Balance -1060 / -1060 500 / -560 Physical Exam Extremity: COMMON NORMALS: negative for normal to inspection OTHER: Right lower extremity remains a very cool below the knee consistent with the operative findings and the concern for lengthy dissection. Urinary Catheter Management^: Best: Cath Placed During This Visit: yes, but has since been removed by the nurse Reason for Continuing Indwelling Catheter: Accurate Measurement of Urinary Output in Critically Ill Patients Urinary Catheter Date of Insertion: 11/13/19 Urinary Catheter Time of Insertion: 10:20 Date Urinary Catheter Removed: 11/10/19 Time Urinary Catheter Discontinued: 09:15 Data : 11/14/19 03:55 11/14/19 03:55 A&P Assessment and plan (1) PAD (peripheral artery disease): Ongoing ischemia right lower extremity despite attempts at intervention and surgical correction. Rhabdomyolysis with rising CPK as well as renal insufficiency and liver dysfunction We will plan to proceed with a right below-knee amputation, possible right above-knee amputation later this evening as well as tunnel dialysis catheter placement. She will receive 2 units of FFP immediately prior to surgery. She will require packed RBC transfusion for the procedure as well. Family will be notified of our recommendations and we will proceed with surgery pending approval. Status: Acute Attestations Medical Necessity Statement*: Severe peripheral vascular disease with ongoing ischemia and rhabdomyolysis as well as acute renal insufficiency Time Spent in Patient Care: 16 - 35 minutes Coding Level of Care Code Acute Sewer System Supervisor for Chg Fwd Diagnoses PAD (peripheral artery disease) I73.9
[2019-11-14] MEDS: sodium chloride 0.45% 1,000 ML 75 ML IV ×2 (09:43→23:13)
[2019-11-14] MEDS: famotidine 20 mg/2 mL INJ IVP ×2 (09:47→22:29)
[2019-11-14] MEDS: chlorhexidine gluconate 4% Btl 118 mL 1 APPLIC TOPICAL (10:25)
--- NOTE | 2019-11-14 10:38 | PM.PN ---
Subjective Subjective: Interval history: Shira awakens little bit easier this morning. She reports right leg pain when I stimulate her greatly. Then she goes right back to sleep. Medications: Reviewed: Yes Vitals/I&O/Wt Last Vital Signs Temp 97.3 F L 11/14/19 03:45 Pulse 79 11/14/19 10:15 Resp 17 11/14/19 10:15 BP 164/80 11/14/19 10:15 Pulse Ox 98 11/14/19 10:15 11/13/19 11/14/19 11/14/19 22:59 06:59 14:59 Intake Total 50 / 50 1000 / 1050 50 / 50 Output Total 1110 / 1110 500 / 1610 Balance -1060 / -1060 500 / -560 50 / 50 Physical Exam Narrative: EXAM NARRATIVE: General exam demonstrates a sleepy, lethargic white female who opens her eyes and says a few words. She can follow commands. Cardiovascular regular rate and rhythm, no murmur Lungs clear but with some upper respiratory noise heard at the bases Abdomen is soft, bowel sounds are noted Extremities no edema. Right lower extremity, mid bowie down is very cool to touch Urinary Catheter Management^: Best: Cath Placed During This Visit: yes, but has since been removed by the nurse Reason for Continuing Indwelling Catheter: Accurate Measurement of Urinary Output in Critically Ill Patients Urinary Catheter Date of Insertion: 11/13/19 Urinary Catheter Time of Insertion: 10:20 Date Urinary Catheter Removed: 11/10/19 Time Urinary Catheter Discontinued: 09:15 Data : 11/14/19 03:55 11/14/19 03:55 A&P Assessment and plan (1) Encephalopathy acute: Secondary to renal failure, metabolic acidosis. She can still come alert, open eyes, follow reconstruction. Acidosis is improved with bicarbonate drip Status: Acute (2) Metabolic acidosis: Hyperkalemia and acidosis improved with bicarbonate drip Appreciate nephrology consultation Status: Acute (3) Acute kidney injury superimposed on CKD: Continue Best No evidence of fluid overload currently Renal ultrasound was performed which demonstrated no obstruction Dialysis catheter to be placed during surgery Status: Acute (4) Rhabdomyolysis: Continue bicarbonate drip Half-normal saline added by nephrology Significant myoglobin load secondary to ischemic limb. Considering amputation. fluids at 75 cc an hour. Would like to increase further, but at very high risk for heart failure in this patient with recent EF of 40%, 2/4 diastolic dysfunction, moderate to severe aortic insufficiency. Status: Acute (5) Ischemia of right lower extremity: Postop day #6 status post attempted right femoropopliteal bypass. Secondary to significant ischemia amputation being considered today. Status: Acute (6) H/O mitral valve repair: Status: Acute (7) Hx of CABG: stable, no ischemia on stress test in 04/2019. Status: Acute (8) CHF (congestive heart failure): High risk of fluid overload Status: Acute Qualifiers: Heart failure type: systolic Heart failure chronicity: chronic Qualified Code(s): I50.22 - Chronic systolic (congestive) heart failure (9) Diabetes 1.5, managed as type 2: Sliding scale insulin currently n.p.o. secondary to mental status. Status: Acute (10) Essential hypertension: Hydralazine PRN Status: Acute Additional A&P Information Transaminitis. May be secondary to hypotension although I do not see this documented l in the record with the exception of one borderline reading. Could be secondary to heart failure. Hepatitis panel negative. Ammonia level normal. Continue to follow closely. CT abdomen demonstrates no evidence of bile duct obstruction. Cholelithiasis was noted. On ultrasound portal flow was intact. ALT slightly worse today although bilirubin slightly better. Elevated INR. Likely secondary to liver dysfunction. FFP and PRBC insulation power unit tender for surgery Leukocytosis. On Zosyn empirically. Add linezolid secondary to ischemic limb. History of congestive heart failure with diastolic dysfunction, EF around 40%, aortic insufficiency. Currently does not appear to be fluid overloaded. Anemia. Haptoglobin normal. Consistent with acute postoperative blood loss anemia History of COPD Hypertension, provide hydralazine scheduled currently Hyperlipidemia. Hold statin secondary to elevated liver function tests Tobacco dependency Heparin discontinued secondary to elevated INR Full code Attestations Medical Necessity Statement*: Needs continued hospitalization, secondary to multiorgan dysfunction Critical Care Time: 35 minutes spent at bedside reviewing patient, assessing patient, reviewing labs, discussion with family, as well as multiple subspecialists including nephrology, cardiology, vascular surgery in this patient with life-threatening illness, with plans for surgery today. Coding Level of Care Code Acute Electrical Assistant for Armida Mojica Diagnoses Encephalopathy acute G93.40 Metabolic acidosis E87.2 Acute kidney injury superimposed on CKD N17.9; N18.9 Rhabdomyolysis M62.82 Ischemia of right lower extremity I99.8 H/O mitral valve repair Z98.890 Hx of CABG Z95.1 CHF (congestive heart failure) I50.22 Heart failure type: systolic Heart failure chronicity: chronic Diabetes 1.5, managed as type 2 E13.9 Essential hypertension I10
--- NOTE | 2019-11-14 11:00 | PC.NURSE ---
ROUNDED WITH DR COUGHLIN & DR GREENBERG & [facility] THIS MORNING. POSSIBLE AMPUTATION OF RIGHT LOWER EXTREMITY THIS EVENING. PT REMAINS CONFUSED BUT IS AROUSABLE TO PAINFUL STIMULI. ATTEMPTS MADE TO PERFORM ORAL CARE, PT CLENCHES MOUTH SHUT. RIGHT LOWER EXTREMITY COOL & MOTTLED TO TOUCH, PAINFUL TO TOUCH. HAD A CLEAR, MUCUS STOOL. PETECHIA NOTED TO CHEST, BRUISING OF MULTIPLE STAGES ON BODY. DR COUGHLIN NOTIFIED BAR CATHETER WITH HEMATURIA NOTED. CHLORHEXADINE BATH DONE. 1120-NOTIFIED FAMILY OF SURGERY/CONSENT OBTAINED/NOTIFIED THAT THEY ARE ALLOWED TO VISIT PRIOR TO PROCEDURE
[2019-11-14 11:21] LABS: Glucose Point of Care 347 mg/dL (70-110)
[2019-11-14 11:36] LABS: Glucose Point of Care 346 mg/dL (70-110)
[2019-11-14] MEDS: linezolid premix 600 MG/300 ML PREMIX 300 MG IV ×2 (11:51→23:22)
--- NOTE | 2019-11-14 12:18 | P.ANESASSM_ITS ---
Pre-Anesthetic Assessment Pre-Anesthetic Assessment: Height/Weight: Height 1.52 m Weight 65.317 kg Temp Pulse Resp BP Pulse Ox 97.3 F L 78 14 149/56 96 11/14/19 03:45 11/14/19 11:37 11/14/19 11:37 11/14/19 11:37 11/14/19 11:37 Preop Diagnosis: Acute ischemia right lower extremity with severe peripheral vascular disease Proposed Procedure: Operation Date: 11/08/19 07:00 Proposed Procedures p Peripheral Diagnostic(Bilateral) - Glynn Ellis MD Operation Date: 11/08/19 13:00 Proposed Procedures p Femoral-Popliteal Artery Bypass(Right) - Moustapha Victor MD Operation Date: 11/14/19 18:45 Proposed Procedures p RIGHT BKA (Below Knee Amputation), POSS AKA(Right) - Moustapha Victor MD s Dialysis Catheter Placement Hemodialysis Catheter Placement(Not Applicable) - Moustapha Victor MD Last intake: Intake Last Liquid Date 11/08/19 Last Liquid Time 08:00 Last Solid Date 11/07/19 Last Solid Time 21:00 Social: Social History: Tobacco and No alcohol Exam: Pre-Anes Outpt Exam: clear to auscultation bilaterally (BS course bilat) Additional Exam Findings (including area of procedure): pt confused, Airway: Submandibular: WNL Cervical ROM: WNL MP: 3 Dentition: Partials (lower) History/ROS: No significant history except as noted Pulmonary: Pulmonary: COPD and VALENZUELA CV/HEM: CV/HEM: Anemia, CAD, CHF (cardiomyopathy), HTN and PVD (Ischemia of RLE) Comments: s/p MVR/CABG 2017 : Comments: acute on chronic renal failure Hepatic: Comments: LFTs severely elevated, INR 2.77 GI: GI: GERD Metabolic: Metabolic: DM and Hyperlipidemia Musc/skel: Musc/skel: OA/DJD Neuropsych: Comments: acute encephalopathy Anesthetic Plan: ASA status: 5E Anesthesia: Anesthesia Evaluation and General Risk of > 500 ml blood loss (7ml/kg in children): Yes, adequate IV access and fluids planned Meds/Allergies Current Medications: Current Medications Generic Name Dose Route Start Last Admin Trade Name Freq PRN Reason Stop Dose Admin Chlorhexidine Gluc nyasia 1 applic 11/08/19 10:30 11/14/19 10:25 Betasept TOPICAL 1 applic DAILY QI Administration Famotidine 20 mg 11/13/19 11:00 11/14/19 09:47 Pepcid Inj IVP 20 mg Q12H [facility] Administration Hydralazine HCl 10 mg 11/14/19 09:00 11/14/19 09:46 Apresoline IVP 10 mg Q4H QI Administration Sodium Bicarbonate 150 meq/ 1,000 mls @ 75 ml s/hr 11/13/19 11:15 11/14/19 02:48 Dextrose IV 75 mls/hr .[id number] QI Administration Piperacillin Sod/T azobactam 50 mls @ 12.5 mls /hr 11/13/19 17:00 11/14/19 08:34 Sod 3.375 gm/ So dium Chloride IV Infused Q12H QI Infusion Sodium Chloride 1,000 mls @ 75 ml s/hr 11/14/19 09:15 11/14/19 09:43 Sodium Chloride 0.45% IV 75 mls/hr .[id number] QI Administration Linezolid 600 mg in 300 mls @ 300 mls/hr 11/14/19 11:00 11/14/19 11:51 Zyvox Premix IV 300 mls/hr Q12H [facility] Administration Protocol Insulin Aspart 0 unit 11/08/19 18:00 11/14/19 11:50 Novolog SUBCUT 12 unit WM&BEDTIME [facility] Administration Protocol Lanolin 1 applic 11/13/19 05:39 11/13/19 06:28 Lanolin Oint TOPICAL 1 applic PRN PRN Administration DRYNESS Nitroglycerin 0.5 inch 11/13/19 22:00 11/14/19 09:45 Nitro-Bid TOPICAL 0.5 inch Q6H [facility] Administration Ondansetron HCl 4 mg 11/12/19 17:13 11/12/19 17:19 Zofran IVP 4 mg Q4H PRN Administration NAUSEA AND VOMITI NG Additional Medication Information: Current Medications Hydrocodone Bitart/Acetaminophen ([place] 5-325 Mg) 1 tab PO Q4H PRN PRN Reason: MODERATE PAIN Al Hydrox/Mg Hydrox/Simethicone (Maalox) 30 ml PO Q15M PRN PRN Reason: INDIGESTION Al Hydrox/Mg Hydrox/Simethicone (Maalox) 30 ml PO Q4H PRN PRN Reason: INDIGESTION Albuterol Sulfate (Ventolin) 2 puff INHALATION Q4H.RESPIRATORY PRN PRN Reason: SHORTNESS OF BREATH Allopurinol (Zyloprim) 300 mg PO DAILY [facility] Last Admin: 11/11/19 08:49 Dose: 300 mg Documented by: Aspirin (Aspirin Ec) 81 mg PO DAILY [facility] Last Admin: 11/11/19 08:49 Dose: 81 mg Documented by: Atorvastatin Calcium (Lipitor) 40 mg PO BEDTIME [facility] Last Admin: 11/10/19 21:53 Dose: 40 mg Documented by: Bisacodyl (Bisac-Evac) 10 mg NC Q6H PRN PRN Reason: Constipation (Use 5th) Bisacodyl (Dulcolax) 5 mg PO Q6H PRN PRN Reason: Constipation (Use 2nd) Bismuth Subsalicylate ([place] Bismuth) 30 ml PO PRN PRN PRN Reason: DIARRHEA Chlorhexidine Gluconate (Betasept) 1 applic TOPICAL DAILY [facility] Last Admin: 11/11/19 08:51 Dose: 1 applic Documented by: Citalopram Hydrobromide (Celexa) 20 mg PO DAILY [facility] Last Admin: 11/11/19 08:50 Dose: 20 mg Documented by: Clopidogrel Bisulfate (Plavix) 75 mg PO DAILY [facility] Last Admin: 11/11/19 08:50 Dose: 75 mg Documented by: Dextrose (D50w) 25 ml IVP ONCE PRN; Protocol PRN Reason: hypoglycemia protocol Dextrose (D50w) 50 ml IVP PRN PRN; Protocol PRN Reason: hypoglycemia protocol Diphenhydramine HCl (Benadryl) 25 mg PO BEDTIME PRN PRN Reason: SLEEP Docusate Sodium (Colace) 100 mg PO BID PRN PRN Reason: Constipation (Use 1st) Enoxaparin Sodium (Lovenox) 40 mg SUBCUT Q24H [facility] Last Admin: 11/10/19 17:24 Dose: 40 mg Documented by: Glucagon (Glucagen) 1 mg IM ONCE PRN; Protocol PRN Reason: Adult Acute Hypoglycemia Prot. Guaifenesin (Robitussin Oral Liq) 200 mg PO Q4H PRN PRN Reason: COUGH Heparin Sodium (Beef Lung) (Heparin) 0 unit IV PRN PRN; Protocol PRN Reason: Heparin weight-base protocol Last Admin: 11/08/19 18:31 Dose: 0.25 unit Documented by: Hydralazine HCl (Apresoline) 10 mg PO TID PRN PRN Reason: SYSTOLIC BLOOD PRESSURE Dextrose (D5w) 500 mls @ 100 mls/hr IV ONCE PRN; Protocol PRN Reason: Adult Acute Hypoglycemia Prot Lactated Ringer's (Lactated Ringers) 1,000 mls @ 100 mls/hr IV .Q10H [facility] Last Admin: 11/11/19 10:01 Dose: 100 mls/hr Documented by: Insulin Aspart (Novolog) 0 unit SUBCUT WM&BEDTIME [facility]; Protocol Last Admin: 11/11/19 12:35 Dose: 8 unit Documented by: Ketorolac Tromethamine (Toradol) 30 mg IVP Q6H PRN PRN Reason: MODERATE PAIN Stop: 11/13/19 17:28 Last Admin: 11/11/19 12:39 Dose: 30 mg Documented by: Lactulose (Constulose) 20 gm PO Q6H PRN PRN Reason: Constipation (Use 3rd) Lisinopril (Prinivil) 40 mg PO DAILY [facility] Last Admin: 11/11/19 08:49 Dose: 40 mg Documented by: Magnesium Hydroxide (Milk Of Magnesia) 45 ml PO DAILY PRN PRN Reason: Constipation (use 4th) Metoprolol Tartrate (Lopressor) 50 mg PO DAILY [facility] Last Admin: 11/11/19 08:50 Dose: 50 mg Documented by: Morphine Sulfate (Morphine) 2 mg IVP Q1H PRN PRN Reason: SEVERE PAIN Last Admin: 11/10/19 04:36 Dose: 2 mg Documented by: Nitroglycerin (Nitro-Bid) 1 inch TOPICAL Q12H [facility] Last Admin: 11/11/19 05:46 Dose: 1 inch Documented by: Pantoprazole Sodium (Protonix) 40 mg PO DAILY [facility] Last Admin: 11/11/19 08:50 Dose: 40 mg Documented by: Pantoprazole Sodium (Protonix) 40 mg PO DAILY [facility] Last Admin: 11/11/19 08:52 Dose: Not Given Documented by: Promethazine HCl (Phenergan) 25 mg NC Q6H PRN PRN Reason: NAUSEA AND VOMITING Tramadol HCl (Ultram) 50 mg PO Q6H PRN PRN Reason: MODERATE PAIN PFSH Anesthesia PFSH: Medical History Aortic insufficiency with aortic stenosis CHF (congestive heart failure) COPD (chronic obstructive pulmonary disease) Diabetes 1.5, managed as type 2 Essential hypertension Hyperlipidemia Ischemia of right lower extremity Ischemic cardiomyopathy Mitral regurgitation PAD (peripheral artery disease) Pulmonary HTN Subclavian arterial stenosis Tobacco abuse Surgical History H/O mitral valve repair Hx of CABG S/P appendectomy S/P carpal tunnel release Status post mitral valve annuloplasty Family History Mother CAD (coronary artery disease) Father Diabetes Other Cancer Social History Smoking and tobacco status: former smoker Quit status (tobacco): has quit using tobacco Year quit tobacco: 2020 - 1PPD hx x 40 Years Alcohol intake: never Lives independently: Yes Household members: none Marital status: / Current occupational status: retired History of recent travel: No Current gender identity: Female Data Anesthesia CBC & Chem 7: 11/14/19 03:55 11/14/19 03:55 Other Labs: Laboratory Results - last 48 hr 11/12/19 11/12/19 11/12/19 13:35 13:35 16:58 WBC RBC Hgb Hct MCV MCH MCHC RDW Plt Count MPV Neut % (Auto) Lymph % (Auto) Roberts % (Auto) Eos % (Auto) Baso % (Auto) Neut # (Auto) Lymph # (Auto) Roberts # (Auto) Eos # (Auto) Baso # (Auto) Nucleated RBC % (auto) Nucleated RBCs # Haptoglobin 115.0 PT INR Specimen Type Sample Site ABG pH ABG pCO2 ABG pO2 ABG HCO3 ABG O2 Saturation ABG Base Excess [place] Test A-a O2 Gradient Hematocrit Hgb O2 Saturation Carboxyhemoglobin Methemoglobin Total Hemoglobin Ionized Calcium O2 Delivery Device FiO2 Photographer'S Assistant ID Sodium Potassium Chloride Carbon Dioxide Anion Gap BUN Creatinine Glucose POC Glucose 164 Calculated Osmolality Calcium Phosphorus Magnesium Iron 49 TIBC 229 % Saturation 21.3 Unsat Iron Binding 180 Ferritin 649 H Total Bilirubin 1.9 H Direct Bilirubin 1.00 H Indirect Bilirubin 0.90 GGT 130 H AST ALT Alkaline Phosphatase Ammonia Lactate Dehydrogenase 1970 H Creatine Kinase Total Protein Albumin Globulin Urine Color Urine Appearance Urine pH Ur Specific [place] Urine Protein Urine Glucose (UA) Urine Ketones Urine Blood Urine Nitrate Urine Bilirubin Urine Urobilinogen Ur Leukocyte Esterase Urine RBC Urine WBC Ur Squamous Epith Cells Urine Bacteria Ur Random Sodium Urine Creatinine Blood Type Rho(D) Type Antibody Screen Crossmatch 11/12/19 11/12/19 11/13/19 17:43 20:36 03:24 WBC RBC Hgb Hct MCV MCH MCHC RDW Plt Count MPV Neut % (Auto) Lymph % (Auto) Roberts % (Auto) Eos % (Auto) Baso % (Auto) Neut # (Auto) Lymph # (Auto) Roberts # (Auto) Eos # (Auto) Baso # (Auto) Nucleated RBC % (auto) Nucleated RBCs # Haptoglobin PT INR Specimen Type Sample Site ABG pH ABG pCO2 ABG pO2 ABG HCO3 ABG O2 Saturation ABG Base Excess [place] Test A-a O2 Gradient Hematocrit Hgb O2 Saturation Carboxyhemoglobin Methemoglobin Total Hemoglobin Ionized Calcium O2 Delivery Device FiO2 Photographer'S Assistant ID Sodium 139 142 Potassium 4.4 5.6 H Chloride 101 105 Carbon Dioxide 14 L 14 L Anion Gap 28.4 H 28.6 H BUN 65 H 70 H Creatinine 2.5 H 2.5 H Glucose 119 H 95 POC Glucose 114 Calculated Osmolality 288 293 Calcium 8.8 8.5 Phosphorus Magnesium Iron TIBC % Saturation Unsat Iron Binding Ferritin Total Bilirubin 1.9 H 2.6 H Direct Bilirubin Indirect Bilirubin GGT AST 1774 H 2575 H ALT 1234 H 1626 H Alkaline Phosphatase 183 H 192 H Ammonia Lactate Dehydrogenase Creatine Kinase Total Protein 5.5 L 5.7 L Albumin 3.3 L 3.6 Globulin 2.2 2.1 Urine Color Urine Appearance Urine pH Ur Specific [place] Urine Protein Urine Glucose (UA) Urine Ketones Urine Blood Urine Nitrate Urine Bilirubin Urine Urobilinogen Ur Leukocyte Esterase Urine RBC Urine WBC Ur Squamous Epith Cells Urine Bacteria Ur Random Sodium Urine Creatinine Blood Type Rho(D) Type Antibody Screen Crossmatch 11/13/19 11/13/19 11/13/19 03:24 03:24 06:47 WBC 16.5 H RBC 2.87 L Hgb 8.4 L Hct 28.2 L MCV 98.3 MCH 29.3 MCHC 29.8 L RDW 14.8 Plt Count 190 MPV 12.8 H Neut % (Auto) 80.7 Lymph % (Auto) 4.0 Roberts % (Auto) 13.7 Eos % (Auto) 0.0 Baso % (Auto) 0.2 Neut # (Auto) 13.3 H Lymph # (Auto) 0.7 L Roberts # (Auto) 2.3 H Eos # (Auto) 0.0 Baso # (Auto) 0.0 Nucleated RBC % (auto) 1.2 Nucleated RBCs # 0.2 Haptoglobin PT INR Specimen Type Sample Site ABG pH ABG pCO2 ABG pO2 ABG HCO3 ABG O2 Saturation ABG Base Excess [place] Test A-a O2 Gradient Hematocrit Hgb O2 Saturation Carboxyhemoglobin Methemoglobin Total Hemoglobin Ionized Calcium O2 Delivery Device FiO2 Photographer'S Assistant ID Sodium Potassium Chloride Carbon Dioxide Anion Gap BUN Creatinine Glucose POC Glucose 101 Calculated Osmolality Calcium Phosphorus Magnesium Iron TIBC % Saturation Unsat Iron Binding Ferritin Total Bilirubin Direct Bilirubin Indirect Bilirubin GGT AST ALT Alkaline Phosphatase Ammonia Lactate Dehydrogenase Creatine Kinase 5020 H* Total Protein Albumin Globulin Urine Color Urine Appearance Urine pH Ur Specific [place] Urine Protein Urine Glucose (UA) Urine Ketones Urine Blood Urine Nitrate Urine Bilirubin Urine Urobilinogen Ur Leukocyte Esterase Urine RBC Urine WBC Ur Squamous Epith Cells Urine Bacteria Ur Random Sodium Urine Creatinine Blood Type Rho(D) Type Antibody Screen Crossmatch 11/13/19 11/13/19 11/13/19 10:02 12:08 13:11 WBC RBC Hgb Hct MCV MCH MCHC RDW Plt Count MPV Neut % (Auto) Lymph % (Auto) Roberts % (Auto) Eos % (Auto) Baso % (Auto) Neut # (Auto) Lymph # (Auto) Roberts # (Auto) Eos # (Auto) Baso # (Auto) Nucleated RBC % (auto) Nucleated RBCs # Haptoglobin PT INR Specimen Type Arterial Sample Site Radial, left ABG pH 7.30 L ABG pCO2 25.2 L ABG pO2 94.6 ABG HCO3 12.3 L ABG O2 Saturation ABG Base Excess -12.9 L [place] Test Pos A-a O2 Gradient Hematocrit 25.9 L Hgb O2 Saturation Carboxyhemoglobin Methemoglobin Total Hemoglobin Ionized Calcium O2 Delivery Device None FiO2 21.0 Photographer'S Assistant ID glc Sodium Potassium Chloride Carbon Dioxide Anion Gap BUN Creatinine Glucose POC Glucose 82 Calculated Osmolality Calcium Phosphorus Magnesium Iron TIBC % Saturation Unsat Iron Binding Ferritin Total Bilirubin Direct Bilirubin Indirect Bilirubin GGT AST ALT Alkaline Phosphatase Ammonia 68 H Lactate Dehydrogenase Creatine Kinase Total Protein Albumin Globulin Urine Color Urine Appearance Urine pH Ur Specific [place] Urine Protein Urine Glucose (UA) Urine Ketones Urine Blood Urine Nitrate Urine Bilirubin Urine Urobilinogen Ur Leukocyte Esterase Urine RBC Urine WBC Ur Squamous Epith Cells Urine Bacteria Ur Random Sodium Urine Creatinine Blood Type Rho(D) Type Antibody Screen Crossmatch 11/13/19 11/13/19 11/13/19 15:09 16:30 17:12 WBC RBC Hgb Hct MCV MCH MCHC RDW Plt Count MPV Neut % (Auto) Lymph % (Auto) Roberts % (Auto) Eos % (Auto) Baso % (Auto) Neut # (Auto) Lymph # (Auto) Roberts # (Auto) Eos # (Auto) Baso # (Auto) Nucleated RBC % (auto) Nucleated RBCs # Haptoglobin PT INR Specimen Type Arterial Sample Site Brachial, left ABG pH 7.38 ABG pCO2 27.2 L ABG pO2 72.2 L ABG HCO3 16.2 L ABG O2 Saturation 94.6 ABG Base Excess -7.9 L [place] Test Pos A-a O2 Gradient 40.3 H Hematocrit 25.9 L Hgb O2 Saturation 92.8 L Carboxyhemoglobin 1.0 Methemoglobin 0.8 Total Hemoglobin 8.4 L Ionized Calcium 1.0 L O2 Delivery Device Room air FiO2 21.0 Photographer'S Assistant ID cak Sodium 142 140.0 Potassium 5.2 H 4.9 Chloride 105 Carbon Dioxide 14 L Anion Gap 28.2 H BUN 81 H Creatinine 2.5 H Glucose 186 H 204.0 H POC Glucose 222 Calculated Osmolality 299 H Calcium 8.2 L Phosphorus Magnesium Iron TIBC % Saturation Unsat Iron Binding Ferritin Total Bilirubin Direct Bilirubin Indirect Bilirubin GGT AST ALT Alkaline Phosphatase Ammonia Lactate Dehydrogenase Creatine Kinase Total Protein Albumin Globulin Urine Color Urine Appearance Urine pH Ur Specific [place] Urine Protein Urine Glucose (UA) Urine Ketones Urine Blood Urine Nitrate Urine Bilirubin Urine Urobilinogen Ur Leukocyte Esterase Urine RBC Urine WBC Ur Squamous Epith Cells Urine Bacteria Ur Random Sodium Urine Creatinine Blood Type Rho(D) Type Antibody Screen Crossmatch 11/13/19 11/13/19 11/13/19 17:15 17:15 21:01 WBC RBC Hgb Hct MCV MCH MCHC RDW Plt Count MPV Neut % (Auto) Lymph % (Auto) Roberts % (Auto) Eos % (Auto) Baso % (Auto) Neut # (Auto) Lymph # (Auto) Roberts # (Auto) Eos # (Auto) Baso # (Auto) Nucleated RBC % (auto) Nucleated RBCs # Haptoglobin PT INR Specimen Type Sample Site ABG pH ABG pCO2 ABG pO2 ABG HCO3 ABG O2 Saturation ABG Base Excess [place] Test A-a O2 Gradient Hematocrit Hgb O2 Saturation Carboxyhemoglobin Methemoglobin Total Hemoglobin Ionized Calcium O2 Delivery Device FiO2 Photographer'S Assistant ID Sodium Potassium Chloride Carbon Dioxide Anion Gap BUN Creatinine Glucose POC Glucose 290 Calculated Osmolality Calcium Phosphorus Magnesium Iron TIBC % Saturation Unsat Iron Binding Ferritin Total Bilirubin Direct Bilirubin Indirect Bilirubin GGT AST ALT Alkaline Phosphatase Ammonia Lactate Dehydrogenase Creatine Kinase Total Protein Albumin Globulin Urine Color Yellow Urine Appearance Sl cloudy A Urine pH 6 Ur Specific [place] 1.020 Urine Protein 2+ H Urine Glucose (UA) Norm Urine Ketones 1+ H Urine Blood 3+ H Urine Nitrate Negative Urine Bilirubin Neg Urine Urobilinogen 1 H Ur Leukocyte Esterase Trace H Urine RBC 80-100 H Urine WBC 5-10 H Ur Squamous Epith Cells None Urine Bacteria 1+ H Ur Random Sodium 43 Urine Creatinine 80 Blood Type Rho(D) Type Antibody Screen Crossmatch 11/14/19 11/14/19 11/14/19 03:55 03:55 03:55 WBC 10.1 H RBC 2.75 L Hgb 8.0 L Hct 25.8 L MCV 93.8 MCH 29.1 MCHC 31.0 RDW 14.8 Plt Count 153 MPV 12.6 H Neut % (Auto) 79.4 Lymph % (Auto) 6.8 Roberts % (Auto) 12.3 Eos % (Auto) 0.2 Baso % (Auto) 0.1 Neut # (Auto) 8.0 H Lymph # (Auto) 0.7 L Roberts # (Auto) 1.2 H Eos # (Auto) 0.0 Baso # (Auto) 0.0 Nucleated RBC % (auto) 2.9 Nucleated RBCs # 0.3 Haptoglobin PT 30.30 H INR 2.77 H Specimen Type Sample Site ABG pH ABG pCO2 ABG pO2 ABG HCO3 ABG O2 Saturation ABG Base Excess [place] Test A-a O2 Gradient Hematocrit Hgb O2 Saturation Carboxyhemoglobin Methemoglobin Total Hemoglobin Ionized Calcium O2 Delivery Device FiO2 Photographer'S Assistant ID Sodium 141 Potassium 3.9 Chloride 103 Carbon Dioxide 20 L Anion Gap 21.9 H BUN 89 H* Creatinine 2.3 H Glucose 259 H POC Glucose Calculated Osmolality 301 H Calcium 7.8 L Phosphorus 5.1 H Magnesium 2.0 Iron TIBC % Saturation Unsat Iron Binding Ferritin Total Bilirubin 2.2 H Direct Bilirubin Indirect Bilirubin GGT AST 2608 H ALT 1805 H Alkaline Phosphatase 193 H Ammonia Lactate Dehydrogenase Creatine Kinase Total Protein 5.4 L Albumin 3.4 L Globulin 2.0 Urine Color Urine Appearance Urine pH Ur Specific [place] Urine Protein Urine Glucose (UA) Urine Ketones Urine Blood Urine Nitrate Urine Bilirubin Urine Urobilinogen Ur Leukocyte Esterase Urine RBC Urine WBC Ur Squamous Epith Cells Urine Bacteria Ur Random Sodium Urine Creatinine Blood Type Rho(D) Type Antibody Screen Crossmatch 11/14/19 11/14/19 11/14/19 03:55 09:33 10:16 WBC RBC Hgb Hct MCV MCH MCHC RDW Plt Count MPV Neut % (Auto) Lymph % (Auto) Roberts % (Auto) Eos % (Auto) Baso % (Auto) Neut # (Auto) Lymph # (Auto) Roberts # (Auto) Eos # (Auto) Baso # (Auto) Nucleated RBC % (auto) Nucleated RBCs # Haptoglobin PT INR Specimen Type Sample Site ABG pH ABG pCO2 ABG pO2 ABG HCO3 ABG O2 Saturation ABG Base Excess [place] Test A-a O2 Gradient Hematocrit Hgb O2 Saturation Carboxyhemoglobin Methemoglobin Total Hemoglobin Ionized Calcium O2 Delivery Device FiO2 Photographer'S Assistant ID Sodium Potassium Chloride Carbon Dioxide Anion Gap BUN Creatinine Glucose POC Glucose 347 Calculated Osmolality Calcium Phosphorus Magnesium Iron TIBC % Saturation Unsat Iron Binding Ferritin Total Bilirubin Direct Bilirubin Indirect Bilirubin GGT AST ALT Alkaline Phosphatase Ammonia Lactate Dehydrogenase Creatine Kinase 24955 H* Total Protein Albumin Globulin Urine Color Urine Appearance Urine pH Ur Specific [place] Urine Protein Urine Glucose (UA) Urine Ketones Urine Blood Urine Nitrate Urine Bilirubin Urine Urobilinogen Ur Leukocyte Esterase Urine RBC Urine WBC Ur Squamous Epith Cells Urine Bacteria Ur Random Sodium Urine Creatinine Blood Type A Positive Rho(D) Type Positive Antibody Screen Negative Crossmatch See Detail 11/14/19 11:30 WBC RBC Hgb Hct MCV MCH MCHC RDW Plt Count MPV Neut % (Auto) Lymph % (Auto) Roberts % (Auto) Eos % (Auto) Baso % (Auto) Neut # (Auto) Lymph # (Auto) Roberts # (Auto) Eos # (Auto) Baso # (Auto) Nucleated RBC % (auto) Nucleated RBCs # Haptoglobin PT INR Specimen Type Sample Site ABG pH ABG pCO2 ABG pO2 ABG HCO3 ABG O2 Saturation ABG Base Excess [place] Test A-a O2 Gradient Hematocrit Hgb O2 Saturation Carboxyhemoglobin Methemoglobin Total Hemoglobin Ionized Calcium O2 Delivery Device FiO2 Photographer'S Assistant ID Sodium Potassium Chloride Carbon Dioxide Anion Gap BUN Creatinine Glucose POC Glucose 346 Calculated Osmolality Calcium Phosphorus Magnesium Iron TIBC % Saturation Unsat Iron Binding Ferritin Total Bilirubin Direct Bilirubin Indirect Bilirubin GGT AST ALT Alkaline Phosphatase Ammonia Lactate Dehydrogenase Creatine Kinase Total Protein Albumin Globulin Urine Color Urine Appearance Urine pH Ur Specific [place] Urine Protein Urine Glucose (UA) Urine Ketones Urine Blood Urine Nitrate Urine Bilirubin Urine Urobilinogen Ur Leukocyte Esterase Urine RBC Urine WBC Ur Squamous Epith Cells Urine Bacteria Ur Random Sodium Urine Creatinine Blood Type Rho(D) Type Antibody Screen Crossmatch Cardiac Studies: No Data to Display
[2019-11-14 17:08] LABS: Glucose Point of Care 295 mg/dL (70-110)
[2019-11-14 18:02] LABS: Basophils % 0.1 %; Eosinophils % 0.2 %; Hematocrit 28.6 % (37.0-47.0); Lymphocytes # 0.6 10^3/uL (0.8-4.8); Lymphocytes % 6.3 %; Mean Corpuscular HGB Conc 31.5 g/dL (30.0-36.0); Mean Corpuscular Volume 92.3 fL (81-99); Mean Platelet Volume 12.2 fL (7.4-10.4); Monocytes # 1.2 10^3/uL (0.2-0.9); Monocytes % 12.5 %; Neutrophils # 7.6 10^3/uL (1.8-7.7); Neutrophils % 79.9 %; Nucleated Red Blood Cells # 0.3 /100WBC; Nucleated Red Blood Cells % 2.8 %; Platelet Count 151 10^3/cmm (130-400); Red Cell Distribution Width 14.7 % (12.1-15.1); White Blood Count 9.5 10^3/uL (4.0-10.0)
--- NOTE | 2019-11-14 18:43 | SC_ITS ---
WS: [id number] C-ARM RADIOGRAPHS CHEST; 3 IMAGES HISTORY: hemodialysis catheter placement COMPARISON: None available. Intraoperative imaging during hemodialysis catheter placement. SC/C-arm [place] for CVA [id number] IMPRESSION: Intraoperative imaging during dialysis catheter placement.
--- NOTE | 2019-11-14 18:53 | PC.NURSE ---
FINISHED FFP X2, X1 PRBC GIVEN REPORT GIVEN TO JEN CHILEL. DR MAY HERE TALKING TO FAMILY AWAITING OR STAFF FOR TRANSPORT
[2019-11-14 19:12] LABS: INR 2.24 (0.8-1.2)
[2019-11-14 19:13] LABS: Fibrinogen 365 mg/dL (184-529); Partial Thromboplastin Time 29.2 SECONDS (23.9-36.7)
--- NOTE | 2019-11-14 19:16 | PC.NURSE ---
Transferred to surgery patient transferred to surgery at 191.
[2019-11-14] MEDS: ceFAZolin 1,000 mg SDV 3000 MG IRRIGATION ×2 (19:45→22:27)
[2019-11-14] MEDS: heparin, porcine 1,000 unit/mL INJ 10 mL 10000 UNIT IRRIGATION (19:46)
--- NOTE | 2019-11-14 21:44 | P.OP_ITS ---
Operative Report Date of procedure: November 14, 2019 Pre-op Diagnosis: Acute ischemia right lower extremity with severe peripheral vascular disease Post-op diagnosis: same Post-op Findings: There was edema of the soft tissues of the right lower extremity though muscle appeared viable. Procedure Done: 1. Right IJ tunneled dual-lumen dialysis catheter placement #2. Right below knee amputation Specimens removed/disposition: Right leg Surgeon: Moustapha Vicotr Anesthesia: General Estimated blood loss (mL): 150 Condition: stable Disposition: ICU Brief History: 74-year-old female now 6 days status post attempted intervention and subsequent attempted surgery vascularization of the right lower extremity. She has had ongoing ischemia. She developed rhabdomyolysis as well as acute renal insufficiency. There are now further ischemic changes clearly obvious to the right lower extremity and therefore right below-knee amputation been recommended. She has been followed by nephrology and acute hemodialysis may be required, therefore placement of dialysis catheter has also been recommended. This was carefully discussed with family. A proper consents have been reviewed and signed. Procedure: 1. The entire chest was sterilely prepped and draped. With the patient in Trendelenburg position, and utilizing a modified Seldinger technique, the right jugular vein was engaged with a needle and easily aspirated of blood. Guidewire was placed and advanced without difficulty. The patient was returned to the supine position. The fluoroscopy was then used to confirm appropriate placement of the guidewire. Next, the dialysis catheter was measured to the appropriate length. A small incision was made laterally and inferiorly to the exit point of the guidewire. The dialysis catheter was then tunneled from this point medially to the point of exit of the guidewire on the chest wall after the tunnel had been infiltrated with 1% lidocaine. Velcro cuff was placed in this tunnel. Next, utilizing a series of dilators over the guidewire, under fluoroscopic guidance, the subcutaneous tract was dilated. Next, a dilator and tear-away sheath was placed over the guidewire and advanced under fluoroscopic guidance. Dilator and guidewire were removed. The dual-lumen dialysis catheter was then placed in the tear-away sheath as the tear-away sheath was removed. The entire system was interrogated with fluoroscopy to confirm appropriate position. Next, each lumen of the catheter was aspirated of air and blood and flushed with heparin solution. Securing caps and clamps were applied. The superior wound was closed with 4-0 Monocryll suture in a subcuticular fashion. The dialysis catheter was secured to the skin with 2-0 silk suture. A sterile dressing was applied. There were equal breath sounds bilaterally at the completion of the procedure. Post procedure chest x-ray will be obtained. #2. Ms. Serrato's entire right lower extremity was sterilely prepped and draped. Marking pen was utilized to determine our lines of transection to include a generous posterior flap. #10 scalpel blade was utilized to incise the skin circumferentially along the previously placed planned line of transection. Saphenous vein was controlled medially and secured prior to division. This was continued down to the tibia where periosteal elevator was utilized to strip periosteum proximally. This was done circumferentially. Next, transection of the tibia was performed utilizing powered saw. Anterior surface of the tibia w as beveled utilizing saw and rasp Scalpel blade was utilized continue further transection of musculature and fascia down to the fibula, which was also isolated and periosteum elevated proximally. Again, powered saw was utilized to perform transection proximally. Amputation was then completed utilizing amputation knife. Areas of bleeding were controlled utilizing careful case of cautery or suture ligature. Remaining bulk of musculature on the posterior flap was beveled to allow for appropriate closure with elevation to the anterior transection line. Wound was then irrigated with antibiotic solution and hemostasis confirmed. A large Hemovac drain was placed and secured. Fascia was reapproximated with interrupted 2-0 Vicryl suture. Skin was then reapproximated utilizing 3-0 monofilament suture in interrupted mattress fashion. Xeroform gauze was applied followed by appropriate padded dressings. Knee was placed in an immobilizer. Ms. Serrato was then transported to the ICU in stable condition. We have elected to have her remain intubated overnight while we assess her recovery. Family was counseled at completion of the procedure.
--- NOTE | 2019-11-14 22:15 | PC.NURSE ---
received back from OR received patient from OR at 2200. patient intubated and comfortable in bed. Right BKA with knee immobilizer in place and hemovac on. patient has right art line in place and Right dialysis port placed during surgery. patient comfortable and vital signs stable at this time. will continue to monitor.
[2019-11-14] MEDS: propofol 1,000 MG/100 ML INJ 11.8 MG IV (22:28)
[2019-11-14 22:37] LABS: Glucose Point of Care 217 mg/dL (70-110)
[2019-11-15] VITALS (51 sets, daily range): BP systolic 142–185; BP diastolic 47–78; PULSE 66–87; RESP 12–19; TEMP 36.7–38.2; O2SAT 95–100
[2019-11-15] MEDS: hyDRALAzine 20 mg/mL INJ 1 mL 10 MG IVP ×6 (01:39→21:38)
[2019-11-15] MEDS: propofol 1,000 MG/100 ML INJ 11.8 MG IV (03:52)
[2019-11-15 03:53] LABS: Arterial Blood Gas Hematocrit 29.6 % (37-47); Base Excess ABG 3.7 mmol/L (-2.0-2.0); Blood Gas Allen Test Pos; Blood Gas Sample Site Radial, right; Blood Gas Sample Type Arterial; Carboxyhemoglobin 0.8 %THgb (0.4-20.1); HGB O2 Sat 98.6 % (95-100); Methemoglobin 0.6 % (0.4-1.5); Oxygen Device VENT; Potassium Level - ABG 3.1 mmol/L (3.5-5.0); Total Hemoglobin 9.6 g/dL (12-16)
[2019-11-15] MEDS: nitroglycerin 1 gm/inch oint Pkt 0.5 INCH TOPICAL ×4 (03:53→21:38)
[2019-11-15 05:01] LABS: Basophils % 0.3 %; Eosinophils % 0.6 %; Hematocrit 29.8 % (37.0-47.0); Hemoglobin 9.4 g/dL (11.5-15.3); Lymphocytes # 0.6 10^3/uL (0.8-4.8); Lymphocytes % 9.7 %; Mean Corpuscular HGB Conc 31.5 g/dL (30.0-36.0); Mean Corpuscular Hemoglobin 28.7 pg (28.0-34.0); Mean Corpuscular Volume 90.9 fL (81-99); Mean Platelet Volume 11.5 fL (7.4-10.4); Monocytes # 0.7 10^3/uL (0.2-0.9); Monocytes % 10.6 %; Neutrophils # 5.1 10^3/uL (1.8-7.7); Neutrophils % 77.3 %; Nucleated Red Blood Cells # 0.3 /100WBC; Nucleated Red Blood Cells % 3.9 %; Platelet Count 122 10^3/cmm (130-400); Red Blood Count 3.28 10^6/uL (4.1-5.3); Red Cell Distribution Width 15.7 % (12.1-15.1); White Blood Count 6.6 10^3/uL (4.0-10.0)
[2019-11-15 05:10] LABS: INR 1.72 (0.8-1.2)
[2019-11-15 05:25] LABS: Alkaline Phosphatase 172 IU/L (35-105); Anion Gap 16.2 (5-19); Blood Urea Nitrogen 59 mg/dL (8-23); Calcium 7.6 mg/dL (8.5-10.5); Carbon Dioxide 26 mmol/L (22-29); Chloride 105 mmol/L (98-107); Globulin 2.2 g/dL (1.3-4.6); Glucose 202 mg/dL (65-115); Osmolality Calculated 302 mOsm/kg (285-295); Potassium 3.2 mmol/L (3.5-5.1); Sodium 144 mmol/L (136-145); Total Bilirubin 2.2 mg/dL (0.15-1.2); Total Protein 5.2 g/dL (6.6-8.7)
[2019-11-15] MEDS: piperacillin-tazobactam 3.375 GM in sodium chloride 0.9% (plus) 50 ML IV ×2 (05:34→17:50)
[2019-11-15 05:42] LABS: Alanine Aminotransferase 1209 U/L (0-33)
[2019-11-15 05:46] LABS: Aspartate Amino Transferase 1185 U/L (0-32); Creatine Phosphokinase 9844 U/L (26-192)
--- NOTE | 2019-11-15 06:46 | P.PN_ITS ---
Subjective Subjective: Interval history: Postop day #1 status post right BKA and placement of right IJ dialysis catheter. We elected to keep Ms. Serrato intubated and sedated over the night. All lab work looks improved today. May extubated discretion of hospitalist service. Renal function appears improved. Vitals/I&O/Wt Last Vital Signs Temp 98.4 F 11/15/19 04:15 Pulse 75 11/15/19 06:00 Resp 16 11/15/19 04:15 BP 160/53 11/15/19 06:00 Pulse Ox 99 11/15/19 06:00 11/14/19 11/14/19 11/15/19 14:59 22:59 06:59 Intake Total 350 / 350 1583.25 / 1933.25 72.235 / 2005.485 Output Total 600 / 600 625 / 1225 500 / 1725 Balance -250 / -250 958.25 / 708.25 -427.765 / 280.485 Physical Exam Extremity: NARRATIVE EXTREMITY EXAM: Surgical dressings in place. Low Hemovac drain output. Urinary Catheter Management^: Best: Cath Placed During This Visit: yes, but has since been removed by the nurse Reason for Continuing Indwelling Catheter: Accurate Measurement of Urinary Output in Critically Ill Patients Urinary Catheter Date of Insertion: 11/13/19 Urinary Catheter Time of Insertion: 10:20 Date Urinary Catheter Removed: 11/10/19 Time Urinary Catheter Discontinued: 09:15 Data : 11/15/19 04:15 11/15/19 04:15 A&P Assessment and plan (1) Status post below knee amputation of right lower extremity: POD #1 status post right BKA. I would continue the VAC drain at least another 24 to 48 hours. Status: Acute Attestations Medical Necessity Statement*: Status post right BKA secondary to severe PVD and ongoing right lower extremity ischemia Time Spent in Patient Care: less than 15 minutes Coding Level of Care Code Acute Mine Safety Engineer for Armida Fwdov Diagnoses Status post below knee amputation of right lower extremity Z89.511
--- NOTE | 2019-11-15 07:32 | XRR_ITS ---
PROCEDURE INFORMATION: Exam: XR Chest, 1 View Exam date and time: 11/15/2019 7:47 AM Age: 74 years old Clinical indication: Other: Resp failure TECHNIQUE: Imaging protocol: XR of the chest Views: 1 view. COMPARISON: CR XR chest 1V portable [id number] 11/13/2019 9:50 AM FINDINGS: Tubes, catheters and devices: Cardiac valve prosthesis. Dual lumen right internal jugular central vascular catheter tip projects at the cavoatrial junction. Endotracheal tube tip approaches the origin of right mainstem bronchus and could be retracted 1.0 cm. Lungs: Presumably vascular stent projects at the right lung apex. Pleural space: Unremarkable. No pleural effusion. No pneumothorax. Heart/Mediastinum: Stable heart size. Bones/joints: Postoperative sternotomy. Degenerative change of the spine. XR/XR chest 1V portable [id number] IMPRESSION: 1. Endotracheal tube tip partially obscured projects near the origin of right mainstem bronchus and could be retracted 1.0 cm. 2. No focal consolidation.
--- NOTE | 2019-11-15 07:52 | P.PN_ITS ---
Subjective Subjective: Interval history: Shira underwent right below the knee amputation last night due to the fact that she was continuing to necrosis muscle in the right leg due to ongoing ischemia which caused the majority of her underlying problems including rhabdomyolysis, advancing renal insufficiency and others. She is currently in the ICU still intubated and on the ventilator. Her hemoglobin is up to 9. Her creatinine however is down to 1.6 with a BUN of 59. Her potassium is slightly low 3.2. Her transaminases are trending downward. The AST is 1185 and the ALT is 1209. Her CPK is also trending downward. This morning it is 9844. Her serum bicarbonate is 26. Vitals/I&O/Wt Last Vital Signs Temp 98.4 F 11/15/19 04:15 Pulse 75 11/15/19 06:00 Resp 16 11/15/19 04:15 BP 160/53 11/15/19 06:00 Pulse Ox 99 11/15/19 06:00 11/14/19 11/15/19 11/15/19 22:59 06:59 14:59 Intake Total 1583.25 / 1933.25 72.235 / 2005.485 Output Total 625 / 1225 500 / 1725 Balance 958.25 / 708.25 -427.765 / 280.485 Physical Exam Narrative: EXAM NARRATIVE: GENERAL: In general she remains intubated and on a ventilator, sedated HEENT: Exam within normal limits. NECK: Supple without jugular vein distention. The carotid upstroke is normal without bruits. BACK: Exam normal. LUNGS: Clear. HEART: Regular rate and rhythm. ABDOMEN: Benign without organomegaly or tenderness. EXTREMITIES: No edema. Right below the knee amputation NEUROLOGIC: Exam normal. SKIN: Unremarkable. Urinary Catheter Management^: Best: Cath Placed During This Visit: yes, but has since been removed by the nurse Reason for Continuing Indwelling Catheter: Accurate Measurement of Urinary Output in Critically Ill Patients Urinary Catheter Date of Insertion: 11/13/19 Urinary Catheter Time of Insertion: 10:20 Date Urinary Catheter Removed: 11/10/19 Time Urinary Catheter Discontinued: 09:15 Data : 11/15/19 04:15 11/15/19 04:15 A&P Assessment and plan (1) Status post below knee amputation of right lower extremity: Status: Acute (2) Encephalopathy acute: Status: Acute (3) Metabolic acidosis: Status: Acute (4) Anemia: Status: Acute (5) Rhabdomyolysis: Status: Acute (6) Acute kidney injury superimposed on CKD: Status: Acute (7) Abnormal liver function test: Status: Acute (8) Ischemia of right lower extremity: Status: Acute (9) Hx of CABG: Status: Acute (10) H/O mitral valve repair: Status: Acute (11) Aortic insufficiency with aortic stenosis: Status: Acute (12) Subclavian arterial stenosis: Status: Acute (13) Mitral regurgitation: Status: Acute (14) PAD (peripheral artery disease): Status: Acute (15) CHF (congestive heart failure): Status: Acute Qualifiers: Heart failure type: systolic Heart failure chronicity: chronic Qualified Code(s): I50.22 - Chronic systolic (congestive) heart failure (16) Hyperlipidemia: Status: Acute (17) Essential hypertension: Status: Acute (18) Diabetes 1.5, managed as type 2: Status: Acute (19) Ischemic cardiomyopathy: Status: Acute (20) Tobacco abuse: Status: Acute (21) COPD (chronic obstructive pulmonary disease): Status: Acute Additional A&P Information Removal of the leg has interrupted the ongoing ischemia and tissue necrosis which has improved her renal and hepatic status. She should be asked debatable today. We will follow. Attestations Medical Necessity Statement*: Needs continued hospitalization for management of acute right lower extremity ischemia post amputation and complications of renal and liver insufficiency. Coding Level of Care Code Established Pt Acute Flotation Tank Operator for Troyg Fwd Patient Type Established History Comprehensive Exam Comprehensive Medical Decision Making High Complexity Diagnoses Status post below knee amputation of right lower extremity Z89.511 Encephalopathy acute G93.40 Metabolic acidosis E87.2 Anemia D64.9 Rhabdomyolysis M62.82 Acute kidney injury superimposed on CKD N17.9; N18.9 Abnormal liver function test R94.5 Ischemia of right lower extremity I99.8 Hx of CABG Z95.1 H/O mitral valve repair Z98.890 Aortic insufficiency with aortic stenosis I35.2 Subclavian arterial stenosis I77.1 Mitral regurgitation I34.0 PAD (peripheral artery disease) I73.9 CHF (congestive heart failure) I50.22 Heart failure type: systolic Heart failure chronicity: chronic Hyperlipidemia E78.5 Essential hypertension I10 Diabetes 1.5, managed as type 2 E13.9 Ischemic cardiomyopathy I25.5 Tobacco abuse Z72.0 COPD (chronic obstructive pulmonary disease) J44.9
--- NOTE | 2019-11-15 07:58 | PM.PN ---
Subjective Subjective: Interval history: Sedated on ventilator. Right below the knee amputation occurred yesterday along with dialysis catheter placement. Medications: Reviewed: Yes Vitals/I&O/Wt Last Vital Signs Temp 98.4 F 11/15/19 04:15 Pulse 75 11/15/19 06:00 Resp 16 11/15/19 04:15 BP 160/53 11/15/19 06:00 Pulse Ox 99 11/15/19 06:00 11/14/19 11/15/19 11/15/19 22:59 06:59 14:59 Intake Total 1583.25 / 1933.25 72.235 / 2005.485 Output Total 625 / 1225 500 / 1725 Balance 958.25 / 708.25 -427.765 / 280.485 Physical Exam Narrative: EXAM NARRATIVE: General exam demonstrates intubated female Cardiovascular regular rate and rhythm, no murmur Lungs lungs are clear Abdomen is soft, bowel sounds are noted Extremities right below the knee amputation noted. Left with good perfusion. Urinary Catheter Management^: Best: Cath Placed During This Visit: yes, but has since been removed by the nurse Reason for Continuing Indwelling Catheter: Accurate Measurement of Urinary Output in Critically Ill Patients Urinary Catheter Date of Insertion: 11/13/19 Urinary Catheter Time of Insertion: 10:20 Date Urinary Catheter Removed: 11/10/19 Time Urinary Catheter Discontinued: 09:15 Data : 11/15/19 04:15 11/15/19 04:15 Other data: Chest x-ray per my review demonstrates no infiltrate A&P Assessment and plan (1) Encephalopathy acute: Secondary to renal failure, metabolic acidosis. Sedated currently on ventilator. Will wean sedation today and see if she can follow directions and consider extubation. Status: Acute (2) Metabolic acidosis: Hyperkalemia and acidosis resolved with bicarbonate drip Appreciate nephrology consultation At this point acidosis has improved greatly and I will discontinue the bicarbonate drip. Nephrology will review this as well. Increase saline to 100 cc an hour. Now with hypokalemia so will supplement. Status: Acute (3) Acute kidney injury superimposed on CKD: Continue Best No evidence of fluid overload currently Renal ultrasound was performed which demonstrated no obstruction Dialysis catheter to be placed during surgery Renal function appears to be improving Status: Acute (4) Rhabdomyolysis: In large part secondary to ischemic limb which is now been removed. CK levels are dropping Status: Acute (5) Ischemia of right lower extremity: Postop day #7 status post attempted right femoropopliteal bypass. Postoperative day #1 status post right below the knee amputation Status: Acute (6) H/O mitral valve repair: Status: Acute (7) Hx of CABG: stable, no ischemia on stress test in 04/2019. Status: Acute (8) CHF (congestive heart failure): High risk of fluid overload Status: Acute Qualifiers: Heart failure type: systolic Heart failure chronicity: chronic Qualified Code(s): I50.22 - Chronic systolic (congestive) heart failure (9) Diabetes 1.5, managed as type 2: Sliding scale insulin currently n.p.o. secondary to mental status. Status: Acute (10) Essential hypertension: Hydralazine PRN Status: Acute Additional A&P Information Transaminitis. May be secondary to hypotension although I do not see this documented l in the record with the exception of one borderline reading. Could be secondary to heart failure. Hepatitis panel negative. CT abdomen demonstrates no evidence of bile duct obstruction. Cholelithiasis was noted. On ultrasound portal flow was intact. This appears to be improving Elevated INR. Likely secondary to liver dysfunction. FFP and PRBC given during surgery. INR improved today. Leukocytosis. Currently on Zosyn, linezolid. White blood cell count improved. These medications were started secondary to ischemic limb. History of congestive heart failure with diastolic dysfunction, EF around 40%, aortic insufficiency. Compensated currently Anemia. Haptoglobin normal. Consistent with acute postoperative blood loss anemia History of COPD Hypertension, provide hydralazine scheduled currently Hyperlipidemia. Hold statin secondary to elevated liver function tests Tobacco dependency Heparin discontinued secondary to elevated INR Full code Attestations Medical Necessity Statement*: Needs continued hospitalization following surgery multiorgan dysfunction on ventilator Critical Care Time: 31 minutes spent of critical care time near bedside secondary to this acutely ill patient with multiple lines, multiorgan dysfunction, with significant risk for morbidity and mortality. Coding Level of Care Code Acute Sea Captain for Armida Mojica Diagnoses Encephalopathy acute G93.40 Metabolic acidosis E87.2 Acute kidney injury superimposed on CKD N17.9; N18.9 Rhabdomyolysis M62.82 Ischemia of right lower extremity I99.8 H/O mitral valve repair Z98.890 Hx of CABG Z95.1 CHF (congestive heart failure) I50.22 Heart failure type: systolic Heart failure chronicity: chronic Diabetes 1.5, managed as type 2 E13.9 Essential hypertension I10
[2019-11-15 08:47] LABS: Glucose Point of Care 189 mg/dL (70-110)
[2019-11-15] MEDS: famotidine 20 mg/2 mL INJ IVP ×2 (09:27→21:38)
--- NOTE | 2019-11-15 09:30 | PM.PN ---
Subjective Subjective: Interval history: s/p right BKA, intubated Medications: Reviewed: Yes Vitals/I&O/Wt Last Vital Signs Temp 98.4 F 11/15/19 04:15 Pulse 75 11/15/19 06:00 Resp 16 11/15/19 07:59 BP 160/53 11/15/19 06:00 Pulse Ox 99 11/15/19 06:00 11/14/19 11/15/19 11/15/19 22:59 06:59 14:59 Intake Total 1583.25 / 1933.25 372.235 / 2305.485 50 / 50 Output Total 625 / 1225 500 / 1725 Balance 958.25 / 708.25 -127.765 / 580.485 50 / 50 Physical Exam Const: COMMON NORMALS: no acute distress Neck/C-Spine: OTHER: right chest dialysis catheter Resp: COMMON NORMALS: clear to auscultation bilaterally AUSCULTATION: clear to auscultation bilaterally Cardio: COMMON NORMALS: regular rate and regular rhythm RATE: regular rate RHYTHM: regular rhythm Extremity: OTHER: right BKA, left 1+ edema, + flank edema Urinary Catheter Management^: Best: Cath Placed During This Visit: yes, but has since been removed by the nurse Reason for Continuing Indwelling Catheter: Accurate Measurement of Urinary Output in Critically Ill Patients Urinary Catheter Date of Insertion: 11/13/19 Urinary Catheter Time of Insertion: 10:20 Date Urinary Catheter Removed: 11/10/19 Time Urinary Catheter Discontinued: 09:15 Data : 11/15/19 04:15 11/15/19 04:15 Other Labs: CK 9844, K 3.2, INR 1.72, pH 7.5, pCO2 35, HCO3 26 Other data: CXR FINDINGS: Tubes, catheters and devices: Cardiac valve prosthesis. Dual lumen right internal jugular central vascular catheter tip projects at the cavoatrial junction. Endotracheal tube tip approaches the origin of right mainstem bronchus and could be retracted 1.0 cm. Lungs: Presumably vascular stent projects at the right lung apex. Pleural space: Unremarkable. No pleural effusion. No pneumothorax. Heart/Mediastinum: Stable heart size. Bones/joints: Postoperative sternotomy. Degenerative change of the spine. A&P Additional A&P Information Impression: 1. Acute kidney injury - nonoliguric, improved, rhabdomyolysis s/p BKA with falling CK: no indication for dialysis at this time 2. Hyperkalemia and metabolic acidosis - resolved 3. Hypokalemia 4. Hypertension with probable renal artery stenosis 5. 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 Replace K. Add labetolol. Serial labs including CK. Attestations Medical Necessity Statement*: critically ill Coding Level of Care Code Acute Printing And Stamping Supervisor for Armida Mojica
--- NOTE | 2019-11-15 09:55 | PC.SOCIAL ---
IMM Updated Page 2 of IMM updated and provided to patient. Initialed, dated, and timed and placed back in chart.
--- NOTE | 2019-11-15 10:26 | PC.NUTR ---
NUTR TF RECOMMENDATIONS: Pulmocare with a goal rate of 35 ml/hr providing 1260 kcal (106%), 53 g PRO (102%), and 659 ml fluid (56%)(%NEEDS). Suggest starting TF at 15 ml/hr increasing by 10 ml Q6H as tolerated till goal rate is met. Suggest H2O flushes of 50 ml Q4H to approach fluid needs or per physician
[2019-11-15] MEDS: labetalol 5 mg/mL SDV 20mL 20 MG IVP ×4 (10:50→23:36)
[2019-11-15] MEDS: linezolid premix 600 MG/300 ML PREMIX 300 MG IV ×2 (10:52→23:35)
--- NOTE | 2019-11-15 10:52 | ANE.PACU2 ---
Inpatient post-anesthesia follow up: Airway intact: No Vital signs: Temperature 98.4 F Pulse Rate 75 Respiratory Rate 16 Blood Pressure 160/53 Pulse Oximetry 99 Oxygen Delivery Me thod [ Room Air Current Rate & Del meaghan] Oxygen Delivery Me thod Mechanical Ventila tion Oxygen Flow Rate 40 Fraction of Inspir ed Oxygen 35 Hydration adequate: Yes Mental status: Altered Additional Comments: intubated and sedated
[2019-11-15 12:43] LABS: Glucose Point of Care 248 mg/dL (70-110)
--- NOTE | 2019-11-15 14:02 | XRR_ITS ---
PROCEDURE INFORMATION: Exam: XR Chest, 1 View Exam date and time: 11/15/2019 3:12 PM Age: 74 years old Clinical indication: Device placement; Other: Og placement TECHNIQUE: Imaging protocol: XR of the chest Views: 1 view. COMPARISON: CR XR chest 1V portable [id number] 11/15/2019 7:56 AM FINDINGS: Tubes, catheters and devices: A large bore central line right side extending in the staff there is a left side a traverses the midline and right psoas the MICU air a PICC line on the left is right so should be large size in the of a now is a very there really should help SVC. NG tube extends below the diaphragm the tip is not visible. Endotracheal tube is in place the tip is 11.4 mm above the tam Lungs: Unremarkable. No consolidation. Pleural space: Unremarkable. No pleural effusion. No pneumothorax. Heart/Mediastinum: No cardiomegaly. There is a cardiac valve prosthesis present Bones/joints: Metallic sternotomy wires are in place. XR/XR chest 1V portable [id number] IMPRESSION: 1. Negative for acute cardiac or pulmonary disease. 2. Large bore right central line in the SVC. 3. Status post sternotomy with cardiac valve prosthesis 4. Endotracheal tube is in place as described above 5. NG tube is below the diaphragm hip the tip is not visible
[2019-11-15 18:01] LABS: Glucose Point of Care 184 mg/dL (70-110)
[2019-11-15] MEDS: heparin 5,000 unit/mL INJ 1 mL 5000 UNIT SUBCUT (19:35)
[2019-11-15 21:50] LABS: Glucose Point of Care 175 mg/dL (70-110)
[2019-11-15] MEDS: sodium chloride 0.45% 1,000 ML 100 ML IV (22:10)
[2019-11-16] VITALS (29 sets, daily range): BP systolic 128–186; BP diastolic 53–92; PULSE 70–76; RESP 11–23; TEMP 36.8–37.1; O2SAT 96–100
[2019-11-16] MEDS: hyDRALAzine 20 mg/mL INJ 1 mL 10 MG IVP ×6 (01:20→21:05)
[2019-11-16] MEDS: labetalol 5 mg/mL SDV 20mL 20 MG IVP ×6 (03:20→22:49)
[2019-11-16] MEDS: nitroglycerin 1 gm/inch oint Pkt 0.5 INCH TOPICAL ×4 (03:20→21:05)
[2019-11-16 04:52] LABS: Basophils % 0.1 %; Eosinophils # 0.1 10^3/uL (0.0-0.8); Eosinophils % 0.7 %; Hematocrit 30.1 % (37.0-47.0); Hemoglobin 9.2 g/dL (11.5-15.3); Lymphocytes # 0.6 10^3/uL (0.8-4.8); Lymphocytes % 8.1 %; Mean Corpuscular HGB Conc 30.6 g/dL (30.0-36.0); Mean Corpuscular Hemoglobin 28.5 pg (28.0-34.0); Mean Corpuscular Volume 93.2 fL (81-99); Monocytes # 0.9 10^3/uL (0.2-0.9); Monocytes % 12.7 %; Neutrophils # 5.5 10^3/uL (1.8-7.7); Neutrophils % 77.7 %; Nucleated Red Blood Cells # 0.1 /100WBC; Platelet Count 118 10^3/cmm (130-400); Red Blood Count 3.23 10^6/uL (4.1-5.3); Red Cell Distribution Width 16.8 % (12.1-15.1); White Blood Count 7.1 10^3/uL (4.0-10.0)
[2019-11-16] MEDS: piperacillin-tazobactam 3.375 GM in sodium chloride 0.9% (plus) 50 ML IV ×2 (04:57→16:28)
[2019-11-16 05:11] LABS: Ammonia 28 umol/L (11-51)
[2019-11-16 05:25] LABS: Albumin Level 2.9 g/dL (3.5-5.2); Alkaline Phosphatase 165 IU/L (35-105); Anion Gap 15.7 (5-19); Aspartate Amino Transferase 634 U/L (0-32); Blood Urea Nitrogen 37 mg/dL (8-23); Calcium 7.6 mg/dL (8.5-10.5); Carbon Dioxide 24 mmol/L (22-29); Chloride 105 mmol/L (98-107); Glucose 163 mg/dL (65-115); Osmolality Calculated 293 mOsm/kg (285-295); Potassium 3.7 mmol/L (3.5-5.1); Sodium 141 mmol/L (136-145); Total Bilirubin 2.1 mg/dL (0.15-1.2); Total Protein 4.9 g/dL (6.6-8.7)
[2019-11-16 05:27] LABS: Magnesium 1.9 mg/dL (1.7-2.3)
[2019-11-16 05:39] LABS: Alanine Aminotransferase 905 U/L (0-33)
[2019-11-16 05:53] LABS: Creatine Phosphokinase 3262 U/L (26-192)
--- NOTE | 2019-11-16 06:23 | PM.PN ---
Subjective Subjective: Interval history: Postop day #2 status post left below-knee amputation. Vitals/I&O/Wt Last Vital Signs Temp 99.3 F 11/15/19 20:00 Pulse 71 11/16/19 05:00 Resp 16 11/16/19 03:59 BP 172/70 11/16/19 05:00 Pulse Ox 98 11/16/19 05:00 11/15/19 11/15/19 11/16/19 14:59 22:59 06:59 Intake Total 1550.00 / 1550.00 350 / 1900.00 Output Total 525 / 525 850 / 1375 600 / 1975 Balance 1025.00 / 1025.00 -500 / 525.00 -600 / -75.00 Physical Exam Extremity: OTHER: Incision line clean and dry. Minimal Hemovac drain output. Drain was discontinued. Posterior flap looks good. New dressings applied. Urinary Catheter Management^: Best: Cath Placed During This Visit: yes, but has since been removed by the nurse Reason for Continuing Indwelling Catheter: Accurate Measurement of Urinary Output in Critically Ill Patients Urinary Catheter Date of Insertion: 11/13/19 Urinary Catheter Time of Insertion: 10:20 Date Urinary Catheter Removed: 11/10/19 Time Urinary Catheter Discontinued: 09:15 Data : 11/16/19 04:40 11/16/19 04:40 Micro: Microbiology 11/13/19 17:15 Urine Culture - Preliminary Urine,Clean Catch A&P Assessment and plan (1) Status post below knee amputation of right lower extremity: Postop day #2 status post right below-knee amputation. Hemovac drain discontinued. Laboratory data continues to improve. Status: Acute Attestations Medical Necessity Statement*: Status post right below-knee amputation secondary to ongoing ischemia Time Spent in Patient Care: 16 - 35 minutes Coding Level of Care Code Acute Ebd Special Education Teacher for Armida Mojica Diagnoses Status post below knee amputation of right lower extremity Z89.511
--- NOTE | 2019-11-16 07:13 | XRR_ITS ---
PROCEDURE INFORMATION: Exam: XR Chest, 1 View Exam date and time: 11/16/2019 8:03 AM Age: 74 years old Clinical indication: Condition or disease; Other: Resp failure; Prior surgery; Surgery type: Cabg; Additional info: Follow up resp failure TECHNIQUE: Imaging protocol: XR of the chest Views: 1 view. COMPARISON: CR XR chest 1V portable [id number] 11/15/2019 3:04 PM FINDINGS: Tubes, catheters and devices: Nasogastric tube slightly below the diaphragm The endotracheal tube is above the level of the tam.Dialysis catheter via the right internal jugular approach with the tip in the region of the caval atrial junction. Lungs: Lungs are well aerated without a focal area of consolidation. Pleural space: Unremarkable. No pleural effusion. No pneumothorax. Heart/Mediastinum: Cardiomegaly Cardiomegaly Bones/joints: Unremarkable. XR/XR chest 1V portable [id number] IMPRESSION: Lungs are well aerated without a focal area of consolidation.
--- NOTE | 2019-11-16 07:19 | CTR_ITS ---
PROCEDURE INFORMATION: Exam: CT Head Without Contrast Exam date and time: 11/16/2019 7:48 AM Age: 74 years old Clinical indication: Other: Lethargy/ intubated TECHNIQUE: Imaging protocol: Computed tomography of the head without contrast. Radiation optimization: All CT scans at this facility use at least one of these dose optimization techniques: automated exposure control; mA and/or kV adjustment per patient size (includes targeted exams where dose is matched to clinical indication); or iterative reconstruction. COMPARISON: CT head wo con* [id number] 07/08/2019 4:24 PM RADIATION DOSE METRICS: Total DLP (mGy-cm): 888.03 FINDINGS: Brain: Hypodensity is seen in the periventricular cerebral white matter. This change is nonspecific but is most likely secondary to chronic ischemia within microvascular distributions. Boogie white matter distinction is maintained throughout the brain. No radiographic evidence of intracranial hemorrhage. Soft tissue prominence abutting the osseous structures of the middle cranial fossa on the left anteriorly with calcification. This measures approximately 2.3 cm by 12 mm. Extra-axial. Favor meningioma. Ventricles: Ventricles are enlarged on the basis of mild diffuse cerebral volume loss. Bones/joints: Unremarkable. No acute fracture. Sinuses: Visualized sinuses are unremarkable. No fluid levels. Mastoid air cells: Visualized mastoid air cells are well aerated. Soft tissues: Unremarkable. Other findings: No intra or extra-axial masses, lesions or collections. CT/CT head wo con* [id number] IMPRESSION: 1. No radiographic evidence of acute intracranial pathology. 2. Soft tissue prominence abutting the osseous structures of the middle cranial fossa on the left anteriorly with calcification. This measures approximately 2.3 cm by 12 mm. Extra-axial. Favor meningioma. Follow-up with IV contrast versus MRI. Visualized on the prior CT dated 07-08-19. Radiation Dose CTDIVOL = (mGy): DLP = 888.03 (mGy-cm)
--- NOTE | 2019-11-16 07:20 | P.PN_ITS ---
Subjective Subjective: Interval history: Shira awakens, but I cannot get her to really communicate with me. She is not yet following directions. She seems to be a little bit more alert than yesterday. Medications: Reviewed: Yes Vitals/I&O/Wt Last Vital Signs Temp 99.3 F 11/15/19 20:00 Pulse 72 11/16/19 06:00 Resp 16 11/16/19 03:59 BP 166/60 11/16/19 06:00 Pulse Ox 98 11/16/19 06:00 11/15/19 11/16/19 11/16/19 22:59 06:59 14:59 Intake Total 350 / 1900.00 Output Total 850 / 1375 600 / 1975 Balance -500 / 525.00 -600 / -75.00 Physical Exam Narrative: EXAM NARRATIVE: General exam demonstrates intubated female Cardiovascular regular rate and rhythm, no murmur Lungs lungs are clear Abdomen is soft, bowel sounds are noted Extremities right below the knee amputation noted. Left with good perfusion. Urinary Catheter Management^: Best: Cath Placed During This Visit: yes, but has since been removed by the nurse Reason for Continuing Indwelling Catheter: Accurate Measurement of Urinary Output in Critically Ill Patients Urinary Catheter Date of Insertion: 11/13/19 Urinary Catheter Time of Insertion: 10:20 Date Urinary Catheter Removed: 11/10/19 Time Urinary Catheter Discontinued: 09:15 Data : 11/16/19 04:40 11/16/19 04:40 Micro: Microbiology 11/13/19 17:15 Urine Culture - Preliminary Urine,Clean Catch A&P Assessment and plan (1) Encephalopathy acute: Secondary to renal failure, metabolic acidosis. Sedation has been held since yesterday morning. Still somewhat sleepy. Has lethargy has been part of her hospital stay, will check a CT head noncontrast. Hopefully she can become more alert today and be extubated. Status: Acute (2) Metabolic acidosis: Hyperkalemia and acidosis resolved with bicarbonate drip Appreciate nephrology consultation She is now off bicarbonate drip on maintenance fluids and creatinine is improving. Status: Acute (3) Acute kidney injury superimposed on CKD: Continue Best No evidence of fluid overload currently Renal ultrasound was performed which demonstrated no obstruction Dialysis catheter was placed during surgery Renal function appears to be improving Status: Acute (4) Rhabdomyolysis: In large part secondary to ischemic limb which is now been removed. CK levels continue to drop Status: Acute (5) Ischemia of right lower extremity: Postop day #8 status post attempted right femoropopliteal bypass. Postoperative day #2 status post right below the knee amputation Status: Acute (6) H/O mitral valve repair: Status: Acute (7) Hx of CABG: stable, no ischemia on stress test in 04/2019. Status: Acute (8) CHF (congestive heart failure): High risk of fluid overload. However, compensated currently. Status: Acute Qualifiers: Heart failure type: systolic Heart failure chronicity: chronic Qualified Code(s): I50.22 - Chronic systolic (congestive) heart failure (9) Diabetes 1.5, managed as type 2: Sliding scale insulin. Blood sugars adequate. Hopefully can extubate today and start diet. Status: Acute (10) Essential hypertension: Hydralazine PRN Status: Acute Additional A&P Information Transaminitis. May be secondary to hypotension although I do not see this documented l in the record with the exception of one borderline reading. Could be secondary to heart failure. Hepatitis panel negative. CT abdomen demonstrates no evidence of bile duct obstruction. Cholelithiasis was noted. On ultrasound portal flow was intact. This appears to be improving Elevated INR. Likely secondary to liver dysfunction. FFP and PRBC given during surgery. INR improved today. Leukocytosis. Currently on Zosyn, linezolid. White blood cell count improved. These medications were started secondary to ischemic limb. History of congestive heart failure with diastolic dysfunction, EF around 40%, aortic insufficiency. Compensated currently Anemia. Haptoglobin normal. Consistent with acute postoperative blood loss anemia History of COPD Hypertension, provide hydralazine scheduled currently Hyperlipidemia. Hold statin secondary to elevated liver function tests Tobacco dependency Heparin discontinued secondary to elevated INR Full code Attestations Medical Necessity Statement*: Needs continued hospitalization secondary to multiorgan dysfunction, respiratory failure requiring mechanical ventilation. Coding Level of Care Code Acute Guard Entrance Registrar for Armida Mojica Diagnoses Encephalopathy acute G93.40 Metabolic acidosis E87.2 Acute kidney injury superimposed on CKD N17.9; N18.9 Rhabdomyolysis M62.82 Ischemia of right lower extremity I99.8 H/O mitral valve repair Z98.890 Hx of CABG Z95.1 CHF (congestive heart failure) I50.22 Heart failure type: systolic Heart failure chronicity: chronic Diabetes 1.5, managed as type 2 E13.9 Essential hypertension I10
[2019-11-16 07:36] LABS: ABG PCO2 32.5 mmHg (35-45); ABG PH Result 7.48 (7.35-7.45); Arterial Blood Gas Hematocrit 29.9 % (37-47); Base Excess ABG 1.2 mmol/L (-2.0-2.0); Blood Gas Allen Test Pos; Blood Gas Sample Site Radial, left; Blood Gas Sample Type Arterial; HCO3 ABG 24.4 mmol/L (22-26); Oxygen Device VENT
[2019-11-16] MEDS: sodium chloride 0.45% 1,000 ML 100 ML IV ×3 (08:13→22:49)
--- NOTE | 2019-11-16 08:14 | PM.PN ---
Subjective Subjective: Interval history: Not much change overnight. Patient is still intubated on a ventilator. Hemoglobin and hematocrit are stable. Blood gases revealed good oxygenation, slight respiratory alkalosis. BUN and creatinine are down to 37 and 1.5 respectively. Transaminases continue to trend down the AST is 634 and ALT 905. Alkaline phosphatase is 165. CPK is down to 3262. Neurologically she is slightly more awake. 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 NECK: Supple without jugular vein distention. The carotid upstroke is normal without bruits. BACK: Exam normal. LUNGS: Clear. HEART: Regular rate and rhythm. ABDOMEN: Benign without organomegaly or tenderness. EXTREMITIES: No edema. NEUROLOGIC: Exam nonfocal. SKIN: Unremarkable. Urinary Catheter Management^: Best: Cath Placed During This Visit: yes, but has since been removed by the nurse Reason for Continuing Indwelling Catheter: Accurate Measurement of Urinary Output in Critically Ill Patients Urinary Catheter Date of Insertion: 11/13/19 Urinary Catheter Time of Insertion: 10:20 Date Urinary Catheter Removed: 11/10/19 Time Urinary Catheter Discontinued: 09:15 Data : 11/16/19 04:40 11/16/19 04:40 Micro: Microbiology 11/13/19 17:15 Urine Culture - Preliminary Urine,Clean Catch A&P Assessment and plan (1) Status post below knee amputation of right lower extremity: Status: Acute (2) Encephalopathy acute: Status: Acute (3) Anemia: Status: Acute (4) Rhabdomyolysis: Status: Acute (5) Acute kidney injury superimposed on CKD: Status: Acute (6) Shock liver: Status: Acute (7) Ischemia of right lower extremity: Status: Acute (8) Hx of CABG: Status: Acute (9) H/O mitral valve repair: Status: Acute (10) Aortic insufficiency with aortic stenosis: Status: Acute (11) Subclavian arterial stenosis: Status: Acute (12) PAD (peripheral artery disease): Status: Acute (13) CHF (congestive heart failure): Status: Acute Qualifiers: Heart failure type: systolic Heart failure chronicity: chronic Qualified Code(s): I50.22 - Chronic systolic (congestive) heart failure (14) Hyperlipidemia: Status: Acute (15) Essential hypertension: Status: Acute (16) Diabetes 1.5, managed as type 2: Status: Acute (17) Ischemic cardiomyopathy: Status: Acute (18) Tobacco abuse: Status: Acute (19) COPD (chronic obstructive pulmonary disease): Status: Acute Additional A&P Information Continue as is. Wean toward extubation. Otherwise the renal, hepatic and other parameters seem to be improving. Attestations Medical Necessity Statement*: Needs continued hospitalization for management of acute limb ischemia with rhabdomyolysis, renal failure, liver failure, respiratory failure and the need for urgent lower extremity amputation. Coding Level of Care Code Established Pt Acute Vp Mobile Products for Chg Fwd Patient Type Established History Detailed Exam Detailed Medical Decision Making Moderate Complexity Diagnoses Status post below knee amputation of right lower extremity Z89.511 Encephalopathy acute G93.40 Anemia D64.9 Rhabdomyolysis M62.82 Acute kidney injury superimposed on CKD N17.9; N18.9 Shock liver K72.00 Ischemia of right lower extremity I99.8 Hx of CABG Z95.1 H/O mitral valve repair Z98.890 Aortic insufficiency with aortic stenosis I35.2 Subclavian arterial stenosis I77.1 PAD (peripheral artery disease) I73.9 CHF (congestive heart failure) I50.22 Heart failure type: systolic Heart failure chronicity: chronic Hyperlipidemia E78.5 Essential hypertension I10 Diabetes 1.5, managed as type 2 E13.9 Ischemic cardiomyopathy I25.5 Tobacco abuse Z72.0 COPD (chronic obstructive pulmonary disease) J44.9
[2019-11-16] MEDS: heparin 5,000 unit/mL INJ 1 mL 5000 UNIT SUBCUT ×2 (08:33→21:05)
[2019-11-16] MEDS: famotidine 20 mg/2 mL INJ IVP ×2 (11:11→22:49)
[2019-11-16] MEDS: linezolid premix 600 MG/300 ML PREMIX 300 MG IV ×2 (11:14→22:50)
[2019-11-16 13:09] LABS: Glucose Point of Care 210 mg/dL (70-110)
[2019-11-16 13:38] LABS: INR 1.37 (0.8-1.2)
--- NOTE | 2019-11-16 14:06 | P.PN_ITS ---
Subjective Subjective: Interval history: s/p BKA, remains on ventilator Medications: Reviewed: Yes Vitals/I&O/Wt Last Vital Signs Temp 98.5 F 11/16/19 12:00 Pulse 70 11/16/19 13:00 Resp 14 11/16/19 10:59 BP 153/70 11/16/19 13:00 Pulse Ox 98 11/16/19 13:00 11/15/19 11/16/19 11/16/19 22:59 06:59 14:59 Intake Total 350 / 1900.00 1345 / 1345 Output Total 850 / 1375 600 / 1975 350 / 350 Balance -500 / 525.00 -600 / -75.00 995 / 995 Physical Exam Const: COMMON NORMALS: no acute distress Resp: AUSCULTATION: rhonchi Cardio: COMMON NORMALS: regular rate and regular rhythm RATE: regular rate RHYTHM: regular rhythm Extremity: GENERAL: Yes edema Urinary Catheter Management^: Best: Cath Placed During This Visit: yes, but has since been removed by the nurse Reason for Continuing Indwelling Catheter: Accurate Measurement of Urinary Output in Critically Ill Patients Urinary Catheter Date of Insertion: 11/13/19 Urinary Catheter Time of Insertion: 10:20 Date Urinary Catheter Removed: 11/10/19 Time Urinary Catheter Discontinued: 09:15 Data : 11/16/19 04:40 11/16/19 04:40 Other Labs: CK 3262, K 3.7, pH 7.48, pCO2 32, pO2 120 on 30% FIO2 Micro: Microbiology 11/13/19 17:15 Urine Culture - Final Urine,Clean Catch A&P Additional A&P Information Impression: 1. Acute kidney injury - nonoliguric, improved, rhabdomyolysis s/p BKA with falling CK: no indication for dialysis at this time 2. Hyperkalemia and metabolic acidosis - resolved 3. Hypokalemia, resolved 4. Hypertension with probable renal artery stenosis, better controlled 5. 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 Attestations Medical Necessity Statement*: remains intubated in ICU Coding Level of Care Code Acute Medical Affairs Manager for Armida Mojica
[2019-11-16 15:23] LABS: Glucose Point of Care 147 mg/dL (70-110)
[2019-11-16 17:53] LABS: Glucose Point of Care 110 mg/dL (70-110)
[2019-11-16 20:44] LABS: Glucose Point of Care 106 mg/dL (70-110)
[2019-11-17] VITALS (27 sets, daily range): BP systolic 156–194; BP diastolic 54–90; PULSE 67–82; RESP 8–20; TEMP 36.6–37.1; O2SAT 93–100
[2019-11-17 00:14] LABS: Glucose Point of Care 161 mg/dL (70-110)
[2019-11-17 00:23] LABS: ABG PCO2 34.4 mmHg (35-45); ABG PH Result 7.45 (7.35-7.45); Arterial Blood Gas Hematocrit 28.4 % (37-47); Base Excess ABG -0.2 mmol/L (-2.0-2.0); Blood Gas Allen Test Pos; Blood Gas Sample Site Radial, right; Blood Gas Sample Type Arterial; HCO3 ABG 23.6 mmol/L (22-26); HGB O2 Sat 99.4 % (95-100); Ionized Calcium Level - ABG 1.1 mmol/L (1.1-1.4); Oxygen Device NC; Oxygen Saturation ABG 99.9; Potassium Level - ABG 3.6 mmol/L (3.5-5.0); Total Hemoglobin 9.3 g/dL (12-16)
[2019-11-17] MEDS: hyDRALAzine 20 mg/mL INJ 1 mL 10 MG IVP ×6 (01:07→22:06)
[2019-11-17] MEDS: labetalol 5 mg/mL SDV 20mL 20 MG IVP ×6 (03:15→23:32)
[2019-11-17] MEDS: nitroglycerin 1 gm/inch oint Pkt 0.5 INCH TOPICAL ×4 (05:26→22:08)
[2019-11-17] MEDS: piperacillin-tazobactam 3.375 GM in sodium chloride 0.9% (plus) 50 ML IV (05:27)
[2019-11-17 05:28] LABS: Basophils % 0.2 %; Eosinophils # 0.1 10^3/uL (0.0-0.8); Eosinophils % 0.8 %; Hematocrit 30.8 % (37.0-47.0); Hemoglobin 9.3 g/dL (11.5-15.3); Lymphocytes # 0.6 10^3/uL (0.8-4.8); Lymphocytes % 9.1 %; Mean Corpuscular HGB Conc 30.2 g/dL (30.0-36.0); Mean Corpuscular Hemoglobin 28.5 pg (28.0-34.0); Mean Corpuscular Volume 94.5 fL (81-99); Mean Platelet Volume 11.5 fL (7.4-10.4); Monocytes # 0.9 10^3/uL (0.2-0.9); Monocytes % 15.4 %; Neutrophils # 4.4 10^3/uL (1.8-7.7); Neutrophils % 73.3 %; Nucleated Red Blood Cells # 0.1 /100WBC; Nucleated Red Blood Cells % 0.8 %; Platelet Count 124 10^3/cmm (130-400); Red Blood Count 3.26 10^6/uL (4.1-5.3); Red Cell Distribution Width 16.3 % (12.1-15.1)
[2019-11-17 05:47] LABS: Alanine Aminotransferase 657 U/L (0-33); Alkaline Phosphatase 162 IU/L (35-105); Anion Gap 16.7 (5-19); Aspartate Amino Transferase 337 U/L (0-32); Blood Urea Nitrogen 29 mg/dL (8-23); Calcium 8.3 mg/dL (8.5-10.5); Carbon Dioxide 23 mmol/L (22-29); Chloride 101 mmol/L (98-107); Globulin 2.6 g/dL (1.3-4.6); Glucose 141 mg/dL (65-115); Osmolality Calculated 283 mOsm/kg (285-295); Potassium 3.7 mmol/L (3.5-5.1); Sodium 137 mmol/L (136-145); Total Bilirubin 2.4 mg/dL (0.15-1.2); Total Protein 5.6 g/dL (6.6-8.7)
--- NOTE | 2019-11-17 06:03 | PC.NURSE ---
SHIFT SUMMARY PT HAS BEEN CONFUSED, AND VERY GROGGY STILL. WILL WAKE UP TO NAME AND THEN WILL GO RIGHT BACK TO SLEEP. PT WILL FOLLOW COMMANDS. PT IS PROTECTING AIRWAY. PT IV REMAINS PATENT. PT IS GETTING BLOOD PRESSURE PUSHES ORDER. PT HAS BEEN TURNED PERIODICALLY. PT HAS SOME SECRETIONS, MOUTH CARE PRN. NO DRAINAGE NOTED FROM RIGHT STUMP. PT HAS COMPLAINED OF PAIN, DOES GRIMACE WHEN BEING MOVED AT TIMES, BUT THEN IS RIGHT BACK TO SLEEP. O2 SAT HAS BEEN HIGH 90S-100.
[2019-11-17 06:12] LABS: Creatine Phosphokinase 2844 U/L (26-192)
--- NOTE | 2019-11-17 07:04 | P.PN_ITS ---
Subjective Subjective: Interval history: Shira was extubated overnight. She is basically obtunded. She will respond by opening her eyes and answering simple questions by nodding her head but otherwise her mental status is basically unchanged. She is still hypertensive and is getting as needed medications to keep her blood pressure down. She remains on antibiotics. Hemoglobin and hematocrit are stable. BUN and creatinine are down to 29 and 1.4. Glucoses are in the mid 100s. Serum bicarbonate is 23. AST is down to 337. ALT is down to 657. Alkaline phosphatase is down to 162. CPK down to 2844. Medications: Reviewed: Yes Vitals/I&O/Wt Last Vital Signs Temp 98.8 F 11/17/19 03:38 Pulse 69 11/17/19 05:00 Resp 19 H 11/17/19 05:00 BP 166/81 11/17/19 05:00 Pulse Ox 100 11/17/19 05:00 11/16/19 11/17/19 11/17/19 22:59 06:59 14:59 Intake Total 1350 / 2745 Output Total 275 / 625 400 / 1025 Balance 1075 / 2120 -400 / 1720 Physical Exam Narrative: EXAM NARRATIVE: GENERAL: In general she is obtunded HEENT: Exam within normal limits. NECK: Supple without jugular vein distention. The carotid upstroke is normal without bruits. BACK: Exam normal. LUNGS: Clear. HEART: Regular rate and rhythm. ABDOMEN: Benign without organomegaly or tenderness. EXTREMITIES: No edema. Below the knee amputation on the right NEUROLOGIC: Exam not done. SKIN: Unremarkable. Urinary Catheter Management^: Best: Cath Placed During This Visit: yes, but has since been removed by the nurse Reason for Continuing Indwelling Catheter: Accurate Measurement of Urinary Output in Critically Ill Patients Urinary Catheter Date of Insertion: 11/13/19 Urinary Catheter Time of Insertion: 10:20 Date Urinary Catheter Removed: 11/10/19 Time Urinary Catheter Discontinued: 09:15 Data : 11/17/19 04:45 11/17/19 04:45 Micro: Microbiology 11/13/19 17:15 Urine Culture - Final Urine,Clean Catch A&P Assessment and plan (1) Status post below knee amputation of right lower extremity: Status: Acute (2) Encephalopathy acute: Status: Acute (3) Anemia: Status: Acute (4) Rhabdomyolysis: Status: Acute (5) Acute kidney injury superimposed on CKD: Status: Acute (6) Shock liver: Status: Acute (7) Ischemia of right lower extremity: Status: Acute (8) Hx of CABG: Status: Acute (9) H/O mitral valve repair: Status: Acute (10) Aortic insufficiency with aortic stenosis: Status: Acute (11) Subclavian arterial stenosis: Status: Acute (12) PAD (peripheral artery disease): Status: Acute (13) CHF (congestive heart failure): Status: Acute Qualifiers: Heart failure type: systolic Heart failure chronicity: chronic Qualified Code(s): I50.22 - Chronic systolic (congestive) heart failure (14) Hyperlipidemia: Status: Acute (15) Essential hypertension: Status: Acute (16) Diabetes 1.5, managed as type 2: Status: Acute (17) Ischemic cardiomyopathy: Status: Acute (18) Tobacco abuse: Status: Acute (19) COPD (chronic obstructive pulmonary disease): Status: Acute Additional A&P Information Continue current supportive care. Laboratory evaluation continues to improve however her mental status has not. Attestations Medical Necessity Statement*: Needs continued hospitalization for management of acute right lower extremity ischemia, amputation, liver failure, renal failure and respiratory insufficiency. Coding Level of Care Code Established Pt Acute Pump Service Supervisor for Troy[employer] Fwd Patient Type Established History Comprehensive Exam Comprehensive Medical Decision Making High Complexity Diagnoses Status post below knee amputation of right lower extremity Z89.511 Encephalopathy acute G93.40 Anemia D64.9 Rhabdomyolysis M62.82 Acute kidney injury superimposed on CKD N17.9; N18.9 Shock liver K72.00 Ischemia of right lower extremity I99.8 Hx of CABG Z95.1 H/O mitral valve repair Z98.890 Aortic insufficiency with aortic stenosis I35.2 Subclavian arterial stenosis I77.1 PAD (peripheral artery disease) I73.9 CHF (congestive heart failure) I50.22 Heart failure type: systolic Heart failure chronicity: chronic Hyperlipidemia E78.5 Essential hypertension I10 Diabetes 1.5, managed as type 2 E13.9 Ischemic cardiomyopathy I25.5 Tobacco abuse Z72.0 COPD (chronic obstructive pulmonary disease) J44.9
[2019-11-17 08:00] LABS: Glucose Point of Care 144 mg/dL (70-110)
[2019-11-17] MEDS: heparin 5,000 unit/mL INJ 1 mL 5000 UNIT SUBCUT ×2 (08:22→20:40)
--- NOTE | 2019-11-17 10:27 | PC.SOCIAL ---
IMM Update Initialed, dated, and timed, placed in chart. Copy provided to patient.
--- NOTE | 2019-11-17 11:26 | P.PN_ITS ---
Subjective Subjective: Interval history: I extubated Shira yesterday. Today she wakes, but is tired and can quickly go back to sleep. She answers a few questions. She can follow a few directions. Medications: Reviewed: Yes Vitals/I&O/Wt Last Vital Signs Temp 98.8 F 11/17/19 03:38 Pulse 68 11/17/19 07:56 Resp 16 11/17/19 07:56 BP 166/81 11/17/19 05:00 Pulse Ox 100 11/17/19 07:56 11/16/19 11/17/19 11/17/19 22:59 06:59 14:59 Intake Total 1350 / 2745 Output Total 275 / 625 400 / 1025 Balance 1075 / 2120 -400 / 1720 Physical Exam Narrative: EXAM NARRATIVE: General exam demonstrates female opens eyes to verbal stimuli and can say a few words Cardiovascular regular rate and rhythm, no murmur. Tunneled catheter right chest. Lungs lungs are clear Abdomen is soft, bowel sounds are noted Extremities right below the knee amputation noted. Left with good perfusion. Urinary Catheter Management^: Best: Cath Placed During This Visit: yes, but has since been removed by the nurse Reason for Continuing Indwelling Catheter: Accurate Measurement of Urinary Output in Critically Ill Patients Urinary Catheter Date of Insertion: 11/13/19 Urinary Catheter Time of Insertion: 10:20 Date Urinary Catheter Removed: 11/10/19 Time Urinary Catheter Discontinued: 09:15 Data : 11/17/19 04:45 11/17/19 04:45 Micro: Microbiology 11/13/19 17:15 Urine Culture - Final Urine,Clean Catch A&P Assessment and plan (1) Encephalopathy acute: Secondary to renal failure, metabolic acidosis. Improving Status: Acute (2) Metabolic acidosis: Hyperkalemia and acidosis resolved with bicarbonate drip Appreciate nephrology consultation She is now off bicarbonate drip on maintenance fluids and creatinine is improving. Status: Acute (3) Acute kidney injury superimposed on CKD: Continue Best No evidence of fluid overload currently Renal ultrasound was performed which demonstrated no obstruction Dialysis catheter was placed during surgery Renal function continues to improve. Will need dialysis catheter discontinued at discharge Status: Acute (4) Rhabdomyolysis: In large part secondary to ischemic limb which is now been removed. CK levels have dropped significantly. Status: Acute (5) Ischemia of right lower extremity: Postop day #9 status post attempted right femoropopliteal bypass. Postoperative day #3 status post right below the knee amputation With negative cultures, will discontinue IV antibiotics today. Status: Acute (6) H/O mitral valve repair: Status: Acute (7) Hx of CABG: stable, no ischemia on stress test in 04/2019. Status: Acute (8) CHF (congestive heart failure): High risk of fluid overload. However, compensated currently. Status: Acute Qualifiers: Heart failure type: systolic Heart failure chronicity: chronic Qualified Code(s): I50.22 - Chronic systolic (congestive) heart failure (9) Diabetes 1.5, managed as type 2: Sliding scale insulin. Blood sugars adequate. Status: Acute (10) Essential hypertension: Hydralazine scheduled. Labetalol scheduled. Nitroglycerin ointment. Status: Acute Additional A&P Information Transaminitis. May be secondary to hypotension although I do not see this documented l in the record with the exception of one borderline reading. Could be secondary to heart failure. Hepatitis panel negative. CT abdomen demonstrates no evidence of bile duct obstruction. Cholelithiasis was noted. On ultrasound portal flow was intact. This appears to be improving Elevated INR. Likely secondary to liver dysfunction. FFP and PRBC given during surgery. INR improved Leukocytosis. Currently on Zosyn, linezolid. White blood cell count improved. These medications were started secondary to ischemic limb. White blood cell count now normal. Discontinue linezolid, Zosyn. History of congestive heart failure with diastolic dysfunction, EF around 40%, aortic insufficiency. Compensated currently Anemia. Haptoglobin normal. Consistent with acute postoperative blood loss anemia History of COPD Hypertension, provide hydralazine scheduled currently Hyperlipidemia. Hold statin secondary to elevated liver function tests Tobacco dependency Heparin discontinued secondary to elevated INR Full code Consider transfer out of ICU later today or tomorrow. May need sitter. Y Attestations Medical Necessity Statement*: Needs continued hospital stay for close monitoring secondary to multiorgan dysfunction. Coding Level of Care Code Acute Industrial Services Worker for Armida Mojica Diagnoses Encephalopathy acute G93.40 Metabolic acidosis E87.2 Acute kidney injury superimposed on CKD N17.9; N18.9 Rhabdomyolysis M62.82 Ischemia of right lower extremity I99.8 H/O mitral valve repair Z98.890 Hx of CABG Z95.1 CHF (congestive heart failure) I50.22 Heart failure type: systolic Heart failure chronicity: chronic Diabetes 1.5, managed as type 2 E13.9 Essential hypertension I10
[2019-11-17 11:48] LABS: Glucose Point of Care 134 mg/dL (70-110)
[2019-11-17] MEDS: sodium chloride 0.45% 1,000 ML 100 ML IV ×2 (12:02→19:48)
[2019-11-17] MEDS: famotidine 20 mg/2 mL INJ IVP ×2 (12:06→22:08)
--- NOTE | 2019-11-17 12:18 | P.PN_ITS ---
Subjective Subjective: Interval history: extubated, s/p BKA, remains minimally responsive Medications: Reviewed: Yes Vitals/I&O/Wt Last Vital Signs Temp 98.8 F 11/17/19 03:38 Pulse 68 11/17/19 07:56 Resp 16 11/17/19 07:56 BP 166/81 11/17/19 05:00 Pulse Ox 100 11/17/19 07:56 11/16/19 11/17/19 11/17/19 22:59 06:59 14:59 Intake Total 1350 / 2745 Output Total 275 / 625 400 / 1025 Balance 1075 / 2120 -400 / 1720 Physical Exam Urinary Catheter Management^: Best: Cath Placed During This Visit: yes, but has since been removed by the nurse Reason for Continuing Indwelling Catheter: Accurate Measurement of Urinary Output in Critically Ill Patients Urinary Catheter Date of Insertion: 11/13/19 Urinary Catheter Time of Insertion: 10:20 Date Urinary Catheter Removed: 11/10/19 Time Urinary Catheter Discontinued: 09:15 Data : 11/17/19 04:45 11/17/19 04:45 Other Labs: Current BUN 29, Cr 1.4, K 3.6, Ca 8.3, CK 2844 7.45/34/143, Hb 9.3 Micro: Microbiology 11/13/19 17:15 Urine Culture - Final Urine,Clean Catch A&P Additional A&P Information Impression: 1. Acute kidney injury - nonoliguric, improved, rhabdomyolysis s/p BKA with falling CK: will not require dialysis. 2. persistent encephalopathy; LFTs improving 4. Hypertension with probable renal artery stenosis, better controlled 5. Chronic kidney disease due to diabetic nephropathy and small left kidney 6. Anemia - Hb stable Recommendation: Continue IVF and current antihypertensives. Hemodialysis nicolette ter can be removed when appropriate Attestations 2 Medical Necessity Statement*: per primary service Coding Level of Care Code Acute Elevator Starter for Armida Mojica
[2019-11-17 19:41] LABS: Glucose Point of Care 161 mg/dL (70-110)
[2019-11-17 22:18] LABS: Glucose Point of Care 128 mg/dL (70-110)
[2019-11-18] VITALS (29 sets, daily range): BP systolic 139–199; BP diastolic 58–136; PULSE 67–82; RESP 6–22; TEMP 35.8–37.1; O2SAT 95–98
[2019-11-18] MEDS: hyDRALAzine 20 mg/mL INJ 1 mL 10 MG IVP ×3 (01:36→11:20)
[2019-11-18] MEDS: labetalol 5 mg/mL SDV 20mL 20 MG IVP ×2 (03:13→06:15)
[2019-11-18] MEDS: nitroglycerin 1 gm/inch oint Pkt 0.5 INCH TOPICAL ×4 (04:23→20:29)
[2019-11-18] MEDS: sodium chloride 0.45% 1,000 ML 100 ML IV (04:23)
[2019-11-18 05:38] LABS: Basophils % 0.2 %; Eosinophils # 0.1 10^3/uL (0.0-0.8); Eosinophils % 1.1 %; Hematocrit 32.3 % (37.0-47.0); Hemoglobin 9.8 g/dL (11.5-15.3); Lymphocytes # 0.6 10^3/uL (0.8-4.8); Lymphocytes % 9.7 %; Mean Corpuscular HGB Conc 30.3 g/dL (30.0-36.0); Mean Corpuscular Volume 95.6 fL (81-99); Mean Platelet Volume 11.7 fL (7.4-10.4); Monocytes # 0.8 10^3/uL (0.2-0.9); Monocytes % 14.1 %; Neutrophils # 4.2 10^3/uL (1.8-7.7); Neutrophils % 73.8 %; Nucleated Red Blood Cells % 0.7 %; Platelet Count 112 10^3/cmm (130-400); Red Blood Count 3.38 10^6/uL (4.1-5.3); Red Cell Distribution Width 16.3 % (12.1-15.1); White Blood Count 5.7 10^3/uL (4.0-10.0)
[2019-11-18 06:10] LABS: Blood Urea Nitrogen 29 mg/dL (8-23); Calcium 8.1 mg/dL (8.5-10.5); Carbon Dioxide 17 mmol/L (22-29); Chloride 102 mmol/L (98-107); Glucose 114 mg/dL (65-115); Osmolality Calculated 282 mOsm/kg (285-295); Sodium 137 mmol/L (136-145)
[2019-11-18 06:25] LABS: Creatine Phosphokinase 1542 U/L (26-192)
[2019-11-18] MEDS: heparin 5,000 unit/mL INJ 1 mL 5000 UNIT SUBCUT ×2 (07:50→20:30)
[2019-11-18 07:51] LABS: Glucose Point of Care 161 mg/dL (70-110)
--- NOTE | 2019-11-18 08:05 | PM.PN ---
Subjective Subjective: Interval history: Shira has begun to improve. Her mental status is significantly product safety associate than it was yesterday. She easily awakens this morning and answers questions appropriately. Today she will formulate sentences. She then drifts back off to sleep. Hemoglobin and hematocrit remain stable. BUN and creatinine continue to come down now 29 and 1.1. CPK is down to 1542. Blood pressures are still high. She is not complaining of any pain this morning. Medications: Reviewed: Yes Vitals/I&O/Wt Last Vital Signs Temp 98.6 F 11/18/19 04:00 Pulse 70 11/18/19 07:40 Resp 18 11/18/19 07:40 BP 179/58 11/18/19 06:00 Pulse Ox 97 11/18/19 07:40 11/17/19 11/18/19 11/18/19 22:59 06:59 14:59 Intake Total 776.667 / 1926.667 858.333 / 2785.000 333.333 / 333.333 Output Total 225 / 225 225 / 450 Balance 551.667 / 1701.667 633.333 / 2335.000 333.333 / 333.333 Physical Exam Narrative: EXAM NARRATIVE: GENERAL: In general she is sleepy but easily arousable HEENT: Exam within normal limits. NECK: Supple without jugular vein distention. The carotid upstroke is normal without bruits. BACK: Exam normal. LUNGS: Clear. HEART: Regular rate and rhythm. ABDOMEN: Benign without organomegaly or tenderness. EXTREMITIES: No edema. Right below the knee amputation NEUROLOGIC: She is still encephalopathic but no longer comatose or obtunded. Able to easily awaken and answers questions appropriately SKIN: Unremarkable. Urinary Catheter Management^: Best: Cath Placed During This Visit: yes, but has since been removed by the nurse Reason for Continuing Indwelling Catheter: Accurate Measurement of Urinary Output in Critically Ill Patients Urinary Catheter Date of Insertion: 11/13/19 Urinary Catheter Time of Insertion: 10:20 Date Urinary Catheter Removed: 11/10/19 Time Urinary Catheter Discontinued: 09:15 Data : 11/18/19 04:13 11/18/19 04:13 A&P Assessment and plan (1) Status post below knee amputation of right lower extremity: Status: Acute (2) Encephalopathy acute: Status: Acute (3) Anemia: Status: Acute (4) Rhabdomyolysis: Status: Acute (5) Acute kidney injury superimposed on CKD: Status: Acute (6) Shock liver: Status: Acute (7) Hx of CABG: Status: Acute (8) H/O mitral valve repair: Status: Acute (9) Aortic insufficiency with aortic stenosis: Status: Acute (10) Subclavian arterial stenosis: Status: Acute (11) Mitral regurgitation: Status: Acute (12) PAD (peripheral artery disease): Status: Acute (13) CHF (congestive heart failure): Status: Acute Qualifiers: Heart failure type: systolic Heart failure chronicity: chronic Qualified Code(s): I50.22 - Chronic systolic (congestive) heart failure (14) Hyperlipidemia: Status: Acute (15) Essential hypertension: Status: Acute (16) Diabetes 1.5, managed as type 2: Status: Acute (17) Ischemic cardiomyopathy: Status: Acute (18) Tobacco abuse: Status: Acute (19) COPD (chronic obstructive pulmonary disease): Status: Acute Additional A&P Information She is finally slowly beginning to improve. Continue supportive care. No changes today. Attestations Medical Necessity Statement*: Continues to require ICU care for management of encephalopathy, critical right lower extremity ischemia post amputation, rhabdomyolysis, liver failure, renal failure all slowly improving Coding Level of Care Code Established Pt Acute Barrel Rifler Operator for Armida Mojica Patient Type Established History Detailed Exam Detailed Medical Decision Making Moderate Complexity Diagnoses Status post below knee amputation of right lower extremity Z89.511 Encephalopathy acute G93.40 Anemia D64.9 Rhabdomyolysis M62.82 Acute kidney injury superimposed on CKD N17.9; N18.9 Shock liver K72.00 Hx of CABG Z95.1 H/O mitral valve repair Z98.890 Aortic insufficiency with aortic stenosis I35.2 Subclavian arterial stenosis I77.1 Mitral regurgitation I34.0 PAD (peripheral artery disease) I73.9 CHF (congestive heart failure) I50.22 Heart failure type: systolic Heart failure chronicity: chronic Hyperlipidemia E78.5 Essential hypertension I10 Diabetes 1.5, managed as type 2 E13.9 Ischemic cardiomyopathy I25.5 Tobacco abuse Z72.0 COPD (chronic obstructive pulmonary disease) J44.9
[2019-11-18] MEDS: hyDRALAzine 25 mg Tablet PO (08:30)
[2019-11-18] MEDS: metoprolol tartrate 50 mg Tablet PO ×2 (08:30→17:00)
[2019-11-18] MEDS: pantoprazole DR 40 mg Tablet PO (08:30)
--- NOTE | 2019-11-18 11:06 | P.PN_ITS ---
Subjective Subjective: Interval history: I am seeing her in follow up for her renal failure. No nausea or vomiting or dirrhea Medications: Reviewed: Yes Vitals/I&O/Wt Last Vital Signs Temp 98.6 F 11/18/19 04:00 Pulse 70 11/18/19 07:40 Resp 18 11/18/19 07:40 BP 179/58 11/18/19 06:00 Pulse Ox 97 11/18/19 07:40 11/17/19 11/18/19 11/18/19 22:59 06:59 14:59 Intake Total 776.667 / 1926.667 858.333 / 2785.000 333.333 / 333.333 Output Total 225 / 225 225 / 450 Balance 551.667 / 1701.667 633.333 / 2335.000 333.333 / 333.333 Physical Exam Narrative: EXAM NARRATIVE: Pt awake, not in distress Resp: COMMON NORMALS: clear to auscultation bilaterally AUSCULTATION: clear to auscultation bilaterally Cardio: COMMON NORMALS: S1 normal heart sound present and S2 normal heart sound present HEART SOUNDS: S1 normal heart sound present and S2 normal heart sound present GI: AUSCULTATION: Yes normoactive bowel sounds Extremity: GENERAL: Yes edema Urinary Catheter Management^: Best: Cath Placed During This Visit: yes, but has since been removed by the nurse Reason for Continuing Indwelling Catheter: Accurate Measurement of Urinary Output in Critically Ill Patients Urinary Catheter Date of Insertion: 11/13/19 Urinary Catheter Time of Insertion: 10:20 Date Urinary Catheter Removed: 11/10/19 Time Urinary Catheter Discontinued: 09:15 Data : 11/18/19 04:13 11/18/19 04:13 A&P Assessment and plan (1) Acute kidney injury superimposed on CKD: Kidney function improving. D/w hospitalist that dialysis catheter can be removed. Avoid new nephrotoxins Status: Acute (2) Rhabdomyolysis: Improving Status: Acute (3) Metabolic acidosis: If persistent, will add sodium bicarbonate supplements Status: Acute (4) Anemia: Monitor Hb closely Status: Acute (5) Essential hypertension: BP under control Status: Acute Attestations Medical Necessity Statement*: Renal failure Coding Level of Care Code Acute Mattress Filling Machine Tender for Armida Mojica Diagnoses Acute kidney injury superimposed on CKD N17.9; N18.9 Rhabdomyolysis M62.82 Metabolic acidosis E87.2 Anemia D64.9 Essential hypertension I10
--- NOTE | 2019-11-18 12:24 | P.PN_ITS ---
Subjective Subjective: Interval history: Shira reports she is feeling better. She is certainly more alert. No specific complaints. Asked me what went on during her hospital course. Medications: Reviewed: Yes Vitals/I&O/Wt Last Vital Signs Temp 98.7 F 11/18/19 08:00 Pulse 69 11/18/19 11:00 Resp 20 H 11/18/19 11:00 BP 199/65 11/18/19 11:00 Pulse Ox 96 11/18/19 11:00 11/17/19 11/18/19 11/18/19 22:59 06:59 14:59 Intake Total 776.667 / 1926.667 858.333 / 2785.000 583.333 / 583.333 Output Total 225 / 225 225 / 450 200 / 200 Balance 551.667 / 1701.667 633.333 / 2335.000 383.333 / 383.333 Physical Exam Narrative: EXAM NARRATIVE: General exam demonstrates conversive female Cardiovascular regular rate and rhythm, no murmur. Tunneled catheter right chest. Lungs lungs are clear Abdomen is soft, bowel sounds are noted Extremities right below the knee amputation noted. Left with good perfusion. Urinary Catheter Management^: Best: Cath Placed During This Visit: yes, but has since been removed by the nurse Reason for Continuing Indwelling Catheter: Accurate Measurement of Urinary Output in Critically Ill Patients Urinary Catheter Date of Insertion: 11/13/19 Urinary Catheter Time of Insertion: 10:20 Date Urinary Catheter Removed: 11/10/19 Time Urinary Catheter Discontinued: 09:15 Data : 11/18/19 04:13 11/18/19 04:13 A&P Assessment and plan (1) Encephalopathy acute: Secondary to renal failure, metabolic acidosis. Significantly improved today Status: Acute (2) Metabolic acidosis: Hyperkalemia and acidosis resolved with bicarbonate drip Appreciate nephrology consultation She is now off bicarbonate drip on maintenance fluids and creatinine is improving. Status: Acute (3) Acute kidney injury superimposed on CKD: Continue Best. Consider discontinuing this tomorrow No evidence of fluid overload currently Renal ultrasound was performed which demonstrated no obstruction Dialysis catheter was placed during surgery Renal function continues to improve. Will need dialysis catheter discontinued at discharge Status: Acute (4) Rhabdomyolysis: In large part secondary to ischemic limb which is now been removed. CK levels have dropped significantly. Status: Acute (5) Ischemia of right lower extremity: Postop day #10 status post attempted right femoropopliteal bypass. Postoperative day #4 status post right below the knee amputation With negative cultures, antibiotics were discontinued November 16 Status: Acute (6) H/O mitral valve repair: Status: Acute (7) Hx of CABG: stable, no ischemia on stress test in 04/2019. Status: Acute (8) CHF (congestive heart failure): High risk of fluid overload. However, compensated currently. Status: Acute Qualifiers: Heart failure type: systolic Heart failure chronicity: chronic Qualified Code(s): I50.22 - Chronic systolic (congestive) heart failure (9) Diabetes 1.5, managed as type 2: Sliding scale insulin. Blood sugars adequate. Status: Acute (10) Essential hypertension: Hydralazine scheduled. Labetalol scheduled. Nitroglycerin ointment. Status: Acute Additional A&P Information Transaminitis. May be secondary to hypotension although I do not see this documented l in the record with the exception of one borderline reading. Could be secondary to heart failure. Hepatitis panel negative. CT abdomen demonstrates no evidence of bile duct obstruction. Cholelithiasis was noted. On ultrasound portal flow was intact. This appears to be improving Elevated INR. Likely secondary to liver dysfunction. Resolved Leukocytosis. Resolved History of congestive heart failure with diastolic dysfunction, EF around 40%, aortic insufficiency. Compensated currently Anemia. Haptoglobin normal. Consistent with acute postoperative blood loss anemia History of COPD Hypertension, provide hydralazine scheduled currently Hyperlipidemia. Hold statin secondary to elevated liver function tests Tobacco dependency Heparin for DVT prophylaxis Full code Transfer out of ICU today, if stable this afternoon. Nursing facility placement Attestations Medical Necessity Statement*: Needs continued hospital stay for close monitoring post amputation, severe metabolic acidosis, severe acute renal failure. Coding Level of Care Code Acute Moisture Meter Reader for [facility] Fwd Diagnoses Encephalopathy acute G93.40 Metabolic acidosis E87.2 Acute kidney injury superimposed on CKD N17.9; N18.9 Rhabdomyolysis M62.82 Ischemia of right lower extremity I99.8 H/O mitral valve repair Z98.890 Hx of CABG Z95.1 CHF (congestive heart failure) I50.22 Heart failure type: systolic Heart failure chronicity: chronic Diabetes 1.5, managed as type 2 E13.9 Essential hypertension I10
[2019-11-18 12:29] LABS: Glucose Point of Care 204 mg/dL (70-110)
[2019-11-18] MEDS: amlodipine 5 mg Tablet PO (12:58)
[2019-11-18] MEDS: hyDRALAzine 50 mg Tablet PO ×2 (14:54→20:29)
[2019-11-18] MEDS: sodium chloride 0.45% 1,000 ML 50 ML IV (16:29)
[2019-11-18 17:21] LABS: Glucose Point of Care 205 mg/dL (70-110)
[2019-11-18 21:25] LABS: Glucose Point of Care 205 mg/dL (70-110)
[2019-11-19] VITALS (7 sets, daily range): BP systolic 122–190; BP diastolic 71–87; PULSE 61–86; RESP 16–26; TEMP 36.7–37; O2SAT 94–97
[2019-11-19] MEDS: nitroglycerin 1 gm/inch oint Pkt 0.5 INCH TOPICAL ×4 (03:22→22:03)
[2019-11-19 05:44] LABS: Basophils % 0.1 %; Eosinophils # 0.1 10^3/uL (0.0-0.8); Hematocrit 33.9 % (37.0-47.0); Hemoglobin 10.4 g/dL (11.5-15.3); Lymphocytes # 0.8 10^3/uL (0.8-4.8); Lymphocytes % 9.9 %; Mean Corpuscular HGB Conc 30.7 g/dL (30.0-36.0); Mean Corpuscular Hemoglobin 29.1 pg (28.0-34.0); Mean Corpuscular Volume 94.7 fL (81-99); Mean Platelet Volume 11.5 fL (7.4-10.4); Monocytes # 1.1 10^3/uL (0.2-0.9); Monocytes % 13.7 %; Neutrophils # 5.7 10^3/uL (1.8-7.7); Neutrophils % 74.6 %; Nucleated Red Blood Cells % 0.3 %; Platelet Count 151 10^3/cmm (130-400); Red Blood Count 3.58 10^6/uL (4.1-5.3); Red Cell Distribution Width 16.5 % (12.1-15.1); White Blood Count 7.7 10^3/uL (4.0-10.0)
[2019-11-19 05:56] LABS: Alanine Aminotransferase 321 U/L (0-33); Albumin Level 3.2 g/dL (3.5-5.2); Alkaline Phosphatase 158 IU/L (35-105); Anion Gap 15.6 (5-19); Aspartate Amino Transferase 90 U/L (0-32); Blood Urea Nitrogen 33 mg/dL (8-23); Calcium 8.6 mg/dL (8.5-10.5); Carbon Dioxide 21 mmol/L (22-29); Chloride 104 mmol/L (98-107); Globulin 2.3 g/dL (1.3-4.6); Glucose 152 mg/dL (65-115); Osmolality Calculated 284 mOsm/kg (285-295); Potassium 3.6 mmol/L (3.5-5.1); Sodium 137 mmol/L (136-145); Total Bilirubin 1.3 mg/dL (0.15-1.2); Total Protein 5.5 g/dL (6.6-8.7)
[2019-11-19 07:09] LABS: Glucose Point of Care 167 mg/dL (70-110)
--- NOTE | 2019-11-19 07:11 | PM.PN ---
Subjective Subjective: Interval history: Shira is a little more alert this morning. She is still quite sleepy but awakens much more easily. She even joked with me this morning asking me what did you make me for breakfast ? She is more easily arousable. She states she is not having any pain. She told me she needs to go home and feed her dogs. Hemoglobin and hematocrit are stable. BUN and creatinine stable 33 and 1.1. AST is 90 and ALT is 321. All are on a downward trend. Medications: Reviewed: Yes Vitals/I&O/Wt Last Vital Signs Temp 98.6 F 11/19/19 03:53 Pulse 74 11/19/19 03:53 Resp 24 H 11/19/19 03:53 BP 170/78 11/19/19 03:53 Pulse Ox 96 11/19/19 03:53 11/18/19 11/19/19 11/19/19 22:59 06:59 14:59 Intake Total 778.333 / 1561.666 Output Total 350 / 550 500 / 1050 Balance 428.333 / 1011.666 -500 / 511.666 Physical Exam Narrative: EXAM NARRATIVE: GENERAL: In general she is sleepy but easily arousable HEENT: Exam within normal limits. NECK: Supple without jugular vein distention. The carotid upstroke is normal without bruits. BACK: Exam normal. LUNGS: Clear. HEART: Regular rate and rhythm. ABDOMEN: Benign without organomegaly or tenderness. EXTREMITIES: No edema. Right below the knee amputation NEUROLOGIC: Exam normal. SKIN: Unremarkable. Urinary Catheter Management^: Best: Cath Placed During This Visit: yes, but has since been removed by the nurse Reason for Continuing Indwelling Catheter: Accurate Measurement of Urinary Output in Critically Ill Patients Urinary Catheter Date of Insertion: 11/13/19 Urinary Catheter Time of Insertion: 10:20 Date Urinary Catheter Removed: 11/10/19 Time Urinary Catheter Discontinued: 09:15 Data : 11/19/19 04:10 11/19/19 04:10 A&P Assessment and plan (1) Status post below knee amputation of right lower extremity: Status: Acute (2) Encephalopathy acute: Status: Acute (3) Anemia: Status: Acute (4) Rhabdomyolysis: Status: Acute (5) Acute kidney injury superimposed on CKD: Status: Acute (6) Shock liver: Status: Acute (7) Ischemia of right lower extremity: Status: Acute (8) Hx of CABG: Status: Acute (9) H/O mitral valve repair: Status: Acute (10) Aortic insufficiency with aortic stenosis: Status: Acute (11) Subclavian arterial stenosis: Status: Acute (12) Mitral regurgitation: Status: Acute (13) PAD (peripheral artery disease): Status: Acute (14) CHF (congestive heart failure): Status: Acute Qualifiers: Heart failure type: systolic Heart failure chronicity: chronic Qualified Code(s): I50.22 - Chronic systolic (congestive) heart failure (15) Hyperlipidemia: Status: Acute (16) Essential hypertension: Status: Acute (17) Diabetes 1.5, managed as type 2: Status: Acute (18) Ischemic cardiomyopathy: Status: Acute (19) Tobacco abuse: Status: Acute (20) COPD (chronic obstructive pulmonary disease): Status: Acute Additional A&P Information She is slowly improving. She will need residential placement I suspect. Continue current care. Attestations Medical Necessity Statement*: Patient needs continued hospitalization for management of acute right lower leg ischemia, below the knee amputation, liver and renal failure. Coding Level of Care Code Established Pt Acute Dredge Or Barge Shore Hand for Armida Mojica Patient Type Established History Detailed Exam Detailed Medical Decision Making Moderate Complexity Diagnoses Status post below knee amputation of right lower extremity Z89.511 Encephalopathy acute G93.40 Anemia D64.9 Rhabdomyolysis M62.82 Acute kidney injury superimposed on CKD N17.9; N18.9 Shock liver K72.00 Ischemia of right lower extremity I99.8 Hx of CABG Z95.1 H/O mitral valve repair Z98.890 Aortic insufficiency with aortic stenosis I35.2 Subclavian arterial stenosis I77.1 Mitral regurgitation I34.0 PAD (peripheral artery disease) I73.9 CHF (congestive heart failure) I50.22 Heart failure type: systolic Heart failure chronicity: chronic Hyperlipidemia E78.5 Essential hypertension I10 Diabetes 1.5, managed as type 2 E13.9 Ischemic cardiomyopathy I25.5 Tobacco abuse Z72.0 COPD (chronic obstructive pulmonary disease) J44.9
[2019-11-19] MEDS: pantoprazole DR 40 mg Tablet PO (09:03)
[2019-11-19] MEDS: heparin 5,000 unit/mL INJ 1 mL 5000 UNIT SUBCUT ×2 (09:03→22:02)
[2019-11-19] MEDS: hyDRALAzine 50 mg Tablet PO ×3 (09:03→22:02)
--- NOTE | 2019-11-19 09:03 | PM.ACPR ---
Procedure/Consent Time out: Time Out Performed: Yes Consent: Consent for Procedure: Consent obtained from patient Procedure Narrative: Preoperative diagnosis: Acute renal failure, resolved Postop diagnosis: Same procedure: Removal of tunneled hemodialysis catheter Description of the procedure: The patient's right chest was prepped with Betadine and sutures were cut with scissors. Using gentle traction the cuff was surgically dissected free from the surrounding subcutaneous tissue and removed intact without difficulty. Pressure dressings were applied. Patient tolerated the procedure well. Acute Procedures Epistaxis Control: Time out performed: Yes
--- NOTE | 2019-11-19 09:03 | PM.CONSULT ---
Providers/Reason For Consult Consulting Physican/Specialty*: Dr. Montelongo Reason for Consult*: Removal of dialysis catheter Attending Physician: Glynn Ellis MD Primary Care Provider: Amber Esquivel MD History of Present Illness History of Present Illness Shira Serrato is a 74 year old female who had undergone placement of tunneled right IJ hemodialysis catheter on November 14, 2019 due to acute renal failure secondary to sepsis. Patient has responded well and no longer needs the dialysis catheter which is been functioning well. I was consulted for removal of the dialysis catheter Review of Systems General: Reports: ROS unobtainable due to mental status Meds/Allergies Home Medications and Allergies Home Medications Medication Instructions Recorded Confirmed Last Taken Type allopurinol 300 mg tablet 300 mg PO DAILY tab 05/31/19 11/07/19 11/07/19 08:00 History 300 MG aspirin 81 mg tablet,delayed 81 mg PO DAILY tab 05/31/19 11/07/19 11/07/19 08:00 History release 81 MG atorvastatin 40 mg tablet 40 mg PO BEDTIME tab 05/31/19 11/08/19 11/07/19 21:00 History bumetanide 2 mg tablet 2 mg PO DAILY tab 05/31/19 11/07/19 11/07/19 08:00 History 2 MG citalopram 20 mg tablet 20 mg PO DAILY tab 05/31/19 11/07/19 11/07/19 08:00 History 20 MG insulin glargine 100 unit/mL 40 unit SUBCUT BID ml 05/31/19 11/07/19 11/08/19 05:00 History subcutaneous solution 40 UNIT lisinopril 40 mg tablet 40 mg PO DAILY tab 05/31/19 11/07/19 11/07/19 08:00 History 40 MG metoprolol tartrate 50 mg tablet 50 mg PO DAILY tab 05/31/19 11/07/19 11/07/19 08:00 History 50 MG omeprazole 40 mg capsule,delayed 40 mg PO DAILY cap 05/31/19 11/07/19 11/07/19 08:00 History release 40 MG ProAir HFA 2 puff PO PRN 07/08/19 11/07/19 11/07/19 08:00 History 2 puff Allergies Allergy/AdvReac Type Severity Reaction Status Date / Time latex Allergy Unknown Unknown Verified 11/08/19 06:40 Current Medications Current Medications Generic Name Dose Route Start Last Admin Trade Name Freq PRN Reason Stop Dose Admin Chlorhexidine Gluconate 1 applic 11/08/19 10:30 11/18/19 08:34 Betasept TOPICAL Not Given DAILY QI Heparin Sodium (Beef Lung) 5,000 unit 11/15/19 08:15 11/18/19 20:30 Heparin SUBCUT 5,000 unit Q12H QI Administration Hydralazine HCl 10 mg 11/18/19 10:05 11/18/19 11:20 Apresoline IVP 10 mg Q4H PRN Administration HYPERTENSION Hydralazine HCl 50 mg 11/18/19 15:00 11/18/19 20:29 Apresoline PO 50 mg TID QI Administration Sodium Chloride 1,000 mls @ 50 mls/hr 11/14/19 09:15 11/18/19 16:29 Sodium Chloride 0.45% IV 50 mls/hr .Q20H QI Administration Insulin Aspart 0 unit 11/08/19 18:00 11/18/19 22:19 Novolog SUBCUT Not Given WM&BEDTIME QI Protocol Lanolin 1 applic 11/13/19 05:39 11/13/19 06:28 Lanolin Oint TOPICAL 1 applic PRN PRN Administration DRYNESS Metoprolol Tartrate 50 mg 11/18/19 09:00 11/18/19 17:00 Lopressor PO 50 mg BID QI Administration Nitroglycerin 0.5 inch 11/13/19 22:00 11/19/19 03:22 Nitro-Bid TOPICAL 0.5 inch Q6H QI Administration Ondansetron HCl 4 mg 11/12/19 17:13 11/12/19 17:19 Zofran IVP 4 mg Q4H PRN Administration NAUSEA AND VOMITING Pantoprazole Sodium 40 mg 11/18/19 09:00 11/18/19 08:30 Protonix PO 40 mg DAILY QI Administration PFSH Acute PFSH: Medical History Aortic insufficiency with aortic stenosis CHF (congestive heart failure) COPD (chronic obstructive pulmonary disease) Diabetes 1.5, managed as type 2 Essential hypertension Hyperlipidemia Ischemia of right lower extremity Ischemic cardiomyopathy Mitral regurgitation PAD (peripheral artery disease) Pulmonary HTN Subclavian arterial stenosis Tobacco abuse Surgical History H/O mitral valve repair Hx of CABG S/P appendectomy S/P carpal tunnel release Status post below knee amputation of right lower extremity Status post mitral valve annuloplasty Family History Mother CAD (coronary artery disease) Father Diabetes Other Cancer Social History Smoking and tobacco status: former smoker Quit status (tobacco): has quit using tobacco Year quit tobacco: 2019PD hx x 40 Years Alcohol intake: never Lives independently: Yes Household members: none Marital status: / Current occupational status: retired History of recent travel: No Current gender identity: Female Vitals/I&O/Wt Last Vital Signs Temp 98.4 F 11/19/19 07:00 Pulse 77 11/19/19 08:08 Resp 17 11/19/19 08:08 BP 190/87 11/19/19 07:00 Pulse Ox 95 11/19/19 08:08 11/18/19 11/19/19 11/19/19 22:59 06:59 14:59 Intake Total 778.333 / 1561.666 0 / 0 Output Total 350 / 1050 500 / 1050 Balance 428.333 / 511.666 -500 / 511.666 0 / 0 Physical Exam Narrative: EXAM NARRATIVE: HEENT: Normocephalic Eye: Sclera /conjunctiva normal Chest: Tunneled right IJ dialysis catheter Abdomen: Soft to palpation Neurological: Oriented to place person and time Skin: Intact, right BKA Urinary Catheter Management^: Best: Cath Placed During This Visit: yes, but has since been removed by the nurse Reason for Continuing Indwelling Catheter: Assist Healing of Perineal & Sacral Wounds- Incontinent Patients Urinary Catheter Date of Insertion: 11/13/19 Urinary Catheter Time of Insertion: 10:20 Date Urinary Catheter Removed: 11/10/19 Time Urinary Catheter Discontinued: 09:15 A&P Assessment and plan (1) Acute kidney injury superimposed on CKD: 74-yearFemale with multiple comorbidities who had a tunneled right IJ hemodialysis catheter placed during her BKA, no longer being used and therefore needs removal. Status: Acute Coding Level of Care Code Acute [employer] Judicial Law Clerk for [facility] Fwd Diagnoses Acute kidney injury superimposed on CKD N17.9; N18.9
--- NOTE | 2019-11-19 09:05 | PC.SOCIAL ---
IMM Update Pg2 of IMM given and explained to patient. Initialed, dated, and timed a copy and placed in chart as well.
[2019-11-19] MEDS: metoprolol tartrate 50 mg Tablet PO ×2 (09:22→17:14)
[2019-11-19] MEDS: amlodipine 10 mg Tablet PO (09:22)
[2019-11-19] MEDS: chlorhexidine gluconate 4% Btl 118 mL 1 APPLIC TOPICAL (09:26)
[2019-11-19] MEDS: sodium chloride 0.45% 1,000 ML 50 ML IV (09:30)
[2019-11-19 10:58] LABS: Glucose Point of Care 159 mg/dL (70-110)
--- NOTE | 2019-11-19 12:27 | PM.PN ---
Subjective Subjective: Interval history: Shira reports she is feeling better. She is certainly more alert. No specific complaints this morning. Medications: Reviewed: Yes Vitals/I&O/Wt Last Vital Signs Temp 98.1 F 11/19/19 11:50 Pulse 62 11/19/19 11:50 Resp 16 11/19/19 11:50 BP 122/79 11/19/19 11:50 Pulse Ox 96 11/19/19 11:50 11/18/19 11/19/19 11/19/19 22:59 06:59 14:59 Intake Total 778.333 / 1561.666 910.833 / 910.833 Output Total 350 / 550 500 / 1050 Balance 428.333 / 1011.666 -500 / 511.666 910.833 / 910.833 Physical Exam Narrative: EXAM NARRATIVE: General exam demonstrates conversive female Cardiovascular regular rate and rhythm, no murmur. Tunneled catheter right chest. Lungs lungs are clear Abdomen is soft, bowel sounds are noted Extremities right below the knee amputation noted. Left with good perfusion. Urinary Catheter Management^: Best: Cath Placed During This Visit: yes, but has since been removed by the nurse Reason for Continuing Indwelling Catheter: Assist Healing of Perineal & Sacral Wounds- Incontinent Patients Urinary Catheter Date of Insertion: 11/13/19 Urinary Catheter Time of Insertion: 10:20 Date Urinary Catheter Removed: 11/10/19 Time Urinary Catheter Discontinued: 09:15 Data : 11/19/19 04:10 11/19/19 04:10 A&P Assessment and plan (1) Encephalopathy acute: Secondary to renal failure, metabolic acidosis. Continues to improve Status: Acute (2) Metabolic acidosis: Hyperkalemia and acidosis resolved with bicarbonate drip Appreciate nephrology consultation She is now off bicarbonate drip on maintenance fluids and creatinine is improving. Status: Acute (3) Acute kidney injury superimposed on CKD: Discontinue Best. Bladder scan PRN No evidence of fluid overload currently. Fluids discontinued Renal ultrasound was performed which demonstrated no obstruction Dialysis catheter was placed during surgery Renal function continues to improve. Will need dialysis catheter discontinued at discharge Status: Acute (4) Rhabdomyolysis: In large part secondary to ischemic limb which is now been removed. CK levels have dropped significantly. Status: Acute (5) Ischemia of right lower extremity: Postop day #11 status post attempted right femoropopliteal bypass. Postoperative day #5 status post right below the knee amputation With negative cultures, antibiotics were discontinued November 16 Status: Acute (6) H/O mitral valve repair: Status: Acute (7) Hx of CABG: stable, no ischemia on stress test in 04/2019. Status: Acute (8) CHF (congestive heart failure): High risk of fluid overload. However, compensated currently. Status: Acute Qualifiers: Heart failure type: systolic Heart failure chronicity: chronic Qualified Code(s): I50.22 - Chronic systolic (congestive) heart failure (9) Diabetes 1.5, managed as type 2: Sliding scale insulin. Blood sugars adequate. Status: Acute (10) Essential hypertension: Hydralazine scheduled. Labetalol scheduled. Nitroglycerin ointment. Status: Acute Additional A&P Information Transaminitis. May be secondary to hypotension although I do not see this documented l in the record with the exception of one borderline reading. Could be secondary to heart failure. Hepatitis panel negative. CT abdomen demonstrates no evidence of bile duct obstruction. Cholelithiasis was noted. On ultrasound portal flow was intact. Significantly improved Elevated INR. Likely secondary to liver dysfunction. Resolved Leukocytosis. Resolved History of congestive heart failure with diastolic dysfunction, EF around 40%, aortic insufficiency. Compensated currently Anemia. Haptoglobin normal. Consistent with acute postoperative blood loss anemia. Stable History of COPD Hypertension, still elevated. Increase Norvasc today. Continue metoprolol, hydralazine. Overall control improving. Hyperlipidemia. Hold statin secondary to elevated liver function tests Tobacco dependency Heparin for DVT prophylaxis Full code No need for laboratory tomorrow. It has remained stable Nursing facility placement. Hopefully this can occur tomorrow. Dialysis catheter will need to be removed prior to this discharge. Attestations Medical Necessity Statement*: Needs continued hospital stay for close monitoring secondary to amputation pending placement at a detention facility Coding Level of Care Code Acute Semiconductor Equipment Technician for Armida Mojica Diagnoses Encephalopathy acute G93.40 Metabolic acidosis E87.2 Acute kidney injury superimposed on CKD N17.9; N18.9 Rhabdomyolysis M62.82 Ischemia of right lower extremity I99.8 H/O mitral valve repair Z98.890 Hx of CABG Z95.1 CHF (congestive heart failure) I50.22 Heart failure type: systolic Heart failure chronicity: chronic Diabetes 1.5, managed as type 2 E13.9 Essential hypertension I10
--- NOTE | 2019-11-19 14:57 | P.PN_ITS ---
Subjective Subjective: Interval history: I am seeing her in follow up for her renal failure. No nausea or vomiting Medications: Reviewed: Yes Vitals/I&O/Wt Last Vital Signs Temp 98.1 F 11/19/19 11:50 Pulse 62 11/19/19 11:50 Resp 16 11/19/19 11:50 BP 122/79 11/19/19 11:50 Pulse Ox 96 11/19/19 11:50 11/18/19 11/19/19 11/19/19 22:59 06:59 14:59 Intake Total 778.333 / 1561.666 910.833 / 910.833 Output Total 350 / 550 500 / 1050 300 / 300 Balance 428.333 / 1011.666 -500 / 511.666 610.833 / 610.833 Physical Exam Narrative: EXAM NARRATIVE: pt awake, not in distress Resp: COMMON NORMALS: clear to auscultation bilaterally AUSCULTATION: clear to auscultation bilaterally Cardio: COMMON NORMALS: S1 normal heart sound present and S2 normal heart sound present HEART SOUNDS: S1 normal heart sound present and S2 normal heart sound present GI: AUSCULTATION: Yes normoactive bowel sounds Extremity: COMMON NORMALS: no clubbing, cyanosis or edema Skin: COMMON NORMALS: no rashes or lesions noted GENERAL SKIN EXAM: no rashes or lesions noted Urinary Catheter Management^: Best: Cath Placed During This Visit: yes, but has since been removed by the nurse Reason for Continuing Indwelling Catheter: Assist Healing of Perineal & Sacral Wounds- Incontinent Patients Urinary Catheter Date of Insertion: 11/13/19 Urinary Catheter Time of Insertion: 10:20 Date Urinary Catheter Removed: 11/10/19 Time Urinary Catheter Discontinued: 09:15 Data : 11/19/19 04:10 11/19/19 04:10 A&P Assessment and plan (1) Acute kidney injury superimposed on CKD: Kidney function stable, Creatinine back to baseline. Will sign off. Please call if any questions Status: Acute (2) Metabolic acidosis: Continue sodium bicarbonate supplements if persistently acidotic Status: Acute (3) Anemia: Follow hb Status: Acute (4) Essential hypertension: BP under control Status: Acute Attestations Medical Necessity Statement*: Renal failure Coding Level of Care Code Acute City Sanitarian for [facility] Fwd Diagnoses Acute kidney injury superimposed on CKD N17.9; N18.9 Metabolic acidosis E87.2 Anemia D64.9 Essential hypertension I10
[2019-11-19 16:40] LABS: Glucose Point of Care 137 mg/dL (70-110)
[2019-11-19 22:03] LABS: Glucose Point of Care 120 mg/dL (70-110)
[2019-11-20] VITALS (8 sets, daily range): BP systolic 113–196; BP diastolic 70–82; PULSE 67–86; RESP 16–20; TEMP 36.4–37.1; O2SAT 95–98
[2019-11-20] MEDS: nitroglycerin 1 gm/inch oint Pkt 0.5 INCH TOPICAL ×4 (03:54→21:52)
--- NOTE | 2019-11-20 09:04 | PC.NURSE ---
OKAY TO LEAVE IV OUT PER DOCTOR DIONICIO
--- NOTE | 2019-11-20 09:06 | PM.PN ---
Subjective Subjective: Interval history: Shira continues to get more alert by the day. Today she was awake and spontaneously engaged in a conversation. She is fairly jovial. No pain. The nurses are attempting to get an IV and since the one she had was lost. She seems to be getting along much better. Medications: Reviewed: Yes Vitals/I&O/Wt Last Vital Signs Temp 97.6 F 11/20/19 07:23 Pulse 72 11/20/19 07:37 Resp 20 H 11/20/19 07:37 BP 196/82 11/20/19 07:23 Pulse Ox 96 11/20/19 07:37 11/19/19 11/20/19 11/20/19 22:59 06:59 14:59 Intake Total 200 / 1110.833 240 / 240 Output Total 700 / 1000 Balance -500 / 110.833 240 / 240 Physical Exam Narrative: EXAM NARRATIVE: GENERAL: In general she is awake and alert HEENT: Exam within normal limits. NECK: Supple without jugular vein distention. The carotid upstroke is normal without bruits. BACK: Exam normal. LUNGS: Clear. HEART: Regular rate and rhythm. ABDOMEN: Benign without organomegaly or tenderness. EXTREMITIES: No edema. Right below the knee amputation NEUROLOGIC: Exam normal. SKIN: Unremarkable. Urinary Catheter Management^: Best: Cath Placed During This Visit: yes, but has since been removed by the nurse Reason for Continuing Indwelling Catheter: Decision to DC Catheter Urinary Catheter Date of Insertion: 11/13/19 Urinary Catheter Time of Insertion: 10:20 Date Urinary Catheter Removed: 11/19/19 Time Urinary Catheter Discontinued: 18:43 Data : 11/19/19 04:10 11/19/19 04:10 A&P Assessment and plan (1) Encephalopathy acute: Status: Acute (2) Status post below knee amputation of right lower extremity: Status: Acute (3) Metabolic acidosis: Status: Acute (4) Anemia: Status: Acute (5) Rhabdomyolysis: Status: Acute (6) Acute kidney injury superimposed on CKD: Status: Acute (7) Shock liver: Status: Acute (8) Ischemia of right lower extremity: Status: Acute (9) Hx of CABG: Status: Acute (10) H/O mitral valve repair: Status: Acute (11) Aortic insufficiency with aortic stenosis: Status: Acute (12) Subclavian arterial stenosis: Status: Acute (13) Mitral regurgitation: Status: Acute (14) PAD (peripheral artery disease): Status: Acute (15) CHF (congestive heart failure): Status: Acute Qualifiers: Heart failure type: systolic Heart failure chronicity: chronic Qualified Code(s): I50.22 - Chronic systolic (congestive) heart failure (16) Hyperlipidemia: Status: Acute (17) Essential hypertension: Status: Acute (18) Diabetes 1.5, managed as type 2: Status: Acute (19) Ischemic cardiomyopathy: Status: Acute (20) Tobacco abuse: Status: Acute (21) COPD (chronic obstructive pulmonary disease): Status: Acute Additional A&P Information There are no absolutely necessary medications being given intravenously. I asked the nurses to hold on trying to place another IV. She basically has no veins left in her arms. I will discontinue all the intravenous medications. We are probably a day or 2 from getting her to a fdc. Her hemoglobin hematocrit are stable. Liver function testing and renal function testing have improved greatly and are nearly at baseline. She is eating. Urine output is adequate. Attestations Medical Necessity Statement*: Continued hospitalization for management of acute right lower extremity ischemia, right below the knee amputation, liver and renal failure. Coding Level of Care Code Established Pt Acute Marine Diesel Mechanic for Armida Mojica Patient Type Established History Detailed Exam Detailed Medical Decision Making Moderate Complexity Diagnoses Encephalopathy acute G93.40 Status post below knee amputation of right lower extremity Z89.511 Metabolic acidosis E87.2 Anemia D64.9 Rhabdomyolysis M62.82 Acute kidney injury superimposed on CKD N17.9; N18.9 Shock liver K72.00 Ischemia of right lower extremity I99.8 Hx of CABG Z95.1 H/O mitral valve repair Z98.890 Aortic insufficiency with aortic stenosis I35.2 Subclavian arterial stenosis I77.1 Mitral regurgitation I34.0 PAD (peripheral artery disease) I73.9 CHF (congestive heart failure) I50.22 Heart failure type: systolic Heart failure chronicity: chronic Hyperlipidemia E78.5 Essential hypertension I10 Diabetes 1.5, managed as type 2 E13.9 Ischemic cardiomyopathy I25.5 Tobacco abuse Z72.0 COPD (chronic obstructive pulmonary disease) J44.9
[2019-11-20 09:19] LABS: Glucose Point of Care 157 mg/dL (70-110)
[2019-11-20] MEDS: hyDRALAzine 50 mg Tablet PO ×3 (09:45→21:52)
[2019-11-20] MEDS: amlodipine 10 mg Tablet PO (09:46)
[2019-11-20] MEDS: pantoprazole DR 40 mg Tablet PO (09:47)
[2019-11-20] MEDS: heparin 5,000 unit/mL INJ 1 mL 5000 UNIT SUBCUT ×2 (09:48→21:52)
[2019-11-20] MEDS: chlorhexidine gluconate 4% Btl 118 mL 1 APPLIC TOPICAL (09:48)
[2019-11-20] MEDS: metoprolol tartrate 50 mg Tablet PO ×2 (09:51→17:08)
[2019-11-20 11:35] LABS: Glucose Point of Care 197 mg/dL (70-110)
--- NOTE | 2019-11-20 16:03 | PC.NURSE ---
Patient states she sees people in the room and is talking to the person when no one is in the room.
[2019-11-20 16:25] LABS: Glucose Point of Care 230 mg/dL (70-110)
--- NOTE | 2019-11-20 17:28 | P.PN_ITS ---
Subjective Subjective: Interval history: awake, alert and oriented, no acute overnigth events Medications: Reviewed: Yes Medication Review Details: Current Medications Hydrocodone Bitart/Acetaminophen ([place] 5-325 Mg) 1 tab PO Q4H PRN PRN Reason: MODERATE PAIN Al Hydrox/Mg Hydrox/Simethicone (Maalox) 30 ml PO Q15M PRN PRN Reason: INDIGESTION Al Hydrox/Mg Hydrox/Simethicone (Maalox) 30 ml PO Q4H PRN PRN Reason: INDIGESTION Albuterol Sulfate (Ventolin) 2 puff INHALATION Q4H.RESPIRATORY PRN PRN Reason: SHORTNESS OF BREATH Allopurinol (Zyloprim) 300 mg PO DAILY [facility] Last Admin: 11/11/19 08:49 Dose: 300 mg Documented by: Aspirin (Aspirin Ec) 81 mg PO DAILY [facility] Last Admin: 11/11/19 08:49 Dose: 81 mg Documented by: Atorvastatin Calcium (Lipitor) 40 mg PO BEDTIME [facility] Last Admin: 11/10/19 21:53 Dose: 40 mg Documented by: Bisacodyl (Bisac-Evac) 10 mg [place] Q6H PRN PRN Reason: Constipation (Use 5th) Bisacodyl (Dulcolax) 5 mg PO Q6H PRN PRN Reason: Constipation (Use 2nd) Bismuth Subsalicylate ([place] Bismuth) 30 ml PO PRN PRN PRN Reason: DIARRHEA Chlorhexidine Gluconate (Betasept) 1 applic TOPICAL DAILY [facility] Last Admin: 11/11/19 08:51 Dose: 1 applic Documented by: Citalopram Hydrobromide (Celexa) 20 mg PO DAILY [facility] Last Admin: 11/11/19 08:50 Dose: 20 mg Documented by: Clopidogrel Bisulfate (Plavix) 75 mg PO DAILY [facility] Last Admin: 11/11/19 08:50 Dose: 75 mg Documented by: Dextrose (D50w) 25 ml IVP ONCE PRN; Protocol PRN Reason: hypoglycemia protocol Dextrose (D50w) 50 ml IVP PRN PRN; Protocol PRN Reason: hypoglycemia protocol Diphenhydramine HCl (Benadryl) 25 mg PO BEDTIME PRN PRN Reason: SLEEP Docusate Sodium (Colace) 100 mg PO BID PRN PRN Reason: Constipation (Use 1st) Enoxaparin Sodium (Lovenox) 40 mg SUBCUT Q24H [facility] Last Admin: 11/10/19 17:24 Dose: 40 mg Documented by: Glucagon (Glucagen) 1 mg IM ONCE PRN; Protocol PRN Reason: Adult Acute Hypoglycemia Prot. Guaifenesin (Robitussin Oral Liq) 200 mg PO Q4H PRN PRN Reason: COUGH Heparin Sodium (Beef Lung) (Heparin) 0 unit IV PRN PRN; Protocol PRN Reason: Heparin weight-base protocol Last Admin: 11/08/19 18:31 Dose: 0.25 unit Documented by: Hydralazine HCl (Apresoline) 10 mg PO TID PRN PRN Reason: SYSTOLIC BLOOD PRESSURE Dextrose (D5w) 500 mls @ 100 mls/hr IV ONCE PRN; Protocol PRN Reason: Adult Acute Hypoglycemia Prot Lactated Ringer's (Lactated Ringers) 1,000 mls @ 100 mls/hr IV .Q10H [facility] Last Admin: 11/11/19 10:01 Dose: 100 mls/hr Documented by: Insulin Aspart (Novolog) 0 unit SUBCUT WM&BEDTIME [facility]; Protocol Last Admin: 11/11/19 12:35 Dose: 8 unit Documented by: Ketorolac Tromethamine (Toradol) 30 mg IVP Q6H PRN PRN Reason: MODERATE PAIN Stop: 11/13/19 17:28 Last Admin: 11/11/19 12:39 Dose: 30 mg Documented by: Lactulose (Constulose) 20 gm PO Q6H PRN PRN Reason: Constipation (Use 3rd) Lisinopril (Prinivil) 40 mg PO DAILY [facility] Last Admin: 11/11/19 08:49 Dose: 40 mg Documented by: Magnesium Hydroxide (Milk Of Magnesia) 45 ml PO DAILY PRN PRN Reason: Constipation (use 4th) Metoprolol Tartrate (Lopressor) 50 mg PO DAILY [facility] Last Admin: 11/11/19 08:50 Dose: 50 mg Documented by: Morphine Sulfate (Morphine) 2 mg IVP Q1H PRN PRN Reason: SEVERE PAIN Last Admin: 11/10/19 04:36 Dose: 2 mg Documented by: Nitroglycerin (Nitro-Bid) 1 inch TOPICAL Q12H [facility] Last Admin: 11/11/19 05:46 Dose: 1 inch Documented by: Pantoprazole Sodium (Protonix) 40 mg PO DAILY [facility] Last Admin: 11/11/19 08:50 Dose: 40 mg Documented by: Pantoprazole Sodium (Protonix) 40 mg PO DAILY [facility] Last Admin: 11/11/19 08:52 Dose: Not Given Documented by: Promethazine HCl (Phenergan) 25 mg [place] Q6H PRN PRN Reason: NAUSEA AND VOMITING Tramadol HCl (Ultram) 50 mg PO Q6H PRN PRN Reason: MODERATE PAIN Vitals/I&O/Wt Last Vital Signs Temp 97.6 F 11/20/19 15:05 Pulse 67 11/20/19 15:05 Resp 16 11/20/19 15:05 BP 118/73 11/20/19 15:05 Pulse Ox 98 11/20/19 15:05 11/20/19 11/20/19 11/20/19 06:59 14:59 22:59 Intake Total 480 / 480 Balance 480 / 480 Physical Exam Narrative: EXAM NARRATIVE: GEN: Awake, alert and oriented, no acute distress CVS: S1S2 N RS: CTA B/L Abd: Soft, nt/nd , bs+ GASOLINE ATTENDANT: 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 Continues to improve Status: Acute (2) Metabolic acidosis: Hyperkalemia and acidosis resolved with bicarbonate drip Appreciate nephrology consultation She is now off bicarbonate drip on maintenance fluids and creatinine is i mproving. Status: Acute (3) Acute kidney injury superimposed on CKD: No evidence of fluid overload currently. Fluids discontinued Renal ultrasound was performed which demonstrated no obstruction Dialysis catheter was placed during surgery Renal function continues to improve. Will need dialysis catheter discontinued at discharge Status: Acute (4) Rhabdomyolysis: In large part secondary to ischemic limb which is now s/p amputation. CK levels have dropped significantly. Status: Acute (5) Ischemia of right lower extremity: Postop day #12 status post attempted right femoropopliteal bypass. Postoperative day #6 status post right below the knee amputation With negative cultures, antibiotics were discontinued November 16 Status: Acute (6) H/O mitral valve repair: Status: Acute (7) Hx of CABG: stable, no ischemia on stress test in 04/2019. Status: Acute (8) CHF (congestive heart failure): High risk of fluid overload. However, compensated currently. Status: Acute Qualifiers: Heart failure type: systolic Heart failure chronicity: chronic Q ualified Code(s): I50.22 - Chronic systolic (congestive) heart failure (9) Diabetes 1.5, managed as type 2: Sliding scale insulin. Blood sugars adequate. Status: Acute (10) Essential hypertension: Hydralazine scheduled. Labetalol scheduled. Nitroglycerin ointment. Status: Acute Additional A&P Information Transaminitis. May be secondary to hypotension. Could be secondary to heart failure. Hepatitis panel negative. CT abdomen demonstrates no evidence of bile duct obstruction. Cholelithiasis was noted. On ultrasound portal flow was intact. Significantly improved Elevated INR. Likely secondary to liver dysfunction. Resolved Leukocytosis. Resolved History of congestive heart failure with diastolic dysfunction, EF around 40%, aortic insufficiency. Compensated currently Anemia. Haptoglobin normal. Consistent with acute postoperative blood loss anemia. Stable History of COPD Hypertension, still elevated. Increase Norvasc today. Continue metoprolol, hydralazine. Overall control improving. Hyperlipidemia. Hold statin secondary to elevated liver function tests Tobacco dependency Heparin for DVT prophylaxis Full code Nursing facility placement. Dialysis catheter will need to be removed prior to this discharge. Attestations Medical Necessity Statement*: Continued hospitalization for management of acute right lower extremity ischemia, right below the knee amputation, liver and renal failure. Coding Level of Care Code Acute Packaging Sales Representative for [facility] Fwd Diagnoses Encephalopathy acute G93.40 Metabolic acidosis E87.2 Acute kidney injury superimposed on CKD N17.9; N18.9 Rhabdomyolysis M62.82 Ischemia of right lower extremity I99.8 H/O mitral valve repair Z98.890 Hx of CABG Z95.1 CHF (congestive heart failure) I50.22 Heart failure type: systolic Heart failure chronicity: chronic Diabetes 1.5, managed as type 2 E13.9 Essential hypertension I10
[2019-11-20 20:28] LABS: Glucose Point of Care 114 mg/dL (70-110)
[2019-11-21] VITALS (8 sets, daily range): BP systolic 116–179; BP diastolic 68–82; PULSE 63–75; RESP 12–20; TEMP 36.4–36.8; O2SAT 96–99
[2019-11-21] MEDS: nitroglycerin 1 gm/inch oint Pkt 0.5 INCH TOPICAL ×4 (03:41→21:57)
[2019-11-21 06:12] LABS: Glucose Point of Care 151 mg/dL (70-110)
--- NOTE | 2019-11-21 07:35 | P.PN_ITS ---
Subjective Subjective: Interval history: Shira is sitting up in a chair about ready to transfer to the bedside commode with the help of physical therapy. She is much more alert today. She is essentially back to her baseline mental status. She entered into a conversation as she normally does. Overall things continue to improve nicely. Vitals/I&O/Wt Last Vital Signs Temp 97.6 F 11/21/19 04:00 Pulse 68 11/21/19 04:00 Resp 18 11/21/19 04:00 BP 179/76 11/21/19 04:00 Pulse Ox 97 11/21/19 04:00 11/20/19 11/21/19 11/21/19 22:59 06:59 14:59 Intake Total 240 / 720 Output Total 150 / 150 Balance 240 / 720 -150 / 570 Physical Exam Narrative: EXAM NARRATIVE: GENERAL: In general she is awake alert and conversant HEENT: Exam within normal limits. NECK: Supple without jugular vein distention. The carotid upstroke is normal wit hout bruits. BACK: Exam normal. LUNGS: Clear. HEART: Regular rate and rhythm. ABDOMEN: Benign without organomegaly or tenderness. EXTREMITIES: No edema. Right below the knee amputation NEUROLOGIC: Exam normal. SKIN: Unremarkable. Urinary Catheter Management^: Best: Cath Placed During This Visit: yes, but has since been removed by the nurse Reason for Continuing Indwelling Catheter: Decision to DC Catheter Urinary Catheter Date of Insertion: 11/13/19 Urinary Catheter Time of Insertion: 10:20 Date Urinary Catheter Removed: 11/19/19 Time Urinary Catheter Discontinued: 18:43 Data : 11/19/19 04:10 11/19/19 04:10 A&P Assessment and plan (1) Status post below knee amputation of right lower extremity: Status: Acute (2) Anemia: Status: Acute (3) Rhabdomyolysis: Status: Acute (4) Acute kidney injury superimposed on CKD: Status: Acute (5) Ischemia of right lower extremity: Status: Acute (6) Hx of CABG: Status: Acute (7) H/O mitral valve repair: Status: Acute (8) Aortic insufficiency with aortic stenosis: Status: Acute (9) Subclavian arterial stenosis: Status: Acute (10) Mitral regurgitation: Status: Acute (11) PAD (peripheral artery disease): Status: Acute (12) CHF (congestive heart failure): Status: Acute Qualifiers: Heart failure type: systolic Heart failure chronicity: chronic Qualifi ed Code(s): I50.22 - Chronic systolic (congestive) heart failure (13) Hyperlipidemia: Status: Acute (14) Essential hypertension: Status: Acute (15) Diabetes 1.5, managed as type 2: Status: Acute (16) Ischemic cardiomyopathy: Status: Acute (17) Tobacco abuse: Status: Acute (18) COPD (chronic obstructive pulmonary disease): Status: Acute Additional A&P Information She has improved significantly in the last 2 or 3 days. She is essentially ready to go to a care home. I will contact discharge planning today. Attestations Medical Necessity Statement*: Continued hospitalization for management of right lower extremity ischemia, amputation, liver and renal failure. Coding Level of Care Code Established Pt Acute Business Architect for Armida Mojica Patient Type Established History Detailed Exam Detailed Medical Decision Making Moderate Complexity Diagnoses Status post below knee amputation of right lower extremity Z89.511 Anemia D64.9 Rhabdomyolysis M62.82 Acute kidney injury superimposed on CKD N17.9; N18.9 Ischemia of right lower extremity I99.8 Hx of CABG Z95.1 H/O mitral valve repair Z98.890 Aortic insufficiency with aortic stenosis I35.2 Subclavian arterial stenosis I77.1 Mitral regurgitation I34.0 PAD (peripheral artery disease) I73.9 CHF (congestive heart failure) I50.22 Heart failure type: systolic Heart failure chronicity: chronic Hyperlipidemia E78.5 Essential hypertension I10 Diabetes 1.5, managed as type 2 E13.9 Ischemic cardiomyopathy I25.5 Tobacco abuse Z72.0 COPD (chronic obstructive pulmonary disease) J44.9
[2019-11-21] MEDS: pantoprazole DR 40 mg Tablet PO (09:18)
[2019-11-21] MEDS: hyDRALAzine 50 mg Tablet PO ×3 (09:18→20:08)
[2019-11-21] MEDS: amlodipine 10 mg Tablet PO (09:18)
[2019-11-21] MEDS: metoprolol tartrate 50 mg Tablet PO ×2 (09:18→18:04)
[2019-11-21] MEDS: heparin 5,000 unit/mL INJ 1 mL 5000 UNIT SUBCUT ×2 (09:18→20:07)
[2019-11-21] MEDS: chlorhexidine gluconate 4% Btl 118 mL 1 APPLIC TOPICAL (09:18)
--- NOTE | 2019-11-21 11:00 | PC.SOCIAL ---
IMM Updated Page 2 of IMM updated and given to patient. Initialed, dated, and timed and placed back in chart.
[2019-11-21 11:05] LABS: Glucose Point of Care 216 mg/dL (70-110)
--- NOTE | 2019-11-21 13:30 | XRR_ITS ---
PROCEDURE INFORMATION: Exam: XR Right Forearm Exam date and time: 11/21/2019 2:03 PM Clinical indication: Pain and injury or trauma; Fall; Initial encounter; Blunt trauma (contusions or hematomas; Elbow; Right; Additional info: Post fall TECHNIQUE: Imaging protocol: XR Right forearm. Views: Frontal, lateral, and oblique views. COMPARISON: No relevant prior studies available. FINDINGS: Bones/joints: Normal. Soft tissues: Posterior medial distal upper arm subcutaneous edema. XR/XR elbow RT min 3V* [id number] IMPRESSION: No acute bony injury.
--- NOTE | 2019-11-21 13:30 | PC.NURSE ---
investigative writer notified that patient was found in floor. patient was assisted back in bed by staff. Patient said she fell on her right arm but didn't hit her head. No new wounds or bruising noted. Dr Zelaya notified, per Dr Zelaya, xray right arm.
--- NOTE | 2019-11-21 14:40 | P.PN_ITS ---
Subjective Subjective: Interval history: No acute events overnight. Patient fell out of chair this afternoon while attempting to reach for objects on the table. States some pain in R elbow after. No h/o head injury. Medications: Medication Review Details: Current Medications Hydrocodone Bitart/Acetaminophen ([place] 5-325 Mg) 1 tab PO Q4H PRN PRN Reason: MODERATE PAIN Al Hydrox/Mg Hydrox/Simethicone (Maalox) 30 ml PO Q15M PRN PRN Reason: INDIGESTION Al Hydrox/Mg Hydrox/Simethicone (Maalox) 30 ml PO Q4H PRN PRN Reason: INDIGESTION Albuterol Sulfate (Ventolin) 2 puff INHALATION Q4H.RESPIRATORY PRN PRN Reason: SHORTNESS OF BREATH Allopurinol (Zyloprim) 300 mg PO DAILY [facility] Last Admin: 11/11/19 08:49 Dose: 300 mg Documented by: Aspirin (Aspirin Ec) 81 mg PO DAILY [facility] Last Admin: 11/11/19 08:49 Dose: 81 mg Documented by: Atorvastatin Calcium (Lipitor) 40 mg PO BEDTIME [facility] Last Admin: 11/10/19 21:53 Dose: 40 mg Documented by: Bisacodyl (Bisac-Evac) 10 mg DE Q6H PRN PRN Reason: Constipation (Use 5th) Bisacodyl (Dulcolax) 5 mg PO Q6H PRN PRN Reason: Constipation (Use 2nd) Bismuth Subsalicylate (Gate Bismuth) 30 ml PO PRN PRN PRN Reason: DIARRHEA Chlorhexidine Gluconate (Betasept) 1 applic TOPICAL DAILY [facility] Last Admin: 11/11/19 08:51 Dose: 1 applic Documented by: Citalopram Hydrobromide (Celexa) 20 mg PO DAILY [facility] Last Admin: 11/11/19 08:50 Dose: 20 mg Documented by: Clopidogrel Bisulfate (Plavix) 75 mg PO DAILY [facility] Last Admin: 11/11/19 08:50 Dose: 75 mg Documented by: Dextrose (D50w) 25 ml IVP ONCE PRN; Protocol PRN Reason: hypoglycemia protocol Dextrose (D50w) 50 ml IVP PRN PRN; Protocol PRN Reason: hypoglycemia protocol Diphenhydramine HCl (Benadryl) 25 mg PO BEDTIME PRN PRN Reason: SLEEP Docusate Sodium (Colace) 100 mg PO BID PRN PRN Reason: Constipation (Use 1st) Enoxaparin Sodium (Lovenox) 40 mg SUBCUT Q24H [facility] Last Admin: 11/10/19 17:24 Dose: 40 mg Documented by: Glucagon (Glucagen) 1 mg IM ONCE PRN; Protocol PRN Reason: Adult Acute Hypoglycemia Prot. Guaifenesin (Robitussin Oral Liq) 200 mg PO Q4H PRN PRN Reason: COUGH Heparin Sodium (Beef Lung) (Heparin) 0 unit IV PRN PRN; Protocol PRN Reason: Heparin weight-base protocol Last Admin: 11/08/19 18:31 Dose: 0.25 unit Documented by: Hydralazine HCl (Apresoline) 10 mg PO TID PRN PRN Reason: SYSTOLIC BLOOD PRESSURE Dextrose (D5w) 500 mls @ 100 mls/hr IV ONCE PRN; Protocol PRN Reason: Adult Acute Hypoglycemia Prot Lactated Ringer's (Lactated Ringers) 1,000 mls @ 100 mls/hr IV .Q10H [facility] Last Admin: 11/11/19 10:01 Dose: 100 mls/hr Documented by: Insulin Aspart (Novolog) 0 unit SUBCUT WM&BEDTIME [facility]; Protocol Last Admin: 11/11/19 12:35 Dose: 8 unit Documented by: Ketorolac Tromethamine (Toradol) 30 mg IVP Q6H PRN PRN Reason: MODERATE PAIN Stop: 11/13/19 17:28 Last Admin: 11/11/19 12:39 Dose: 30 mg Documented by: Lactulose (Constulose) 20 gm PO Q6H PRN PRN Reason: Constipation (Use 3rd) Lisinopril (Prinivil) 40 mg PO DAILY [facility] Last Admin: 11/11/19 08:49 Dose: 40 mg Documented by: Magnesium Hydroxide (Milk Of Magnesia) 45 ml PO DAILY PRN PRN Reason: Constipation (use 4th) Metoprolol Tartrate (Lopressor) 50 mg PO DAILY [facility] Last Admin: 11/11/19 08:50 Dose: 50 mg Documented by: Morphine Sulfate (Morphine) 2 mg IVP Q1H PRN PRN Reason: SEVERE PAIN Last Admin: 11/10/19 04:36 Dose: 2 mg Documented by: Nitroglycerin (Nitro-Bid) 1 inch TOPICAL Q12H [facility] Last Admin: 11/11/19 05:46 Dose: 1 inch Documented by: Pantoprazole Sodium (Protonix) 40 mg PO DAILY [facility] Last Admin: 11/11/19 08:50 Dose: 40 mg Documented by: Pantoprazole Sodium (Protonix) 40 mg PO DAILY [facility] Last Admin: 11/11/19 08:52 Dose: Not Given Documented by: Promethazine HCl (Phenergan) 25 mg DE Q6H PRN PRN Reason: NAUSEA AND VOMITING Tramadol HCl (Ultram) 50 mg PO Q6H PRN PRN Reason: MODERATE PAIN Vitals/I&O/Wt Last Vital Signs Temp 98.1 F 11/21/19 12:00 Pulse 72 11/21/19 12:00 Resp 12 11/21/19 12:00 BP 116/76 11/21/19 12:00 Pulse Ox 99 11/21/19 12:00 11/20/19 11/21/19 11/21/19 22:59 06:59 14:59 Intake Total 240 / 720 360 / 360 Output Total 150 / 150 Balance 240 / 720 -150 / 570 360 / 360 Physical Exam Narrative: EXAM NARRATIVE: GEN: Awake, alert and oriented, no acute distress CVS: S1S2 N RS: CTA B/L Abd: Soft, nt/nd , 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 Now resolved, mentation at baseline Status: Acute (2) Metabolic acidosis: Hyperkalemia and acidosis resolved with bicarbonate drip Appreciate nephrology consultation, cr back at baseline, last on 11/18 at 1.1 Status: Acute (3) Acute kidney injury superimposed on CKD: Now resolved Status: Acute (4) Rhabdomyolysis: In large part secondary to ischemic limb which is now s/p amputation. CK levels have dropped significantly. Status: Acute (5) Ischemia of right lower extremity: Postop day #13 status post attempted right femoropopliteal bypass. Postoperative day #7 status post right below the knee amputation With negative cultures, antibiotics were discontinued November 16 Status: Acute (6) H/O mitral valve repair: Status: Acute (7) Hx of CABG: stable, no ischemia on stress test in 04/2019. Status: Acute (8) CHF (congestive heart failure): High risk of fluid overload. However, compensated currently. Status: Acute Qualifiers: Heart failure type: systolic Heart failure chronicity: chronic Qualified Code(s): I50.22 - Chronic systolic (congestive) heart failure (9) Diabetes 1.5, managed as type 2: Sliding scale insulin. Blood sugars adequate. Status: Acute (10) Essential hypertension: Hydralazine scheduled. metoprolol scheduled. Nitroglycerin ointment. Status: Acute Additional A&P Information Transaminitis. May be secondary to hypotension. Could be secondary to heart failure. Hepatitis panel negative. CT abdomen demonstrates no evidence of bile duct obstruction. Cholelithiasis was noted. On ultrasound portal flow was intact. Significantly improved Elevated INR. Likely secondary to liver dysfunction. Resolved Leukocytosis. Resolved History of congestive heart failure with diastolic dysfunction, EF around 40%, aortic insufficiency. Compensated currently Anemia. Haptoglobin normal. Consistent with acute postoperative blood loss anemia. Stable History of COPD Hypertension, currently well cotrolled after increasing norvasc, Continue metoprolol, hydralazine. Overall control improving. Hyperlipidemia. Hold statin secondary to elevated liver function tests Heparin for DVT prophylaxis Full code Nursing facility placement. Dialysis catheter will need to be removed prior to this discharge. Attestations Medical Necessity Statement*: per admitting team Coding Level of Care Code Acute Parts Specialist for g Fwd Diagnoses Encephalopathy acute G93.40 Metabolic acidosis E87.2 Acute kidney injury superimposed on CKD N17.9; N18.9 Rhabdomyolysis M62.82 Ischemia of right lower extremity I99.8 H/O mitral valve repair Z98.890 Hx of CABG Z95.1 CHF (congestive heart failure) I50.22 Heart failure type: systolic Heart failure chronicity: chronic Diabetes 1.5, managed as type 2 E13.9 Essential hypertension I10
--- NOTE | 2019-11-21 16:12 | PC.OT ---
P.M. treatment attempted. Pt refused treatment this afternoon. Will attempt again tomorrow. -BART Price/L
[2019-11-21 17:04] LABS: Glucose Point of Care 117 mg/dL (70-110)
[2019-11-21 20:27] LABS: Glucose Point of Care 142 mg/dL (70-110)
[2019-11-22] VITALS (7 sets, daily range): BP systolic 117–174; BP diastolic 69–80; PULSE 64–78; RESP 16–18; TEMP 36.4–36.8; O2SAT 92–98
[2019-11-22] MEDS: nitroglycerin 1 gm/inch oint Pkt 0.5 INCH TOPICAL ×3 (04:29→14:45)
[2019-11-22 06:29] LABS: Glucose Point of Care 135 mg/dL (70-110)
[2019-11-22] MEDS: metoprolol tartrate 50 mg Tablet PO (08:12)
[2019-11-22] MEDS: hyDRALAzine 50 mg Tablet PO ×2 (08:12→14:45)
[2019-11-22] MEDS: amlodipine 10 mg Tablet PO (08:12)
[2019-11-22] MEDS: pantoprazole DR 40 mg Tablet PO (08:13)
[2019-11-22] MEDS: heparin 5,000 unit/mL INJ 1 mL 5000 UNIT SUBCUT (08:13)
[2019-11-22] MEDS: chlorhexidine gluconate 4% Btl 118 mL 1 APPLIC TOPICAL (08:13)
[2019-11-22 10:59] LABS: Glucose Point of Care 169 mg/dL (70-110)
--- NOTE | 2019-11-22 12:09 | P.DS_ITS ---
Discharge Providers Date of Admission: 11/08/19 07:09 Date of Discharge: November 22, 2019 Attending Provider at Admission: Glynn Ellis MD Attending Provider at Discharge: Glynn Ellis MD Primary Care Provider: Amber Esquivel MD Diagnoses at Discharge Discharge Diagnosis (1) Encephalopathy acute: Status: Acute (2) Metabolic acidosis: Status: Acute (3) Acute kidney injury superimposed on CKD: Status: Acute (4) Rhabdomyolysis: Status: Acute (5) Ischemia of right lower extremity: Status: Acute (6) H/O mitral valve repair: Status: Acute (7) Hx of CABG: Status: Acute (8) CHF (congestive heart failure): Status: Acute Qualifiers: Heart failure type: systolic Heart failure chronicity: chronic Qualified Code(s): I50.22 - Chronic systolic (congestive) heart failure (9) Diabetes 1.5, managed as type 2: Status: Acute (10) Essential hypertension: Status: Acute (11) Status post below knee amputation of right lower extremity: Status: Acute (12) Shock liver: Status: Acute (13) Aortic insufficiency with aortic stenosis: Status: Acute (14) Subclavian arterial stenosis: Status: Acute (15) Mitral regurgitation: Status: Acute (16) PAD (peripheral artery disease): Status: Acute (17) Hyperlipidemia: Status: Acute (18) Ischemic cardiomyopathy: Status: Acute (19) Tobacco abuse: Status: Acute (20) COPD (chronic obstructive pulmonary disease): Status: Acute Reason for Visit Reason for Visit: Right leg pain Brief History: Patient entered the hospital on the day of admission for elective lower extremity angiography and potential intervention due to abnormal noninvasive studies and severe right lower extremity claudication Hospital Course Hospital Course: Patient arrived and angiography was undertaken. She was noted to have a superficial femoral artery occlusion at the ostium. In an attempt to intervene a wire was placed followed by a seeker catheter. The seeker went through the lesion at the origin of the SFA and went down to the popliteal artery. I checked for the presence of the catheter being intraluminal by hand-injection of contrast and this revealed intraluminal presence of the seeker catheter at the level of the distal popliteal. I then remove the catheter and attempted to place a balloon angioplasty catheter over the wire. The balloon angioplasty catheter would not pass into the SFA. I then suspected that perhaps there was either a dissection or the fact that the wire had moved into the extraluminal space or a dissection plane and then had come back into the intraluminal space farther down the vessel. I was never able to pass a balloon catheter easily and so I stopped the procedure rather than trying to ba lloon or stent the artery. My plan was to send her home and bring her back with an attempt at intervening on the artery via the popliteal artery on the right. Only a few minutes after she arrived on the floor the nurse called me and stating that her right leg was cold and pale and the patient was complaining of significant right lower extremity pain. It was clear that the profunda femoris, which was providing all the collateral flow distally either had dissected or a plaque shift had occurred and closed off the flow to the profunda making the lower right leg ischemic. I called the my surgical colleague Dr. Victor who took the patient to the operating room immediately. Patient had severely diffusely diseased vessels and he performed an emergency femoral-popliteal bypass and had to transect the vessel at the level of the popliteal. She improved slightly over the next couple of days but about 4 days after the procedure her leg became mottled especially at the foot. In the interim she suffered rhabdomyolysis, renal failure, shock liver with elevated transaminases and an encephalopathy. It became clear that she continued breakdown of muscle tissue and increasing CPK would worsen her liver and renal failure and that she would not survive. Later that evening Dr. iVctor performed a below the knee amputation in order to save the patient's life. Over the ensuing several days her renal function improved and came back toward baseline. Her liver function improved and came back toward baseline. She has a right subclavian artery stenosis so blood pressures in the right arm are lower than the left. Her other medical problems including her underlying organic heart disease, bypass surgery and diabetes were otherwise well managed. Eventually the patient recovered and at the time of discharge is alert, awake and interactive appropriately. She needs physical therapy and Occupational Therapy in order to learn how to negotiate without her right lower extremity. Her RANJIT inhibitor was discontinued when she had renal insufficiency and she was placed on Norvasc and hydralazine. Her blood pressure has finally come under reasonable control. Physical Exam Narrative: EXAM NARRATIVE: GENERAL: At the time of discharge awake alert and interactive HEENT: Exam within normal limits. NECK: Supple without jugular vein distention. The carotid upstroke is normal without bruits. BACK: Exam normal. LUNGS: Clear. HEART: Regular rate and rhythm. ABDOMEN: Benign without organomegaly or tenderness. EXTREMITIES: No edema. Right below the knee amputation NEUROLOGIC: Exam normal. SKIN: Unremarkable. 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 Routin e Exams 11/08/19 06:00 Completed CXRP [XR chest 1V portable [id number]] R outine Exams 11/15/19 14:02 Completed XR chest 1V fuad ble [id number] Routine Exams 11/11/19 13:39 Completed XR chest 1V fuad ble [id number] Routine Exams 11/13/19 09:49 Completed XR chest 1V fuad ble [id number] Routine Exams 11/15/19 07:32 Completed XR chest 1V fuad ble [id number] Routine Exams 11/16/19 07:13 Completed XR elbow RT min 3 V* [id number] Routine Exams 11/21/19 13:30 Completed Pathology: Surgic al [PTH] Routine Pth 11/14/19 20:30 Completed CV unlisted vascu lar [id number] Routine Ultrasound 11/12/19 13:10 Completed US abdomen comple te* [id number] Routine Ultrasound 11/12/19 07:01 Completed US renal BI with bladder Routine Ultrasound 11/12/19 13:10 Completed Labs from last 24 hours 11/22/19 11/22/19 11/21/19 10:43 06:14 20:13 POC Glucose 169 135 142 11/21/19 16:56 POC Glucose 117 Vitals: Last Vital Signs Temp 97.5 F L 11/22/19 08:00 Pulse 74 11/22/19 08:00 Resp 18 11/22/19 08:00 BP 128/80 11/22/19 08:00 Pulse Ox 95 11/22/19 08:00 Discharge Plan Discharge Patient Disposition: SNF w Plan Readm Condition: Stable Prescriptions: New chlorhexidine gluconate [Betasept Surgical Scrub] 4 % Liquid 1 applic topical DAILY Qty: 1 RF: 0 Lanolin (HPA) 100 % Cream 1 applic topical PRN PRN (Reason: Dryness) Qty: 1 RF: 0 hydralazine 50 mg Tablet 50 mg PO TID Qty: 90 RF: 0 amlodipine 10 mg Tablet 10 mg PO DAILY Qty: 30 RF: 0 Continued bumetanide 2 mg tablet 2 mg PO DAILY RF: 0 Lantus U-100 Insulin 100 unit/mL solution 40 unit SUBCUT BID RF: 0 atorvastatin 40 mg tablet 40 mg PO BEDTIME RF: 0 omeprazole 40 mg capsule,delayed release(DR/EC) 40 mg PO DAILY RF: 0 citalopram 20 mg tablet 20 mg PO DAILY RF: 0 allopurinol 300 mg tablet 300 mg PO DAILY RF: 0 aspirin [Adult Low Dose Aspirin] 81 mg tablet,delayed release (DR/EC) 81 mg PO DAILY RF: 0 ProAir HFA 2 puff PO PRN RF: 0 Changed metoprolol tartrate 50 mg tablet 50 mg PO BIDWM Qty: 0 RF: 0 Discontinued lisinopril 40 mg tablet 40 mg PO DAILY RF: 0 Discharge Orders: Discharge Order (Routine); Ordered 11/22/19 Ordered By: Glynn Ellis Referrals: Moustapha Victor MD [Physician] - 2 weeks Minerva Robb MD [Physician] - 02/26/20 9:15 am Discharge Diet: Diabetic Discharge Activity: Use walker/crutches as instructed and As per PT/OT instructions Discharge Attestations Time Spent in Discharge Care*: greater than 30 min Specific Discharge Activities: Specific discharge activities: educating patient and discussing with nurse case manager/social workers/dc planners Time Spent in Smoking Cessation: Time spent discussing smoking cessation with patient: 3 to 10 minutes Quality Metrics Clinical Quality Measures During this hospital stay, did patient experience: None Coding Level of Care Code Established 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 for Armida Mojica Patient Type Established History Comprehensive Exam Comprehensive Medical Decision Making High Complexity Diagnoses Encephalopathy acute G93.40 Metabolic acidosis E87.2 Acute kidney injury superimposed on CKD N17.9; N18.9 Rhabdomyolysis M62.82 Ischemia of right lower extremity I99.8 H/O mitral valve repair Z98.890 Hx of CABG Z95.1 CHF (congestive heart failure) I50.22 Heart failure type: systolic Heart failure chronicity: chronic Diabetes 1.5, managed as type 2 E13.9 Essential hypertension I10 Status post below knee amputation of right lower extremity Z89.511 Shock liver K72.00 Aortic insufficiency with aortic stenosis I35.2 Subclavian arterial stenosis I77.1 Mitral regurgitation I34.0 PAD (peripheral artery disease) I73.9 Hyperlipidemia E78.5 Ischemic cardiomyopathy I25.5 Tobacco abuse Z72.0 COPD (chronic obstructive pulmonary disease) J44.9
--- NOTE | 2019-11-22 12:56 | PC.NURSE ---
Dr Ellis put discharge order in for patient. Notified Dr Zelaya. She said she doesn't need to see patient prior to discharge. SS called and transport is being set up for patient.
--- NOTE | 2019-11-22 13:29 | PC.NURSE ---
called [facility] [phone], gave report to ELYSIA Hawkins
--- NOTE | 2019-11-22 13:46 | PC.NURSE ---
Called patient's family Adamaris Boyd and let her know patient is going to SNF today.
== END 2019-11-22 15:28 | disposition skilled nursing facility (03) | DRG 239 ==
LOC: CSU 09:25 → ICU 11-09 08:56 → MEDSURG 11-10 12:54 → ICU 11-13 11:34 → MEDSURG 11-18 18:45
PROVIDERS: Anesthesiology; Internal Medicine; Internal Medicine Cardiovascular Disease; Student in an Organized Health Care Education/Training Program; Thoracic Surgery (Cardiothoracic Vascular Surgery); Admitting Provider Internal Medicine Cardiovascular Disease; PCP Internal Medicine; Visit Provider Internal Medicine Cardiovascular Disease
PROC: B41G1ZZ Fluoroscopy of Left Lower Extremity Arteries using Low Osmolar Contrast (ICD-10-PCS; principal; 2019-11-08 07:00)
PROC: 0Y6F0ZZ Detachment at Right Knee Region, Open Approach (ICD-10-PCS; principal; 2019-11-08 13:00)
PROC: (CPT 27880; principal; 2019-11-14 18:45)
DX: E11.59 Type 2 diabetes mellitus with other circulatory complications (principal); K72.00 Acute and subacute hepatic failure without coma; I50.22 Chronic systolic (congestive) heart failure; N17.9 Acute kidney failure, unspecified; M62.82 Rhabdomyolysis; G93.40 Encephalopathy, unspecified; E87.2 Acidosis; I13.0 Hypertensive heart and chronic kidney disease with heart failure and stage 1 through stage 4 chronic kidney disease, or unspecified chronic kidney disease; Z95.1 Presence of aortocoronary bypass graft; I35.2 Nonrheumatic aortic (valve) stenosis with insufficiency; I77.1 Stricture of artery; E11.51 Type 2 diabetes mellitus with diabetic peripheral angiopathy without gangrene; E78.5 Hyperlipidemia, unspecified; I25.5 Ischemic cardiomyopathy; J44.9 Chronic obstructive pulmonary disease, unspecified; I27.20 Pulmonary hypertension, unspecified; I34.0 Nonrheumatic mitral (valve) insufficiency; D64.9 Anemia, unspecified; I99.8 Other disorder of circulatory system; E11.22 Type 2 diabetes mellitus with diabetic chronic kidney disease; Z79.82 Long term (current) use of aspirin; S50.01XA Contusion of right elbow, initial encounter; W08.XXXA Fall from other furniture, initial encounter; Y92.230 Patient room in hospital as the place of occurrence of the external cause; Z95.2 Presence of prosthetic heart valve; Z87.891 Personal history of nicotine dependence
CPT/HCPCS: 12345; 36415; 36416; 36430; 36600; 51702; 70450; 71045; 73080; 75625; 75710; 76000; 76700; 76770; 76857; 77001; 80048; 80051; 80053; 80061; 81001; 82140; 82247; 82248; 82550; 82570; 82728; 82803; 82810; 82962; 82977; 83010; 83036; 83540; 83550; 83615; 83735; 83880; 83986; 84100; 84300; 85025; 85049; 85384; 85610; 85730; 86705; 86706; 86709; 86803; 86850; 86900; 86920; 86927; 87086; 87340; 88307; 92507; 92523; 92526; 92610; 93005; 93998; 94002; 94003; 94799; 96372; 96375; 97110; 97116; 97161; 97167; 97530; 97535; C1750; C1769; C1887; C1894; G0378; J0330; J0360; J0690; J0696; J1630; J1644; J1650; J1815; J1885; J2001; J2020; J2250; J2270; J2370; J2405; J2543; J2704; J2720; J3010; J3480; J3490; J7030; P9016; P9017; Q0163; Q3014; Q9967

== ENCOUNTER 2019-12-26 14:32 | Outpatient (CLI) | payer MEDICARE, OTHER, SELFPAY | END 2019-12-26 14:33 | disposition home or self-care (01) | LOC: WOUND 14:33 | PROVIDERS: PCP Internal Medicine; Visit Provider Thoracic Surgery (Cardiothoracic Vascular Surgery) | DX: E11.622 Type 2 diabetes mellitus with other skin ulcer (principal); L97.812 Non-pressure chronic ulcer of other part of right lower leg with fat layer exposed; Z89.511 Acquired absence of right leg below knee | CPT/HCPCS: 11043; 87070; 87077; 87186; G0463 ==

== ENCOUNTER 2019-12-26 16:26 | Inpatient (IN) | payer MEDICARE, OTHER, SELFPAY ==
[2019-12-26 16:56] VITALS: BMI 23.8
--- NOTE | 2019-12-26 17:39 | XRR_ITS ---
PROCEDURE INFORMATION: Exam: XR Chest, 1 View Exam date and time: 12/26/2019 7:54 PM Age: 74 years old Clinical indication: Device placement; Other: Cabg; Prior surgery; Surgery date: Post-operative (0-2 days); Additional info: Post op cabg TECHNIQUE: Imaging protocol: XR of the chest Views: 1 view. COMPARISON: CR XR chest 1V portable [id number] 11/16/2019 8:11 AM FINDINGS: Lungs: Mild interstitial prominence without acute airspace disease. Pleural space: No pleural effusion. Heart/Mediastinum: Mitral valve replacement. Cardiac silhouette upper limits of normal in size. Bones/joints: Osteopenia and degenerative change. Other findings: Interval removal of support lines. XR/XR chest 1V portable [id number] IMPRESSION: No acute postoperative airspace or pleural disease.
--- NOTE | 2019-12-26 18:18 | P.HP_ITS ---
Providers/Chief Complaint Admitting Physician: Moustapha Victor MD Primary Care Provider: Amber Esquivel MD History of Present Illness Shira Serrato is a 74 year old female whom I performed an emergent right femoral- popliteal bypass on November 07 following prior intervention by Dr. Ellis earlier that day for known occlusion of the right SFA. Due to a dissection and subsequent acute occlusion and ongoing ischemia with skin changes to the right leg, I performed an urgent surgical bypass. Unfortunately, this subsequently failed and on November 13 she underwent right below-knee amputation after developing acute renal insufficiency, rhabdomyolysis, and mental status changes from ongoing ischemia and presumed sepsis. She had a protracted hospital course with sepsis recovered and was discharged on November 21. She is been followed in wound care clinic where she continues to have slowly but increasing pain of the right BKA. I removed the sutures earlier today and not surprisingly, there is at least superficial dehiscence of the BKA of the lateral aspect. I have recommended direct admission for IV antibiotics and subsequent reexploration in the operating room tomorrow with appropriate anesthesia due to the painful amputation site. After arrival to the [facility] she appears to be more comfortable and conversing freely with the staff and myself. Vital signs are stable and she remains afebrile. Review of Systems Narrative: No fever or known Covid exposure. No cough or dyspnea. Const: Denies: fever(s), chills, change in appetite, change in weight, fatigue or night sweats Eyes: Denies: change in vision or blurry vision ENMT: Denies: odynophagia or hoarseness Card: Denies: chest pain, palpitations, irregular heart rhythm or edema Resp: Denies: dyspnea or productive cough GI: Denies: abdominal pain, nausea, vomiting, dysphagia, heartburn or change in bowel habits : Denies: dysuria, urinary frequency, urinary urgency or urinary hesitancy Musc: Denies: extremity pain (Her right BKA is tender and generally painful though no substantial erythema is noted.) Skin/Breast: Denies: rash Neuro: Denies: headache(s), numbness in extremities, weakness in extremities or sensory changes Psych: Denies: anxiety, depression or change in appetite Endo: Denies: polyuria, polydipsia or cold intolerance Pierre/Lymph: Denies: easy bruising, easy bleeding, petechiae or enlarged lymph nodes Medications/Allergies Home Medications Medication Instructions Recorded Confirmed Last Taken Type allopurinol 300 mg tablet 300 mg PO DAILY tab 05/31/19 12/26/19 12/26/19 08:00 History aspirin 81 mg tablet,delayed 81 mg PO DAILY tab 05/31/19 12/26/19 12/26/19 08:00 History release atorvastatin 40 mg tablet 40 mg PO BEDTIME tab 05/31/19 12/26/19 12/25/19 History bumetanide 2 mg tablet 2 mg PO DAILY tab 05/31/19 12/26/19 12/26/19 History citalopram 20 mg tablet 20 mg PO DAILY tab 05/31/19 12/26/19 12/26/19 History omeprazole 40 mg capsule,delayed 40 mg PO DAILY cap 05/31/19 12/26/19 12/26/19 History release ProAir HFA 2 puff PO PRN 07/08/19 12/26/19 11/07/19 08:00 History 2 puff amlodipine 10 mg PO DAILY #30 tab 11/22/19 12/26/19 12/26/19 08:00 Rx hydralazine 50 mg PO TID #90 tab 11/22/19 12/26/19 12/26/19 Rx metoprolol tartrate 50 mg PO BIDWM #0 tab 11/22/19 12/26/19 12/26/19 Rx modified lanolin [Lanolin (HPA)] 1 applic TOPICAL PRN PRN #1 g 11/22/19 12/26/19 Unknown Rx hydrocodone-acetaminophen 1 tab PO Q6H PRN 12/26/19 12/26/19 Unknown History insulin glargine 45 unit SUBCUT QPM 12/26/19 12/26/19 12/25/19 History levofloxacin [Levaquin] See Rx Instructions .ROUTE .COMPLEX 12/26/19 12/26/19 Unknown History Allergies Allergy/AdvReac Type Severity Reaction Status Date / Time latex Allergy Unknown Unknown Verified 11/08/19 06:40 PFSH Acute PFSH: Medical History (Updated 12/26/19 @ 15:51 by Moustapha Victor MD) Aortic insufficiency with aortic stenosis CHF (congestive heart failure) COPD (chronic obstructive pulmonary disease) Diabetes 1.5, managed as type 2 Essential hypertension Hyperlipidemia Ischemia of right lower extremity Ischemic cardiomyopathy Mitral regurgitation PAD (peripheral artery disease) Pulmonary HTN Subclavian arterial stenosis Tobacco abuse Surgical History H/O mitral valve repair Hx of CABG S/P appendectomy S/P carpal tunnel release Status post below knee amputation of right lower extremity Status post mitral valve annuloplasty Family History Mother CAD (coronary artery disease) Father Diabetes Other Cancer Social History Smoking and tobacco status: former smoker Quit status (tobacco): has quit using tobacco Year quit tobacco: 2019 - 1PPD hx x 40 Years Alcohol intake: never Lives independently: Yes Household members: none Marital status: / Current occupational status: retired History of recent travel: No Current gender identity: Female Physical Exam HENMT: COMMON NORMALS: normocephalic Neck/C-Spine: COMMON NORMALS: full ROM, no lymphadenopathy and No carotid bruits Lymph: LYMPHATIC: no lymphadenopathy noted Chest: COMMONS NORMALS: normal palpation of entire chest wall Cardio: COMMON NORMALS: regular rate, regular rhythm, S1 normal heart sound present, No gallops present (Cardio) and No murmurs present (Cardio) PERIPHERAL PULSES: femoral pulses present Extremity: OTHER: There is superficial breakdown along the incision line of the right below-knee amputation following suture removal earlier today. There is superficial suppuratiion. Cultures were taken in the wound care clinic. Neuro: COMMON NORMALS: patient oriented x3 and no sensory deficits noted SENSORIUM/ORIENTATION: Yes alert, Yes oriented to person, Yes oriented to place and Yes oriented to time Psych: ATTITUDE: Yes calm and Yes engaged A&P Assessment and plan (1) Dehiscence of surgical wound: 6-week status post right BKA with subsequent superficial dehiscence along the incision line with concerns of PVD and ischemia complicating wound healing. I will plan to proceed operating room tomorrow for formal exploration and debridement as required. There is a substantial possibility that a wound VAC will be required. The concerns for possible need to revise the BKA to an AKA at some point was also discussed and she states understanding. Status: Acute Attestations Medical Necessity Statement*: BKA incision line dehiscence Time Spent in Patient Care: Greater than 35 minutes Coding Level of Care Code Acute Table Games Supervisor for Chg Fwd Diagnoses Dehiscence of surgical wound T81.31XA
[2019-12-26 18:20] LABS: Glucose Point of Care 100 mg/dL (70-110)
[2019-12-26 18:36] VITALS: RESP 18
[2019-12-26] MEDS: sodium chloride 0.45% 1,000 ML 100 ML IV (18:36)
[2019-12-26] MEDS: piperacillin-tazobactam 3.375 GM in sodium chloride 0.9% (plus) 50 ML IV (18:36)
[2019-12-26] MEDS: morphine 4 mg/mL SDV 1 mL 2 MG IVP ×2 (18:36→22:25)
[2019-12-26 19:31] LABS: Basophils % 0.2 %; Eosinophils % 0.4 %; Hematocrit 31.5 % (37.0-47.0); Hemoglobin 9.6 g/dL (11.5-15.3); Lymphocytes # 0.7 10^3/uL (0.8-4.8); Lymphocytes % 7.3 %; Mean Corpuscular HGB Conc 30.5 g/dL (30.0-36.0); Mean Corpuscular Hemoglobin 27.7 pg (28.0-34.0); Mean Platelet Volume 10.5 fL (7.4-10.4); Monocytes # 0.9 10^3/uL (0.2-0.9); Monocytes % 9.3 %; Neutrophils # 8.12 10^3/uL (1.8-7.7); Neutrophils % 82.4 %; Nucleated Red Blood Cells % 0 %; Platelet Count 335 10^3/cmm (130-400); Red Blood Count 3.46 10^6/uL (4.1-5.3); Red Cell Distribution Width 15.2 % (12.1-15.1); White Blood Count 9.9 10^3/uL (4.0-10.0)
[2019-12-26 19:52] VITALS: BP 90/57; PULSE 89; RESP 17; TEMP 36.4; O2SAT 96
[2019-12-26 19:55] LABS: Anion Gap 15.6 (5-19); Blood Urea Nitrogen 50 mg/dL (8-23); Calcium 9.1 mg/dL (8.5-10.5); Carbon Dioxide 23 mmol/L (22-29); Chloride 97 mmol/L (98-107); Glucose 123 mg/dL (65-115); Osmolality Calculated 274 mOsm/kg (285-295); Potassium 3.6 mmol/L (3.5-5.1); Sodium 132 mmol/L (136-145)
[2019-12-26 20:21] LABS: Glucose Point of Care 169 mg/dL (70-110)
[2019-12-26 20:27] LABS: INR 1.09 (0.8-1.2)
[2019-12-26] MEDS: hyDRALAzine 50 mg Tablet PO (20:31)
[2019-12-26] MEDS: atorvastatin 40 mg Tablet PO (20:31)
[2019-12-26 22:16] VITALS: BP 88/52
[2019-12-26] MEDS: vancomycin 1,000 MG in sodium chloride 0.9% 250 ML 250 MG IV (22:22)
[2019-12-26 22:25] VITALS: RESP 28
[2019-12-26 23:37] VITALS: BP 73/50; PULSE 96; RESP 18; TEMP 36.7; O2SAT 95
[2019-12-27] VITALS (20 sets, daily range): BP systolic 76–158; BP diastolic 41–74; PULSE 74–99; RESP 16–28; TEMP 36.4–37.6; O2SAT 92–100
[2019-12-27] MEDS: piperacillin-tazobactam 3.375 GM in sodium chloride 0.9% (plus) 50 ML IV ×2 (01:28→18:53)
[2019-12-27] MEDS: morphine 4 mg/mL SDV 1 mL 2 MG IVP ×3 (01:34→15:50)
[2019-12-27] MEDS: sodium chloride 0.45% 1,000 ML 100 ML IV (03:35)
--- NOTE | 2019-12-27 05:53 | PM.PN ---
Subjective Subjective: Interval history: Nursing service reports pain under good control overnight. Patient does become a bit hypotensive immediately after receiving narcotic but rapidly recovers. I have reviewed lab this morning and note elevation of her creatinine to 1.9 from a prior reading of 1.1 just under 2 months ago. I will change normal saline to Ringer's lactate and increase rate. Vitals/I&O/Wt Last Vital Signs Temp 97.6 F 12/27/19 03:54 Pulse 98 12/27/19 03:54 Resp 26 H 12/27/19 05:22 BP 96/56 12/27/19 04:22 Pulse Ox 95 12/27/19 03:54 12/26/19 12/26/19 12/27/19 14:59 22:59 06:59 Intake Total 196.875 / 196.875 751.458 / 948.333 Output Total 300 / 300 1200 / 1500 Balance -103.125 / -103.125 -448.542 / -551.667 Weight last 48 hrs Weight 122 lb 3.2 oz Weight 122 lb 2 oz Physical Exam Resp: COMMON NORMALS: normal respiratory effort and clear to auscultation bilaterally EFFORT & INSPECTION: Yes able to speak in complete sentences AUSCULTATION: clear to auscultation bilaterally Cardio: COMMON NORMALS: regular rate, regular rhythm and S1 normal heart sound present RATE: regular rate RHYTHM: regular rhythm HEART SOUNDS: S1 normal heart sound present Extremity: OTHER: Right BKA dressing remains in place. Will plan for operative exploration and debridement later today. Data : 12/26/19 19:17 12/26/19 19:17 A&P Assessment and plan (1) Dehiscence of surgical wound: Will plan for operative debridement and exploration later today. I discussed very frankly with Ms. Serrato yesterday that depending upon her findings and her early response to treatment, consideration for revision to AKA may be needed if there is evidence of continuing ischemic changes at this level. Status: Acute (2) Acute renal insufficiency: I will seek consultation from our hospitalist colleagues for her acute rise in creatinine within the past 2 months. I will obtain a random urine sodium and urine creatinine. Status: Acute Attestations Medical Necessity Statement*: Dehiscence of her right BKA with evidence of perhaps ongoing ischemia. Acute renal insufficiency. Hospital stay is expected to cross 2 midnights Time Spent in Patient Care: less than 15 minutes Coding Level of Care Code Acute Histology Supervisor for Chg Fwd Diagnoses Dehiscence of surgical wound T81.31XA Acute renal insufficiency N28.9
[2019-12-27 06:29] LABS: Glucose Point of Care 91 mg/dL (70-110)
--- NOTE | 2019-12-27 08:21 | PC.CHAP ---
Pastoral Care Encounter/Spiritual Assessment Type of Contact [] Declined process designer visit [] Patient/Family/Request visit [] Outpatient visit [] Follow-up visit [] Physician referral [] Code/Alert [x] Routine visit [] Staff referral [] Actively dying [x] Patient sleeping [] Family support [] [] Out of room [] Palliative care [] [] Receiving care in room [] Pre-surgical visit [] Trauma [] Long length of stay [] ICU visit [] Other: Relational/Emotional Strength [] Patient feels connected with others/family/visitors/staff [] Distress [] Loneliness/isolation [] Abandonment Spirituality of Patient [] Person of Kena [] Attends Baptist of their Kena [] Believes in Prayer [] Reads Bible or Uatsdin materials [] There are Spiritual issues to be addressed Orange Picker Interventions [x] Prayer [] Active listening [] Non-anxious presence [] Spiritual/emotional support [] Crisis/trauma care [] Spiritual counseling [] Bereavement support [] Provided bereavement packet [] Provided Bible/devotional materials [] Provided toy/stuffed animal, coloring book to patient or family member [] Provided Communion [] Anointing/[place] [] Salvation [x] Completed spiritual assessment [] Other: Impact on Illness or Injury [] Angry [] Fearful [] Anxious [] Often cries [] Exhaustion [] Unable to work [] Unable to attend sikh [] Unable to walk/stand [] Unable to read [] Unable to drive [] Unable to eat/drink [] Unable to sleep [] Unable to be with family [] Patient intubated [] Other: Summary Time spent with patient
--- NOTE | 2019-12-27 08:49 | PC.NURSE ---
surgery pt down to surgery.
[2019-12-27] MEDS: sodium chloride 0.9% 1,000 ML 30 ML IV (09:23)
--- NOTE | 2019-12-27 09:37 | ECG_ITS ---
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 Measurements Intervals Ramsay Rate: 95 P: 64 RI: 209 QRS: 20 QRSD: 71 T: 92 QT: 365 QTc: 460 Interpretive Statements SINUS RHYTHM WITH OCCASIONAL VENTRICULAR PREMATURE COMPLEXES PROLONGED QT interval SEPTAL MYOCARDIAL INFARCTION [40+ ms Q WAVE IN V1/V2], OF INDETERMINATE AGE Compared to ECG 11/13/2019 12:28:34 Ventricular premature complex(es) now present Myocardial infarct finding now present Electronically Signed On 12-27-2019 10:50:17 CDT by Milton Jamil M.D. [email or web address] [id number]
--- NOTE | 2019-12-27 10:08 | P.ANESASSM_ITS ---
Pre-Anesthetic Assessment Pre-Anesthetic Assessment: Height/Weight: Height 1.52 m Weight 55.429 kg Temp Pulse Resp BP Pulse Ox 98.9 F 98 20 H 87/59 97 12/27/19 08:50 12/27/19 08:50 12/27/19 08:50 12/27/19 08:50 12/27/19 08:50 Preop Diagnosis: Acute ischemia right lower extremity with severe peripheral vascular disease Proposed Procedure: Operation Date: 12/27/19 10:40 Proposed Procedures p Debridement of right BKA(Right) - Moustapha Victor MD Familial anesthetic complications: None Last intake: Intake Last Liquid Date 12/26/19 Last Liquid Time 23:00 Last Solid Date 12/26/19 Last Solid Time 19:00 Social: Social History: Tobacco and No alcohol Airway: Cervical ROM: WNL MP: 4 Dentition: False and Full Pulmonary: Pulmonary: COPD CV/HEM: CV/HEM: CAD, CHF, HTN and PVD Comments: HX MVR, AI w/ aortic stenosis HX CABG : : Chronic renal Insufficiency Metabolic: Metabolic: DM Anesthetic Plan: ASA status: 4 Anesthesia: MAC Risk of > 500 ml blood loss (7ml/kg in children): No Meds/Allergies Current Medications: Current Medications Generic Name Dose Route Start Last Admin Trade Name Freq PRN Reason Stop Dose Admin Atorvastatin Calci um 40 mg 12/26/19 21:00 12/26/19 20:31 Lipitor PO 40 mg BEDTIME QI Administration Hydralazine HCl 50 mg 12/26/19 21:00 12/26/19 20:31 Apresoline PO 50 mg TID QI Administration Piperacillin Sod/T azobactam 50 mls @ 12.5 mls /hr 12/26/19 18:00 12/27/19 01:28 Sod 3.375 gm/ So dium Chloride IV 12.5 mls/hr Q8H QI Administration Protocol Vancomycin HCl 1,0 00 mg/ 250 mls @ 250 mls /hr 12/26/19 23:00 12/26/19 22:22 Sodium Chloride IV 250 mls/hr Q48H QI Administration Sodium Chloride 1,000 mls @ 30 ml s/hr 12/27/19 09:15 12/27/19 09:23 Sodium Chloride 0.9% IV 12/28/19 09:14 30 mls/hr .Q24H QI Administration Insulin Aspart 0 unit 12/26/19 18:00 12/27/19 07:40 Novolog SUBCUT Not Given WM&BEDTIME QI Protocol Morphine Sulfate 2 mg 12/26/19 17:39 12/27/19 05:22 Morphine IVP 2 mg Q1H PRN Administration SEVERE PAIN PFSH Anesthesia PFSH: Medical History (Updated 12/27/19 @ 05:55 by Moustapha Victor MD) Aortic insufficiency with aortic stenosis CHF (congestive heart failure) COPD (chronic obstructive pulmonary disease) Diabetes 1.5, managed as type 2 Essential hypertension Hyperlipidemia Ischemia of right lower extremity Ischemic cardiomyopathy Mitral regurgitation PAD (peripheral artery disease) Pulmonary HTN Subclavian arterial stenosis Tobacco abuse Surgical History H/O mitral valve repair Hx of CABG S/P appendectomy S/P carpal tunnel release Status post below knee amputation of right lower extremity Status post mitral valve annuloplasty Family History Mother CAD (coronary artery disease) Father Diabetes Other Cancer Social History Smoking and tobacco status: former smoker Quit status (tobacco): has quit using tobacco Year quit tobacco: 2020 - 1PPD hx x 40 Years Alcohol intake: never Lives independently: Yes Household members: none Marital status: / Current occupational status: retired History of recent travel: No Current gender identity: Female Data Anesthesia CBC & Chem 7: 12/26/19 19:17 12/26/19 19:17 Other Labs: Laboratory Results - last 48 hr 12/26/19 12/26/19 12/26/19 18:16 19:17 19:17 WBC 9.9 RBC 3.46 L Hgb 9.6 L Hct 31.5 L MCV 91.0 MCH 27.7 L MCHC 30.5 RDW 15.2 H Plt Count 335 MPV 10.5 H Neut % (Auto) 82.4 Lymph % (Auto) 7.3 Evangeline % (Auto) 9.3 Eos % (Auto) 0.4 Baso % (Auto) 0.2 Neut # (Auto) 8.12 H Lymph # (Auto) 0.7 L Evangeline # (Auto) 0.9 Eos # (Auto) 0.0 Baso # (Auto) 0.0 Nucleated RBC % (auto) 0 Nucleated RBCs # 0.0 PT 14.40 INR 1.09 Sodium Potassium Chloride Carbon Dioxide Anion Gap BUN Creatinine GFR Calculation Glucose POC Glucose 100 Calculated Osmolality Calcium Blood Type Rho(D) Type Antibody Screen Crossmatch 12/26/19 12/26/19 12/26/19 19:17 19:17 19:48 WBC RBC Hgb Hct MCV MCH MCHC RDW Plt Count MPV Neut % (Auto) Lymph % (Auto) Evangeline % (Auto) Eos % (Auto) Baso % (Auto) Neut # (Auto) Lymph # (Auto) Evangeline # (Auto) Eos # (Auto) Baso # (Auto) Nucleated RBC % (auto) Nucleated RBCs # PT INR Sodium 132 L Potassium 3.6 Chloride 97 L Carbon Dioxide 23 Anion Gap 15.6 BUN 50 H Creatinine 1.9 H GFR Calculation Not Reportable Glucose 123 H POC Glucose 169 Calculated Osmolality 274 L Calcium 9.1 Blood Type A Positive Rho(D) Type Positive Antibody Screen Negative Crossmatch See Detail 12/27/19 06:10 WBC RBC Hgb Hct MCV MCH MCHC RDW Plt Count MPV Neut % (Auto) Lymph % (Auto) Evangeline % (Auto) Eos % (Auto) Baso % (Auto) Neut # (Auto) Lymph # (Auto) Evangeline # (Auto) Eos # (Auto) Baso # (Auto) Nucleated RBC % (auto) Nucleated RBCs # PT INR Sodium Potassium Chloride Carbon Dioxide Anion Gap BUN Creatinine GFR Calculation Glucose POC Glucose 91 Calculated Osmolality Calcium Blood Type Rho(D) Type Antibody Screen Crossmatch Cardiac Studies: No Data to Display
--- NOTE | 2019-12-27 10:34 | ANES.PROC ---
Anesthesia Procedures Procedure/Date: 12/27/19 Nerve Block ^: Nerve Block 1: Main Anesthesia: other Time Out Performed: Yes Consent: from patient, risks and benefits reviewed and patient agrees to proceed Nerve block location: popliteal (R) Anesthesia monitors applied: pulse oximetry, BP cuff and oxygen Nerve block position: lateral Anesthetic Used: ropivicaine 0.5% Amount of anesthesia used (mL): 15 Ultrasound used to: recognize landmarks Nerve Stimulator Used?: No Interscalene/Femoral BLK: 4 stimuplex 21 g needle used for position and inplane approach and visualize local anesthetic spread Injection: neg aspiration of heme Patient Tolerated Procedure: well Complications: none Additional Comments: Patient difficult visualization d/t prior surgery Nerve Block 2: Main Anesthesia: other Time Out Performed: Yes Consent: from patient, risks and benefits reviewed and patient agrees to proceed Nerve block location: femoral (R) Anesthesia monitors applied: pulse oximetry, BP cuff and oxygen Nerve block position: supine Anesthetic Used: ropivicaine 0.5% Amount of anesthesia used (mL): 15 Ultrasound used to: recognize landmarks Nerve Stimulator Used?: No Interscalene/Femoral BLK: 4 stimuplex 21 g needle used for position and inplane approach Injection: neg aspiration of heme Patient Tolerated Procedure: well Complications: none Additional Comments: patient difficult visualization d/t prior surgery
--- NOTE | 2019-12-27 11:00 | PC.RESP ---
Pulmonary Rehab information sent to patient.
[2019-12-27] MEDS: vancomycin 1,000 MG SDV 1000 MG IRRIGATION (11:02)
[2019-12-27 12:23] LABS: Glucose Point of Care 79 mg/dL (70-110)
[2019-12-27] MEDS: lactated ringers 1,000 ML 150 ML IV (12:48)
--- NOTE | 2019-12-27 13:51 | PM.OP ---
Operative Report Date of procedure: December 27, 2019 Pre-op Diagnosis: Acute ischemia right lower extremity with severe peripheral vascular disease Post-op diagnosis: same Procedure Done: Incision, drainage, and debridement of right below-knee amputation Specimens removed/disposition: Wound cultures x2 Surgeon: Moustapha Victor Anesthesia: MAC Complications: None Condition: stable Disposition: PACU Brief History: 74-year-old female status post right below-knee amputation on November 13 for ongoing ischemia after attempted percutaneous revascularization followed by attempted right femoropopliteal bypass. Patient has been followed in wound care services but has developed progressive breakdown of the right BKA incision line. I recommended surgical exploration and debridement. Details and risk of the procedure were carefully and frankly discussed. Proper consents have been reviewed and signed. Procedure: Ms. Serrato was taken operating room theater where she underwent IV conscious sedation anesthesia monitoring. Her entire right lower extremity from the knee distally was sterilely prepped and draped. Previous areas of the BKA incision line which have been opened in wound care services were explored and communicating areas of space were connected by incising through the incision line with a #10 scalpel blade or utilizing Metzenbaum scissors. After full exploration this consisted of opening the entire incision line through the superficial layer down to the fascia layer which appeared to remain intact. 0 Vicryl suture was removed. Deep cultures were taken. Once completed, the entire wound was irrigated with antibiotic laden solution. All devitalized tissue was sharply resected. After completion of this, along with confirmation of hemostasis, wet-to-dry dressing was then applied. She tolerated procedure well was awakened from IV conscious sedation and transferred to the postoperative care unit in stable condition. I did breastfeeding peer counselor with her family by phone at completion of the procedure.
--- NOTE | 2019-12-27 14:01 | PM.CONSULT ---
Providers/Reason For Consult Consulting Physican/Specialty*: Dr. Lowery/internal medicine Reason for Consult*: Acute kidney injury Requesting Physcian: Dr. Victor Attending Physician: Moustapha Victor MD Primary Care Provider: Amber Esquivel MD History of Present Illness History of Present Illness Shira Serrato is a 74 year old female with past medical history of aortic insufficiency with aortic stenosis, congestive heart failure both systolic and diastolic type, COPD, type 2 diabetes mellitus, hypertension, hyperlipidemia, ischemia of right lower extremity leading to right BKA recently, ischemic cardiomyopathy, mitral regurgitation, peripheral arterial disease, post CABG, post mitral valve repair who follows up with Dr. Victor as an outpatient in wound clinic. Recently on November 07 patient had an emergent right femoral popliteal bypass following intervention earlier that day for known occlusion of right SFA. During that hospitalization due to a dissection and subsequent acute occlusion and ongoing ischemia with skin changes to the right leg, I performed an urgent surgical bypass. Unfortunately, this subsequently failed and on November 13 she underwent right below-knee amputation after developing acute renal insufficiency, rhabdomyolysis, and mental status changes from ongoing ischemia and presumed sepsis. She had a protracted hospital course with sepsis recovered and was discharged on November 21. She was discharged home on Rocephin after that she has been using Bactrim DS for 10 days. Since discharge patient has been having worsening pain in her BKA so was assessed by Dr. Victor at his office in wound clinic and was admitted yesterday for dehiscence of BKA at the lateral surface. Patient underwent Incision, drainage, and debridement of right below-knee amputation today. Her blood work on admission showed a white count of 9.9, hemoglobin of 9.6, sodium of 132, chloride of 97, creatinine of 1.9 with a BUN of 50 and baseline creatinine around 1.3. On examination patient is sitting comfortably in bed states that pain is well controlled at present. Denies of any nausea, vomiting, headache, palpitations. She denies of having any dysuria, diarrhea, headache, rash, itching. Hospitalist service was consulted for ongoing TRANG. Review of Systems General: Reports: 10 or more systems reviewed and unremarkable except in HPI and below Narrative: No fever or known Covid exposure. No cough or dyspnea. Const: Denies: fever(s), chills, change in appetite, change in weight, fatigue or night sweats Eyes: Denies: change in vision, blurry vision or photophobia ENMT: Denies: enlarged tonsils, odynophagia or hoarseness Card: Denies: chest pain, palpitations, irregular heart rhythm or edema Resp: Denies: dyspnea or productive cough GI: Denies: abdominal pain, nausea, vomiting, dysphagia, heartburn or change in bowel habits : Denies: dysuria, urinary frequency, urinary urgency or urinary hesitancy Musc: Denies: extremity pain (Her right BKA is tender and generally painful though no substantial erythema is noted.) Skin/Breast: Denies: rash Neuro: Denies: headache(s), numbness in extremities, weakness in extremities or sensory changes Psych: Denies: anxiety, depression or change in appetite Endo: Denies: polyuria, polydipsia or cold intolerance Pierre/Lymph: Denies: easy bruising, easy bleeding, petechiae or enlarged lymph nodes All/Imm: Denies: acute wheezing Meds/Allergies Home Medications and Allergies Home Medications Medication Instructions Recorded Confirmed Last Taken Type allopurinol 300 mg tablet 300 mg PO DAILY tab 05/31/19 12/26/19 12/26/19 08:00 History aspirin 81 mg tablet,delayed 81 mg PO DAILY tab 05/31/19 12/26/19 12/26/19 08:00 History release atorvastatin 40 mg tablet 40 mg PO BEDTIME tab 05/31/19 12/26/19 12/25/19 History bumetanide 2 mg tablet 2 mg PO DAILY tab 05/31/19 12/26/19 12/26/19 History citalopram 20 mg tablet 20 mg PO DAILY tab 05/31/19 12/26/19 12/26/19 History omeprazole 40 mg capsule,delayed 40 mg PO DAILY cap 05/31/19 12/26/19 12/26/19 History release ProAir HFA 2 puff PO PRN 07/08/19 12/26/19 11/07/19 08:00 History 2 puff amlodipine 10 mg PO DAILY #30 tab 11/22/19 12/26/19 12/26/19 08:00 Rx hydralazine 50 mg PO TID #90 tab 11/22/19 12/26/19 12/26/19 Rx metoprolol tartrate 50 mg PO BIDWM #0 tab 11/22/19 12/26/19 12/26/19 Rx modified lanolin [Lanolin (HPA)] 1 applic TOPICAL PRN PRN #1 g 11/22/19 12/26/19 Unknown Rx hydrocodone-acetaminophen 1 tab PO Q6H PRN 12/26/19 12/26/19 Unknown History insulin glargine 45 unit SUBCUT QPM 12/26/19 12/26/19 12/25/19 History levofloxacin [Levaquin] See Rx Instructions .ROUTE .COMPLEX 12/26/19 12/26/19 Unknown History Allergies Allergy/AdvReac Type Severity Reaction Status Date / Time latex Allergy Unknown Unknown Verified 11/08/19 06:40 Current Medications Current Medications Generic Name Dose Route Start Last Admin Trade Name Freq PRN Reason Stop Dose Admin Allopurinol 300 mg 12/27/19 09:00 12/27/19 12:41 Zyloprim PO Not Given DAILY [facility] Aspirin 81 mg 12/27/19 09:00 12/27/19 12:41 Aspirin Chewable PO Not Given DAILY [facility] Atorvastatin Calcium 40 mg 12/26/19 21:00 12/26/19 20:31 Lipitor PO 40 mg BEDTIME [facility] Administration Bumetanide 2 mg 12/27/19 09:00 12/27/19 12:41 Bumex PO Not Given DAILY [facility] Citalopram Hydrobromide 20 mg 12/27/19 09:00 12/27/19 12:40 Celexa PO Not Given DAILY [facility] Hydralazine HCl 50 mg 12/26/19 21:00 12/27/19 12:40 Apresoline PO Not Given TID [facility] Piperacillin Sod/Tazobactam 50 mls @ 12.5 mls/hr 12/26/19 18:00 12/27/19 12:43 Sod 3.375 gm/ Sodium Chloride IV Not Given Q8H QI Protocol Vancomycin HCl 1,000 mg/ 250 mls @ 250 mls/hr 12/26/19 23:00 12/26/19 22:22 Sodium Chloride IV 250 mls/hr Q48H QI Administration Lactated Ringer's 1,000 mls @ 150 mls/hr 12/27/19 06:00 12/27/19 12:48 Lactated Ringers IV 150 mls/hr .Q6H40M QI Administration Sodium Chloride 1,000 mls @ 30 mls/hr 12/27/19 09:15 12/27/19 09:23 Sodium Chloride 0.9% IV 12/28/19 09:14 30 mls/hr .Q24H QI Administration Insulin Aspart 0 unit 12/26/19 18:00 12/27/19 07:40 Novolog SUBCUT Not Given WM&BEDTIME QI Protocol Insulin Aspart 0 unit 12/27/19 12:00 12/27/19 12:44 Novolog SUBCUT Not Given WM&BEDTIME QI Protocol Metoprolol Tartrate 50 mg 12/27/19 09:00 12/27/19 12:41 Lopressor PO Not Given BID QI Morphine Sulfate 2 mg 12/26/19 17:39 12/27/19 05:22 Morphine IVP 2 mg Q1H PRN Administration SEVERE PAIN Pantoprazole Sodium 40 mg 12/27/19 09:00 12/27/19 12:42 Protonix PO Not Given DAILY QI PFSH Acute PFSH: Medical History (Updated 12/28/19 @ 15:28 by Fran Lowery MD) Acute renal insufficiency Aortic insufficiency with aortic stenosis CHF (congestive heart failure) COPD (chronic obstructive pulmonary disease) Diabetes 1.5, managed as type 2 Essential hypertension Hyperlipidemia Ischemia of right lower extremity Ischemic cardiomyopathy Mitral regurgitation PAD (peripheral artery disease) Pulmonary HTN Subclavian arterial stenosis Tobacco abuse Surgical History H/O mitral valve repair Hx of CABG S/P appendectomy S/P carpal tunnel release Status post below knee amputation of right lower extremity Status post mitral valve annuloplasty Family History Mother CAD (coronary artery disease) Father Diabetes Other Cancer Social History Smoking and tobacco status: former smoker Quit status (tobacco): has quit using tobacco Year quit tobacco: 2020 - 1PPD hx x 40 Years Alcohol intake: never Lives independently: Yes Household members: none Marital status: / Current occupational status: retired History of recent travel: No Current gender identity: Female Dietary Habits: Current diet type/program: regular Caffeine: Yes Vitals/I&O/Wt Last Vital Signs Temp 98.7 F 12/27/19 11:55 Pulse 89 12/27/19 11:55 Resp 18 12/27/19 11:55 BP 126/41 12/27/19 11:55 Pulse Ox 94 12/27/19 11:55 12/26/19 12/27/19 12/27/19 22:59 06:59 14:59 Intake Total 196.875 / 196.875 751.458 / 948.333 0 / 0 Output Total 300 / 300 1200 / 1500 0 / 0 Balance -103.125 / -103.125 -448.542 / -551.667 0 / 0 Weight last 48 hrs Weight 55.429 kg Weight 55.395 kg Physical Exam Const: COMMON NORMALS: patient oriented x3 and alert ORIENTATION/CONSCIOUSNESS: Yes oriented to person, Yes oriented to place and Yes oriented to time HENMT: COMMON NORMALS: normocephalic HEAD & SCALP: normocephalic Neck/C-Spine: COMMON NORMALS: full ROM, no lymphadenopathy and No carotid bruits Lymph: LYMPHATIC: no lymphadenopathy noted Chest: COMMONS NORMALS: normal palpation of entire chest wall Resp: COMMON NORMALS: normal respiratory effort and clear to auscultation bilaterally EFFORT & INSPECTION: Yes able to speak in complete sentences AUSCULTATION: clear to auscultation bilaterally Cardio: COMMON NORMALS: regular rate, regular rhythm, S1 normal heart sound present, No gallops present (Cardio) and No murmurs present (Cardio) RATE: regular rate RHYTHM: regular rhythm HEART SOUNDS: S1 normal heart sound present PERIPHERAL PULSES: femoral pulses present Extremity: OTHER: Right BKA dressing remains in place. Neuro: COMMON NORMALS: patient oriented x3 and no sensory deficits noted SENSORIUM/ORIENTATION: Yes alert, Yes oriented to person, Yes oriented to place and Yes oriented to time Psych: ATTITUDE: Yes calm and Yes engaged A&P Assessment and plan (1) Left renal atrophy: Status: Acute (2) Dehiscence of surgical wound: Status: Acute (3) Cellulitis and abscess of lower extremity: Status: Acute (4) Status post below knee amputation of right lower extremity: Status: Acute (5) Ischemic cardiomyopathy: Status: Acute (6) Diabetes 1.5, managed as type 2: Status: Acute (7) Essential hypertension: Status: Acute (8) Hyperlipidemia: Status: Acute (9) H/O mitral valve repair: Status: Acute (10) Hx of CABG: Status: Acute (11) TRANG (acute kidney injury): Status: Acute Additional A&P Information Acute kidney injury: Baseline creatinine for patient around 1.3. On admission 1.9 today. Patient has a history of global atrophy of the left kidney most likely because of renal artery stenosis as evident on the ultrasound from October 2019. Since discharge patient has been on Bactrim and Bumex. Etiology can be varied. Most likely it is prerenal. Or could also be because of dehydration along with ongoing diuretic and Bactrim use. Check urine lites, urine eosinophils, urine creatinine. Will not do any renal imaging as was recently done. Medical reconciliation done for nephrotoxic drugs. Continue to monitor BMP daily. Does not have any signs of electro abnormalities of metabolic acidosis. IV fluids with normal saline at 100 cc/h. We will monitor for fluid overload. CAD post CABG: History of ischemic cardiomyopathy: Last echocardiogram done in April 2019 showed an EF 38% with grade 2 diastolic dysfunction. Also showed mild aortic stenosis, mild LA enlargement. At present patient looks mildly dehydrated. Continue to monitor for fluid overload. Continue chronic medication for hypertension like amlodipine, hydralazine. Goal blood pressure less than 140/90. Continue aspirin, statin. Type 2 diabetes mellitus: Insulin sliding scale with glargine 45 units at home dose. Telemetry. Carb consistent diet. Consult Attestations Medical Necessity Statement: As per primary team Time Spent in Patient Care: Greater than 35 minutes (>than 50% of time spent in counselling and/or direct pt care on unit). Coding Level of Care Code Acute [employer] Salesperson for [facility] Fwd Exam Comprehensive Diagnoses Left renal atrophy N26.1 Dehiscence of surgical wound T81.31XA Cellulitis and abscess of lower extremity L03.119; L02.419 Status post below knee amputation of right lower extremity Z89.511 Ischemic cardiomyopathy I25.5 Diabetes 1.5, managed as type 2 E13.9 Essential hypertension I10 Hyperlipidemia E78.5 H/O mitral valve repair Z98.890 Hx of CABG Z95.1 TRANG (acute kidney injury) N17.9
[2019-12-27 15:21] LABS: Iron 22 ug/dL (37-145); NT Pro B Type Natriuretic Pept 4536 pg/mL (0-125); Percent Saturation 14.7 % (20-50); Total Iron Binding Capacity 149 mcg/dl; Unsaturated Iron Binding 127 ug/dL (112-347)
[2019-12-27] MEDS: hyDRALAzine 50 mg Tablet PO (15:51)
[2019-12-27 16:35] LABS: Potassium, Radom Urine 18 mmol/L; Urine Creatinine 43 mg/dL (28-217); Urine Random Chloride 50 mmol/L; Urine Random Sodium 59 mmol/L
[2019-12-27 17:09] LABS: Glucose Point of Care 101 mg/dL (70-110)
[2019-12-27 17:09] LABS: Bilirubin Urine Neg (NEGATIVE); Blood Urine Neg (Negative); Glucose Urine UA Norm (Normal); Ketones Urine Negative (Negative); Leukocyte Esterase Urine Negative (Negative); Nitrate Urine Negative (Negative); Protein Urine Neg (Negative); Urine Appearance Clear (CLEAR); Urine Color Yellow (Yellow); Urobilinogen Urine Neg (Negative); pH Urine 5 (5-7)
[2019-12-27 17:10] LABS: Add Urine Culture? No; Bacteria Urine 1+; WBC Urine 25-40 /hpf (0-5)
[2019-12-27 17:15] LABS: Urine Protein Random 26 mg/dL
[2019-12-27 17:41] LABS: Eosinophil Urine No Eosinophils Seen; Urine Eosinophil Count 0 (0-0)
[2019-12-27 18:07] LABS: Creatine Phosphokinase 106 U/L (26-192)
[2019-12-27] MEDS: metoprolol tartrate 50 mg Tablet PO (18:54)
[2019-12-27] MEDS: oxyCODONE-APAP 5-325 mg Tablet PO (19:50)
[2019-12-27] MEDS: sodium chloride 0.9% 1,000 ML 100 ML IV (20:45)
[2019-12-27 20:48] LABS: Glucose Point of Care 103 mg/dL (70-110)
[2019-12-28] VITALS (13 sets, daily range): BP systolic 93–157; BP diastolic 59–72; PULSE 74–90; RESP 16–20; TEMP 36.6–37.1; O2SAT 94–98
[2019-12-28] MEDS: morphine 4 mg/mL SDV 1 mL 2 MG IVP (00:12)
[2019-12-28] MEDS: atorvastatin 40 mg Tablet PO ×2 (00:13→20:39)
[2019-12-28] MEDS: hyDRALAzine 50 mg Tablet PO ×4 (00:13→20:39)
[2019-12-28] MEDS: piperacillin-tazobactam 3.375 GM in sodium chloride 0.9% (plus) 50 ML IV ×3 (02:21→18:41)
[2019-12-28 03:07] LABS: Basophils % 0.2 %; Eosinophils # 0.1 10^3/uL (0.0-0.8); Eosinophils % 0.8 %; Hematocrit 26.6 % (37.0-47.0); Hemoglobin 8.1 g/dL (11.5-15.3); Lymphocytes # 0.6 10^3/uL (0.8-4.8); Lymphocytes % 7.6 %; Mean Corpuscular HGB Conc 30.5 g/dL (30.0-36.0); Mean Corpuscular Hemoglobin 28.2 pg (28.0-34.0); Mean Corpuscular Volume 92.7 fL (81-99); Mean Platelet Volume 10.7 fL (7.4-10.4); Monocytes % 12.3 %; Neutrophils # 6.66 10^3/uL (1.8-7.7); Neutrophils % 78.6 %; Nucleated Red Blood Cells % 0 %; Platelet Count 248 10^3/cmm (130-400); Red Blood Count 2.87 10^6/uL (4.1-5.3); Red Cell Distribution Width 15.2 % (12.1-15.1); White Blood Count 8.5 10^3/uL (4.0-10.0)
[2019-12-28 03:32] LABS: Alanine Aminotransferase 11 U/L (0-33); Albumin Level 2.8 g/dL (3.5-5.2); Alkaline Phosphatase 104 IU/L (35-105); Anion Gap 11.4 (5-19); Aspartate Amino Transferase 18 U/L (0-32); Blood Urea Nitrogen 28 mg/dL (8-23); Calcium 8.5 mg/dL (8.5-10.5); Carbon Dioxide 23 mmol/L (22-29); Chloride 106 mmol/L (98-107); Glucose 97 mg/dL (65-115); Osmolality Calculated 281 mOsm/kg (285-295); Potassium 3.4 mmol/L (3.5-5.1); Sodium 137 mmol/L (136-145); Total Bilirubin 0.4 mg/dL (0.15-1.2); Total Protein 5.8 g/dL (6.6-8.7)
[2019-12-28 04:40] LABS: Estmated Average Glucose 160; Hemoglobin A1C 7.2 % (4.0-6.0)
--- NOTE | 2019-12-28 05:45 | PM.PN ---
Subjective Subjective: Interval history: Postop day #1 status post debridement of right BKA superficial dehiscence. Rested well overnight. Pain appears to be under good control. Nurses report that 545 this morning that she went into A. fib with controlled ventricular response. She is minimally symptomatic. Her white blood cell count is normal. Her BUN and creatinine have returned to baseline with creatinine 1.2. It is noted that she does have a urinary tract infection with 1+ bacteria and 2+ yeast and 25-40 white blood cells per high-powered field. Also asymptomatic. Vitals/I&O/Wt Last Vital Signs Temp 98.2 F 12/28/19 03:41 Pulse 87 12/28/19 03:41 Resp 20 H 12/28/19 03:41 BP 147/59 12/28/19 03:41 Pulse Ox 94 12/28/19 03:41 12/27/19 12/27/19 12/28/19 14:59 22:59 06:59 Intake Total 0 / 0 50 / 50 Output Total 0 / 0 350 / 350 500 / 850 Balance 0 / 0 -300 / -300 -500 / -800 Weight last 48 hrs Weight 122 lb 3.2 oz Weight 122 lb 2 oz Physical Exam Extremity: NARRATIVE EXTREMITY EXAM: Her surgical dressing, which is a wet-to-dry, is in place without strikethrough. Urinary Catheter Management^: Best: Cath Placed During This Visit: yes Reason for Continuing Indwelling Catheter: Other Urinary Catheter Date of Insertion: 12/27/19 Urinary Catheter Time of Insertion: 16:08 Data : 12/28/19 02:20 12/28/19 02:20 A&P Assessment and plan (1) UTI (urinary tract infection): We will review initial urine culture report. Status: Acute (2) Atrial fibrillation with controlled ventricular rate: I will ask our hospitalist and cardiology colleagues for recommendations. She currently is on beta-blockade and her ventricular response is controlled. Status: Acute Attestations Medical Necessity Statement*: Status post debridement of superficial BKA dehiscence. Postop atrial fibrillation. Urinary tract infection Time Spent in Patient Care: 16 - 35 minutes Coding Level of Care Code Acute Nuclear Medicine Physician for [facility] Diagnoses UTI (urinary tract infection) N39.0 Atrial fibrillation with controlled ventricular rate I48.91
[2019-12-28 06:21] LABS: Glucose Point of Care 101 mg/dL (70-110)
--- NOTE | 2019-12-28 07:00 | ECG_ITS ---
[facility] Test Date: 2019-12-28 Pat Name: Shira Serrato Department: Room: 275 Gender: Female Lumber Straightened: : 1945 Requested By: Moustapha Victor Order Number: [id number] Christophe MD: Irena Torres M.D. Measurements Intervals Collins Rate: 84 P: DE: -1 QRS: 10 QRSD: 86 T: 133 QT: 385 QTc: 456 Interpretive Statements Possible multifocal atrial rhythm ST DEVIATION AND MODERATE T-WAVE ABNORMALITY, CONSIDER LATERAL ISCHEMIA [-0.1+ mV T WAVE IN I/aVL/V5/V6] Compared to ECG 12/27/2019 09:46:45 T-wave abnormality now present Possible ischemia now present Sinus rhythm no longer present Ventricular premature complex(es) no longer present Prolonged QT interval no longer present Myocardial infarct finding no longer present Electronically Signed On 12-28-2019 21:15:52 CDT by Irena Torres M.D. [id number]
[2019-12-28] MEDS: sodium chloride 0.9% 1,000 ML 30 ML IV (07:48)
[2019-12-28] MEDS: sodium chloride 0.9% 1,000 ML 100 ML IV ×2 (07:48→17:20)
[2019-12-28] MEDS: oxyCODONE-APAP 5-325 mg Tablet PO ×3 (07:49→17:22)
[2019-12-28] MEDS: allopurinol 300 mg Tablet PO (08:03)
[2019-12-28] MEDS: citalopram 20 mg Tablet PO (08:03)
[2019-12-28] MEDS: metoprolol tartrate 50 mg Tablet PO ×2 (08:04→17:24)
[2019-12-28] MEDS: aspirin 81 mg Chew Tablet PO (08:04)
[2019-12-28] MEDS: pantoprazole DR 40 mg Tablet PO (08:04)
--- NOTE | 2019-12-28 11:06 | P.PN_ITS ---
Subjective Subjective: Interval history: Ms. Serrato clearly has less discomfort on rounds late this morning. She is very conversive and is able to move her left lower extremity and elevated from the bed easily. I performed a wet-to-dry dressing change and I am concerned that the exposed tissue is not viable. As this does extend down toward the fascia, I do not think that the BKA can be recovered at this level. Vitals/I&O/Wt Last Vital Signs Temp 98.6 F 12/28/19 08:00 Pulse 87 12/28/19 08:00 Resp 16 12/28/19 08:00 BP 147/68 12/28/19 08:00 Pulse Ox 94 12/28/19 08:00 12/27/19 12/28/19 12/28/19 22:59 06:59 14:59 Intake Total 50 / 50 1050 / 1100 1235 / 1235 Output Total 350 / 350 500 / 850 Balance -300 / -300 550 / 250 1235 / 1235 Weight last 48 hrs Weight 122 lb 3.2 oz Weight 122 lb 2 oz Physical Exam Extremity: NARRATIVE EXTREMITY EXAM: Nonhealing right BKA incision following drainage and debridement yesterday. Questionable viability of exposed tissue Urinary Catheter Management^: Best: Cath Placed During This Visit: yes Reason for Continuing Indwelling Catheter: Accurate Measurement of Urinary Output in Critically Ill Patients Urinary Catheter Date of Insertion: 12/27/19 Urinary Catheter Time of Insertion: 16:08 Data : 12/28/19 02:20 12/28/19 02:20 A&P Assessment and plan (1) Status post below knee amputation of right lower extremity: Surgical dressing change today revealed questionable viability of exposed tissue. Afraid that the BKA may not heal at this level. Plan: I will reassess again tomorrow morning, though I think there is a high l ikelihood that the BKA will need to be revised to an AKA due to her severe peripheral vascular disease. I discussed this very frankly with Ms. Serrato, and she took the news quite stoically. Therefore, we will continue current antibiotic regimen and medical recommendations per Dr. Horner. I will reassess the wound tomorrow morning with tentative plans for a right above-knee amputation late tomorrow afternoon. Rationale for this was carefully and frankly discussed with Ms. Serrato and she states understanding. We will notify her sister and family as well. Status: Acute Attestations Medical Necessity Statement*: Nonhealing right below-knee amputation Time Spent in Patient Care: 16 - 35 minutes Coding Level of Care Code Acute Admission Nurse Coordinator for [facility] Fwd Diagnoses Status post below knee amputation of right lower extremity Z89.511
[2019-12-28 11:11] LABS: Glucose Point of Care 131 mg/dL (70-110)
[2019-12-28] MEDS: vancomycin 1,000 MG in sodium chloride 0.9% 250 ML 250 MG IV (13:49)
[2019-12-28] MEDS: docusate sodium 100 mg Capsule PO (13:57)
--- NOTE | 2019-12-28 15:33 | PM.PN ---
Subjective Subjective: Interval history: No acute events overnight. Patient had a restful night. She is a lot more comfortable today morning. Denies of having any pain. Denies of any shortness of breath, nausea, vomiting. She is comfortably having her breakfast during my examination. Labs and vitals noted. Vitals/I&O/Wt Last Vital Signs Temp 98.7 F 12/28/19 11:23 Pulse 83 12/28/19 11:23 Resp 17 12/28/19 13:56 BP 124/72 12/28/19 11:23 Pulse Ox 94 12/28/19 11:23 12/28/19 12/28/19 12/28/19 06:59 14:59 22:59 Intake Total 1050 / 1100 1235 / 1235 Output Total 500 / 850 Balance 550 / 250 1235 / 1235 Weight last 48 hrs Weight 55.429 kg Weight 55.395 kg Physical Exam Narrative: EXAM NARRATIVE: EXAM NARRATIVE: General: No acute distress, AO x3, NC oxygen supplementation HEENT: PERRLA, pupils bilaterally equal and reactive Chest:Bronchial breath sounds b/l ,decreased air entry, equal good air entry bilaterally, no more fine basal crackles CVS: S1-S2 regular, no murmurs, no tachycardia, no gallops, no rubs Abdomen: Soft, nontender, no organomegaly, bowel sounds present, morbidly obese Neuro: No focal deficits, no facial deformity, AO x3, power 5/5 in all limbs Const: COMMON NORMALS: patient oriented x3 and alert ORIENTATION/CONSCIOUSNESS: Yes oriented to person, Yes oriented to place and Yes oriented to time HENMT: COMMON NORMALS: normocephalic HEAD & SCALP: normocephalic Neck/C-Spine: COMMON NORMALS: full ROM, no lymphadenopathy and No carotid bruits Lymph: LYMPHATIC: no lymphadenopathy noted Chest: COMMONS NORMALS: normal palpation of entire chest wall Resp: COMMON NORMALS: normal respiratory effort and clear to auscultation bilaterally EFFORT & INSPECTION: Yes able to speak in complete sentences AUSCULTATION: clear to auscultation bilaterally Cardio: COMMON NORMALS: regular rate, regular rhythm, S1 normal heart sound present, No gallops present (Cardio) and No murmurs present (Cardio) RATE: regular rate RHYTHM: regular rhythm HEART SOUNDS: S1 normal heart sound present PERIPHERAL PULSES: femoral pulses present Extremity: OTHER: Right BKA dressing remains in place. Neuro: COMMON NORMALS: patient oriented x3 and no sensory deficits noted SENSORIUM/ORIENTATION: Yes alert, Yes oriented to person, Yes oriented to place and Yes oriented to time Psych: ATTITUDE: Yes calm and Yes engaged Urinary Catheter Management^: Best: Cath Placed During This Visit: yes Reason for Continuing Indwelling Catheter: Accurate Measurement of Urinary Output in Critically Ill Patients Urinary Catheter Date of Insertion: 12/27/19 Urinary Catheter Time of Insertion: 16:08 Data : 12/28/19 02:20 12/28/19 02:20 Micro: Microbiology 12/27/19 11:02 Anaerobic Culture - Preliminary Leg - #1 12/27/19 15:36 MRSA Culture - Final Nose 12/27/19 11:02 Wound Culture - Preliminary Leg - #2 Staphylococcus aureus A&P Assessment and plan (1) Left renal atrophy: Status: Acute (2) Dehiscence of surgical wound: Status: Acute (3) Cellulitis and abscess of lower extremity: Status: Acute (4) Status post below knee amputation of right lower extremity: Status: Acute (5) Ischemic cardiomyopathy: Status: Acute (6) Diabetes 1.5, managed as type 2: Status: Acute (7) Essential hypertension: Status: Acute (8) Hyperlipidemia: Status: Acute (9) H/O mitral valve repair: Status: Acute (10) Hx of CABG: Status: Acute (11) TRANG (acute kidney injury): Status: Acute Additional A&P Information Acute kidney injury: Resolved. Creatinine back to baseline. Patient has a history of global atrophy of the left kidney most likely because of renal artery stenosis as evident on the ultrasound from October 2019. Since discharge patient has been on Bactrim and Bumex. After review of urine lites, urine eosinophils and creatinine her etiology was most likely prerenal.. We will decrease the IV fluids to 75 cc/h. Continue holding Bumex for now. Patient looking more euvolemic now. We will continue to monitor for fluid overload. Medical reconciliation done for nephrotoxic drugs. Continue to monitor BMP daily. Does not have any signs of electro abnormalities of metabolic acidosis. Atrial fibrillation: Patient is rate controlled. Continue home dose of metoprolol 50 twice daily. Case discussed with Dr. Victor. Most likely patient would need an event monitor as an outpatient for next 2 weeks. If patient continues to have atrial fibrillation she would need anticoagulation. Patient has an appointment with Dr. Robb on January 22. Wound dehiscence: Wound culture growing staph aureus. Case d/w Dr. Victor- Plan for right AKA tomorrow morning. CAD post CABG: History of ischemic cardiomyopathy: Last echocardiogram done in April 2019 showed an EF 38% with grade 2 diastolic dysfunction. Also showed mild aortic stenosis, mild LA enlargement. At present patient looks mildly dehydrated. Continue to monitor for fluid overload. Continue chronic medication for hypertension like amlodipine, hydralazine. Goal blood pressure less than 140/90. Continue aspirin, statin. Type 2 diabetes mellitus: Insulin sliding scale. Patient has not required any insulin since admission. Will hold off on glargine for now. Check HbA1c, iron panel, proBNP, CPK, TSH. Telemetry. Carb consistent diet. Attestations Medical Necessity Statement*: As per primary team. Time Spent in Patient Care: Greater than 35 minutes (>than 50% of time spent in counselling and/or direct pt care on unit). Coding Level of Care Code Acute [employer] Supervisor for g Fwd Diagnoses Left renal atrophy N26.1 Dehiscence of surgical wound T81.31XA Cellulitis and abscess of lower extremity L03.119; L02.419 Status post below knee amputation of right lower extremity Z89.511 Ischemic cardiomyopathy I25.5 Diabetes 1.5, managed as type 2 E13.9 Essential hypertension I10 Hyperlipidemia E78.5 H/O mitral valve repair Z98.890 Hx of CABG Z95.1 TRAGN (acute kidney injury) N17.9
[2019-12-28 17:18] LABS: Glucose Point of Care 133 mg/dL (70-110)
[2019-12-28] MEDS: iron sucrose 200 MG in sodium chloride 0.9% (100 ml) 100 ML 220 MG IV (17:20)
[2019-12-28 21:38] LABS: Glucose Point of Care 102 mg/dL (70-110)
[2019-12-29] VITALS (24 sets, daily range): BP systolic 90–169; BP diastolic 51–79; PULSE 77–91; RESP 16–22; TEMP 36.6–37.3; O2SAT 92–99
[2019-12-29] MEDS: piperacillin-tazobactam 3.375 GM in sodium chloride 0.9% (plus) 50 ML IV ×3 (02:10→20:54)
[2019-12-29] MEDS: oxyCODONE-APAP 5-325 mg Tablet PO ×2 (02:10→20:19)
[2019-12-29 04:16] LABS: Basophils % 0.4 %; Eosinophils # 0.2 10^3/uL (0.0-0.8); Eosinophils % 2.5 %; Hematocrit 26.9 % (37.0-47.0); Hemoglobin 8.1 g/dL (11.5-15.3); Lymphocytes # 0.7 10^3/uL (0.8-4.8); Lymphocytes % 9.1 %; Mean Corpuscular HGB Conc 30.1 g/dL (30.0-36.0); Mean Corpuscular Hemoglobin 27.6 pg (28.0-34.0); Mean Corpuscular Volume 91.5 fL (81-99); Mean Platelet Volume 10.6 fL (7.4-10.4); Monocytes % 13.2 %; Neutrophils # 5.74 10^3/uL (1.8-7.7); Neutrophils % 74.3 %; Nucleated Red Blood Cells % 0 %; Platelet Count 243 10^3/cmm (130-400); Red Blood Count 2.94 10^6/uL (4.1-5.3); Red Cell Distribution Width 15.2 % (12.1-15.1); White Blood Count 7.7 10^3/uL (4.0-10.0)
[2019-12-29 04:38] LABS: Alanine Aminotransferase 13 U/L (0-33); Albumin Level 2.7 g/dL (3.5-5.2); Alkaline Phosphatase 106 IU/L (35-105); Anion Gap 14.6 (5-19); Aspartate Amino Transferase 19 U/L (0-32); Blood Urea Nitrogen 19 mg/dL (8-23); Calcium 8.4 mg/dL (8.5-10.5); Carbon Dioxide 20 mmol/L (22-29); Chloride 109 mmol/L (98-107); Globulin 3.4 g/dL (1.3-4.6); Glucose 103 mg/dL (65-115); Osmolality Calculated 287 mOsm/kg (285-295); Potassium 3.6 mmol/L (3.5-5.1); Sodium 140 mmol/L (136-145); Total Bilirubin 0.5 mg/dL (0.15-1.2); Total Protein 6.1 g/dL (6.6-8.7)
[2019-12-29] MEDS: morphine 4 mg/mL SDV 1 mL 2 MG IVP ×5 (06:02→20:42)
[2019-12-29 06:34] LABS: Glucose Point of Care 108 mg/dL (70-110)
--- NOTE | 2019-12-29 07:10 | P.PN_ITS ---
Subjective Subjective: Interval history: Ms. Serrato appears to be comfortable. No specific implants overnight. I have reinspected the below-knee amputation wound. There is essentially necrotic material which I do not think is viable. I do not feel she will heal this level of amputation and this should be revised to an above- knee amputation. Vitals/I&O/Wt Last Vital Signs Temp 98.3 F 12/29/19 04:00 Pulse 77 12/29/19 04:00 Resp 18 12/29/19 06:02 BP 169/51 12/29/19 04:00 Pulse Ox 97 12/29/19 04:00 12/28/19 12/29/19 12/29/19 22:59 06:59 14:59 Intake Total 1293.333 / 2578.333 Output Total 250 / 250 125 / 375 Balance 1043.333 / 2328.333 -125 / 2203.333 Physical Exam Extremity: NARRATIVE EXTREMITY EXAM: Nonviable tissue remains in the right BKA wound. I believe that further debridement will essentially leave no meaningful way to perform closure at an acceptable level below the knee. Therefore, I have recommended revision to above-knee amputation. Urinary Catheter Management^: Best: Cath Placed During This Visit: yes Reason for Continuing Indwelling Catheter: Required Immobilization for Trauma or Surgery or Anesthesia Urinary Catheter Date of Insertion: 12/27/19 Urinary Catheter Time of Insertion: 16:08 Data : 12/29/19 03:30 12/29/19 03:30 Micro: Microbiology 12/27/19 11:02 Anaerobic Culture - Preliminary Leg - #1 12/27/19 15:36 MRSA Culture - Final Nose 12/27/19 11:02 Wound Culture - Preliminary Leg - #2 Staphylococcus aureus A&P Assessment and plan (1) Dehiscence of surgical wound: Right below-knee amputation wound is nonviable and no further meaningful debridement can be performed at this level. Therefore, I recommended revision right above-knee amputation. I discussed this very carefully and frankly with Ms. Serrato. She has excepted this unfortunate news quite well I think. Rationale for this revision was frankly discussed and she concurred. We will tentatively plan for surgery this afternoon around 3:30 PM. She is anemic and will require transfusion which we will initiate immediately prior to surgery. Status: Acute Attestations Medical Necessity Statement*: Dehiscence of right below-knee amputation wound with non-viability. Revision required. Time Spent in Patient Care: 16 - 35 minutes Coding Level of Care Code Acute Housing Relocation for Armida Mojica Diagnoses Dehiscence of surgical wound T81.31XA
--- NOTE | 2019-12-29 07:41 | PC.NURSE ---
patients blood pressure in R arm 91/54 in L arm 153/55. blood pressures taken again R arm 91/57 L arm 168/51. Pt care nurse Ericka notified
[2019-12-29] MEDS: allopurinol 300 mg Tablet PO (08:50)
[2019-12-29] MEDS: hyDRALAzine 50 mg Tablet PO ×2 (08:50→20:21)
[2019-12-29] MEDS: pantoprazole DR 40 mg Tablet PO (08:50)
[2019-12-29] MEDS: metoprolol tartrate 50 mg Tablet PO ×2 (08:50→20:20)
[2019-12-29] MEDS: citalopram 20 mg Tablet PO (08:50)
[2019-12-29] MEDS: sodium chloride 0.9% 1,000 ML 100 ML IV (08:56)
--- NOTE | 2019-12-29 10:14 | PC.NURSE ---
Called Dr taiwo Garzon'd for patient daughter Indira Serrato to come sit with patient before surgery today.
[2019-12-29 11:05] LABS: Glucose Point of Care 88 mg/dL (70-110)
--- NOTE | 2019-12-29 11:13 | PC.SOCIAL ---
IMM update Pg. 2 of IMM given and explained to patient who verbalized understanding. Copy provided.
--- NOTE | 2019-12-29 15:10 | PC.NURSE ---
Pt to surgery
--- NOTE | 2019-12-29 15:22 | P.ANESUD_ITS ---
Pre-Anesthetic Update Pre-Anesthetic Assessment: Date of Surgery/Procedure: 12/29/19 Preop Felisa gnosis: Acute ischemia right lower extremity with severe peripheral vascular disease Proposed Procedure: Operation Date: 12/27/19 10:40 Proposed Procedures p Debridement of right BKA(Right) - Moustapha Victor MD Operation Date: 12/29/19 15:30 Proposed Procedures p Above Knee Amputation(Right) - Moustapha Victor MD Any changes to Pre-Anesthetic Assessment?: No Changes from Pre-Anesthetic Assessment: NPO > 8 hrs Last Intake: Intake Last Liquid Date 12/26/19 Last Liquid Time 23:00 Last Solid Date 12/26/19 Last Solid Time 19:00 Labs Last 48hrs: Laboratory Results - last 48 hr 12/26/19 12/26/19 12/27/19 19:17 19:17 15:22 WBC RBC Hgb Hct MCV MCH MCHC RDW Plt Count MPV Neut % (Auto) Lymph % (Auto) [place] % (Auto) Eos % (Auto) Baso % (Auto) Neut # (Auto) Lymph # (Auto) [place] # (Auto) Eos # (Auto) Baso # (Auto) Nucleated RBC % (a uto) Nucleated RBCs # Sodium Potassium Chloride Carbon Dioxide Anion Gap BUN Creatinine GFR Calculation Glucose POC Glucose Estimat Average Gl ucose Hemoglobin A1c Calculated Osmolal ity Calcium Iron 22 L TIBC 149 % Saturation 14.7 L Unsat Iron Binding 127 Total Bilirubin AST ALT Alkaline Phosphata se Creatine Kinase NT-Pro-B Natriuret Pep 4536 H Total Protein Albumin Globulin Urine Color Urine Appearance Urine pH Ur Specific Gravit y Urine Protein Urine Glucose (UA) Urine Ketones Urine Blood Urine Nitrate Urine Bilirubin Urine Urobilinogen Ur Leukocyte Lori ase Urine RBC Urine WBC Ur Eosinophil Smea r Ur Squamous Epith Cells Amorphous Sediment Urine Bacteria Urine Yeast Urine Eosinophils U Random Total Pro tein 26 Ur Random Sodium 59 Ur Random Potassiu m 18 Ur Random Chloride 50 Urine Creatinine 43 Crossmatch See Detail 12/27/19 12/27/19 12/27/19 15:22 16:53 17:30 WBC RBC Hgb Hct MCV MCH MCHC RDW Plt Count MPV Neut % (Auto) Lymph % (Auto) [place] % (Auto) Eos % (Auto) Baso % (Auto) Neut # (Auto) Lymph # (Auto) [place] # (Auto) Eos # (Auto) Baso # (Auto) Nucleated RBC % (a uto) Nucleated RBCs # Sodium Potassium Chloride Carbon Dioxide Anion Gap BUN Creatinine GFR Calculation Glucose POC Glucose 101 Estimat Average Gl ucose Hemoglobin A1c Calculated Osmolal ity Calcium Iron TIBC % Saturation Unsat Iron Binding Total Bilirubin AST ALT Alkaline Phosphata se Creatine Kinase 106 NT-Pro-B Natriuret Pep Total Protein Albumin Globulin Urine Color Yellow Urine Appearance Clear Urine pH 5 Ur Specific Gravit y 1.010 Urine Protein Neg Urine Glucose (UA) Norm Urine Ketones Negative Urine Blood Neg Urine Nitrate Negative Urine Bilirubin Neg Urine Urobilinogen Neg Ur Leukocyte Lori ase Negative Urine RBC None Urine WBC 25-40 H Ur Eosinophil Smea r 0 Ur Squamous Epith Cells 5-10 H Amorphous Sediment Not Reportable Urine Bacteria 1+ H Urine Yeast 2+ H Urine Eosinophils No eosinophils se en U Random Total Pro tein Ur Random Sodium Ur Random Potassiu m Ur Random Chloride Urine Creatinine Crossmatch 12/27/19 12/28/19 12/28/19 20:41 02:20 02:20 WBC 8.5 RBC 2.87 L Hgb 8.1 L Hct 26.6 L MCV 92.7 MCH 28.2 MCHC 30.5 RDW 15.2 H Plt Count 248 MPV 10.7 H Neut % (Auto) 78.6 Lymph % (Auto) 7.6 [place] % (Auto) 12.3 Eos % (Auto) 0.8 Baso % (Auto) 0.2 Neut # (Auto) 6.66 Lymph # (Auto) 0.6 L [place] # (Auto) 1.0 H Eos # (Auto) 0.1 Baso # (Auto) 0.0 Nucleated RBC % (a uto) 0 Nucleated RBCs # 0.0 Sodium 137 Potassium 3.4 L Chloride 106 Carbon Dioxide 23 Anion Gap 11.4 BUN 28 H Creatinine 1.2 H GFR Calculation Not Reportable Glucose 97 POC Glucose 103 Estimat Average Gl ucose Hemoglobin A1c Calculated Osmolal ity 281 L Calcium 8.5 Iron TIBC % Saturation Unsat Iron Binding Total Bilirubin 0.4 AST 18 ALT 11 Alkaline Phosphata se 104 Creatine Kinase NT-Pro-B Natriuret Pep Total Protein 5.8 L Albumin 2.8 L Globulin 3.0 Urine Color Urine Appearance Urine pH Ur Specific Gravit y Urine Protein Urine Glucose (UA) Urine Ketones Urine Blood Urine Nitrate Urine Bilirubin Urine Urobilinogen Ur Leukocyte Lori ase Urine RBC Urine WBC Ur Eosinophil Smea r Ur Squamous Epith Cells Amorphous Sediment Urine Bacteria Urine Yeast Urine Eosinophils U Random Total Pro tein Ur Random Sodium Ur Random Potassiu m Ur Random Chloride Urine Creatinine Crossmatch 12/28/19 12/28/19 12/28/19 02:20 06:15 11:04 WBC RBC Hgb Hct MCV MCH MCHC RDW Plt Count MPV Neut % (Auto) Lymph % (Auto) [place] % (Auto) Eos % (Auto) Baso % (Auto) Neut # (Auto) Lymph # (Auto) [place] # (Auto) Eos # (Auto) Baso # (Auto) Nucleated RBC % (a uto) Nucleated RBCs # Sodium Potassium Chloride Carbon Dioxide Anion Gap BUN Creatinine GFR Calculation Glucose POC Glucose 101 131 Estimat Average Gl ucose 160 Hemoglobin A1c 7.2 H Calculated Osmolal ity Calcium Iron TIBC % Saturation Unsat Iron Binding Total Bilirubin AST ALT Alkaline Phosphata se Creatine Kinase NT-Pro-B Natriuret Pep Total Protein Albumin Globulin Urine Color Urine Appearance Urine pH Ur Specific Gravit y Urine Protein Urine Glucose (UA) Urine Ketones Urine Blood Urine Nitrate Urine Bilirubin Urine Urobilinogen Ur Leukocyte Lori ase Urine RBC Urine WBC Ur Eosinophil Smea r Ur Squamous Epith Cells Amorphous Sediment Urine Bacteria Urine Yeast Urine Eosinophils U Random Total Pro tein Ur Random Sodium Ur Random Potassiu m Ur Random Chloride Urine Creatinine Crossmatch 12/28/19 12/28/19 12/29/19 17:10 21:35 03:30 WBC 7.7 RBC 2.94 L Hgb 8.1 L Hct 26.9 L MCV 91.5 MCH 27.6 L MCHC 30.1 RDW 15.2 H Plt Count 243 MPV 10.6 H Neut % (Auto) 74.3 Lymph % (Auto) 9.1 [place] % (Auto) 13.2 Eos % (Auto) 2.5 Baso % (Auto) 0.4 Neut # (Auto) 5.74 Lymph # (Auto) 0.7 L [place] # (Auto) 1.0 H Eos # (Auto) 0.2 Baso # (Auto) 0.0 Nucleated RBC % (a uto) 0 Nucleated RBCs # 0.0 Sodium Potassium Chloride Carbon Dioxide Anion Gap BUN Creatinine GFR Calculation Glucose POC Glucose 133 102 Estimat Average Gl ucose Hemoglobin A1c Calculated Osmolal ity Calcium Iron TIBC % Saturation Unsat Iron Binding Total Bilirubin AST ALT Alkaline Phosphata se Creatine Kinase NT-Pro-B Natriuret Pep Total Protein Albumin Globulin Urine Color Urine Appearance Urine pH Ur Specific Gravit y Urine Protein Urine Glucose (UA) Urine Ketones Urine Blood Urine Nitrate Urine Bilirubin Urine Urobilinogen Ur Leukocyte Lori ase Urine RBC Urine WBC Ur Eosinophil Smea r Ur Squamous Epith Cells Amorphous Sediment Urine Bacteria Urine Yeast Urine Eosinophils U Random Total Pro tein Ur Random Sodium Ur Random Potassiu m Ur Random Chloride Urine Creatinine Crossmatch 12/29/19 12/29/19 12/29/19 03:30 06:30 10:58 WBC RBC Hgb Hct MCV MCH MCHC RDW Plt Count MPV Neut % (Auto) Lymph % (Auto) [place] % (Auto) Eos % (Auto) Baso % (Auto) Neut # (Auto) Lymph # (Auto) [place] # (Auto) Eos # (Auto) Baso # (Auto) Nucleated RBC % (a uto) Nucleated RBCs # Sodium 140 Potassium 3.6 Chloride 109 H Carbon Dioxide 20 L Anion Gap 14.6 BUN 19 Creatinine 1.2 H GFR Calculation Not Reportable Glucose 103 POC Glucose 108 88 Estimat Average Gl ucose Hemoglobin A1c Calculated Osmolal ity 287 Calcium 8.4 L Iron TIBC % Saturation Unsat Iron Binding Total Bilirubin 0.5 AST 19 ALT 13 Alkaline Phosphata se 106 H Creatine Kinase NT-Pro-B Natriuret Pep Total Protein 6.1 L Albumin 2.7 L Globulin 3.4 Urine Color Urine Appearance Urine pH Ur Specific Gravit y Urine Protein Urine Glucose (UA) Urine Ketones Urine Blood Urine Nitrate Urine Bilirubin Urine Urobilinogen Ur Leukocyte Lori ase Urine RBC Urine WBC Ur Eosinophil Smea r Ur Squamous Epith Cells Amorphous Sediment Urine Bacteria Urine Yeast Urine Eosinophils U Random Total Pro tein Ur Random Sodium Ur Random Potassiu m Ur Random Chloride Urine Creatinine Crossmatch Vitals: Temperature 98.5 F 12/29/19 11:16 Temperature Source Oral 12/29/19 11:16 Pulse Rate 81 12/29/19 11:16 Pulse Rhythm 12/26/19 16:56 Respiratory Rate 22 H 12/29/19 14:00 Respiratory Effort Non-Labored 12/29/19 14:00 Respiratory Depth Normal 12/29/19 14:00 Respiratory Patter n 12/29/19 14:00 Blood Pressure 150/69 12/29/19 11:16 Blood Pressure Molly n 96 12/29/19 11:16 Blood Pressure Pos ition Semi Fowlers 12/29/19 11:16 Pulse Oximetry 97 12/29/19 12:50 Oxygen Delivery Me thod 12/29/19 11:16 Oxygen Flow Rate 2 12/29/19 11:16 Exam: Pre-Anes Outpt Exam: alert, oriented x 3, clear to auscultation bilaterally and regular rate & rhythm Other Pertinent Information: Other Pertinent Information: patient did not get Blood transfusion - will start infusion now Cardiac Studies: No Data to Display
[2019-12-29] MEDS: vancomycin 1,000 MG SDV 1000 MG IRRIGATION (16:25)
--- NOTE | 2019-12-29 17:56 | P.OP_ITS ---
Operative Report Date of procedure: December 29, 2019 Pre-op Diagnosis: Nonhealing right below-knee amputation Post-op diagnosis: same Procedure Done: Right above-knee amputation Specimens removed/disposition: Right lower extremity Surgeon: Moustapha Victor Anesthesia: General Complications: None Condition: stable Disposition: PACU Brief History: 74-year-old female status post attempted percutaneous int ervention for severe peripheral vascular disease back in October with subsequent dissection and acute ischemia requiring emergent femoropopliteal bypass which subsequently failed resulting in need for a right below-knee amputation on November 13 this amputation has failed to heal with slow breakdown. She underwent debridement 2 days ago. The tissue does not appear to be viable and I have recommended the BKA be revised to an above-knee amputation. This was carefully discussed with Ms. Serrato and her daughter. All questions were answered. They state understanding. Appropriate consents have been reviewed and signed. Procedure: Ms. Serrato was taken to the operating room and placed on the OR table in the supine position. She underwent general endotracheal anesthesia. The entire right lower extremity was sterilely prepped and draped. Right thigh was marked for incision line. #10 scalpel blade was utilized to circumferentially incise the skin in a fish[place] pattern. Anterior musculature was sharply divided utilizing scalpel and minimal use of cautery. Periosteal elevator was used for dissecting the periosteum off of the femur. Oscillating saw was utilized to divide the femur. Amputation knife was then used posteriorly to complete amputation of the right lower extremity. Meticulous inspection was carried out and hemostasis was controlled with minimal use of cautery, surgical clips, and suture ligature as required. The superficial femoral artery was controlled, retracted proximally, ligated and divided. The sciatic nerve was dissected proximally, ligated, and divided. The wound was irrigated with large amounts of antibiotic solution. Hemostasis was confirmed. A large Hemovac drain was placed beneath the fascia. The fascia was reapproximated with interrupted 0 and 2-0 Vicryl suture. Skin was reapproximated carefully with princess. Sterile dressings were applied followed by a bulky dressing. Ms. Serrato tolerated the procedure well and was taken to PACU. I did academic counselor with her daughter at completion of the procedure.
--- NOTE | 2019-12-29 18:00 | PC.NURSE ---
surgery brought patient up to room, in victoria patient pulled dressing and drain off right stump, Dr Victor notified, Dr to patients room, redressed right stump.
--- NOTE | 2019-12-29 18:01 | SUR.PHASEI ---
7005 patient to pacu from or. no distress. rr even and unlabored. dressing to right aka, cdi, with drain in place. hoffman in place, secured to left leg.
--- NOTE | 2019-12-29 18:22 | PM.PN ---
Subjective Subjective: Interval history: No acute events overnight. Patient has remained comfortable overnight. Today morning when patient was seen she is about to be taken to the OR for AKA. She denies having nausea, vomiting, headache. Urine output has been as appropriate. Patient has remained hemodynamically stable and afebrile. Patient's daughter was bedside as well and all the questions were answered. Vitals/I&O/Wt Last Vital Signs Temp 99.2 F 12/29/19 18:20 Pulse 82 12/29/19 18:20 Resp 20 H 12/29/19 18:20 BP 98/60 12/29/19 18:20 Pulse Ox 95 12/29/19 18:20 12/29/19 12/29/19 12/29/19 06:59 14:59 22:59 Intake Total 1050 / 3988.333 1400 / 1400 Output Total 125 / 375 800 / 800 250 / 1050 Balance 925 / 3613.333 -800 / -800 1150 / 350 Physical Exam Const: COMMON NORMALS: patient oriented x3 and alert ORIENTATION/CONSCIOUSNESS: Yes oriented to person, Yes oriented to place and Yes oriented to time HENMT: COMMON NORMALS: normocephalic HEAD & SCALP: normocephalic Neck/C-Spine: COMMON NORMALS: full ROM, no lymphadenopathy and No carotid bruits Lymph: LYMPHATIC: no lymphadenopathy noted Chest: COMMONS NORMALS: normal palpation of entire chest wall Resp: COMMON NORMALS: normal respiratory effort and clear to auscultation bilaterally EFFORT & INSPECTION: Yes able to speak in complete sentences AUSCULTATION: clear to auscultation bilaterally Cardio: COMMON NORMALS: regular rate, regular rhythm, S1 normal heart sound present, No gallops present (Cardio) and No murmurs present (Cardio) RATE: regular rate RHYTHM: regular rhythm HEART SOUNDS: S1 normal heart sound present PERIPHERAL PULSES: femoral pulses present Extremity: OTHER: Right BKA dressing remains in place. Neuro: COMMON NORMALS: patient oriented x3 and no sensory deficits noted SENSORIUM/ORIENTATION: Yes alert, Yes oriented to person, Yes oriented to place and Yes oriented to time Psych: ATTITUDE: Yes calm and Yes engaged Urinary Catheter Management^: Best: Cath Placed During This Visit: yes Reason for Continuing Indwelling Catheter: Required Immobilization for Trauma or Surgery or Anesthesia Urinary Catheter Date of Insertion: 08/05/20 Urinary Catheter Time of Insertion: 16:08 Data : 12/29/19 03:30 12/29/19 03:30 Micro: Microbiology 12/27/19 11:02 Anaerobic Culture - Preliminary Leg - #1 12/27/19 11:02 Wound Culture - Final Leg - #2 Methicillin Resis Staph Aureus A&P Assessment and plan (1) Left renal atrophy: Status: Acute (2) Dehiscence of surgical wound: Status: Acute (3) Cellulitis and abscess of lower extremity: Status: Acute (4) Status post below knee amputation of right lower extremity: Status: Acute (5) Ischemic cardiomyopathy: Status: Acute (6) Diabetes 1.5, managed as type 2: Status: Acute (7) Essential hypertension: Status: Acute (8) Hyperlipidemia: Status: Acute (9) H/O mitral valve repair: Status: Acute (10) Hx of CABG: Status: Acute (11) TRANG (acute kidney injury): Status: Acute Additional A&P Information Acute kidney injury: Resolved. Creatinine back to baseline. Patient has a history of global atrophy of the left kidney most likely because of renal artery stenosis as evident on the ultrasound from October 2019. Since discharge patient has been on Bactrim and Bumex. After review of urine lites, urine eosinophils and creatinine her etiology was most likely prerenal. C/w NS at 75 cc/h. Can plan to dc fluids post op depending on BP Continue holding Bumex for now. Patient looking more euvolemic now. We will continue to monitor for fluid overload. Medical reconciliation done for nephrotoxic drugs. Continue to monitor BMP daily. Does not have any signs of electro abnormalities of metabolic acidosis. Atrial fibrillation: Patient is rate controlled. Continue home dose of metoprolol 50 twice daily. Case discussed with Dr. Victor. Most likely patient would need an event monitor as an outpatient for next 2 weeks. If patient continues to have atrial fibrillation she would need anticoagulation. Patient has an appointment with Dr. Robb on January 22. Wound dehiscence: Wound culture growing MRSA. Case d/w Dr. Victor- Plan for right AKA tomorrow morning. CAD post CABG: History of ischemic cardiomyopathy: Last echocardiogram done in April 2019 showed an EF 38% with grade 2 diastolic dysfunction. Also showed mild aortic stenosis, mild LA enlargement. At present patient looks mildly dehydrated. Continue to monitor for fluid overload. Continue chronic medication for hypertension like amlodipine, hydralazine. Goal blood pressure less than 140/90. Continue aspirin, statin. Type 2 diabetes mellitus: Insulin sliding scale. Patient has not required any insulin since admission. Will hold off on glargine for now. Most likely on discharge patient should go home on lower dose of Bumex as it is quite possible that patient is getting overly dehydrated. Patient would also need to go on metoprolol with event monitor and follow-up with Dr. Robb as an outpatient on the set appointment. Case has been discussed with Dr. Victor. Telemetry. Carb consistent diet. Attestations Medical Necessity Statement*: As per primary team Time Spent in Patient Care: Greater than 35 minutes (>than 50% of time spent in counselling and/or direct pt care on unit). Coding Level of Care Code Acute Air Valve Mechanic for Troyg Fwd Diagnoses Left renal atrophy N26.1 Dehiscence of surgical wound T81.31XA Cellulitis and abscess of lower extremity L03.119; L02.419 Status post below knee amputation of right lower extremity Z89.511 Ischemic cardiomyopathy I25.5 Diabetes 1.5, managed as type 2 E13.9 Essential hypertension I10 Hyperlipidemia E78.5 H/O mitral valve repair Z98.890 Hx of CABG Z95.1 TRANG (acute kidney injury) N17.9
[2019-12-29] MEDS: ketorolac 30 mg/mL INJ IVP (18:36)
--- NOTE | 2019-12-29 18:49 | SUR.PHASEI ---
182 PATIENT TO MED SURG, VIA GURNEY. RR EVEN AND UNLABORED. ORIENTED TO SELF. RESTING ON GURNEY. BAR CATH IN PLACE. DRESSING TO RIGHT KNEE, CDI, WITH BULKY DRESSING IN PLACE. WHEN THIS NURSE WAS TRANSFERRING PATIENT TO MED SURG, WHEN ARRIVING TO MED SURG, PATIENT PULLED DRESSING FROM RIGHT KNEE AND ALSO PULLED DRAIN. DR. MAY NOTIFIED. DR. MAY TO BEDSIDE TO APPLY NEW DRESSING.
--- NOTE | 2019-12-29 19:05 | PC.NURSE ---
SHIFT BEGINNING This nurse to be 1:1 sitter this shift. Returned from OR very agitated and had pulled surgical drain out on way back to floor. Is now confused but calm and cooperative. Drowsy and drifting off to sleep. Awakes easily. Daughter was in with pt for few minutes and now gone. O2 in place at 3l per NC. IV patent and infusing at 125ml/hr rate. Bulky dressing/jayla wrap to right AKA. Best catheter in place.Telemetry replaced
[2019-12-29] MEDS: iron sucrose 200 MG in sodium chloride 0.9% (100 ml) 100 ML 220 MG IV (20:18)
[2019-12-29] MEDS: atorvastatin 40 mg Tablet PO (20:19)
[2019-12-29 20:22] LABS: Glucose Point of Care 105 mg/dL (70-110)
[2019-12-30] VITALS (18 sets, daily range): BP systolic 138–175; BP diastolic 62–79; PULSE 77–101; RESP 16–20; TEMP 36.3–37.4; O2SAT 16–98
[2019-12-30] MEDS: morphine 4 mg/mL SDV 1 mL 2 MG IVP ×4 (00:36→14:42)
--- NOTE | 2019-12-30 00:59 | PC.NURSE ---
DRESSING Dressing slipped off stump. Had small amt bleeding noted. Guzman all intact and incision line clean. Redressed with 4x4's, ABD, Kerlex and jayla wrap Premedicated with IV Morphine prior to change and tolerated very well
[2019-12-30 01:09] LABS: Vancomycin Trough 5.9 ug/mL (10-15)
--- NOTE | 2019-12-30 02:10 | PC.PHAR ---
Vancomycin trough level at 1000mg IVPB every 36 hours is 5.9 (dosage reduced from 1000mg IVPB every 48 hours). Dosage is adjusted to 500mg IVPB every 24 hours to produce a predicted trough level of 13.09 (population based pharmacokinetic analysis). A trough level has been ordered from the lab to be obtained before the fourth dose to confirm and adjust if needed.
[2019-12-30] MEDS: vancomycin 500 MG in sodium chloride 0.9% (plus) 100 ML 100 MG IV (02:16)
[2019-12-30] MEDS: sodium chloride 0.9% 1,000 ML 125 ML IV ×2 (02:17→08:18)
[2019-12-30] MEDS: piperacillin-tazobactam 3.375 GM in sodium chloride 0.9% (plus) 50 ML IV ×3 (05:02→21:22)
[2019-12-30 05:05] LABS: Basophils % 0.3 %; Eosinophils # 0.1 10^3/uL (0.0-0.8); Eosinophils % 0.9 %; Hematocrit 27.8 % (37.0-47.0); Hemoglobin 8.6 g/dL (11.5-15.3); Lymphocytes # 0.7 10^3/uL (0.8-4.8); Lymphocytes % 7.8 %; Mean Corpuscular HGB Conc 30.9 g/dL (30.0-36.0); Mean Corpuscular Hemoglobin 28.2 pg (28.0-34.0); Mean Corpuscular Volume 91.1 fL (81-99); Mean Platelet Volume 10.1 fL (7.4-10.4); Monocytes % 11.6 %; Neutrophils # 6.79 10^3/uL (1.8-7.7); Neutrophils % 78.7 %; Nucleated Red Blood Cells % 0 %; Platelet Count 208 10^3/cmm (130-400); Red Blood Count 3.05 10^6/uL (4.1-5.3); Red Cell Distribution Width 15.4 % (12.1-15.1); White Blood Count 8.6 10^3/uL (4.0-10.0)
[2019-12-30 05:24] LABS: Alanine Aminotransferase 11 U/L (0-33); Albumin Level 2.4 g/dL (3.5-5.2); Alkaline Phosphatase 88 IU/L (35-105); Anion Gap 12.3 (5-19); Aspartate Amino Transferase 18 U/L (0-32); Blood Urea Nitrogen 13 mg/dL (8-23); Calcium 7.7 mg/dL (8.5-10.5); Carbon Dioxide 19 mmol/L (22-29); Chloride 114 mmol/L (98-107); Globulin 2.8 g/dL (1.3-4.6); Glucose 76 mg/dL (65-115); Osmolality Calculated 289 mOsm/kg (285-295); Potassium 3.3 mmol/L (3.5-5.1); Sodium 142 mmol/L (136-145); Total Bilirubin 0.5 mg/dL (0.15-1.2); Total Protein 5.2 g/dL (6.6-8.7)
[2019-12-30] MEDS: lanolin oint 7 gm 1 APPLIC TOPICAL (05:34)
--- NOTE | 2019-12-30 06:16 | PC.NURSE ---
SHIFT SUMMARY Had some occ agitation during night that was well resolved with giving IV Morphine for pain. Second half of shift has done better. Is confused and has some hallucinations such as thinking her dog was in bed with her and thinking bugs were in the room. More cooperative this am with care. Drinking juice and water well. Good output from Best. Dressing to right stump has remained in place since being replaced and is clean & dry. Vancomycin dosage changed by pharmacy tonight for low Vanc trough. 1:1 sitter has remained at bedside.
[2019-12-30 07:06] LABS: Glucose Point of Care 102 mg/dL (70-110)
[2019-12-30] MEDS: citalopram 20 mg Tablet PO (08:18)
[2019-12-30] MEDS: pantoprazole DR 40 mg Tablet PO (08:18)
[2019-12-30] MEDS: metoprolol tartrate 50 mg Tablet PO ×2 (08:19→17:45)
[2019-12-30] MEDS: hyDRALAzine 50 mg Tablet PO ×3 (08:19→20:46)
[2019-12-30] MEDS: allopurinol 300 mg Tablet PO (08:19)
[2019-12-30] MEDS: aspirin 81 mg Chew Tablet PO (08:19)
--- NOTE | 2019-12-30 09:07 | PM.PN ---
Subjective Subjective: Interval history: Postop day #1 status post right above-knee amputation. Patient was agitated upon return from PACU and pulled off her dressing and pulled her drain out during the transfer process. We redressed the wound immediately after after I was contacted by the nursing service. Hopefully, this will not result in a substantial hematoma or fluid collection that will result in problems with wound healing. This morning, the dressings are placed last night remains in position. She is conversing appropriately though nurses report she is fairly somnolent. We have reviewed her pain medication regimen. P.o. intake is been encouraged. I do note that she remains moderately anemic with hemoglobin 8.6. I do think she would benefit from another transfusion. Vitals/I&O/Wt Last Vital Signs Temp 99.2 F 12/30/19 07:48 Pulse 101 H 12/30/19 09:03 Resp 18 12/30/19 09:03 BP 175/67 12/30/19 07:48 Pulse Ox 95 12/30/19 09:03 12/29/19 12/30/19 12/30/19 22:59 06:59 14:59 Intake Total 1560 / 1560 390 / 1950 752.083 / 752.083 Output Total 500 / 1300 650 / 1950 Balance 1060 / 260 -260 / 0 752.083 / 752.083 Physical Exam Resp: COMMON NORMALS: normal respiratory effort, No use of accessory muscles and clear to auscultation bilaterally AUSCULTATION: clear to auscultation bilaterally Cardio: COMMON NORMALS: regular rhythm RATE: tachycardic (Mild at 101) RHYTHM: regular rhythm Extremity: NARRATIVE EXTREMITY EXAM: The dressings are replaced last night remains in position at this time. Urinary Catheter Management^: Best: Cath Placed During This Visit: yes Reason for Continuing Indwelling Catheter: Perioperative Use in Selected Surgeries Urinary Catheter Date of Insertion: 12/27/19 Urinary Catheter Time of Insertion: 16:08 Data : 12/30/19 04:56 12/30/19 04:56 Micro: Microbiology 12/27/19 11:02 Anaerobic Culture - Preliminary Leg - #1 12/27/19 11:02 Wound Culture - Final Leg - #2 Methicillin Resis Staph Aureus A&P Assessment and plan (1) Status post above-knee amputation of right lower extremity: Postop day #1. Plan: Transfuse 1 unit packed RBCs. Potassium replacement. Change normal saline to Ringer's lactate. CBC, BMP in a.m. Greatly appreciate the expertise of Dr. Evens morris and our hospitalist colleagues. Status: Acute Attestations Medical Necessity Statement*: Status post right above-knee amputation Time Spent in Patient Care: 16 - 35 minutes Coding Level of Care Code Acute Pharmacy Technology Instructor for rToyg Fwd Diagnoses Status post above-knee amputation of right lower extremity Z89.611
[2019-12-30] MEDS: lactated ringers 1,000 ML 100 ML IV (09:48)
[2019-12-30] MEDS: potassium chloride oral liq 20 mEq/15 mL UDC 40 MEQ PO (09:48)
[2019-12-30 10:57] LABS: Glucose Point of Care 137 mg/dL (70-110)
[2019-12-30] MEDS: sodium chloride 0.9% (100 ml) 100 ML (14:48)
[2019-12-30 17:04] LABS: Glucose Point of Care 129 mg/dL (70-110)
[2019-12-30] MEDS: iron sucrose 200 MG in sodium chloride 0.9% (100 ml) 100 ML IV (17:46)
--- NOTE | 2019-12-30 19:01 | PM.PN ---
Subjective Subjective: Interval history: Last 24 hours patient underwent OR yesterday for AKA. Post surgery patient was delirious and pulled on the drain. Wound was redressed. No acute events overnight. Denies of any nausea, vomiting, headache. Patient is more awake and alert today morning. Sitter at bedside. Vitals/I&O/Wt Last Vital Signs Temp 98.6 F 12/30/19 16:00 Pulse 86 12/30/19 16:00 Resp 17 12/30/19 16:00 BP 162/71 12/30/19 16:00 Pulse Ox 97 12/30/19 16:00 12/30/19 12/30/19 12/30/19 06:59 14:59 22:59 Intake Total 390 / 1950 1362.083 / 1362.083 120 / 1482.083 Output Total 650 / 1950 450 / 450 350 / 800 Balance -260 / 0 912.083 / 912.083 -230 / 682.083 Physical Exam Const: COMMON NORMALS: patient oriented x3 and alert ORIENTATION/CONSCIOUSNESS: Yes oriented to person, Yes oriented to place and Yes oriented to time HENMT: COMMON NORMALS: normocephalic HEAD & SCALP: normocephalic Neck/C-Spine: COMMON NORMALS: full ROM, no lymphadenopathy and No carotid bruits Lymph: LYMPHATIC: no lymphadenopathy noted Chest: COMMONS NORMALS: normal palpation of entire chest wall Resp: COMMON NORMALS: normal respiratory effort and clear to auscultation bilaterally EFFORT & INSPECTION: Yes able to speak in complete sentences AUSCULTATION: clear to auscultation bilaterally Cardio: COMMON NORMALS: regular rate, regular rhythm, S1 normal heart sound present, No gallops present (Cardio) and No murmurs present (Cardio) RATE: regular rate RHYTHM: regular rhythm HEART SOUNDS: S1 normal heart sound present PERIPHERAL PULSES: femoral pulses present Extremity: OTHER: Right BKA dressing remains in place. Neuro: COMMON NORMALS: patient oriented x3 and no sensory deficits noted SENSORIUM/ORIENTATION: Yes alert, Yes oriented to person, Yes oriented to place and Yes oriented to time Psych: ATTITUDE: Yes calm and Yes engaged Urinary Catheter Management^: Best: Cath Placed During This Visit: yes Reason for Continuing Indwelling Catheter: Perioperative Use in Selected Surgeries Urinary Catheter Date of Insertion: 12/27/19 Urinary Catheter Time of Insertion: 16:08 Data : 12/31/19 05:16 12/31/19 05:16 Micro: Microbiology 12/27/19 11:02 Anaerobic Culture - Preliminary Leg - #1 A&P Assessment and plan (1) Left renal atrophy: Status: Acute (2) Dehiscence of surgical wound: Status: Acute (3) Cellulitis and abscess of lower extremity: Status: Acute (4) Status post below knee amputation of right lower extremity: Status: Acute (5) Ischemic cardiomyopathy: Status: Acute (6) Diabetes 1.5, managed as type 2: Status: Acute (7) Essential hypertension: Status: Acute (8) Hyperlipidemia: Status: Acute (9) H/O mitral valve repair: Status: Acute (10) Hx of CABG: Status: Acute (11) TRANG (acute kidney injury): Status: Acute Additional A&P Information Acute kidney injury: Resolved. Creatinine back to baseline. Patient has a history of global atrophy of the left kidney most likely because of renal artery stenosis as evident on the ultrasound from October 2019. Since discharge patient has been on Bactrim and Bumex. After review of urine lites, urine eosinophils and creatinine her etiology was most likely prerenal. C/w NS at 75 cc/h. Will monitor for fluid overload. Can plan to stop fluid later in the day today. Continue holding Bumex for now. Patient looking euvolemic to mildly hypervolemic. Medical reconciliation done for nephrotoxic drugs. Continue to monitor BMP daily. Does not have any signs of electro abnormalities of metabolic acidosis. Atrial fibrillation: Patient is rate controlled. Continue home dose of metoprolol 50 twice daily. Case discussed with Dr. Victor. Most likely patient would need an event monitor as an outpatient for next 2 weeks. If patient continues to have atrial fibrillation she would need anticoagulation. Patient has an appointment with Dr. Robb on January 22. Wound dehiscence: Wound culture growing MRSA. Case d/w Dr. Victor- Plan for right AKA tomorrow morning. CAD post CABG: History of ischemic cardiomyopathy: Last echocardiogram done in April 2019 showed an EF 38% with grade 2 diastolic dysfunction. Also showed mild aortic stenosis, mild LA enlargement. At present patient looks mildly dehydrated. Continue to monitor for fluid overload. Continue chronic medication for hypertension like amlodipine, hydralazine. Goal blood pressure less than 140/90. Continue aspirin, statin. Type 2 diabetes mellitus: Insulin sliding scale. Patient has not required any insulin since admission. Will hold off on glargine for now. Most likely on discharge patient should go home on lower dose of Bumex as it is quite possible that patient is getting overly dehydrated. Patient would also need to go on metoprolol with event monitor and follow-up with Dr. Robb as an outpatient on the set appointment. Case has been discussed with Dr. Victor. Telemetry. Carb consistent diet. Attestations Medical Necessity Statement*: As per primary team Time Spent in Patient Care: Greater than 35 minutes (>than 50% of time spent in counselling and/or direct pt care on unit). Coding Level of Care Code Acute Underwriting Director for g Fwd Exam Comprehensive Diagnoses Left renal atrophy N26.1 Dehiscence of surgical wound T81.31XA Cellulitis and abscess of lower extremity L03.119; L02.419 Status post below knee amputation of right lower extremity Z89.511 Ischemic cardiomyopathy I25.5 Diabetes 1.5, managed as type 2 E13.9 Essential hypertension I10 Hyperlipidemia E78.5 H/O mitral valve repair Z98.890 Hx of CABG Z95.1 TRANG (acute kidney injury) N17.9
[2019-12-30] MEDS: oxyCODONE-APAP 5-325 mg Tablet PO (19:21)
[2019-12-30] MEDS: atorvastatin 40 mg Tablet PO (20:46)
[2019-12-30 20:55] LABS: Glucose Point of Care 147 mg/dL (70-110)
[2019-12-31] VITALS (10 sets, daily range): BP systolic 117–181; BP diastolic 64–76; PULSE 78–103; RESP 18–24; TEMP 36.7–37.1; O2SAT 90–96
[2019-12-31] MEDS: lactated ringers 1,000 ML 100 ML IV (00:16)
[2019-12-31] MEDS: vancomycin 500 MG in sodium chloride 0.9% (plus) 100 ML 100 MG IV (02:41)
[2019-12-31] MEDS: morphine 4 mg/mL SDV 1 mL 2 MG IVP (04:18)
[2019-12-31] MEDS: piperacillin-tazobactam 3.375 GM in sodium chloride 0.9% (plus) 50 ML IV ×3 (05:10→20:37)
--- NOTE | 2019-12-31 05:37 | PC.NURSE ---
SHIFT SUMMARY Had a good night and rested well. 1:1 sitter at bedside through shift. Does still have confusion and occ hallucinations. Thought once there had been a baby laying at the foot of her bed. Was medicated X1 with po Oxycodone and denied pain rest of night. Dressing was found off right stump this am and pt was medicated with IV Morphine prior to replacement of dressing. Tolerated dressing well. Stated it hurt but was cooperative without agitation. Incision line is clean & dry and looks very good. Guzman intact. No drainage at all on old dressing. IV infusing without difficulty and is receiving IV antibiotics. Best intact.
[2019-12-31 05:49] LABS: Basophils % 0.3 %; Eosinophils # 0.3 10^3/uL (0.0-0.8); Eosinophils % 3.2 %; Hematocrit 31.2 % (37.0-47.0); Hemoglobin 9.7 g/dL (11.5-15.3); Lymphocytes # 0.7 10^3/uL (0.8-4.8); Lymphocytes % 7.3 %; Mean Corpuscular HGB Conc 31.1 g/dL (30.0-36.0); Mean Corpuscular Volume 90.2 fL (81-99); Mean Platelet Volume 10.3 fL (7.4-10.4); Monocytes # 1.1 10^3/uL (0.2-0.9); Monocytes % 11.3 %; Neutrophils # 7.65 10^3/uL (1.8-7.7); Nucleated Red Blood Cells % 0 %; Platelet Count 215 10^3/cmm (130-400); Red Blood Count 3.46 10^6/uL (4.1-5.3); Red Cell Distribution Width 15.7 % (12.1-15.1); White Blood Count 9.9 10^3/uL (4.0-10.0)
[2019-12-31 06:08] LABS: Anion Gap 12.7 (5-19); Blood Urea Nitrogen 11 mg/dL (8-23); Calcium 8.1 mg/dL (8.5-10.5); Carbon Dioxide 20 mmol/L (22-29); Chloride 112 mmol/L (98-107); Glucose 102 mg/dL (65-115); Osmolality Calculated 288 mOsm/kg (285-295); Potassium 3.7 mmol/L (3.5-5.1); Sodium 141 mmol/L (136-145)
[2019-12-31 07:00] LABS: Glucose Point of Care 95 mg/dL (70-110)
[2019-12-31] MEDS: hyDRALAzine 50 mg Tablet PO ×3 (08:06→20:36)
[2019-12-31] MEDS: pantoprazole DR 40 mg Tablet PO (08:06)
[2019-12-31] MEDS: citalopram 20 mg Tablet PO (08:06)
[2019-12-31] MEDS: metoprolol tartrate 50 mg Tablet PO ×2 (08:06→16:54)
[2019-12-31] MEDS: oxyCODONE-APAP 5-325 mg Tablet PO (08:06)
[2019-12-31] MEDS: allopurinol 300 mg Tablet PO (08:06)
[2019-12-31] MEDS: aspirin 81 mg Chew Tablet PO (08:06)
[2019-12-31] MEDS: albuterol 8 gm MDI 2 PUFF INHALATION (08:24)
[2019-12-31] MEDS: FUROsemide 10 mg/mL SDV 2mL 20 MG IVP ×2 (08:25→12:32)
--- NOTE | 2019-12-31 08:28 | PC.NURSE ---
On morning assessment pt noted to have increased work of breathing, o2 sat at 86% on 3L NC, crackles and coarseness noted with expiratory wheezes to all lung [place]. Dr. Victor notified who gave telephone orders to stop IVF and give 20mg IV lasix. Respiratory also notified who gave prn inhaler and increased oxygen to 4L NC. pt resting in bed at this time, O2 sat 90%.
--- NOTE | 2019-12-31 08:59 | PM.PN ---
Subjective Subjective: Interval history: Postop day #2 status post right above-knee amputation. Patient sitting up in chair and looks alert. Still episodes of agitation noted. Still requiring one-on-one sitter. Nurses also note some more labored breathing. I do concur with their assessment this is probably some volume overload from packed RBCs at her IV fluids. Potassium is improved though still a bit low. BUN and creatinine are okay. We have discontinue the IV fluids and administered 20 of Lasix. She will require more potassium supplement. Vitals/I&O/Wt Last Vital Signs Temp 98.0 F 12/31/19 07:07 Pulse 103 H 12/31/19 08:27 Resp 22 H 12/31/19 08:27 BP 169/76 12/31/19 07:07 Pulse Ox 90 12/31/19 08:27 12/30/19 12/31/19 12/31/19 22:59 06:59 14:59 Intake Total 1290 / 2652.083 350 / 3002.083 933.333 / 933.333 Output Total 350 / 800 550 / 1350 Balance 940 / 1852.083 -200 / 1652.083 933.333 / 933.333 Physical Exam Resp: COMMON NORMALS: normal respiratory effort EFFORT & INSPECTION: Yes symmetric chest movement and Yes prolonged expiratory phase AUSCULTATION: rales (Bases bilaterally) Cardio: COMMON NORMALS: regular rhythm RATE: tachycardic RHYTHM: regular rhythm Extremity: OTHER: AKA incision line is intact. No substantial swelling despite early inadvertent removal of the Hemovac drain. Urinary Catheter Management^: Best: Cath Placed During This Visit: yes Reason for Continuing Indwelling Catheter: Perioperative Use in Selected Surgeries Urinary Catheter Date of Insertion: 12/27/19 Urinary Catheter Time of Insertion: 16:08 Data : 12/31/19 05:16 12/31/19 05:16 Micro: Microbiology 12/27/19 11:02 Anaerobic Culture - Preliminary Leg - #1 A&P Assessment and plan (1) Status post above-knee amputation of right lower extremity: Postop day #2 status post right above-knee amputation. Modest volume overload. Plan: We will diurese today with Lasix 20 mg IV now which has been already administered. Potassium supplementation with 40 miliequivalents p.o. Will repeat CBC and BMP in a.m. with plans for probable discharge back to [facility] tomorrow. Greatly appreciate the expertise and oversight of Dr. Lowery from our hospitalist service. Status: Acute Attestations Medical Necessity Statement*: Status post right above-knee amputation for ongoing right lower extremity ischemia. Time Spent in Patient Care: 16 - 35 minutes Coding Level of Care Code Acute Finishing Frame Runner for Chg Fwd Diagnoses Status post above-knee amputation of right lower extremity Z89.611
[2019-12-31] MEDS: potassium chloride ER 10 mEq Tablet 40 MEQ PO (09:11)
--- NOTE | 2019-12-31 10:26 | PC.SOCIAL ---
IMM Update Pg. 2 of IMM given and explained to patient who verbalized understanding. Patient disoriented and has a 1:1 sitter. Will reinforce IMM education once mentation clears.
--- NOTE | 2019-12-31 11:25 | PC.OT ---
Patient experiencing multiple hallucination, patient unable to follow directions for evaluation at this time, will attempt later.
[2019-12-31 12:03] LABS: Glucose Point of Care 128 mg/dL (70-110)
--- NOTE | 2019-12-31 14:32 | PM.PN ---
Subjective Subjective: Interval history: No acute events overnight overnight. Today morning examination patient is more awake answering appropriately. Having her food in chair. She sounds very wet on examination today. Vitals/I&O/Wt Last Vital Signs Temp 98.3 F 12/31/19 11:42 Pulse 87 12/31/19 11:42 Resp 18 12/31/19 11:42 BP 181/76 12/31/19 11:42 Pulse Ox 91 12/31/19 11:42 12/30/19 12/31/19 12/31/19 22:59 06:59 14:59 Intake Total 1400 / 2762.083 350 / 3112.083 1283.333 / 1283.333 Output Total 350 / 800 550 / 1350 850 / 850 Balance 1050 / 1962.083 -200 / 1762.083 433.333 / 433.333 Physical Exam Const: COMMON NORMALS: patient oriented x3 and alert ORIENTATION/CONSCIOUSNESS: Yes oriented to person, Yes oriented to place and Yes oriented to time HENMT: COMMON NORMALS: normocephalic HEAD & SCALP: normocephalic Neck/C-Spine: COMMON NORMALS: full ROM, no lymphadenopathy and No carotid bruits Lymph: LYMPHATIC: no lymphadenopathy noted Chest: COMMONS NORMALS: normal palpation of entire chest wall Resp: COMMON NORMALS: normal respiratory effort and clear to auscultation bilaterally EFFORT & INSPECTION: Yes able to speak in complete sentences AUSCULTATION: clear to auscultation bilaterally Cardio: COMMON NORMALS: regular rate, regular rhythm, S1 normal heart sound present, No gallops present (Cardio) and No murmurs present (Cardio) RATE: regular rate RHYTHM: regular rhythm HEART SOUNDS: S1 normal heart sound present PERIPHERAL PULSES: femoral pulses present Extremity: OTHER: Right AKA dressing remains in place. Neuro: COMMON NORMALS: patient oriented x3 and no sensory deficits noted SENSORIUM/ORIENTATION: Yes alert, Yes oriented to person, Yes oriented to place and Yes oriented to time Psych: ATTITUDE: Yes calm and Yes engaged Urinary Catheter Management^: Best: Cath Placed During This Visit: yes Reason for Continuing Indwelling Catheter: Perioperative Use in Selected Surgeries Urinary Catheter Date of Insertion: 12/27/19 Urinary Catheter Time of Insertion: 16:08 Data : 12/31/19 05:16 12/31/19 05:16 Micro: Microbiology 12/27/19 11:02 Anaerobic Culture - Preliminary Leg - #1 A&P Assessment and plan (1) Left renal atrophy: Status: Acute (2) Dehiscence of surgical wound: Status: Acute (3) Cellulitis and abscess of lower extremity: Status: Acute (4) Status post below knee amputation of right lower extremity: Status: Acute (5) Ischemic cardiomyopathy: Status: Acute (6) Diabetes 1.5, managed as type 2: Status: Acute (7) Essential hypertension: Status: Acute (8) Hyperlipidemia: Status: Acute (9) H/O mitral valve repair: Status: Acute (10) Hx of CABG: Status: Acute (11) TRANG (acute kidney injury): Status: Acute Additional A&P Information Acute kidney injury: Resolved. Creatinine back to baseline. Patient has a history of global atrophy of the left kidney most likely because of renal artery stenosis as evident on the ultrasound from October 2019. Since discharge patient has been on Bactrim and Bumex. After review of urine lites, urine eosinophils and creatinine her etiology was most likely prerenal. Case discussed with Dr. Victor. Stop IV fluids. Given Lasix today morning. Will repeat another IV 20 mg. Continue holding Bumex for now. Medical reconciliation done for nephrotoxic drugs. Continue to monitor BMP daily. Does not have any signs of electro abnormalities of metabolic acidosis. Atrial fibrillation: Patient is rate controlled. Continue home dose of metoprolol 50 twice daily. Case discussed with Dr. Victor. Most likely patient would need an event monitor as an outpatient for next 2 weeks. If patient continues to have atrial fibrillation she would need anticoagulation. Patient has an appointment with Dr. Robb on January 22. Wound dehiscence: Post AKA on December 28. Wound cultures growing MRSA. Patient is on vancomycin and Zosyn. Patient is postop more than 24 hours. Can most likely stop as patient has remained afebrile and no leukocytosis. Will discuss with Dr. Victor. CAD post CABG: History of ischemic cardiomyopathy: Last echocardiogram done in April 2019 showed an EF 38% with grade 2 diastolic dysfunction. Also showed mild aortic stenosis, mild LA enlargement. At present patient looks mildly dehydrated. Continue to monitor for fluid overload. Continue chronic medication for hypertension like amlodipine, hydralazine. Goal blood pressure less than 140/90. Continue aspirin, statin. Type 2 diabetes mellitus: Insulin sliding scale. Patient has not required any insulin since admission. Will hold off on glargine for now. Most likely on discharge patient should go to SNF on lower dose of Bumex as it is quite possible that patient is getting overly dehydrated. Patient would also need to go on metoprolol with event monitor and follow-up with Dr. Robb as an outpatient on the set appointment. Case has been discussed with Dr. Victor. Telemetry. Carb consistent diet. Attestations Medical Necessity Statement*: As per primary team. Time Spent in Patient Care: Greater than 35 minutes (>than 50% of time spent in counselling and/or direct pt care on unit). Coding Level of Care Code Acute Special Effects Designer for Chg Fwd Diagnoses Left renal atrophy N26.1 Dehiscence of surgical wound T81.31XA Cellulitis and abscess of lower extremity L03.119; L02.419 Status post below knee amputation of right lower extremity Z89.511 Ischemic cardiomyopathy I25.5 Diabetes 1.5, managed as type 2 E13.9 Essential hypertension I10 Hyperlipidemia E78.5 H/O mitral valve repair Z98.890 Hx of CABG Z95.1 TRANG (acute kidney injury) N17.9
[2019-12-31 16:35] LABS: Glucose Point of Care 112 mg/dL (70-110)
[2019-12-31] MEDS: iron sucrose 200 MG in sodium chloride 0.9% (100 ml) 100 ML IV (16:53)
[2019-12-31] MEDS: ketorolac 30 mg/mL INJ IVP ×2 (16:57→22:41)
--- NOTE | 2019-12-31 18:30 | PC.NURSE ---
SHIFT SUMMARY PATIENT HAS DONE WELL SINCE RECEIVING 40MG IV LASIX, SHE HAS HAD GOOD URINE OUTPUT, CLEAR AND YELLOW IN COLOR. SHE HAS TAKEN HER DRESSING TO R STUMP THREE TIMES, THIS NURSE HAS REDRESSED IT EACH TIME. SHE HAS HAD PRN TORADOL AND OXYCODONE FOR PAIN BEFORE DRESSING CHANGES. INCISION IS ASYMPTOMATIC, NO DRAINAGE, REDNESS NOTED. PT RESTING IN BED AT THIS TIME WITH 1:1 SITTER, NO COMPLAINTS AT THIS TIME.
[2019-12-31] MEDS: atorvastatin 40 mg Tablet PO (20:36)
[2019-12-31 21:13] LABS: Glucose Point of Care 137 mg/dL (70-110)
[2020-01-01 00:13] VITALS: BP 169/74; PULSE 89; RESP 20; TEMP 36.6; O2SAT 94
[2020-01-01] MEDS: vancomycin 500 MG in sodium chloride 0.9% (plus) 100 ML 100 MG IV (02:05)
[2020-01-01 04:07] VITALS: BP 176/80; PULSE 89; RESP 20; TEMP 36.9; O2SAT 94
[2020-01-01] MEDS: piperacillin-tazobactam 3.375 GM in sodium chloride 0.9% (plus) 50 ML IV (04:15)
--- NOTE | 2020-01-01 05:36 | PC.NURSE ---
SHIFT SUMMARY Has rested well tonight. Remains confused with some occ hallucinations but has been pleasant and cooperative. Got dressing off right stump X1 and was redressed. Incision clean & dry. Guzman intact. 1:1 sitter at bedside all shift. IV antibiotics being administered as ordered. Good urine output
[2020-01-01 06:26] LABS: Basophils % 0.3 %; Eosinophils # 0.4 10^3/uL (0.0-0.8); Eosinophils % 3.9 %; Hematocrit 32.5 % (37.0-47.0); Lymphocytes # 0.7 10^3/uL (0.8-4.8); Lymphocytes % 6.8 %; Mean Corpuscular HGB Conc 30.8 g/dL (30.0-36.0); Mean Corpuscular Hemoglobin 28.1 pg (28.0-34.0); Mean Corpuscular Volume 91.3 fL (81-99); Mean Platelet Volume 10.2 fL (7.4-10.4); Monocytes % 9.9 %; Neutrophils # 7.76 10^3/uL (1.8-7.7); Nucleated Red Blood Cells % 0 %; Platelet Count 224 10^3/cmm (130-400); Red Blood Count 3.56 10^6/uL (4.1-5.3); Red Cell Distribution Width 15.5 % (12.1-15.1)
[2020-01-01 06:38] LABS: Glucose Point of Care 109 mg/dL (70-110)
[2020-01-01 06:45] LABS: Anion Gap 12.5 (5-19); Blood Urea Nitrogen 12 mg/dL (8-23); Calcium 8.1 mg/dL (8.5-10.5); Carbon Dioxide 22 mmol/L (22-29); Chloride 109 mmol/L (98-107); Glucose 87 mg/dL (65-115); Osmolality Calculated 285 mOsm/kg (285-295); Potassium 3.5 mmol/L (3.5-5.1); Sodium 140 mmol/L (136-145)
--- NOTE | 2020-01-01 07:43 | PC.NURSE ---
Dressing change done by Dr. Victor during rounding
--- NOTE | 2020-01-01 07:44 | PC.NURSE ---
Per Dr Victor, try to wean patient off oxygen and patient can be discharged later today to [facility].
[2020-01-01 07:49] VITALS: BP 114/78; PULSE 92; RESP 18; TEMP 36.4; O2SAT 97
--- NOTE | 2020-01-01 07:54 | PC.NURSE ---
Rcvd verbal order from Dr Victor to remove hoffman catheter
--- NOTE | 2020-01-01 08:50 | PM.DCS ---
Discharge Providers Date of Admission: 12/26/19 16:26 Date of Discharge: January 01, 2020 Attending Provider at Admission: Moustapha Victor MD Attending Provider at Discharge: Moustapha Vicotr MD Primary Care Provider: Amber Esquivel MD Diagnoses at Discharge Discharge Diagnosis (1) Left renal atrophy: Status: Acute (2) Dehiscence of surgical wound: Status: Acute (3) Cellulitis and abscess of lower extremity: Status: Acute (4) Status post below knee amputation of right lower extremity: Status: Acute (5) Ischemic cardiomyopathy: Status: Acute (6) Diabetes 1.5, managed as type 2: Status: Acute (7) Essential hypertension: Status: Acute (8) Hyperlipidemia: Status: Acute (9) H/O mitral valve repair: Status: Acute (10) Hx of CABG: Status: Acute (11) TRANG (acute kidney injury): Status: Acute Reason for Visit Reason for Visit: Brief History: Dehiscence right BKA Hospital Course Discharge Summary: Ms. Serrato is a 74-year-old female status post right below-knee amputation November 13 due to ongoing ischemia and gangrenous changes on attempted revascularization for severe peripheral vascular disease. During follow-up she is noted to develop further dehiscence of her right BKA which would be consistent with the level of ischemia below the knee. Because of this, she was electively admitted on December 25 and underwent operative debridement the following day on December 26 and was placed on IV antibiotics to include Primaxin and vancomycin. MRSA was recovered from the wound. Over the next 2 days there was no substantial improvement in the tissue and therefore on December 28 she underwent a right above-knee amputation. She developed atrial fibrillation briefly postoperatively and has converted back to sinus rhythm now at the time of discharge. She inadvertently removed her drain on the afternoon of her surgery. Fortunately, there is been no substantial fluid collections and the incision line looks clean and dry. Early postop confusion has completely resolved and she appears to be back at baseline. She did have some modest volume overload and underwent diuresis yesterday with return to baseline of her pulmonary status. She did require one-on-one sitter in the early postop period. She is tolerating a diet well. She is now eager for return to [facility]. She will be discharged there today in stable condition for follow-up in wound care services in 1 week. Physical Exam Extremity: COMMON NORMALS: normal to inspection (Right AKA incision line is clean, dry, and intact. No substantial swelling.) Urinary Catheter Management^: Best: Cath Placed During This Visit: yes, but has since been removed by the nurse Reason for Continuing Indwelling Catheter: Other Urinary Catheter Date of Insertion: 12/27/19 Urinary Catheter Time of Insertion: 16:08 Date Urinary Catheter Removed: 01/01/20 Time Urinary Catheter Discontinued: 08:03 Discharge Data Data Completed and Pending: Completed Studies During Hospitalization Category Date Time Status XR chest 1V fuad ble [id number] Routine Exams 12/26/19 17:39 Completed Pending at discharge Category Date Time Status Anaerobic Culture Routine Lab 12/27/19 11:02 Results Vancomycin Trough Timed Lab 01/02/20 01:00 Ordered Pathology: Surgic al [PTH] Routine Pth 12/29/19 17:18 Ordered Labs from last 24 hours 01/01/20 01/01/20 01/01/20 06:33 04:55 04:55 WBC 10.0 RBC 3.56 L Hgb 10.0 L Hct 32.5 L MCV 91.3 MCH 28.1 MCHC 30.8 RDW 15.5 H Plt Count 224 MPV 10.2 Neut % (Auto) 78.0 Lymph % (Auto) 6.8 [place] % (Auto) 9.9 Eos % (Auto) 3.9 Baso % (Auto) 0.3 Neut # (Auto) 7.76 H Lymph # (Auto) 0.7 L [place] # (Auto) 1.0 H Eos # (Auto) 0.4 Baso # (Auto) 0.0 Nucleated RBC % (a uto) 0 Nucleated RBCs # 0.0 Sodium 140 Potassium 3.5 Chloride 109 H Carbon Dioxide 22 Anion Gap 12.5 BUN 12 Creatinine 1.0 H GFR Calculation Not Reportable Glucose 87 POC Glucose 109 Calculated Osmolal ity 285 Calcium 8.1 L 12/31/19 12/31/19 12/31/19 20:58 16:27 11:38 WBC RBC Hgb Hct MCV MCH MCHC RDW Plt Count MPV Neut % (Auto) Lymph % (Auto) [place] % (Auto) Eos % (Auto) Baso % (Auto) Neut # (Auto) Lymph # (Auto) [place] # (Auto) Eos # (Auto) Baso # (Auto) Nucleated RBC % (a uto) Nucleated RBCs # Sodium Potassium Chloride Carbon Dioxide Anion Gap BUN Creatinine GFR Calculation Glucose POC Glucose 137 112 128 Calculated Osmolal ity Calcium Vitals: Last Vital Signs Temp 97.6 F 01/01/20 07:49 Pulse 92 01/01/20 07:49 Resp 18 01/01/20 07:49 BP 114/78 01/01/20 07:49 Pulse Ox 97 01/01/20 07:49 Discharge Plan Discharge Patient Disposition: Xfer SNF Condition: Stable Prescriptions: Continued bumetanide 2 mg tablet 2 mg PO DAILY RF: 0 atorvastatin 40 mg tablet 40 mg PO BEDTIME RF: 0 omeprazole 40 mg capsule,delayed release(DR/EC) 40 mg PO DAILY RF: 0 citalopram 20 mg tablet 20 mg PO DAILY RF: 0 allopurinol 300 mg tablet 300 mg PO DAILY RF: 0 aspirin [Adult Low Dose Aspirin] 81 mg tablet,delayed release (DR/EC) 81 mg PO DAILY RF: 0 hydrocodone-acetaminophen 10-325 mg Tablet 1 tab PO Q6H PRN (Reason: Pain, Moderate) RF: 0 insulin glargine 100 unit/mL Solution 45 unit SUBCUT QPM RF: 0 ProAir HFA 2 puff PO PRN RF: 0 amlodipine 10 mg Tablet 10 mg PO DAILY Qty: 30 RF: 0 hydralazine 50 mg Tablet 50 mg PO TID Qty: 90 RF: 0 Lanolin (HPA) 100 % Cream 1 applic topical PRN PRN (Reason: Dryness) Qty: 1 RF: 0 metoprolol tartrate 50 mg tablet 50 mg PO BIDWM Qty: 0 RF: 0 Discontinued levofloxacin [Levaquin] 500 mg Tablet See Rx Instructions .ROUTE .COMPLEX RF: 0 Discharge Orders: Discharge Order (Routine); Ordered 01/01/20 Ordered By: Moustapha Victor Other Ambulatory Orders: [place] 2 week event monitor (Routine) Timeframe: 1 Week Facility[place] [facility] [place] Location: Cardiac Diagnostic Laboratory Ordered By: Fran Lowery Referrals: [facility]Outside[facility] WOUND [facility], [Staff Physician] - 01/09/20 Discharge Diet: Diabetic Discharge Activity: Limit activity as instructed Patient Instructions: Above the Knee Amputation (DC), Debridement (DC) Activity Restrictions/Additional Instructions: Clean incision line daily and paint with Betadine. Cover incision line to prevent irritation and abrasion while sitting up in chair. Report any increasing redness, swelling, drainage, increasing pain, or fever Discharge Attestations Time Spent in Discharge Care*: less than 30 min Specific Discharge Activities: Specific discharge activities: educating patient, discussing with pcp/other providers, discussing with casework manager/social workers/dc planners, documenting/other paperwork and evaluating patient/reviewing data Status at Discharge: Cognitive status at discharge: cognitively intact, Behavioral status at discharge: cooperative, Functional status at discharge: wheelchair bound Overall status at discharge: patient has a new baseline Quality Metrics Clinical Quality Measures During this hospital stay, did patient experience: None Coding Level of Care 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
[2020-01-01] MEDS: citalopram 20 mg Tablet PO (09:08)
[2020-01-01] MEDS: pantoprazole DR 40 mg Tablet PO (09:08)
[2020-01-01] MEDS: hyDRALAzine 50 mg Tablet PO (09:08)
[2020-01-01] MEDS: metoprolol tartrate 50 mg Tablet PO (09:08)
[2020-01-01] MEDS: allopurinol 300 mg Tablet PO (09:08)
[2020-01-01] MEDS: aspirin 81 mg Chew Tablet PO (09:08)
[2020-01-01 09:11] VITALS: PULSE 97; RESP 18; O2SAT 92
--- NOTE | 2020-01-01 10:34 | PC.NURSE ---
Notified Dr. Victor about MRSA + in wound culture, reports he is aware and to continue with discharge as ordered.
[2020-01-01 11:34] LABS: Glucose Point of Care 130 mg/dL (70-110)
[2020-01-01 12:10] VITALS: BP 101/65; PULSE 90; RESP 18; TEMP 36.7; O2SAT 95
[2020-01-01 12:42] VITALS: BP 101/65; PULSE 90; RESP 18; TEMP 36.7; O2SAT 95
--- NOTE | 2020-01-02 14:03 | P.PN_ITS ---
Subjective Subjective: Interval history: Final progress note from 01/01/2020 This morning patient was examined, there are plans on discharging to the intermediate, no fevers, no chills, no nausea, no vomiting, no lightheaded, dizziness, no complaints of chest palpitations, states that she is doing well, ready to go to the intermediate Vitals/I&O/Wt Last Vital Signs Temp 98.0 F 01/01/20 12:42 Pulse 90 01/01/20 12:42 Resp 18 01/01/20 12:42 BP 101/65 01/01/20 12:42 Pulse Ox 95 01/01/20 12:42 Physical Exam Const: COMMON NORMALS: no acute distress and patient oriented x3 HENMT: COMMON NORMALS: normocephalic HEAD & SCALP: normocephalic Neck/C-Spine: COMMON NORMALS: no JVD Resp: COMMON NORMALS: normal respiratory effort, No retractions, No use of accessory muscles and clear to auscultation bilaterally AUSCULTATION: clear to auscultation bilaterally Cardio: COMMON NORMALS: no JVD, regular rate, regular rhythm, S1 normal heart sound present and S2 normal heart sound present RATE: regular rate RHYTHM: regular rhythm HEART SOUNDS: S1 normal heart sound present and S2 normal heart sound present GI: COMMON NORMALS: Normal to inspection, nondistended, normoactive bowel sounds present, Soft to palpation, non-tender, No hepatosplenomegaly present, no masses and no bruits PALPATION: Yes Soft to palpation and Yes No hepatosplenomegaly present Neuro: COMMON NORMALS: patient oriented x3 Psych: COMMON NORMALS: mental status grossly normal Urinary Catheter Management^: Best: Cath Placed During This Visit: yes, but has since been removed by the nurse Reason for Continuing Indwelling Catheter: Other Urinary Catheter Date of Insertion: 12/27/19 Urinary Catheter Time of Insertion: 16:08 Date Urinary Catheter Removed: 01/01/20 Time Urinary Catheter Discontinued: 08:03 Data : 01/01/20 04:55 01/01/20 04:55 Micro: Microbiology 12/27/19 11:02 Anaerobic Culture - Preliminary Leg - #1 A&P Assessment and plan (1) Left renal atrophy: (2) Dehiscence of surgical wound: (3) Cellulitis and abscess of lower extremity: (4) Status post below knee amputation of right lower extremity: (5) Ischemic cardiomyopathy: Status: Acute (6) Diabetes 1.5, managed as type 2: Status: Acute (7) Essential hypertension: Status: Acute (8) Hyperlipidemia: Status: Acute (9) H/O mitral valve repair: (10) Hx of CABG: (11) TRANG (acute kidney injury): Status: Resolved Additional A&P Information Acute kidney injury: Creatinine 1.0 Patient has a history of global atrophy of the left kidney most likely because of renal artery stenosis as evident on the ultrasound from October 2019. Discharged on lower dose of Bumex 1 mg daily Atrial fibrillation: Patient is rate controlled. Continue home dose of metoprolol 50 twice daily. Case discussed with Dr. Victor Discharged on event monitor for 2 weeks. If patient continues to have atrial fibrillation she would need anticoagulation. Patient has an appointment with Dr. Robb on January 22. Wound dehiscence: Post AKA on December 28. Wound cultures growing MRSA. Patient is on vancomycin and Zosyn. Patient is postop more than 48 hours. Can most likely stop as patient has remained afebrile and no leukocytosis. CAD post CABG: History of ischemic cardiomyopathy: Last echocardiogram done in April 2019 showed an EF 38% with grade 2 diastolic dysfunction. Also showed mild aortic stenosis, mild LA enlargement. At present patient looks mildly dehydrated. Continue to monitor for fluid overload. Continue chronic medication for hypertension like amlodipine, hydralazine. Goal blood pressure less than 140/90. Continue aspirin, statin. Type 2 diabetes mellitus: Insulin sliding scale. Telemetry. Carb consistent diet. 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
--- NOTE | 2020-01-03 12:21 | PC.RESP ---
Pulmonary Rehab information sent to patient.
== END 2020-01-01 12:43 | disposition skilled nursing facility (03) | DRG 464 ==
PROVIDERS: Student in an Organized Health Care Education/Training Program; Admitting Provider Thoracic Surgery (Cardiothoracic Vascular Surgery); PCP Internal Medicine; Visit Provider Thoracic Surgery (Cardiothoracic Vascular Surgery)
PROC: 0JBN0ZZ Excision of Right Lower Leg Subcutaneous Tissue and Fascia, Open Approach (ICD-10-PCS; principal; 2019-12-27 10:20)
PROC: 30233N1 Transfusion of Nonautologous Red Blood Cells into Peripheral Vein, Percutaneous Approach (ICD-10-PCS; CPT 27590; principal; 2019-12-29 15:30)
DX: T87.81 Dehiscence of amputation stump (principal); I50.42 Chronic combined systolic (congestive) and diastolic (congestive) heart failure; N17.9 Acute kidney failure, unspecified; I97.191 Other postprocedural cardiac functional disturbances following other surgery; N39.0 Urinary tract infection, site not specified; I13.0 Hypertensive heart and chronic kidney disease with heart failure and stage 1 through stage 4 chronic kidney disease, or unspecified chronic kidney disease; L03.119 Cellulitis of unspecified part of limb; L02.419 Cutaneous abscess of limb, unspecified; Z86.718 Personal history of other venous thrombosis and embolism; Z89.511 Acquired absence of right leg below knee; J44.9 Chronic obstructive pulmonary disease, unspecified; E78.5 Hyperlipidemia, unspecified; I25.5 Ischemic cardiomyopathy; I08.0 Rheumatic disorders of both mitral and aortic valves; I27.20 Pulmonary hypertension, unspecified; Z87.891 Personal history of nicotine dependence; Z95.1 Presence of aortocoronary bypass graft; I48.91 Unspecified atrial fibrillation; N18.9 Chronic kidney disease, unspecified; Z79.891 Long term (current) use of opiate analgesic; Z79.4 Long term (current) use of insulin; Z79.51 Long term (current) use of inhaled steroids; I70.1 Atherosclerosis of renal artery; E13.42 Other specified diabetes mellitus with diabetic polyneuropathy; E13.51 Other specified diabetes mellitus with diabetic peripheral angiopathy without gangrene
CPT/HCPCS: 11043; 12345; 36415; 36416; 36430; 51702; 71045; 80048; 80053; 80202; 81001; 82436; 82550; 82570; 82962; 83036; 83540; 83550; 83880; 84133; 84156; 84300; 85025; 85610; 85999; 86850; 86900; 86920; 87070; 87075; 87077; 87186; 87641; 88307; 93005; 93010; 94640; 96372; 96375; 97161; 97165; 97166; 97530; G0463; J1756; J1815; J1885; J1940; J2250; J2270; J2543; J2704; J3010; J3370; J3490; J3535; J7030; J7050; P9016

== ENCOUNTER 2020-01-03 09:13 | Outpatient (CLI) | payer MEDICARE, OTHER, SELFPAY | END 2020-01-03 09:14 | disposition home or self-care (01) | LOC: WOUND 09:14 | PROVIDERS: PCP Internal Medicine; Visit Provider Thoracic Surgery (Cardiothoracic Vascular Surgery) | DX: E11.622 Type 2 diabetes mellitus with other skin ulcer (principal); L97.812 Non-pressure chronic ulcer of other part of right lower leg with fat layer exposed; Z89.511 Acquired absence of right leg below knee | CPT/HCPCS: G0463 ==

== ENCOUNTER 2020-01-09 15:13 | Outpatient (CLI) | payer MEDICARE, OTHER, SELFPAY | END 2020-01-09 15:14 | disposition home or self-care (01) | LOC: WOUND 15:14 | PROVIDERS: PCP Internal Medicine; Visit Provider Nurse Practitioner Family | DX: Z89.611 Acquired absence of right leg above knee (principal) | CPT/HCPCS: G0463 ==

== ENCOUNTER 2020-01-23 14:26 | Outpatient (CLI) | payer MEDICARE, OTHER, SELFPAY | END 2020-01-23 14:27 | disposition home or self-care (01) | LOC: WOUND 14:27 | PROVIDERS: PCP Internal Medicine; Visit Provider Thoracic Surgery (Cardiothoracic Vascular Surgery) | DX: Z09 Encounter for follow-up examination after completed treatment for conditions other than malignant neoplasm (principal) | CPT/HCPCS: 99211; L8440 ==

== ENCOUNTER 2020-02-06 13:07 | Outpatient (CLI) | payer MEDICARE, OTHER, SELFPAY | END 2020-02-06 13:08 | disposition home or self-care (01) | LOC: WOUND 13:08 | PROVIDERS: PCP Internal Medicine; Visit Provider Thoracic Surgery (Cardiothoracic Vascular Surgery) | DX: Z09 Encounter for follow-up examination after completed treatment for conditions other than malignant neoplasm (principal); Z89.611 Acquired absence of right leg above knee | CPT/HCPCS: 99212; L8440 ==

== ENCOUNTER 2020-02-13 14:29 | Outpatient (CLI) | payer MEDICARE, OTHER, SELFPAY | END 2020-02-13 14:30 | disposition home or self-care (01) | LOC: WOUND 14:34 | PROVIDERS: PCP Internal Medicine; Visit Provider Thoracic Surgery (Cardiothoracic Vascular Surgery) | DX: Z09 Encounter for follow-up examination after completed treatment for conditions other than malignant neoplasm (principal); Z89.611 Acquired absence of right leg above knee | CPT/HCPCS: 99212 ==

== ENCOUNTER 2020-05-30 06:00 | Outpatient (RCR) | payer MEDICARE, OTHER, MEDICAID, SELFPAY | END 2020-06-23 23:59 | disposition home or self-care (01) | LOC: MPT 06:00 | PROVIDERS: PCP Internal Medicine; Referring Provider Internal Medicine; Visit Provider Internal Medicine | DX: Z89.519 Acquired absence of unspecified leg below knee (principal) | CPT/HCPCS: 97110; 97116; 97161 ==

== ENCOUNTER 2020-06-24 06:00 | Outpatient (RCR) | payer MEDICARE, OTHER, MEDICAID, SELFPAY | END 2020-07-21 23:59 | disposition home or self-care (01) | LOC: MPT 06:00 | PROVIDERS: PCP Internal Medicine; Referring Provider Internal Medicine; Visit Provider Internal Medicine | DX: Z89.519 Acquired absence of unspecified leg below knee (principal) | CPT/HCPCS: 97110; 97116 ==

== ENCOUNTER 2020-07-22 06:00 | Outpatient (RCR) | payer MEDICARE, OTHER, MEDICAID, SELFPAY | END 2020-08-21 23:59 | disposition home or self-care (01) | LOC: MPT 06:00 | PROVIDERS: PCP Internal Medicine; Referring Provider Internal Medicine; Visit Provider Internal Medicine | DX: Z89.519 Acquired absence of unspecified leg below knee (principal) | CPT/HCPCS: 97110; 97116; 97530 ==

== ENCOUNTER 2020-08-22 06:00 | Outpatient (RCR) | payer MEDICARE, OTHER, MEDICAID, SELFPAY | END 2020-09-20 23:59 | disposition home or self-care (01) | LOC: MPT 06:00 | PROVIDERS: PCP Internal Medicine; Referring Provider Internal Medicine; Visit Provider Internal Medicine | DX: Z89.519 Acquired absence of unspecified leg below knee (principal) | CPT/HCPCS: 97116; 97530 ==

== ENCOUNTER 2020-09-21 06:00 | Outpatient (RCR) | payer MEDICARE, OTHER, MEDICAID, SELFPAY | END 2020-10-21 23:59 | disposition home or self-care (01) | LOC: MPT 06:00 | PROVIDERS: PCP Internal Medicine; Referring Provider Internal Medicine; Visit Provider Internal Medicine | DX: Z89.519 Acquired absence of unspecified leg below knee (principal) | CPT/HCPCS: 97116; 97530 ==